=== PATIENT | female | born 1975 | race Caucasian/White ===

== ENCOUNTER 2017-11-21 12:42 | Day surgery (SDC) | payer BC, SELFPAY ==
[2017-11-21 13:02] VITALS: BP 178/82; PULSE 84; RESP 16; TEMP 36.6; O2SAT 95; BMI 53.2
--- NOTE | 2017-11-21 13:35 | RAD_ITS ---
PROCEDURE: Caudal block. DATE OF EXAMINATION: November 21, 2017. INDICATION: Female, 42 years old. Low back pain. FLUOROSCOPY TIME (if supplied): (0:18) minutes/seconds Intraoperative imaging provided for caudal block. The spinal needle is seen along the posterior mid portion of the sacrum. RAD/Fluor Guidance for Spine Inj IMPRESSION: Intraoperative imaging provided for caudal block. Electronically Signed: Alexander Thomas MD at 15:25 EDT Tel [phone], Service support ,
[2017-11-21] MEDS: Bupivacaine 0.25% 30 ML Vial (13:44)
[2017-11-21] MEDS: MethylPREDNISolone Acetate 80 MG/ML Vial (13:44)
[2017-11-21 13:50] VITALS: BP 143/87; BP 178/82; PULSE 73; RESP 18; TEMP 36.6; O2SAT 98
[2017-11-21 13:55] VITALS: BP 153/105; BP 178/82; PULSE 81; RESP 18; O2SAT 98
[2017-11-21 14:00] VITALS: BP 171/95; BP 178/82; PULSE 76; RESP 18; O2SAT 98
[2017-11-21 14:05] VITALS: BP 171/97; BP 178/82; PULSE 73; RESP 18; TEMP 36.7; O2SAT 97
--- NOTE | 2017-11-21 14:05 | OP.PCM_ITS ---
Problem List (1) Degeneration of lumbar or lumbosacral intervertebral disc Status: Chronic (2) Radiculopathy of lumbosacral region Status: Chronic Report of Operation Date of Procedure: 11/21/17 Pre-Operative Diagnosis: Lumbosacral radiculopathy, lumbosacral degenerative disc disease, lumbosacral spinal stenosis Post-Operative Diagnosis: Lumbosacral radiculopathy, lumbosacral degenerative disc disease, lumbosacral spinal stenosis Surgery/Procedure Performed:: Diagnostic/therapeutic caudal epidural steroid injection Description of Surgical Findings:: PROCEDURE: Diagnostic/therapeutic caudal epidural steroid injection PREOPERATIVE DIAGNOSIS: Lumbosacral radiculopathy, lumbosacral degenerative disc disease, lumbosacral spinal stenosis POSTOPERATIVE DIAGNOSIS: Lumbosacral radiculopathy, lumbosacral degenerative disc disease, lumbosacral spinal stenosis ANESTHESIA: MAC COMPLICATIONS: None BLOOD LOSS: Minimal PROCEDURE IN DETAIL: History and physical today was reviewed. Risks and benefits of the procedure were explained. The patient understood, agreed to our procedure, and informed consent was obtained. IV inserted per routine protocol. The patient was taken to the operating room, placed in a prone position with a pillow positioned underneath the abdomen. The lower back and tailbone area was prepped and draped in a sterile fashion using iodine ?3 under direct visualization fluoroscopy on the lateral view the caudal space was identified the skin and subcutaneous tissue and size approximately 3 cc of 1% lidocaine using a 25-gauge regular needle under direct visualization with fluoroscopy on the lateral view using a 22-gauge 3-1/2 inch spinal needle the needle was advanced via the skin through the sacral hiatus the peroneal passed through the sacrococcygeal ligament advanced approximately S4 area after negative aspiration of blood or CSF a total of 3 cc of contrast were injected to confirm correct placement of the needle as well as cephalad spread spread was followed to approximately L5 area after confirmation AP as well as lateral view and repeated negative aspiration a total of 15 cc of preservative-free 0.125% Marcaine with 80 mg of the portal was injected easily. The needles were then removed intact. The patient experienced no signs or symptoms intrathecal, intravascular injection. The patient experienced no paraesthesia. The procedure was completed without any apparent difficult, any complication. The patient appeared to tolerate well. ASSESSMENT AND PLAN: This is a 42-year-old female with lumbosacral radiculopathy lumbosacral degenerative disc disease lumbosacral spinal stenosis status post diagnostic/ therapeutic caudal epidural steroid injection. The patient will continue his current medications. The patient will follow in approximately 2 weeks for possible repeat of the procedure if indicated.
[2017-11-21 14:29] VITALS: BP 171/97; BP 178/82
== END 2017-11-21 14:32 | disposition home or self-care (01) ==
LOC: SDC 12:44 → AC 12:46
PROVIDERS: Visit Provider Anesthesiology Pain Medicine
PROC: 3E0S3BZ Introduction of Anesthetic Agent into Epidural Space, Percutaneous Approach (ICD-10-PCS; CPT 62282; principal; 2017-11-21 14:05)
DX: M51.17 Intervertebral disc disorders with radiculopathy, lumbosacral region (principal); M48.061 Spinal stenosis, lumbar region without neurogenic claudication; M46.98 Unspecified inflammatory spondylopathy, sacral and sacrococcygeal region; M54.5 Low back pain; M79.1 Myalgia; Z79.891 Long term (current) use of opiate analgesic; F17.200 Nicotine dependence, unspecified, uncomplicated; E66.3 Overweight; Z68.43 Body mass index [BMI] 50.0-59.9, adult
CPT/HCPCS: 64483; 77003; J7120; J3490

== ENCOUNTER 2018-01-09 11:49 | Day surgery (SDC) | payer BC, SELFPAY ==
[2018-01-09 12:04] VITALS: BP 150/90; PULSE 81; RESP 18; TEMP 36.4; O2SAT 96; BMI 52.7
--- NOTE | 2018-01-09 13:07 | RAD_ITS ---
PROCEDURE: Caudal block. DATE OF EXAMINATION: January 09, 2018. INDICATION: Female, 42 years old. FLUOROSCOPY TIME (if supplied): (0:36) minutes/seconds Intraoperative fluoroscopic services provided for caudal block. The spinal needle is seen along the inferior posterior aspect of the sacrum. RAD/Fluor Guidance for Spine Inj IMPRESSION: Imaging provided for caudal block. Electronically Signed: Alexander Thomas MD at 8:19 EDT Tel [phone], Service support ,
[2018-01-09] MEDS: MethylPREDNISolone Acetate 80 MG/ML Vial (13:15)
[2018-01-09] MEDS: Bupivacaine 0.25% 30 ML Vial (13:17)
[2018-01-09 13:25] VITALS: BP 150/90; BP 153/77; PULSE 92; RESP 20; TEMP 36.6; O2SAT 96
[2018-01-09 13:30] VITALS: BP 142/79; BP 150/90; PULSE 75; RESP 18; O2SAT 93
[2018-01-09 13:35] VITALS: BP 146/75; BP 150/90; PULSE 71; RESP 18; O2SAT 93
[2018-01-09 13:40] VITALS: BP 144/57; BP 150/90; PULSE 71; RESP 16; TEMP 37; O2SAT 94
[2018-01-09 13:57] VITALS: BP 150/90
--- NOTE | 2018-01-09 15:04 | PCM.OPRPT ---
Problem List (1) Degeneration of lumbar or lumbosacral intervertebral disc Status: Chronic (2) Radiculopathy of lumbosacral region Status: Chronic Report of Operation Date of Procedure: 01/09/18 Pre-Operative Diagnosis: Lumbosacral radiculopathy, lumbosacral degenerative disc disease Post-Operative Diagnosis: Lumbosacral radiculopathy, lumbosacral degenerative disc disease Surgery/Procedure Performed:: Caudal epidural steroid injection Description of Surgical Findings:: PROCEDURE: Caudal epidural steroid injection PREOPERATIVE DIAGNOSIS: Lumbosacral radiculopathy, lumbosacral degenerative disc disease POSTOPERATIVE DIAGNOSIS: Lumbosacral radiculopathy, lumbosacral degenerative disc disease ANESTHESIA: MAC COMPLICATIONS: None BLOOD LOSS: Minimal PROCEDURE IN DETAIL: History and physical today was reviewed. Risks and benefits of the procedure were explained. The patient understood, agreed to our procedure, and informed consent was obtained. IV inserted per routine protocol. The patient was taken to the operating room, placed in a prone position with a pillow positioned underneath the abdomen. The Lower back and tailbone area was prepped and draped in a sterile fashion using iodine ?3, under fluoroscopy guidance on the lateral view the caudal space was identified the skin and subcutaneous tissue and size approximately 3 cc of 1% lidocaine using a 25-gauge regular needle under direct visualization with fluoroscopy using a 22-gauge 3-1/2 inch spinal needle the needle was advanced via the skin through the sacral hiatus the needle then was passed through the sacrococcygeal ligament and advanced to approximately S4 area, after negative aspiration for blood or CSF, a total of 3 cc of contrast were injected to confirm correct placement of the needle as well as cephalad spread the spread was followed to approximately L5 area. after confirmation on AP as well as lateral view and repeated negative aspiration, a total of 15 cc of preservative-free 0.125% Marcaine with 80 mg of Depo-Medrol was injected easily. The needles were then removed intact. The patient experienced no signs or symptoms intrathecal, intravascular injection. The patient experienced no paraesthesia. The procedure was completed without any apparent difficult, any complication. The patient appeared to tolerate well. ASSESSMENT AND PLAN: This is a 42-year-old female with lumbosacral radiculopathy, lumbosacral degenerative disc disease, status post caudal epidural steroid injection. The patient will continue her current medications. The patient will follow in approximately 2 weeks for possible repeat of the procedure if indicated.
== END 2018-01-09 13:57 | disposition home or self-care (01) ==
LOC: SDC 11:49 → AC 11:50
PROVIDERS: Visit Provider Anesthesiology Pain Medicine
PROC: 3E0S3BZ Introduction of Anesthetic Agent into Epidural Space, Percutaneous Approach (ICD-10-PCS; CPT 62282; principal; 2018-01-09 12:45)
DX: M47.27 Other spondylosis with radiculopathy, lumbosacral region (principal); M51.37 Other intervertebral disc degeneration, lumbosacral region; M46.96 Unspecified inflammatory spondylopathy, lumbar region; L40.50 Arthropathic psoriasis, unspecified; M06.9 Rheumatoid arthritis, unspecified; R01.1 Cardiac murmur, unspecified; Z79.891 Long term (current) use of opiate analgesic; Z79.899 Other long term (current) drug therapy; F12.90 Cannabis use, unspecified, uncomplicated; F17.200 Nicotine dependence, unspecified, uncomplicated
CPT/HCPCS: 62323; 64483; 77003; J7120; J3490

== ENCOUNTER 2018-01-31 23:44 | Emergency (ER) | payer BC, SELFPAY ==
[2018-01-31 23:44] VITALS: BP 168/100; PULSE 81; RESP 16; TEMP 36.6; O2SAT 95; BMI 49.8
--- NOTE | 2018-02-01 00:17 | ED.VISSUMM ---
- ER Visit Summary Date of Service: 02/01/18 Chief Complaint: Left low back pain and left leg History of Present Illness: The patient is a 42 F with history of psoriatic arthritis who presents to the emergency department with increasing left low back pain into her left leg. The patient follows with Dr. Ceja. She did have epidural injection just about a month ago. She states for 2 weeks, she was doing very well. She thinks that she may have done too much. Over the past 4-5 days, she had increasing burning pain from her left buttock down her left leg. She states that it hurts to walk on. She did not feel weak, but just has pain. She denies any problems of bowel or bladder. She denies any fevers or chills. She is on gabapentin, but states is not controlling the pain. Physical Examination: Afebrile, vitals unremarkable. Well-appearing female no acute distress. Head is normocephalic, atraumatic. Pupil's equal round reactive, extraocular muscles intact. Neck supple. Heart regular rate and rhythm. Lungs clear, chest nontender. Abdomen soft, nontender, nondistended. No pulsatile mass. Patient has paraspinal tenderness in the lumbar area, but no bony tenderness. Straight leg raise is positive on the left which recreates pain and paresthesia. 2+ symmetric lower extremity pulses. 2+ reflexes. No clonus. No weakness of dorsiflexion, plantar flexion, or extensor hallucis longus bilaterally. Test Results: [] Emergency Department Course and Treatment: The patient symptoms that are consistent with a lumbar radiculopathy. She has normal pulses and reflexes. There is no edema of her leg. The pain is worse when she bears weight or when her leg is in motion. I do not feel that imaging is necessary. She has no red flag symptoms. She has a normal gait. The patient was treated with IM medications with improvement. She is able to ambulate with improvement of her pain. I do feel that the patient will benefit from a Medrol Dosepak she has had improvement with steroids before. She is in pain management. I will write her for antispasmodics. The patient be discharged home. Treatment Plan: [] Disposition: The Impression: 1. Left lumbar radiculopathy This note was generated with Reading Rainbow[employer] software. It may contain incorrect words, spelling, and punctuation that were not noted in review of the chart prior to signing ED Disposition - Plan for ED Patient: Chief Complaint: Lower Extremity Injury Instructions: ED Sciatica Prescriptions: MethylPREDNISolone DosePak [Medrol DosePak] 4 mg PO UD #1 box Cyclobenzaprine [Flexeril] 10 mg PO TID PRN #20 tab PRN Reason: Muscle Spasm Referrals: Care Physician,No Primary [Primary Care Provider] -
[2018-02-01] MEDS: predniSONE 20 MG Tablet 60 MG PO (00:47)
[2018-02-01] MEDS: morphine 8 MG/ML Syringe IM (00:48)
[2018-02-01] MEDS: Orphenadrine 60 MG/2 ML Ampul IM (00:49)
[2018-02-01] MEDS: HYDROcodone Bitartrate/Apap 5/325 Tablet PO (01:33)
[2018-02-01 01:34] VITALS: PULSE 79; RESP 16; O2SAT 98
== END 2018-02-01 01:35 | disposition home or self-care (01) ==
LOC: ED 02-01 00:22
PROVIDERS: Emergency Provider Emergency Medicine
DX: M54.16 Radiculopathy, lumbar region (principal); L40.50 Arthropathic psoriasis, unspecified
CPT/HCPCS: 96372; 99282

== ENCOUNTER → 2018-02-09 17:45 | Outpatient (CLI) | payer BC, SELFPAY ==
--- NOTE | 2018-02-09 17:58 | MRI_ITS ---
STUDY: MRI LUMBAR SPINE WITHOUT CONTRAST REASON FOR EXAM: Female, 42 years old. L leg no wt bearing, L hip buttock pain TECHNIQUE: Standardized fat and water weighted pulse sequences were obtained in the sagittal and axial planes. COMPARISON: None FINDINGS: T12-L1: Normal endplates. Normal disc height, hydration and morphology. Normal bilateral facet joints. Normal central canal and bilateral lateral recesses. Normal bilateral intervertebral neural foramina. Normal lumbar lordosis. There is no substantial scoliosis. Normal conus medullaris that terminates at the L1 level. L1-2: Normal endplates. Normal disc height, hydration and morphology. Normal bilateral facet joints. Normal central canal and bilateral lateral recesses. Normal bilateral intervertebral neural foramina. L2-3: Normal endplates. Normal disc height, hydration and morphology. Normal bilateral facet joints. Normal central canal and bilateral lateral recesses. Normal bilateral intervertebral neural foramina. L3-4: Endplate spondylosis. Central and paracentral and right foraminal disc herniation impinging on the right L3 nerve root in the neural foramen and on the left L4 nerve in the left lateral recess. Degenerative changes of the bilateral facet joints. Mild narrowing of the central canal and moderate bilateral intervertebral neural foramina. L4-5: Endplate spondylosis. Central and paracentral disc herniation more prominent on the left side impinging on the left L5 nerve root. Degenerative changes of the bilateral facet joints. Moderate narrowing of the central canal and moderate narrowing of the bilateral intervertebral neural foramina. L5-S1: Normal endplates. Normal disc height, hydration and morphology. Normal bilateral facet joints. Normal central canal and bilateral lateral recesses. Normal bilateral intervertebral neural foramina. Normal visualized sacral ala. Normal visualized paraspinous soft tissue structures. MRI/Spine Lumbar (Routine) IMPRESSION: L3-4: Central and paracentral and right foraminal disc herniation impinging on the right L3 nerve root in the neural foramen and on the left L4 nerve in the left lateral recess. L4-5: Central and paracentral disc herniation more prominent on the left side impinging on the left L5 nerve root. Electronically Signed: Hiram Burns MD at 7:19 EDT Tel , Service support ,
== END ==
PROVIDERS: Visit Provider Anesthesiology Pain Medicine
DX: M79.605 Pain in left leg (principal); R19.4 Change in bowel habit
CPT/HCPCS: 72148

== ENCOUNTER 2018-03-06 08:00 | Day surgery (SDC) | payer BC, SELFPAY ==
[2018-03-06 08:38] VITALS: BP 135/88; PULSE 79; RESP 16; TEMP 36.4; O2SAT 94; BMI 54.6
--- NOTE | 2018-03-06 09:15 | RAD_ITS ---
PROCEDURE: Left L4 S1 transforaminal block. DATE OF EXAMINATION: March 06, 2018. INDICATION: Female, 42 years old. Low back pain. FLUOROSCOPY TIME (if supplied): (0:23) minutes/seconds. 6 images were obtained. Intraoperative imaging provided for left L4-S1 transforaminal block. RAD/Lumbar Spine 2 or 3 Views IMPRESSION: Intraoperative fluoroscopic services provided for left L4-S1 transforaminal block. Electronically Signed: Alexander Thomas MD at 15:13 EDT Tel [phone], Service support ,
[2018-03-06] MEDS: Bupivacaine 0.5% PF 10 ML VIAL (09:23)
[2018-03-06] MEDS: MethylPREDNISolone Acetate 80 MG/ML Vial (09:23)
[2018-03-06 09:35] VITALS: BP 132/80; BP 135/88; PULSE 71; RESP 16; TEMP 37; O2SAT 97
[2018-03-06 09:40] VITALS: BP 135/88; BP 144/81; PULSE 72; RESP 16; O2SAT 98
[2018-03-06 09:45] VITALS: BP 135/88; BP 142/78; PULSE 71; RESP 16; O2SAT 96
[2018-03-06 09:50] VITALS: BP 135/88; BP 148/80; PULSE 72; RESP 16; TEMP 36.8; O2SAT 96
[2018-03-06 10:06] VITALS: BP 135/88
--- NOTE | 2018-03-06 10:23 | PCM.OPRPT ---
Problem List (1) Degeneration of lumbar or lumbosacral intervertebral disc Status: Chronic (2) Radiculopathy of lumbosacral region Status: Chronic Report of Operation Date of Procedure: 03/06/18 Pre-Operative Diagnosis: Lumbosacral radiculopathy, lumbosacral degenerative disc disease, lumbar disc displacement Post-Operative Diagnosis: Lumbosacral radiculopathy, lumbosacral degenerative disc disease, lumbar disc displacement Surgery/Procedure Performed:: Left-sided lumbar transforaminal epidural steroid injection L4-5, L5-S1 Description of Surgical Findings:: PROCEDURE: Left-sided lumbar transforaminal epidural steroid injection L4-5, L5-S1 PREOPERATIVE DIAGNOSIS: Lumbosacral radiculopathy, lumbosacral degenerative disc disease, lumbar disc displacement POSTOPERATIVE DIAGNOSIS: Lumbosacral radiculopathy, lumbosacral degenerative disc disease, lumbar disc displacement ANESTHESIA: MAC COMPLICATIONS: None BLOOD LOSS: Minimal PROCEDURE IN DETAIL: History and physical today was reviewed. Risks and benefits of the procedure were explained. The patient understood, agreed to our procedure, and informed consent was obtained. IV inserted per routine protocol. The patient was taken to the operating room, placed in a prone position with a pillow positioned underneath the abdomen. The Lower back area was prepped and draped in a sterile fashion using iodine x3 under fluoroscopy guidance on oblique view the L4 through S1 vertebral bodies are visualized the skin and subcutaneous tissue were anesthetized with approximately 5 cc of 1% lidocaine using a 25-gauge regular needle under direct visualization with fluoroscopy at approximately 35 degrees angle starting on the left L4 ending on the left L5 using a 22-gauge 5 inch spinal needle the needle was advanced via the skin tip of the needle's maneuver and directed towards the inferior and medial gutter of the transverse process at the superiormost aspect of the neuroforamen once the tip of the needle was at the vicinity of the foramen after negative aspiration for blood or CSF a total of 1 cc of contrast were injected in divided doses between both levels to confirm correct placement of the needle as well as medial spread the confirmation was obtained on AP as well as lateral view after repeated negative aspiration and confirmation a total of 6 cc of preservative-free 0.25% Marcaine with 80 mg of Depo-Medrol were injected in divided doses between both levels, the needles were then removed intact. The patient experienced no signs or symptoms intrathecal, intravascular injection. The patient experienced no paraesthesia. The procedure was completed without any apparent difficult, any complication. The patient appeared to tolerate well. ASSESSMENT AND PLAN: This is a 42-year-old female with lumbosacral radiculopathy, lumbosacral degenerative disc disease, lumbar disc displacement status post left-sided lumbar transforaminal epidural steroid injection L4 through S1. The patient will continue her current medications. The patient will follow in approximately 2 weeks for possible repeat of the procedure if indicated.
== END 2018-03-06 10:09 | disposition home or self-care (01) ==
LOC: SDC 08:00 → AC 08:01
PROVIDERS: Referring Provider Anesthesiology Pain Medicine; Visit Provider Anesthesiology Pain Medicine
PROC: 3E0S3BZ Introduction of Anesthetic Agent into Epidural Space, Percutaneous Approach (ICD-10-PCS; CPT 62323; principal; 2018-03-06 09:10)
DX: M51.17 Intervertebral disc disorders with radiculopathy, lumbosacral region (principal); M51.16 Intervertebral disc disorders with radiculopathy, lumbar region; I10 Essential (primary) hypertension; M06.9 Rheumatoid arthritis, unspecified; F17.210 Nicotine dependence, cigarettes, uncomplicated; M47.817 Spondylosis without myelopathy or radiculopathy, lumbosacral region; M46.96 Unspecified inflammatory spondylopathy, lumbar region; Z79.891 Long term (current) use of opiate analgesic
CPT/HCPCS: 01935; 62323; 64483; 72100; J7120; J3490

== ENCOUNTER 2018-04-24 06:55 | Day surgery (SDC) | payer BC, SELFPAY ==
--- NOTE | 2018-04-24 07:10 | RAD_ITS ---
PROCEDURE: Left L4-S1 transforaminal block. DATE OF EXAMINATION: April 24, 2018. INDICATION: Female, 43 years old. Low back pain. FLUOROSCOPY TIME (if supplied): (0:35) minutes/seconds. 2 intraoperative views were obtained. Intraoperative imaging provided for left L4 S1 transforaminal block. RAD/Lumbar Spine 2 or 3 Views IMPRESSION: Intraoperative imaging provided for left L4-S1 transforaminal block. Electronically Signed: Alexander Thomas MD at 9:14 EST Tel [phone], Service support ,
[2018-04-24 07:20] VITALS: BP 153/93; PULSE 78; RESP 18; TEMP 36.4; O2SAT 96; BMI 54.1
--- NOTE | 2018-04-24 08:22 | PCM.OPRPT ---
Problem List (1) Degeneration of lumbar or lumbosacral intervertebral disc Status: Chronic (2) Radiculopathy of lumbosacral region Status: Chronic Report of Operation Date of Procedure: 04/24/18 Pre-Operative Diagnosis: Lumbosacral radiculopathy, lumbosacral degenerative disc disease, lumbar disc displacement Post-Operative Diagnosis: Lumbosacral radiculopathy, lumbosacral degenerative disc disease, lumbar disc displacement Surgery/Procedure Performed:: Left-sided lumbar transforaminal epidural steroid injection L4-5, L5-S1 Description of Surgical Findings:: PROCEDURE: Left-sided lumbar transforaminal epidural steroid injection L4-5, L5-S1 PREOPERATIVE DIAGNOSIS: Lumbosacral radiculopathy, lumbosacral degenerative disc disease, lumbar disc displacement POSTOPERATIVE DIAGNOSIS: Lumbosacral radiculopathy, lumbosacral degenerative disc disease, lumbar disc displacement ANESTHESIA: MAC COMPLICATIONS: None BLOOD LOSS: Minimal PROCEDURE IN DETAIL: History and physical today was reviewed. Risks and benefits of the procedure were explained. The patient understood, agreed to our procedure, and informed consent was obtained. IV inserted per routine protocol. The patient was taken to the operating room, placed in a prone position with a pillow positioned underneath the abdomen. The Lower back area was prepped and draped in a sterile fashion using iodine x3 under fluoroscopy guidance on oblique view the L4 through S1 vertebral bodies are visualized the skin and subcutaneous tissue were anesthetized with approximately 5 cc of 1% lidocaine using a 25-gauge regular needle under direct visualization with fluoroscopy at approximately 35 degrees angle starting on the left L4 ending on the left L5 using a 22-gauge 5 inch spinal needle the needle was advanced via the skin tip of the needle's maneuver and directed towards the inferior and medial gutter of the transverse process at the superiormost aspect of the neuroforamen once the tip of the needle was at the vicinity of the foramen after negative aspiration for blood or CSF a total of 1 cc of contrast were injected in divided doses between both levels to confirm correct placement of the needle as well as medial spread the confirmation was obtained on AP as well as lateral view after repeated negative aspiration and confirmation a total of 6 cc of preservative-free 0.25% Marcaine with 80 mg of Depo-Medrol were injected in divided doses between both levels, the needles were then removed intact. The patient experienced no signs or symptoms intrathecal, intravascular injection. The patient experienced no paraesthesia. The procedure was completed without any apparent difficult, any complication. The patient appeared to tolerate well. ASSESSMENT AND PLAN: This is a 43-year-old female with lumbosacral radiculopathy, lumbosacral degenerative disc disease, lumbar disc displacement status post left-sided lumbar transforaminal epidural steroid injection L4 through S1. The patient will continue her current medications. The patient will follow in approximately 2 weeks for reevaluation.
[2018-04-24] MEDS: MethylPREDNISolone Acetate 80 MG/ML Vial (08:29)
[2018-04-24] MEDS: Bupivacaine 0.25% 30 ML Vial (08:29)
[2018-04-24 08:40] VITALS: BP 119/64; BP 153/93; PULSE 73; RESP 16; TEMP 36.4; O2SAT 95
[2018-04-24 08:45] VITALS: BP 121/74; BP 153/93; PULSE 73; RESP 16; O2SAT 99
[2018-04-24 08:50] VITALS: BP 151/66; BP 153/93; PULSE 72; RESP 16; O2SAT 99
[2018-04-24 08:55] VITALS: BP 153/93; BP 170/84; PULSE 73; RESP 16; TEMP 36.4; O2SAT 99
[2018-04-24 09:15] VITALS: BP 153/93
--- OUTSIDE RECORDS SUMMARY | 2018-06-17 04:54 | XMS RPT_ITS ---
:1975 Author Organization OH[facility] Care Team Providers Name Role Phone CONSTANCE CRANE (KIMBERLY) Attending Unavailable Dung Baumann Attending Unavailable Dung Baumann Referring Unavailable Primay Care Physicia, No Primary Care Unavailable Dung Baumann Attending Unavailable Dung Baumann Referring Unavailable Primay Care Physicia, No Primary Care Unavailable Primay Care Physicia, No Primary Care Unavailable Octavio Gilmore Attending Unavailable Pastor, Dung Attending Unavailable Pastor, Dung Referring Unavailable Primay Care Physicia, No Primary Care Unavailable Pastor, Dung Attending Unavailable Pastor, Dung Referring Unavailable Primay Care Physicia, No Primary Care Unavailable Pastor, Dung Attending Unavailable Pastor, Dung Referring Unavailable Primay Care Physicia, No Primary Care Unavailable PROBLEMS PROBLEMS No Problem Records FoundPROCEDURES PROCEDURES No Procedure Records FoundRESULTS RESULTS OPERATIVE REPORT Observed: 04/24/2018 Status: F Source: [place] 9:03 AM [facility] REPOSITORY [facility] Medical Records Department [address] [place] [address] Operative Report 04/24/18 0822 MR#: [id number] Acct: [id number] Name: DANILO NEGRETE Rep #: [id number] : 1975 43 From: Dung Baumann MD PCP: Care Physician, No Primary Status: [facility] Location: [place] [address] Problem List (1) Degeneration of lumbar or lumbosacral intervertebral disc Status: Chronic (2) Radiculopathy of lumbosacral region Status: Chronic Report of Operation Date of Procedure: 04/24/18 Pre-Operative Diagnosis: Lumbosacral radiculopathy, lumbosacral degenerative disc disease, lumbar disc displacement Post-Operative Diagnosis: Lumbosacral radiculopathy, lumbosacral degenerative disc disease, lumbar disc displacement Surgery/Procedure Performed:: Left-sided lumbar transforaminal epidural steroid injection L4-5, L5-S1 Description of Surgical Findings:: PROCEDURE: Left-sided lumbar transforaminal epidural steroid injection L4-5, L5-S1 PREOPERATIVE DIAGNOSIS: Lumbosacral radiculopathy, lumbosacral degenerative disc disease, lumbar disc displacement POSTOPERATIVE DIAGNOSIS: Lumbosacral radiculopathy, lumbosacral degenerative disc disease, lumbar disc displacement ANESTHESIA: MAC COMPLICATIONS: None BLOOD LOSS: Minimal PROCEDURE IN DETAIL: History and physical today was reviewed. Risks and benefits of the procedure were explained. The patient understood, agreed to our procedure, and informed consent was obtained. IV inserted per routine protocol. The patient was taken to the operating room, placed in a prone position with a pillow positioned underneath the abdomen. The Lower back area was prepped and draped in a sterile fashion using iodine x3 under fluoroscopy guidance on oblique view the L4 through S1 vertebral bodies are visualized the skin and subcutaneous tissue were anesthetized with approximately 5 cc of 1% lidocaine using a 25-gauge regular needle under direct visualization with fluoroscopy at approximately 35 degrees angle starting on the left L4 ending on the left L5 using a 22-gauge 5 inch spinal needle the needle was advanced via the skin tip of the needle's maneuver and directed towards the inferior and medial gutter of the transverse process at the superiormost aspect of the neuroforamen once the tip of the needle was at the vicinity of the foramen after negative aspiration for blood or CSF a total of 1 cc of contrast were injected in divided doses between both levels to confirm correct placement of the needle as well as medial spread the confirmation was obtained on AP as well as lateral view after repeated negative aspiration and confirmation a total of 6 cc of preservative-free 0.25% Marcaine with 80 mg of Depo-Medrol were injected in divided doses between both levels, the needles were then removed intact. The patient experienced no signs or symptoms intrathecal, intravascular injection. The patient experienced no paraesthesia. The procedure was completed without any apparent difficult, any complication. The patient appeared to tolerate well. ASSESSMENT AND PLAN: This is a 43-year-old female with lumbosacral radiculopathy, lumbosacral degenerative disc disease, lumbar disc displacement status post left-sided lumbar transforaminal epidural steroid injection L4 through S1. The patient will continue her current medications. The patient will follow in approximately 2 weeks for reevaluation. 04/24/18 0903 <Electronically signed by Dung Baumann MD> Date Dung Baumann MD CC: No Primary Care Physician; Dung Baumann Signed LUMBAR SPINE 2 OR 3 Observed: 04/24/2018 Status: F Source: [place] 7:12 AM [facility] REPOSITORY [facility] Imaging Services [address] [place] [address] [place] [address] Lumbar Spine 2 or 3 Views MR#: [id number] Acct: [id number] Name: ASAFJENNIFERSoniDANILO Seals Rep #: [id number] : 1975 F 43 From: Alexander Thomas MD PCP: Care Physician, No Primary Status: [facility] Study: Lumbar Spine 2 or 3 Views Date of Exam: 04/24/18 Exam# [id number] Ordering Dr: Dung Baumann MD PROCEDURE: Left L4-S1 transforaminal block. DATE OF EXAMINATION: April 24, 2018. INDICATION: Female, 43 years old. Low back pain. FLUOROSCOPY TIME (if supplied): (0:35) minutes/seconds. 2 intraoperative views were obtained. Intraoperative imaging provided for left L4 S1 transforaminal block. RAD/Lumbar Spine 2 or 3 Views IMPRESSION: Intraoperative imaging provided for left L4-S1 transforaminal block. Electronically Signed: Alexander Thomas MD at 9:14 EST Tel [phone], Service support , CC: No Primary Care Physician; Dung Baumann Rock Mason: Signed NAYA Observed: 2018 Status: COMPLETED Source: [place] 1:00 PM [facility] REPOSITORY Office Visit (SPNSMN) DANILO NEGRETE ([id number]) 1975 F Date Time Provider Department 03/22/18 1:00 PM CONSTANCE CRANE) SPNSMN During your visit today, we recorded the following information about you: Pulse Respiration Blood pressure Weight 79/minute 18/minute 150/73 172.4 kg Height 1.778 m Constance Crane PA-C 2018 2:49 PM Signed SPINE SURGERY OUTPATIENT CONSULT SERVICE DATE: 2018 PCP: No primary care provider on file. REFERRING PROVIDER: SELF Consult requested for an opinion regarding the evaluation and treatment of left leg pain. My final impression and recommendations will be communicated back to the requesting physician by way of the shared medical record or letter via US mail. SUBJECTIVE Danilo Negrete is a 43 year old female presenting with son. CHIEF COMPLAINT: left leg pain HISTORY OF PRESENT ILLNESS PRECIPITATING EVENT: None DURATION OF SYMPTOMS: Less Than 6 Weeks Patient is a 43 yo F with history of psoriatic arthritis presenting with left leg pain which started in early January without incident. She originally thought the pain was coming from her arthritis but she was then diagnosed with a disc herniation. She tried doing PT but it caused flair ups with her arthritis so she has been doing stretches and exercises at home. She describes the pain as radiating from the left buttock down the lateral thigh and into the calf. She also describes the left foot as being numb throughout. She also gets a mitzy horse sensation in her calf. She does feel like her symptoms have slightly improved over the last month. She denies any right leg symptoms. She has been working with pain management and has been taking diclofenac and 900mg daily and receiving epidural injections. She states that the first injection provided her with about 2 days of relief and the second provided her with one week of relief. She denies any weakness, bowel or bladder dysfunction but has not been able to work due to the pain. She has not had any previous lumbar surgeries. She denies any low back pain. ? PAIN EVALUATION 2018 Pain Score: 8 Pain Location: Back-Lower left leg,pelvis, left hip Description: Aching;Shooting;Radiating Duration Amount of Time: 2 Duration Units: Months Frequency: Continuous Intervention: Medication;Relaxation;Heat;Cold;Other: See comment injections DERMATOMAL DISTRIBUTION: Left: L5 AMBULATORY STATUS: Impaired Community Distances ANTIPLATELET OR ANTICOAGULATION STATUS: No PREVIOUS CONSERVATIVE TREATMENTS: Gabapentin, Diclofenac, Epidural injections PREVIOUS SPINAL SURGERY: None ACTIVE PROBLEM LIST Psoriasis Intervertebral Disc Disorder With Radiculopathy of Lumbar Region PAST MEDICAL HISTORY Diagnosis Date - Psoriasis 08/16/2016 No past surgical history on file. No family history on file. Social History Marital status: Spouse name: Years of education: Number of children: Social History Main Topics Smoking status: Current Every Day Smoker Packs/day: 0.00 Years: 0.00 Smokeless tobacco: Never Used ALLERGIES No Known Allergies MEDICATIONS: TALTZ AUTOINJECTOR 80 mg/mL AutoInjector once every month. diclofenac, EC, (VOLTAREN) 75 mg EC tablet Take 1 tablet by mouth twice daily. Lactobacillus acidophilus (FLORAJEN) 460 mg (20 billion cell) cap Take 1 capsule by mouth once daily. gabapentin (NEURONTIN) 300 mg capsule Take 2 capsules by mouth three times daily for 30 days. ADALIMUMAB (HUMIRA SUBCUTANEOUS) Inject 1 Dose subcutaneously once each week. secukinumab (COSENTYX, 2 SYRINGES,) 150 mg/mL injection Inject subcutaneously one time only. REVIEW OF SYSTEMS: PAIN ASSESSMENT: See HPI. GENERAL: Denies fever, chills malaise and weight loss. HEENT: No recent change in vision or hearing. CARDIOVASCULAR: Denies chest pain, history of A-fib, valvular disease, or pacemaker/ICD. RESPIRATORY: Denies SOB, sputum production, and hemoptysis. GI: Denies GI ulcers, inflammatory disease, or liver disease. : Denies change in frequency or urgency, kidney disease, and burning with urination. MUSCULOSKELETAL: Negative for joint pain or swelling, back pain or muscle pain. SKIN: Denies rash or itching. PSYCHOLOGICAL: Denies uncontrolled depression or anxiety. NEURO: Denies CVA, seizures, headaches. ENDOCRINE: Denies diabetes, thyroid disease. HEMATOLOGY/LYMPHOLOGY: Denies cancer, bleeding or clotting disorders, anemia,and DVT's. ALLERGIC/IMMUNOLOGICAL: Denies risks for infection, or recent MRSA infections. OBJECTIVE: PHYSICAL EXAM BP 150/73 Pulse 79 Resp 18 Ht 177.8 cm (5' 10) Wt (!) 172.4 kg (380 lb) BMI 54.52 kg/m? GENERAL APPEARANCE: Well nourished, well developed, and no apparent distress. NEURO PSYCH: Patient oriented to person, place, and time. Mood pleasant. Benign affect. SKIN: Head, neck, trunk, and extremities dry, intact and without lesions. MUSCULOSKELETAL VISUAL INSPECTION CERVICAL: WNL THORACIC: WNL LUMBAR: WNL PALPATION: SPINOUS PROCESS: No pain. PARASPINALS: No pain. MUSCLE BULK: Normal and symmetrical in the upper AND lower extremities. MUSCLE TONE: Normal. MOTOR: 5/5 in all muscle groups. SENSORY: Normal sensory exam GAIT: Normal. REFLEXES: +2 to bilateral U/L extremities. PROPRIOCEPTION: Normal. LONG TRACT SIGNS: No clonus. No Hoffmans. STRAIGHT LEG TEST: Ipsilateral: Negative. Contralateral: Negative. L'HERMITTES SIGN: Not tested. SPURLING'S TEST: Not tested. NEURO TESTS: None DATA REVIEW Imaging and outside records reviewed L4-5 left sided disc impinging the left traversing L5 nerve root. ASSESSMENT/PLAN (M51.16) Intervertebral disc disorder with radiculopathy of lumbar region Patient presents with 1.5 month history of left L5 radiculopathy. She has been using 900mg of gabapentin daily with diclofenac and she has tried epidural injections with only short term relief. Her MRI revealed L4- 5 left sided disc impinging the traversing L5 nerve root which is likely the cause of her symptoms. We had a long discussion regarding the acuity of her pain and that the body can resorb disc herniations with time. She describes her pain over the last month as being less severe and slowly improving which I think provided good evidence that this may go away with time on its own. In the mean time she will slowly titrate her gabapentin dose up to taking 1800mg a day. We had a long discussion regarding her weight and that if any surgical intervention was needed in the future she would be at a much higher risk for complications and infection. I advised that due to this being an elective procedure surgeons would likely require her to lose weight prior to any type of surgical intervention. We discussed the benefits of weight loss on her overall health. She was very thankful for the time and will call with an update in 4-6 weeks. The majority of the visit was spent counseling and/or coordinating care for the patient. The patient was counseled regarding symptoms, image review, conservative treatment, surgical intervention, co-morbidities, weight loss. Total face to face time was 45 minutes. SIGNATURE: Constance Crane PA-C PATIENT NAME: Danilo Negrete DATE: 2018 TIME: 12:48 PM PAGER: Referring Provider: SELF [[id number]] Allergies As of Date: 2018 (No Known Allergies) Date Reviewed: 2018 Reviewed by: Umu (Zainab) ZAINAB Davidson - Fully Assessed Reason for Visit: New Patient [[id number]] Visit Diagnosis:Intervertebral disc disorder with radiculopathy of lumbar region [M51.16] Order(s):gabapentin (NEURONTIN) 300 mg capsuleTake 2 capsules by mouth three times daily for 30 days.Disp: 180 capsuleRfl: 1 diclofenac, EC, (VOLTAREN) 75 mg EC tabletTake 1 tablet by mouth twice daily.Disp: 60 tabletRfl: 0 Prescriptions as of 2018 Sig: TALTZ AUTOINJECTOR 80 MG/ML S* once every month. DICLOFENAC SODIUM 75 MG TABLE* Take 1 tablet by mouth twice * LACTOBACILLUS ACIDOPHILUS 460* Take 1 capsule by mouth once * GABAPENTIN 300 MG CAPSULE Take 2 capsules by mouth thre* HUMIRA SUBCUTANEOUS Inject 1 Dose subcutaneously * SECUKINUMAB 150 MG/ML SUBCUTA* Inject subcutaneously one ti* Problem List As Of Date 2018 Noted Resolved Psoriasis [L40.9] INVALID FOR* Intervertebral disc disorder with radiculopathy*INVALID FOR* Prescriptions ordered this encounter Disp Refills Start End GABAPENTIN 300 MG CAPSULE 180 * 1 2018 04/21/2018 Route: ORAL Sig: Take 2 capsules by mouth three times daily for 30 days. DICLOFENAC SODIUM 75 MG TABLET,DELAY* 60 t* 0 2018 04/21/2018 Route: ORAL Sig: Take 1 tablet by mouth twice daily. Medications Discontinued During This Encounter gabapentin (NEURONTIN) 300 mg capsule 2018 Class: Historical Med Route: ORAL Sig: Take 300 mg by mouth three times daily. Disc: Changing Therapy/Dosage Form NAPROXEN SODIUM (ALEVE ORAL) 2018 Class: Historical Med Route: ORAL Sig: Take by mouth. as necessary Disc: Changing Therapy/Dosage Form ketorolac (TORADOL) 10 mg tablet 2018 Class: Historical Med Route: ORAL Sig: Take 10 mg by mouth as needed. Disc: Changing Therapy/Dosage Form diclofenac, EC, (VOLTAREN) 75 mg EC * 0 02/22/2018 2018 Class: Historical Med Route: ORAL Sig: Take 75 mg by mouth twice daily with meals. Disc: Reason for discontinue is not on file. Encounter Status:Closed by CONSTANCE CRANE PA-C on 03/22/18 PROGRESS Observed: 2018 Status: COMPLETED Source: [place] 12:[address] [facility] REPOSITORY HNO ID: [id number] Author: Constance Crane Service: (none) Author Type: Physician Shot Packer Type: Progress Notes Filed: 2018 2:49 PM Note Text: SPINE SURGERY OUTPATIENT CONSULT SERVICE DATE: 2018 PCP: No primary care provider on file. REFERRING PROVIDER: SELF Consult requested for an opinion regarding the evaluation and treatment of left leg pain. My final impression and recommendations will be communicated back to the requesting physician by way of the shared medical record or letter via US mail. SUBJECTIVE Danilo Negrete is a 43 year old female presenting with son. CHIEF COMPLAINT: left leg pain HISTORY OF PRESENT ILLNESS PRECIPITATING EVENT: None DURATION OF SYMPTOMS: Less Than 6 Weeks Patient is a 43 yo F with history of psoriatic arthritis presenting with left leg pain which started in early January without incident. She originally thought the pain was coming from her arthritis but she was then diagnosed with a disc herniation. She tried doing PT but it caused flair ups with her arthritis so she has been doing stretches and exercises at home. She describes the pain as radiating from the left buttock down the lateral thigh and into the calf. She also describes the left foot as being numb throughout. She also gets a mitzy horse sensation in her calf. She does feel like her symptoms have slightly improved over the last month. She denies any right leg symptoms. She has been working with pain management and has been taking diclofenac and 900mg daily and receiving epidural injections. She states that the first injection provided her with about 2 days of relief and the second provided her with one week of relief. She denies any weakness, bowel or bladder dysfunction but has not been able to work due to the pain. She has not had any previous lumbar surgeries. She denies any low back pain. ? PAIN EVALUATION 2018 Pain Score: 8 Pain Location: Back-Lower left leg,pelvis, left hip Description: Aching;Shooting;Radiating Duration Amount of Time: 2 Duration Units: Months Frequency: Continuous Intervention: Medication;Relaxation;Heat;Cold;Other: See comment injections DERMATOMAL DISTRIBUTION: Left: L5 AMBULATORY STATUS: Impaired Community Distances ANTIPLATELET OR ANTICOAGULATION STATUS: No PREVIOUS CONSERVATIVE TREATMENTS: Gabapentin, Diclofenac, Epidural injections PREVIOUS SPINAL SURGERY: None ACTIVE PROBLEM LIST Psoriasis Intervertebral Disc Disorder With Radiculopathy of Lumbar Region PAST MEDICAL HISTORY Diagnosis Date - Psoriasis 08/16/2016 No past surgical history on file. No family history on file. Social History Marital status: Spouse name: Years of education: Number of children: Social History Main Topics Smoking status: Current Every Day Smoker Packs/day: 0.00 Years: 0.00 Smokeless tobacco: Never Used ALLERGIES No Known Allergies MEDICATIONS: TALTZ AUTOINJECTOR 80 mg/mL AutoInjector once every month. diclofenac, EC, (VOLTAREN) 75 mg EC tablet Take 1 tablet by mouth twice daily. Lactobacillus acidophilus (FLORAJEN) 460 mg (20 billion cell) cap Take 1 capsule by mouth once daily. gabapentin (NEURONTIN) 300 mg capsule Take 2 capsules by mouth three times daily for 30 days. ADALIMUMAB (HUMIRA SUBCUTANEOUS) Inject 1 Dose subcutaneously once each week. secukinumab (COSENTYX, 2 SYRINGES,) 150 mg/mL injection Inject subcutaneously one time only. REVIEW OF SYSTEMS: PAIN ASSESSMENT: See HPI. GENERAL: Denies fever, chills malaise and weight loss. HEENT: No recent change in vision or hearing. CARDIOVASCULAR: Denies chest pain, history of A-fib, valvular disease, or pacemaker/ICD. RESPIRATORY: Denies SOB, sputum production, and hemoptysis. GI: Denies GI ulcers, inflammatory disease, or liver disease. : Denies change in frequency or urgency, kidney disease, and burning with urination. MUSCULOSKELETAL: Negative for joint pain or swelling, back pain or muscle pain. SKIN: Denies rash or itching. PSYCHOLOGICAL: Denies uncontrolled depression or anxiety. NEURO: Denies CVA, seizures, headaches. ENDOCRINE: Denies diabetes, thyroid disease. HEMATOLOGY/LYMPHOLOGY: Denies cancer, bleeding or clotting disorders, anemia,and DVT's. ALLERGIC/IMMUNOLOGICAL: Denies risks for infection, or recent MRSA infections. OBJECTIVE: PHYSICAL EXAM BP 150/73 Pulse 79 Resp 18 Ht 177.8 cm (5' 10) Wt (!) 172.4 kg (380 lb) BMI 54.52 kg/m? GENERAL APPEARANCE: Well nourished, well developed, and no apparent distress. NEURO PSYCH: Patient oriented to person, place, and time. Mood pleasant. Benign affect. SKIN: Head, neck, trunk, and extremities dry, intact and without lesions. MUSCULOSKELETAL VISUAL INSPECTION CERVICAL: WNL THORACIC: WNL LUMBAR: WNL PALPATION: SPINOUS PROCESS: No pain. PARASPINALS: No pain. MUSCLE BULK: Normal and symmetrical in the upper AND lower extremities. MUSCLE TONE: Normal. MOTOR: 5/5 in all muscle groups. SENSORY: Normal sensory exam GAIT: Normal. REFLEXES: +2 to bilateral U/L extremities. PROPRIOCEPTION: Normal. LONG TRACT SIGNS: No clonus. No Hoffmans. STRAIGHT LEG TEST: Ipsilateral: Negative. Contralateral: Negative. L'HERMITTES SIGN: Not tested. SPURLING'S TEST: Not tested. NEURO TESTS: None DATA REVIEW Imaging and outside records reviewed L4-5 left sided disc impinging the left traversing L5 nerve root. ASSESSMENT/PLAN (M51.16) Intervertebral disc disorder with radiculopathy of lumbar region Patient presents with 1.5 month history of left L5 radiculopathy. She has been using 900mg of gabapentin daily with diclofenac and she has tried epidural injections with only short term relief. Her MRI revealed L4-5 left sided disc impinging the traversing L5 nerve root which is likely the cause of her symptoms. We had a long discussion regarding the acuity of her pain and that the body can resorb disc herniations with time. She describes her pain over the last month as being less severe and slowly improving which I think provided good evidence that this may go away with time on its own. In the mean time she will slowly titrate her gabapentin dose up to taking 1800mg a day. We had a long discussion regarding her weight and that if any surgical intervention was needed in the future she would be at a much higher risk for complications and infection. I advised that due to this being an elective procedure surgeons would likely require her to lose weight prior to any type of surgical intervention. We discussed the benefits of weight loss on her overall health. She was very thankful for the time and will call with an update in 4-6 weeks. The majority of the visit was spent counseling and/or coordinating care for the patient. The patient was counseled regarding symptoms, image review, conservative treatment, surgical intervention, co-morbidities, weight loss. Total face to face time was 45 minutes. SIGNATURE: Constance Crane PA-C PATIENT NAME: Danilo Negrete DATE: 2018 TIME: 12:48 PM PAGER: PROGRESS Observed: 03/09/2018 Status: COMPLETED Source: [place] 9:[address] [facility] REPOSITORY O ID: [id number] Author: Constance Crane Service: (none) Author Type: Physician Shot Packer Type: Progress Notes Filed: 03/09/2018 9:44 AM Note Text: MRI report states impingement on the right L3 nerve root in the foramen, left L4 nerve in the lateral recess and L5 nerve root. Had a caudal epidural steroid injection on 11/21/17 Taking diclofenac, gabapentin, ibuprofen and motrin Office note from September describes pain in the hips, knees and ankle. Also has radiating pain into the groin and down the legs. Worse with walking. Requesting patient see DOMINGUEZ for further triage. PROGRESS Observed: 03/06/2018 Status: COMPLETED Source: [place] 11:[address] [facility] REPOSITORY HNO ID: [id number] Author: Fay Fitch Service: (none) Author Type: (none) Type: Progress Notes Filed: 03/09/2018 9:44 AM Note Text: Patient name: Danilo Negrete Are you being referred by a [facility] Provider or Pain Management Provider at [facility]? No If no, who is the Referring Provider no MRI/CT/myelogram within 12 months: Yes Imaging viewable in Epic: No If no, please instruct pt to provide most recent spine imaging in on CD with report for review during triage Requested provider: unknown 1. Are you having pain in any of the following areas related to this visit? Back legs 2. Are you having any of the following symptoms: having difficulty walking, numbness, weakness or trouble using your hands? Yes 3. Have you completed the following treatment in the past 12 months for this problem? yes Conservative Therapy: Oral steroids 4. Are you currently taking daily prescribed narcotic medications for your current symptoms? Yes 5. Have you had previous spinal surgery for this same problem? No Additional Comments fax over the report OPERATIVE REPORT Observed: 03/06/2018 Status: F Source: [place] 10:28 AM [facility] REPOSITORY [facility] Medical Records Department [address] [place] [address] Operative Report 03/06/18 1023 MR#: [id number] Acct: [id number] Name: DANILO NEGRETE Rep #: [id number] : 1975 42 From: Dung Baumann MD PCP: Care Physician, No Primary Status: DEP SDC Y Location: [facility] Problem List (1) Degeneration of lumbar or lumbosacral intervertebral disc Status: Chronic (2) Radiculopathy of lumbosacral region Status: Chronic Report of Operation Date of Procedure: 03/06/18 Pre-Operative Diagnosis: Lumbosacral radiculopathy, lumbosacral degenerative disc disease, lumbar disc displacement Post-Operative Diagnosis: Lumbosacral radiculopathy, lumbosacral degenerative disc disease, lumbar disc displacement Surgery/Procedure Performed:: Left-sided lumbar transforaminal epidural steroid injection L4-5, L5-S1 Description of Surgical Findings:: PROCEDURE: Left-sided lumbar transforaminal epidural steroid injection L4-5, L5-S1 PREOPERATIVE DIAGNOSIS: Lumbosacral radiculopathy, lumbosacral degenerative disc disease, lumbar disc displacement POSTOPERATIVE DIAGNOSIS: Lumbosacral radiculopathy, lumbosacral degenerative disc disease, lumbar disc displacement ANESTHESIA: MAC COMPLICATIONS: None BLOOD LOSS: Minimal PROCEDURE IN DETAIL: History and physical today was reviewed. Risks and benefits of the procedure were explained. The patient understood, agreed to our procedure, and informed consent was obtained. IV inserted per routine protocol. The patient was taken to the operating room, placed in a prone position with a pillow positioned underneath the abdomen. The Lower back area was prepped and draped in a sterile fashion using iodine x3 under fluoroscopy guidance on oblique view the L4 through S1 vertebral bodies are visualized the skin and subcutaneous tissue were anesthetized with approximately 5 cc of 1% lidocaine using a 25-gauge regular needle under direct visualization with fluoroscopy at approximately 35 degrees angle starting on the left L4 ending on the left L5 using a 22-gauge 5 inch spinal needle the needle was advanced via the skin tip of the needle's maneuver and directed towards the inferior and medial gutter of the transverse process at the superiormost aspect of the neuroforamen once the tip of the needle was at the vicinity of the foramen after negative aspiration for blood or CSF a total of 1 cc of contrast were injected in divided doses between both levels to confirm correct placement of the needle as well as medial spread the confirmation was obtained on AP as well as lateral view after repeated negative aspiration and confirmation a total of 6 cc of preservative-free 0.25% Marcaine with 80 mg of Depo-Medrol were injected in divided doses between both levels, the needles were then removed intact. The patient experienced no signs or symptoms intrathecal, intravascular injection. The patient experienced no paraesthesia. The procedure was completed without any apparent difficult, any complication. The patient appeared to tolerate well. ASSESSMENT AND PLAN: This is a 42-year-old female with lumbosacral radiculopathy, lumbosacral degenerative disc disease, lumbar disc displacement status post left-sided lumbar transforaminal epidural steroid injection L4 through S1. The patient will continue her current medications. The patient will follow in approximately 2 weeks for possible repeat of the procedure if indicated. 03/06/18 1028 <Electronically signed by Dung Baumann MD> Date Dung Baumann MD CC: No Primary Care Physician; Dung Baumann Signed LUMBAR SPINE 2 OR 3 Observed: 03/06/2018 Status: F Source: [facility] 3:45 AM [facility] Imaging Services [address] [place] [id number] Lumbar Spine 2 or 3 Views MR#: [id number] Acct: [id number] Name: DANILO NEGRETE Bozena Rep #: [id number] : 1975 F 42 From: Alexander Thomas MD PCP: Care Physician, No Primary Status: [facility] Study: Lumbar Spine 2 or 3 Views Date of Exam: 03/06/18 Exam# [id number] Ordering Dr: Dung Baumann MD PROCEDURE: Left L4 S1 transforaminal block. DATE OF EXAMINATION: March 06, 2018. INDICATION: Female, 42 years old. Low back pain. FLUOROSCOPY TIME (if supplied): (0:23) minutes/seconds. 6 images were obtained. Intraoperative imaging provided for left L4-S1 transforaminal block. RAD/Lumbar Spine 2 or 3 Views IMPRESSION: Intraoperative fluoroscopic services provided for left L4- S1 transforaminal block. Electronically Signed: Alexander Thomas MD at 15:13 EDT Tel [phone], Service support , CC: No Primary Care Physician; Dung Baumann Rock Mason: Signed PROGRESS Observed: 02/13/2018 Status: COMPLETED Source: [place] 12:09 PM [facility] HNO ID: [id number] Author: Sakina Bustos Service: (none) Author Type: Nurse Practitioner Type: Progress Notes Filed: 02/13/2018 1:01 PM Note Text: Subjective The history is provided by the patient. No truck headlight assembler was used. HPI Danilo Negrete is a 42 year old female who presents today for CC of broken tooth and red swollen gum Onset/Duration: Tuesday Alleviating/Treatment: none Aggravating: Eating. Risk factors: Dental carries, poor dentition BP 158/100 Pulse 102 Temp 36.4 ?C (97.6 ?F) (Tympanic) Resp 18 Wt (!) 159.7 kg (352 lb) ALLERGIES No Known Allergies ACTIVE PROBLEM LIST Psoriasis No family history on file. Social History Marital status: Spouse name: Years of education: Number of children: Social History Main Topics Smoking status: Current Every Day Smoker Packs/day: 0.00 Years: 0.00 Smokeless tobacco: Never Used PAST MEDICAL HISTORY Diagnosis Date - Psoriasis 08/16/2016 Review of Systems Constitutional: Negative. Negative for chills, fever and malaise/fatigue. HENT: Negative for congestion, ear pain, sinus pain and sore throat. Dental pain, broken tooth Respiratory: Negative for cough, sputum production, shortness of breath and wheezing. Cardiovascular: Negative for chest pain. Musculoskeletal: Negative for myalgias. Skin: Negative for rash. Neurological: Negative for headaches. Objective Physical Exam Constitutional: She is oriented to person, place, and time and well-developed, well-nourished, and in no distress. No distress. HENT: Head: Normocephalic and atraumatic. Right Ear: Tympanic membrane, external ear and ear canal normal. Tympanic membrane is not injected, not erythematous, not retracted and not bulging. No middle ear effusion. Left Ear: Tympanic membrane, external ear and ear canal normal. Tympanic membrane is not injected, not erythematous, not retracted and not bulging. No middle ear effusion. Nose: Nose normal. Right sinus exhibits no maxillary sinus tenderness and no frontal sinus tenderness. Left sinus exhibits no maxillary sinus tenderness and no frontal sinus tenderness. Mouth/Throat: Uvula is midline, oropharynx is clear and moist and mucous membranes are normal. No oropharyngeal exudate, posterior oropharyngeal edema, posterior oropharyngeal erythema or tonsillar abscesses. Eyes: Pupils are equal, round, and reactive to light. Conjunctivae and EOM are normal. Neck: Normal range of motion. Neck supple. Pulmonary/Chest: Effort normal. Lymphadenopathy: Head (right side): No submental, no submandibular, no tonsillar, no preauricular and no posterior auricular adenopathy present. Head (left side): No submental, no submandibular, no tonsillar, no preauricular and no posterior auricular adenopathy present. She has cervical adenopathy. Right cervical: Superficial cervical adenopathy present. Left cervical: Superficial cervical adenopathy present. Right: No supraclavicular adenopathy present. Left: No supraclavicular adenopathy present. Neurological: She is alert and oriented to person, place, and time. Skin: Skin is warm and dry. Psychiatric: Affect normal. Nursing note and vitals reviewed. ASSESSMENT/PLAN: 1. Tooth abscess - ICD9: 522.5, ICD10: K04.7 Rinse mouth after eating, warm salt water gargles, 1/2 tsp salt in cup of water Dental care as soon as possible Any worsening or fever need to go to ER for further treatment and evaluations [facility] [address] [place] [address] [address] - AMOXICILLIN 875 MG-POTASSIUM CLAVULANATE 125 MG TABLET - LACTOBACILLUS ACIDOPHILUS 460 MG (20 BILLION CELL) CAPSULE Diagnosis and treatment plan were discussed and questions were answered to the patient's satisfaction. Pt acknowledged understanding of concepts and follow up plan. Specific signs and symptoms that would indicate the need for higher level of care were discussed in detail warranting prompt ER evaluation. Sakina Bustos APRN.DESKTOP SPECIALIST CNOV Observed: 02/13/2018 Status: COMPLETED Source: [place] 12:00 PM [facility] DANILO NEGRETE ([id number]) 1975 F Date Time Provider Department 02/13/18 12:00 PM SAKINA BUSTOS ([facility]) [facility] During your visit today, we recorded the following information about you: Temperature Pulse Respiration Blood pressure 97.6 degrees 102/minute 18/minute 158/100 Weight 159.7 kg Sakina Bustos APRN.CNP 02/13/2018 1:01 PM Signed Subjective The history is provided by the patient. No truck headlight assembler was used. HPI Danilo Negrete is a 42 year old female who presents today for CC of broken tooth and red swollen gum Onset/Duration: Tuesday Alleviating/Treatment: none Aggravating: Eating. Risk factors: Dental carries, poor dentition BP 158/100 Pulse 102 Temp 36.4 ?C (97.6 ?F) (Tympanic) Resp 18 Wt (!) 159.7 kg (352 lb) ALLERGIES No Known Allergies ACTIVE PROBLEM LIST Psoriasis No family history on file. Social History Marital status: Spouse name: Years of education: Number of children: Social History Main Topics Smoking status: Current Every Day Smoker Packs/day: 0.00 Years: 0.00 Smokeless tobacco: Never Used PAST MEDICAL HISTORY Diagnosis Date - Psoriasis 08/16/2016 Review of Systems Constitutional: Negative. Negative for chills, fever and malaise/fatigue. HENT: Negative for congestion, ear pain, sinus pain and sore throat. Dental pain, broken tooth Respiratory: Negative for cough, sputum production, shortness of breath and wheezing. Cardiovascular: Negative for chest pain. Musculoskeletal: Negative for myalgias. Skin: Negative for rash. Neurological: Negative for headaches. Objective Physical Exam Constitutional: She is oriented to person, place, and time and well-developed, well-nourished, and in no distress. No distress. HENT: Head: Normocephalic and atraumatic. Right Ear: Tympanic membrane, external ear and ear canal normal. Tympanic membrane is not injected, not erythematous, not retracted and not bulging. No middle ear effusion. Left Ear: Tympanic membrane, external ear and ear canal normal. Tympanic membrane is not injected, not erythematous, not retracted and not bulging. No middle ear effusion. Nose: Nose normal. Right sinus exhibits no maxillary sinus tenderness and no frontal sinus tenderness. Left sinus exhibits no maxillary sinus tenderness and no frontal sinus tenderness. Mouth/Throat: Uvula is midline, oropharynx is clear and moist and mucous membranes are normal. No oropharyngeal exudate, posterior oropharyngeal edema, posterior oropharyngeal erythema or tonsillar abscesses. Eyes: Pupils are equal, round, and reactive to light. Conjunctivae and EOM are normal. Neck: Normal range of motion. Neck supple. Pulmonary/Chest: Effort normal. Lymphadenopathy: Head (right side): No submental, no submandibular, no tonsillar, no preauricular and no posterior auricular adenopathy present. Head (left side): No submental, no submandibular, no tonsillar, no preauricular and no posterior auricular adenopathy present. She has cervical adenopathy. Right cervical: Superficial cervical adenopathy present. Left cervical: Superficial cervical adenopathy present. Right: No supraclavicular adenopathy present. Left: No supraclavicular adenopathy present. Neurological: She is alert and oriented to person, place, and time. Skin: Skin is warm and dry. Psychiatric: Affect normal. Nursing note and vitals reviewed. ASSESSMENT/PLAN: 1. Tooth abscess - ICD9: 522.5, ICD10: K04.7 Rinse mouth after eating, warm salt water gargles, 1/2 tsp salt in cup of water Dental care as soon as possible Any worsening or fever need to go to ER for further treatment and evaluations [facility] [address] [place] [address] [address] - AMOXICILLIN 875 MG-POTASSIUM CLAVULANATE 125 MG TABLET - LACTOBACILLUS ACIDOPHILUS 460 MG (20 BILLION CELL) CAPSULE Diagnosis and treatment plan were discussed and questions were answered to the patient's satisfaction. Pt acknowledged understanding of concepts and follow up plan. Specific signs and symptoms that would indicate the need for higher level of care were discussed in detail warranting prompt ER evaluation. CLAIR Vann APRN.CNP 02/13/2018 12:15 PM Signed ASSESSMENT/PLAN: 1. Tooth abscess - ICD9: 522.5, ICD10: K04.7 Rinse mouth after eating, warm salt water gargles, 1/2 tsp salt in cup of water Any worsening or fever need to go to ER for further treatment and evaluations [facility] [address] [place] [address] [facility] [address] [place] [address] - GABAPENTIN 300 MG CAPSULE - AMOXICILLIN 875 MG-POTASSIUM CLAVULANATE 125 MG TABLET - LACTOBACILLUS ACIDOPHILUS 460 MG (20 BILLION CELL) CAPSULE Referring Provider: SELF [200] Allergies As of Date: 02/13/2018 (No Known Allergies) Date Reviewed: 02/13/2018 Reviewed by: Alia Thibodeaux LPN - Fully Assessed Reason for Visit: tooth and lower right jaw pain [Other] Cmt: broke a tooth 3 days ago and cannot get into a dentist until March 07 Primary Visit Diagnosis:Tooth abscess [K04.7] Order(s):amoxicillin-clavulanic acid (AUGMENTIN) 875-125 mg per tabletTake 1 tablet by mouth twice daily for 10 days.Disp: 20 tabletRfl: 0 Lactobacillus acidophilus (FLORAJEN) 460 mg (20 billion cell) capTake 1 capsule by mouth once daily.Disp: 30 capsuleRfl: 0 Prescriptions as of 02/13/2018 Sig: GABAPENTIN 300 MG CAPSULE Take 300 mg by mouth three ti* AMOXICILLIN 875 MG-POTASSIUM * Take 1 tablet by mouth twice * LACTOBACILLUS ACIDOPHILUS 460* Take 1 capsule by mouth once * HUMIRA SUBCUTANEOUS Inject 1 Dose subcutaneously * KETOROLAC 10 MG TABLET Take 10 mg by mouth as needed. SECUKINUMAB 150 MG/ML SUBCUTA* Inject subcutaneously one ti* ALEVE ORAL Take by mouth. as necessary Problem List As Of Date 02/13/2018 Noted Resolved Psoriasis [L40.9] INVALID FOR* Other instructions from your clinician: ASSESSMENT/PLAN: 1. Tooth abscess - ICD9: 522.5, ICD10: K04.7 Rinse mouth after eating, warm salt water gargles, 1/2 tsp salt in cup of water Any worsening or fever need to go to ER for further treatment and evaluations [facility] [address] [place] [address] [facility] dental [facility] [address] [place] [address] - GABAPENTIN 300 MG CAPSULE - AMOXICILLIN 875 MG-POTASSIUM CLAVULANATE 125 MG TABLET - LACTOBACILLUS ACIDOPHILUS 460 MG (20 BILLION CELL) CAPSULE Prescriptions ordered this encounter Disp Refills Start End AMOXICILLIN 875 MG-POTASSIUM CLAVULA* 20 t* 0 02/13/2018 02/23/2018 Route: ORAL Sig: Take 1 tablet by mouth twice daily for 10 days. LACTOBACILLUS ACIDOPHILUS 460 MG (20* 30 c* 0 02/13/2018 Route: ORAL Sig: Take 1 capsule by mouth once daily. Encounter Status:Closed by SAKINA BUSTOS CNP on 02/13/18 SPINE LUMBAR Observed: 02/09/2018 Status: F Source: [place] (ROUTINE) 5:58 PM [facility] REPOSITORY [facility] Imaging Services [address] [place] [id number] Spine Lumbar (Routine) MR#: [id number] Acct: [id number] Name: DANILO NEGRETE Bozena Rep #: [id number] : 1975 F 42 From: Hiram Burns MD PCP: Care Physician, No Primary Status: REG CLI Study: Spine Lumbar (Routine) Date of Exam: 02/09/18 Exam# [id number] Ordering Dr: Dung Baumann MD STUDY: MRI LUMBAR SPINE WITHOUT CONTRAST REASON FOR EXAM: Female, 42 years old. L leg no wt bearing, L hip buttock pain TECHNIQUE: Standardized fat and water weighted pulse sequences were obtained in the sagittal and axial planes. COMPARISON: None FINDINGS: T12-L1: Normal endplates. Normal disc height, hydration and morphology. Normal bilateral facet joints. Normal central canal and bilateral lateral recesses. Normal bilateral intervertebral neural foramina. Normal lumbar lordosis. There is no substantial scoliosis. Normal conus medullaris that terminates at the L1 level. L1-2: Normal endplates. Normal disc height, hydration and morphology. Normal bilateral facet joints. Normal central canal and bilateral lateral recesses. Normal bilateral intervertebral neural foramina. L2-3: Normal endplates. Normal disc height, hydration and morphology. Normal bilateral facet joints. Normal central canal and bilateral lateral recesses. Normal bilateral intervertebral neural foramina. L3-4: Endplate spondylosis. Central and paracentral and right foraminal disc herniation impinging on the right L3 nerve root in the neural foramen and on the left L4 nerve in the left lateral recess. Degenerative changes of the bilateral facet joints. Mild narrowing of the central canal and moderate bilateral intervertebral neural foramina. L4-5: Endplate spondylosis. Central and paracentral disc herniation more prominent on the left side impinging on the left L5 nerve root. Degenerative changes of the bilateral facet joints. Moderate narrowing of the central canal and moderate narrowing of the bilateral intervertebral neural foramina. L5-S1: Normal endplates. Normal disc height, hydration and morphology. Normal bilateral facet joints. Normal central canal and bilateral lateral recesses. Normal bilateral intervertebral neural foramina. Normal visualized sacral ala. Normal visualized paraspinous soft tissue structures. MRI/Spine Lumbar (Routine) IMPRESSION: L3-4: Central and paracentral and right foraminal disc herniation impinging on the right L3 nerve root in the neural foramen and on the left L4 nerve in the left lateral recess. L4-5: Central and paracentral disc herniation more prominent on the left side impinging on the left L5 nerve root. Electronically Signed: Hiram Burns MD at 7:19 EDT Tel , Service support , CC: No Primary Care Physician; Dung Baumann Rock Mason: Signed MR-SPINE LUMBAR Observed: 02/09/2018 Status: F Source: [place] (ROUTINE) IMPORT 12:[address] [facility] [place] REPOSITORY Images were obtained outside of [facility] [id number] EMERGENCY DEPARTMENT Observed: 02/01/2018 Status: F Source: [place] SUMMARY 1:47 AM [facility] REPOSITORY [facility] Medical Records Department [address] [place] [address] Emergency Department Summary 02/01/18 0017 MR#: [id number] Acct: [id number] Name: DANILO NEGRETE Rep #: [id number] : 1975 42 From: Octavio Gilmore MD PCP: Care Physician, No Primary Status: DEP ER - ER Visit Summary Date of Service: 02/01/18 Chief Complaint: Left low back pain and left leg History of Present Illness: The patient is a 42 F with history of psoriatic arthritis who presents to the emergency department with increasing left low back pain into her left leg. The patient follows with Dr. Ceja. She did have epidural injection just about a month ago. She states for 2 weeks, she was doing very well. She thinks that she may have done too much. Over the past 4-5 days, she had increasing burning pain from her left buttock down her left leg. She states that it hurts to walk on. She did not feel weak, but just has pain. She denies any problems of bowel or bladder. She denies any fevers or chills. She is on gabapentin, but states is not controlling the pain. Physical Examination: Afebrile, vitals unremarkable. Well- appearing female no acute distress. Head is normocephalic, atraumatic. Pupil's equal round reactive, extraocular muscles intact. Neck supple. Heart regular rate and rhythm. Lungs clear, chest nontender. Abdomen soft, nontender, nondistended. No pulsatile mass. Patient has paraspinal tenderness in the lumbar area, but no bony tenderness. Straight leg raise is positive on the left which recreates pain and paresthesia. 2+ symmetric lower extremity pulses. 2+ reflexes. No clonus. No weakness of dorsiflexion, plantar flexion, or extensor hallucis longus bilaterally. Test Results: [] Emergency Department Course and Treatment: The patient symptoms that are consistent with a lumbar radiculopathy. She has normal pulses and reflexes. There is no edema of her leg. The pain is worse when she bears weight or when her leg is in motion. I do not feel that imaging is necessary. She has no red flag symptoms. She has a normal gait. The patient was treated with IM medications with improvement. She is able to ambulate with improvement of her pain. I do feel that the patient will benefit from a Medrol Dosepak she has had improvement with steroids before. She is in pain management. I will write her for antispasmodics. The patient be discharged home. Treatment Plan: [] Disposition: The Impression: 1. Left lumbar radiculopathy This note was generated with [employer] dictation software. It may contain incorrect words, spelling, and punctuation that were not noted in review of the chart prior to signing ED Disposition - Plan for ED Patient: Chief Complaint: Lower Extremity Injury Instructions: ED Sciatica Prescriptions: MethylPREDNISolone DosePak [Medrol DosePak] 4 mg PO UD #1 box Cyclobenzaprine [Flexeril] 10 mg PO TID PRN #20 tab PRN Reason: Muscle Spasm Referrals: Care Physician,No Primary [Primary Care Provider] - What to do if you have Problems For any increased pain, shortness of breath, bleeding, nausea or vomiting, chest pain, or any unexpected problems, contact your Primary Care Provider. Call [facility] ([phone]) or report to the closest Emergency Room. Call 911 if necessary. 02/01/18 0147 <Electronically signed by Octavio Gilmore MD> Date Octavio Gilmore MD Cosigner Signature (If Indicated): Date CC: No Primary Care Physician OPERATIVE REPORT Observed: 01/09/2018 Status: F Source: [place] 3:05 PM [facility] REPOSITORY [facility] Medical Records Department [address] [place] [address] Operative Report 01/09/18 1504 MR#: [id number] Acct: [id number] Name: DANILO NEGRETE Rep #: [id number] : 1975 42 From: Dung Baumann MD PCP: Care Physician, No Primary Status: DEP [facility] Y Location: [facility] Problem List (1) Degeneration of lumbar or lumbosacral intervertebral disc Status: Chronic (2) Radiculopathy of lumbosacral region Status: Chronic Report of Operation Date of Procedure: 01/09/18 Pre-Operative Diagnosis: Lumbosacral radiculopathy, lumbosacral degenerative disc disease Post-Operative Diagnosis: Lumbosacral radiculopathy, lumbosacral degenerative disc disease Surgery/Procedure Performed:: Caudal epidural steroid injection Description of Surgical Findings:: PROCEDURE: Caudal epidural steroid injection PREOPERATIVE DIAGNOSIS: Lumbosacral radiculopathy, lumbosacral degenerative disc disease POSTOPERATIVE DIAGNOSIS: Lumbosacral radiculopathy, lumbosacral degenerative disc disease ANESTHESIA: MAC COMPLICATIONS: None BLOOD LOSS: Minimal PROCEDURE IN DETAIL: History and physical today was reviewed. Risks and benefits of the procedure were explained. The patient understood, agreed to our procedure, and informed consent was obtained. IV inserted per routine protocol. The patient was taken to the operating room, placed in a prone position with a pillow positioned underneath the abdomen. The Lower back and tailbone area was prepped and draped in a sterile fashion using iodine 3, under fluoroscopy guidance on the lateral view the caudal space was identified the skin and subcutaneous tissue and size approximately 3 cc of 1% lidocaine using a 25-gauge regular needle under direct visualization with fluoroscopy using a 22-gauge 3-1/2 inch spinal needle the needle was advanced via the skin through the sacral hiatus the needle then was passed through the sacrococcygeal ligament and advanced to approximately S4 area, after negative aspiration for blood or CSF, a total of 3 cc of contrast were injected to confirm correct placement of the needle as well as cephalad spread the spread was followed to approximately L5 area. after confirmation on AP as well as lateral view and repeated negative aspiration, a total of 15 cc of preservative-free 0.125% Marcaine with 80 mg of Depo-Medrol was injected easily. The needles were then removed intact. The patient experienced no signs or symptoms intrathecal, intravascular injection. The patient experienced no paraesthesia. The procedure was completed without any apparent difficult, any complication. The patient appeared to tolerate well. ASSESSMENT AND PLAN: This is a 42-year-old female with lumbosacral radiculopathy, lumbosacral degenerative disc disease, status post caudal epidural steroid injection. The patient will continue her current medications. The patient will follow in approximately 2 weeks for possible repeat of the procedure if indicated. 01/09/18 1505 <Electronically signed by Dung Baumann MD> Date Dung Baumann MD CC: No Primary Care Physician; Dung Baumann Signed FLUOR GUIDANCE FOR Observed: 01/08/2018 Status: F Source: [facility] 11:55 PM [facility] REPOSITORY [facility] Imaging Services [address] [place] [address] Fluor Guidance for Spine Inj MR#: [id number] Acct: [id number] Name: DANILO NEGRETE Rep #: [id number] : 1975 F 42 From: Alexander Thomas MD PCP: Care Physician, No Primary Status: [facility] Study: Fluor Guidance for Spine Inj Date of Exam: 01/09/18 Exam# [id number] Ordering Dr: Dung Baumann MD PROCEDURE: Caudal block. DATE OF EXAMINATION: January 09, 2018. INDICATION: Female, 42 years old. FLUOROSCOPY TIME (if supplied): (0:36) minutes/seconds Intraoperative fluoroscopic services provided for caudal block. The spinal needle is seen along the inferior posterior aspect of the sacrum. RAD/Fluor Guidance for Spine Inj IMPRESSION: Imaging provided for caudal block. Electronically Signed: Alexander Thomas MD at 8:19 EDT Tel [phone], Service support , CC: No Primary Care Physician; Dung Baumann Rock Mason: Signed OPERATIVE REPORT Observed: 11/21/2017 Status: F Source: [facility] 2:05 PM [facility] REPOSITORY [facility] Medical Records Department [address] [place] [address] Operative Report 11/21/17 1404 MR#: [id number] Acct: [id number] Name: DANILO NEGRETE Rep #: [id number] : 1975 42 From: Dung Baumann MD PCP: Care Physician, No Primary Status: REG SDC Y Location: [place] [address] Problem List (1) Degeneration of lumbar or lumbosacral intervertebral disc Status: Chronic (2) Radiculopathy of lumbosacral region Status: Chronic Report of Operation Date of Procedure: 11/21/17 Pre-Operative Diagnosis: Lumbosacral radiculopathy, lumbosacral degenerative disc disease, lumbosacral spinal stenosis Post-Operative Diagnosis: Lumbosacral radiculopathy, lumbosacral degenerative disc disease, lumbosacral spinal stenosis Surgery/Procedure Performed:: Diagnostic/therapeutic caudal epidural steroid injection Description of Surgical Findings:: PROCEDURE: Diagnostic/therapeutic caudal epidural steroid injection PREOPERATIVE DIAGNOSIS: Lumbosacral radiculopathy, lumbosacral degenerative disc disease, lumbosacral spinal stenosis POSTOPERATIVE DIAGNOSIS: Lumbosacral radiculopathy, lumbosacral degenerative disc disease, lumbosacral spinal stenosis ANESTHESIA: MAC COMPLICATIONS: None BLOOD LOSS: Minimal PROCEDURE IN DETAIL: History and physical today was reviewed. Risks and benefits of the procedure were explained. The patient understood, agreed to our procedure, and informed consent was obtained. IV inserted per routine protocol. The patient was taken to the operating room, placed in a prone position with a pillow positioned underneath the abdomen. The lower back and tailbone area was prepped and draped in a sterile fashion using iodine 3 under direct visualization fluoroscopy on the lateral view the caudal space was identified the skin and subcutaneous tissue and size approximately 3 cc of 1% lidocaine using a 25-gauge regular needle under direct visualization with fluoroscopy on the lateral view using a 22-gauge 3-1/2 inch spinal needle the needle was advanced via the skin through the sacral hiatus the peroneal passed through the sacrococcygeal ligament advanced approximately S4 area after negative aspiration of blood or CSF a total of 3 cc of contrast were injected to confirm correct placement of the needle as well as cephalad spread spread was followed to approximately L5 area after confirmation AP as well as lateral view and repeated negative aspiration a total of 15 cc of preservative-free 0.125% Marcaine with 80 mg of the portal was injected easily. The needles were then removed intact. The patient experienced no signs or symptoms intrathecal, intravascular injection. The patient experienced no paraesthesia. The procedure was completed without any apparent difficult, any complication. The patient appeared to tolerate well. ASSESSMENT AND PLAN: This is a 42-year-old female with lumbosacral radiculopathy lumbosacral degenerative disc disease lumbosacral spinal stenosis status post diagnostic/therapeutic caudal epidural steroid injection. The patient will continue his current medications. The patient will follow in approximately 2 weeks for possible repeat of the procedure if indicated. 11/21/17 1405 <Electronically signed by Dung Baumann MD> Date Dung Baumann MD CC: No Primary Care Physician; Dung Baumann Signed FLUOR GUIDANCE FOR Observed: 11/21/2017 Status: F Source: [facility] 5:02 AM [facility] REPOSITORY [facility] Imaging Services [address] [place] [address] Fluor Guidance for Spine Inj MR#: [id number] Acct: [id number] Name: DANILO NEGRETE Bozena Rep #: [id number] : 1975 F 42 From: Alexander Thomas MD PCP: Care Physician, No Primary Status: [facility] Study: Fluor Guidance for Spine Inj Date of Exam: 11/21/17 Exam# [id number] Ordering Dr: Dung Baumann MD PROCEDURE: Caudal block. DATE OF EXAMINATION: November 21, 2017. INDICATION: Female, 42 years old. Low back pain. FLUOROSCOPY TIME (if supplied): (0:18) minutes/seconds Intraoperative imaging provided for caudal block. The spinal needle is seen along the posterior mid portion of the sacrum. RAD/Fluor Guidance for Spine Inj IMPRESSION: Intraoperative imaging provided for caudal block. Electronically Signed: Alexander Thomas MD at 15:25 EDT Tel [phone], Service support , CC: No Primary Care Physician; Dung Baumann Rock Mason: Signed ALLERGIES ALLERGIES DATE TYPE / CODE NAME / CODE REACTION SEVERITY SOURCE 01/31/2018 Drug No Known Unknown [facility] Allergy/416 Allergies/Z80281 Hospital 980555(SNOM 0388(RXNORM) Repository ED CT) Drug NO KNOWN [facility] Class/26283 ALLERGIES [address] [place] 1003(SNOMED Repository CT) ENCOUNTERS ENCOUNTERS ADMIT/DISCHARGE ACCOUNT ADMITTING ENCOUNTER LOCATION SOURCE NUMBER CLASS 04/24/2018/04/24/20 [id number] Ambulatory [address] ing:SDCRoom: Repository AC15 03/22/2018/03/23/20 [id number] Ambulatory [address] Repository 03/06/2018/03/06/20 [id number] Ambulatory [address] ing:SDCRoom: Repository AC18 02/13/2018/02/14/20 [id number] Ambulatory [address] Repository 02/09/2018 [id number] Ambulatory [facility] ing:MRI Repository 01/31/2018/02/02/20 [id number] Emergency [address] ing:ED Repository 01/09/2018/01/10/20 [id number] Ambulatory [address] ing:SDCRoom: Repository AC12 11/21/2017/11/22/19 [id number] Ambulatory [address] ing:[facility] Repository PAYERS PAYERS ENCOUNTER GUARANTOR PAYER SUBSCRIBER SOURCE 04/24/2018 DANILO [id number] Primary DANILO PARHAM: Roger CABALLERO [facility] [id number] [facility] [address]Maj: (086) [id number] Repository [phone] () Date:7182-36-10WH [id number] [place] [address] 88[address]YR: 04/24/2018 Secondary NOT GIVENUNK [place] Insurance:SELF PAY [facility] Number: Effective Repository Date:2018-04-19 03/06/2018 DANILO R [id number] Primary DANILO R DAZEYDOB: Roger KWAKU DRLOT Insurance:ANTHEMPolic [id number] y Number: Hospital [id number]: (330 [id number] Repository [phone] () Date:5371-16-29KD [id number] [place] [address] 984[address]NT: 03/06/2018 Secondary NOT GIVENUNK Roger Insurance:SELF PAY Community [facility] Number: Effective Repository Date:2018-02-27 02/09/2018 DANILO R [id number] Primary DANILO R DAZEYDOB: [place] KWAKU DRLOT Insurance:ANTHEMPolic [id number] y Number: Hospital [id number]: (330 [id number] Repository [phone] () Date:2716-14-23GH [address] [place] [address] 19[address]QO: 02/09/2018 Secondary NOT GIVENUNK [place] Insurance:SELF PAY Community [facility] Number: Effective Repository Date:2018-02-09 01/31/2018 DANILO R [id number] Primary DANILO R DAZEYDOB: [place] KWAKU DRLOT Insurance:ANTHEMPolic [id number] y Number: Hospital [id number]: (330 [id number] Repository [phone] () Date:9730-74-51EE [address] [place] [address] 13312OO: 01/31/2018 Secondary NOT GIVENUNK Roger Insurance:SELF PAY Community [facility] Number: Effective Repository Date:2018-01-31 01/09/2018 DANILO R [id number] Primary DANILO R DAZEYDOB: [place] KWAKU DRLOT Insurance:ANTHEMPolic [id number] y Number: [facility] [address]Wvc: (330 [id number] Repository [phone] () Date:9273-60-40[address] [address]OC: 01/09/2018 Secondary NOT GIVENUNK Roger Insurance:SELF PAY [facility] Effective Repository Date:2018-01-03 11/21/2017 DANILO [id number] Primary DANILO BRIDGESOB: Roger KWAKU CABALLERO [facility] [id number] y Number: Hospital [id number]: (330 [id number] Repository [phone] () Date:3798-00-73[address], [place] [address]OP: 11/21/2017 Secondary NOT GIVENUNK Roger Insurance:SELF PAY Pending [facility] Number: Effective Repository Date:2017-11-11
== END 2018-04-24 09:15 | disposition home or self-care (01) ==
LOC: SDC 06:56 → AC 06:57
PROVIDERS: Referring Provider Anesthesiology Pain Medicine; Visit Provider Anesthesiology Pain Medicine
PROC: 3E0S3BZ Introduction of Anesthetic Agent into Epidural Space, Percutaneous Approach (ICD-10-PCS; principal; 2018-04-24 08:05)
DX: M51.17 Intervertebral disc disorders with radiculopathy, lumbosacral region (principal); M51.26 Other intervertebral disc displacement, lumbar region; M51.37 Other intervertebral disc degeneration, lumbosacral region; M47.817 Spondylosis without myelopathy or radiculopathy, lumbosacral region; M46.96 Unspecified inflammatory spondylopathy, lumbar region; F17.200 Nicotine dependence, unspecified, uncomplicated; Z79.891 Long term (current) use of opiate analgesic; F12.90 Cannabis use, unspecified, uncomplicated
CPT/HCPCS: 64483; 72100; J7120

== ENCOUNTER → 2018-08-15 08:52 | Outpatient (CLI) | payer BC, SELFPAY ==
[2018-08-15 08:20] VITALS: BMI 54.1
[2018-08-15 12:47] LABS: Hemoglobin A1c 6.2 % (4.2-6.3)
[2018-08-15 12:51] LABS: ALB/GLOB Ratio 0.7 RATIO (0.9-2.4); AST(SGOT) 16 U/L (15-37); Alanine Aminotransfer ALT/SGPT 29 U/L (13-56); Albumin, Serum 3.3 g/dL (3.2-5.0); Alkaline Phosphatase 79 U/L (45-117); Anion Gap 6 (5-15); BUN 7 mg/dL (7-18); BUN/Creat Ratio 10.9 RATIO (10-20); Calcium,Total 8.1 mg/dL (8.5-10.1); Chloride 104 mmol/L (98-107); Cholesterol 134 mg/dL (200); Creatinine, Serum 0.64 mg/dL (0.55-1.02); EST Glomerular Filtration Rate 106 mL/min (>60); Est Glom Filt Rate - Afr Amer 129 mL/min (>60); Globulin 4.7 g/dL (2.2-4.2); Glucose 108 mg/dL (74-106); High Density Lipoprotein 38 mg/dL; Potassium 3.8 mmol/L (3.5-5.1); Sodium Level 138 mmol/L (136-145); Thyroid Stim Hormone (TSH) 2.26 uIU/mL (0.358-3.74); Triglycerides 130 mg/dL; Very Low Density Lipoprotein 26 mg/dL (5-40)
== END ==
PROVIDERS: PCP Internal Medicine; Visit Provider Internal Medicine
DX: R53.83 Other fatigue (principal); E66.01 Morbid (severe) obesity due to excess calories; I10 Essential (primary) hypertension
CPT/HCPCS: 36415; 80053; 80061; 83036; 84443

== ENCOUNTER 2018-08-17 12:00 | Outpatient (RCR) | payer BC, SELFPAY ==
--- NOTE | 2018-06-14 11:32 | HP.PTEVAL ---
Patient's Visit Information DANILO NEGRETE is a 43 year old F referred to Physical Therapy by MARCELO Goel with a diagnosis of ACUTE BACK BACK PAIN WITH SCIATICA-LEFT,LUMBAR RADICULOPATHY ,DDD L-S,. Date of Evaluation: 06/14/18 Physical Therapist: Lionel Calhoun, PT, Cert MDT, OCS - Visit Plan Frequency: 2x /Week Duration: 4 Weeks Plan: Aquatic PT for DLS ,POSTURAL EX'S,LUMBAR ROM,STRENGTH LE/FLEXABLITY,GENERAL CONDITIONING - Subjective Findings: This 43 y/o male presents to physical therapy with lumbar radiculopathy. Patient has had lumbar pain since JAN 2018. Patient woke up in the morning and unable to walk. Patient went to ER did some x-rays. Patient seen DR Albright with epidural injections x4 last time Mar 2018 which only helped one week.Patient also has RA ,psorasis. Paient had MRI HNP/DDD. Pain is located symmrical lumbar with radicular symmptoms left leg. Symptom worse with walking,standing,bending,lifting.Pain better with rest and sitting. Patient symptoms affect sleeping. Patient has parathesia/tingling left leg. Patient uses cane for walking. bowel/bladder -. Coughing/sneezing -. Patient symptoms affect QOL and function. SOCIAL: . 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 GAIT: ambulates with cane antalgic gait slow randy ,lateral sway. PALAPTION: tender L-S. NEURO: C/O parathesia/tingling left leg,reflexes L3-4,L4-5,L5-S1 1/3. SYMMTRIES: assymtries noted pelvis. MMT: quads/hams 4-/5,hip 4-/5,ankle 4/5. LUMBAR ROM: flexion min loss,extension mod/severe loss,side glides mod loss. FLEXABLITY: hams mod tight,pirifirmis severe tight - Special Tests L/S Slump test left side: Positive L/S Slump test right side: Negative L/S Left Straight Leg Raise: Positive L/S Right Straight Leg Raise: Positive - Goals Goal 1:: Patient seen for PT Independant with Aquatic Goal Time Frame: 4-6 Weeks Goal 2:: Decrease lumbar pain and radicular symptoms by 50 % or greater to improve function. Goal Time Frame: 4-6 Weeks Goal 3:: Patient to improve lumbar ROM for function of recovery Goal Time Frame: 4-6 Weeks Goal 4:: Patient increase strength quads/hams/hip to 4/5 to improve function. Goal Time Frame: 4-6 Weeks Goal 5:: Patient to improve HANH lumbar score by 5 points or greater to improve function. Goal Time Frame: 4-6 Weeks - Rehabilitation Potential Physical Therapy Diagnosis: This patient has lumbar pain with radicular symmptoms with weakness,decrease lumbar ROM,strength,decrease gait and affects ADL'S and RTW. Rehabilitation Potential: Good - Anticipated Interventions Patient/Client Instruction: Educate patient on: Condition, Plan of Care For the Purpose of:: To decrease pain, To increase ROM, To improve muscle performance and motor function, To improve ability to perform ADL's, To increase tolerance to activity/condition/position, To improve ability of physical actions for home/community/work/leisure, To improve health of tissue, To decrease soft tissue restriction, To increase flexibility/ROM, To reduce risk of recurrence, To improve ability to perform tasks related to life management Therapeutic Exercise to Include: Strength training, Body mechanics, Postural training, Flexibilty training, In an aquatic setting, Active ROM, Dynamic Lumbar Stabilization For the Purpose of:: To decrease pain, To increase ROM, To improve muscle performance and motor function, To improve ability to perform ADL's, To increase tolerance to activity/condition/position, To improve performance and independence with ADL's, To improve ability of physical actions for home/community/work/leisure, To improve gait and locomotor functions, To improve health of tissue, To decrease soft tissue restriction, To increase flexibility/ROM, To improve health and function, To improve ability to perform tasks related to life management Thank you for the opportunity to evaluate your patient. For Medicare and Medicare HMO plans, please review the plan of care and approve it. It will need to be FAXED BACK to us at [phone] for Medicare purposes. For Medicare only, by signing this I certify the plan of care. Please let me know if there are questions or concerns regarding this plan of care. Physician Signature: Date:
--- NOTE | 2018-10-23 11:48 | HP.PT.NRP ---
HP - Discharge Summary (1) - Patient Information DANILO NEGRETE was seen in my office for initial evaluation on 06/14/18. The following Plan of Care was established for this patient: Initial Frequency: 2x /Week Initial Duration: 4 Weeks - Anticipated Interventions Patient/Client Instruction: Educate patient on: Condition, Plan of Care For the Purpose of:: To decrease pain, To increase ROM, To improve muscle performance and motor function, To improve ability to perform ADL's, To increase tolerance to activity/condition/position, To improve ability of physical actions for home/community/work/leisure, To improve health of tissue, To decrease soft tissue restriction, To increase flexibility/ROM, To reduce risk of recurrence, To improve ability to perform tasks related to life management Therapeutic Exercise to Include: Strength training, Body mechanics, Postural training, Flexibilty training, In an aquatic setting, Active ROM, Dynamic Lumbar Stabilization For the Purpose of:: To decrease pain, To increase ROM, To improve muscle performance and motor function, To improve ability to perform ADL's, To increase tolerance to activity/condition/position, To improve performance and independence with ADL's, To improve ability of physical actions for home/community/work/leisure, To improve gait and locomotor functions, To improve health of tissue, To decrease soft tissue restriction, To increase flexibility/ROM, To improve health and function, To improve ability to perform tasks related to life management This patient was last seen in our office 08/17/18. Pertinent comments regarding their Physical therapy will appear below: Patient was seen for PT for lumbar pain with Aquatic PT focusing on Lumbar ROM ,strength,DLS thus is d/c. At this point I will be discontinuing this patient from physical therapy. I would be happy to see this patient again in the future if found appropriate by the physician. Thank you! Lionel [place], PT, Cert MDT, OCS
== END 2018-08-17 19:00 | disposition home or self-care (01) ==
LOC: PT 12:00
PROVIDERS: Referring Provider Nurse Practitioner Family; Visit Provider Nurse Practitioner Family
DX: M54.42 Lumbago with sciatica, left side (principal); M51.37 Other intervertebral disc degeneration, lumbosacral region; M47.817 Spondylosis without myelopathy or radiculopathy, lumbosacral region; M46.96 Unspecified inflammatory spondylopathy, lumbar region
CPT/HCPCS: 97113; 97162; 97530

== ENCOUNTER → 2018-09-29 08:30 | Outpatient (CLI) | payer BC, MEDICAID, SELFPAY ==
[2018-09-12 09:44] VITALS: BMI 53.8
[2018-09-29 13:09] LABS: Anion Gap 10 (5-15); BUN 11 mg/dL (7-18); BUN/Creat Ratio 17.7 RATIO (10-20); Calcium,Total 8.9 mg/dL (8.5-10.1); Chloride 106 mmol/L (98-107); Creatinine, Serum 0.62 mg/dL (0.55-1.02); EST Glomerular Filtration Rate 111 mL/min (>60); Est Glom Filt Rate - Afr Amer 134 mL/min (>60); Glucose 112 mg/dL (74-106); Potassium 4.1 mmol/L (3.5-5.1); Sodium Level 140 mmol/L (136-145)
== END ==
PROVIDERS: PCP Internal Medicine; Visit Provider Internal Medicine
DX: I10 Essential (primary) hypertension (principal)
CPT/HCPCS: 36415; 80048

== ENCOUNTER 2018-11-27 09:49 | Outpatient (RCR) | payer MEDICAID, SELFPAY ==
[2018-10-13 09:49] VITALS: BMI 53.8
[2018-11-17 13:13] VITALS: BMI 53.8
--- NOTE | 2018-11-28 15:54 | HP.FCE ---
HP OT Functional Capacity Eval - Task Lift Floor (Occasional 1-33% of Day): 30 Floor (Frequent 34-66% of Day): 15 Floor (Constant 67-100% of Day): 6 Floor PDL: Light-Medium Knee (Occasional 1-33% of Day): 30 Knee (Frequent 34-66% of Day): 15 Knee (Constant 67-100% of Day): 6 Knee PDL: Light-Medium Waist (Occasional 1-33% of Day): 40 Waist (Frequent 34-66% of Day): 20 Waist (Constant 67-100% of Day): 8 Waist PDL: Light-Medium Shoulder (Occasional 1-33% of Day): 30 Shoulder (Frequent 34-66% of Day): 15 Shoulder (Constant 67-100% of Day): 6 Shoulder PDL: Light-Medium Overhead (Occasional 1-33% of Day): 10 Overhead (Frequent 34-66% of Day): NA Overhead (Constant 67-100% of Day): NA Overhead PDL: Sedentary - Work Activity/Posture Bending: Occasional Ability (1-33% of day) Squatting: No Ablility (0% of day) Kneeling: No Ablility (0% of day) Reaching out: Frequent Ability (34-66% of day) Comments: while sitting Reaching up: Frequent Ability (34-66% of day) Comments: while sitting Sitting: Frequent Ability (34-66% of day) Walking: Occasional Ability (1-33% of day) Comments: with assistive device Standing: Occasional Ability (1-33% of day) - Reference Duration Sedentary Sedentary Light Light Light Medium Medium Medium Heavy Very Heavy Heavy Occasional (0-33% of day) Frequent (34-66% of day) Constant (67-100% of day) 10 # Negligible Negligible 15 # 8 # Negligible 20 # 10# Negli. 35 # 18 # 7 # 50 # 25 # 10 # 75 # 100 # >100 # 38 # 50 # >50 # 15 # 20 # >20 # - Patient Information Height: 1.78 m Weight:: 159.211 kg Hand Dominance: right - Medical History Medical History Including Restrictions: PT states she was dx with Psoriatic arthritis about ten years ago. 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 PT states she was dx with high blood pressure about three months ago and is currently on medication. Pt states she has been seeing pain mtg for about a year this January for sciatic nerve impingements- pt states she is using a cane now with ambulation and that this is improvement from a walker. pt states she feels the pain mtg is mtg is handling her symptoms well. pt states she was over 600 lbs at one time and is currently continuing to lose weight. pt does smoke 1/2 a pack a day. pt states she has smoked since she was 14 years old, but her goal is to quit. - Diagnoses Diagnoses: sciatic nerve pain. Psoriatic arthritis. HTN - Symptoms Symptoms: Pain in left knee. pain in left hip. pain in left low back - Pain Pain: Pt reports 6/10 left hip pain, pt states this is about average pain level for her. - Work History Work History: pt states she was employed by [employer] for about 15 years. pt states January 2018 was her last day of employment. She was unable to return to her job due to left LE/sciatic nerve involvement. This is when pain mtg got involved with her care. Pt was unable to return to her job tasks as she was required to stand, lift and carry 50# or more. PT states her job did require 8 hours or more during a work shift and she could not stand or ambulate that long anymore without support. - Behavioral Behavioral: Pt was cooperative during the assessment and put good effort towards the requested tasks. - ADLS ADLS: Pt states she lives in a mobile home with three entry steps. Pt reports she lives with two of her younger sons (19 and 20) and her grandchildren. Pt states she is currently in the process of getting custody of her grandchildren ages 1, 2 and 6 years old. pt states she has had them since July 2018 and their mother last month in October. Pt states their father is not involved with their care at this time. Pt states she is managing her and their care with modifications due to pain. Pt has tub shower combo and uses shower chair to perform her bathing. Pt reports she is ind. with dressing. Pt states her sons do assist with shopping and does the yard work. Pt reports family helps with grocery shopping and putting grocery?s away. Family helps with home mtg. pt states she will make accommodations with meal prep and laundry depending on how painful she is, ie using a chair with wheels to maneuver in her kitchen. Pt reports she is inventive in her techniques to get the job done. - Physical Examination ROM: pt demo ROM WFL. bilateral hip flex limitations 80* Strength: MMT 4/5 grossly throughout Right Bridal Sales Consultant Strength Average: 56.66 Right Bridal Sales Consultant Strength Percentile: 3% Left Bridal Sales Consultant Strength Average: 60.00 Left Bridal Sales Consultant Strength Percentile: 33% Right Lateral Pinch Average: 16.00 Right Lateral Pinch Percentile: 90% Left Lateral Pinch Average: 13.33 Left Lateral Pinch Percentile: 50% Right Tripod Pinch Average: 12.00 Right Tripod Pinch Percentile: 25% Left Tripod Pinch Average: 15.00 Left Tripod Pinch Percentile: 75% Sensation: denies Fine Motor: 9-hole peg test. right = 21.70 sec. = 25%. left = 21.04 sec. = 50% Balance: pt required use of external support during tasks. Pt was able to ambulate 4 feet with no external support. No loss of balance noted during assesments. - Non Material Handling Activities Bending: pt demo the ability to bend forward three times, pt reported pain down left LE pt attempted to bend forward but stopped after three times. pt report pain increased to 8/10 during task. Pt can bend on a low occasional ability Squatting: pt unable Kneeling: pt unable Reaching out/up: pt demo the ability to reach out/up three times, ten times and ten times rapidly. pt performed task sitting down with good ability. pt can perform reaching reach up/out on a frequent basis. Walking: pt ambulates with standard cane with antalgic gait. Pt ambulated for 8 min with 6 rest periods during this time. pt reported her left leg and hip pain of 6/10. pt states her legs feel like rubber and therefore pt stopped with ambulation during her walking. Pt states she makes accommodations for ambulation with use of cane, electric cart, or leaning on shopping cart. Standing: pt demo the ability to stand with external support, leaning on table top or support by cabinet for 3 min. Pt can stand on a low occasional ability with external support. Sitting: pt demo the ability to sit for 30 min with no expressed or apparent discomfort. pt can sit on a frequent ability with shifting body weight to increase comfort. Climbing Stairs: pt demo single leg lift using right first step up and leaning heavily on UB ascending and descending ten steps. - Dynamic Occasional Lifting Capacity Floor Lift: pt lifted 30# maximally, pts reported bilateral knee and low back pain 7/10 - following this lift pt became light headed and needed 10 min to recover, therapist provided juce to pt and she was able to return to task. Knee Lift: pt lifted 30# maximaly from this level. pt does hold her breath, therapist cued pt to breath, pt is unsure why she holds her breath. Waist Lift: pt lifted 40# maximaly, pt does hold her breath while performing and reported back pain 11/29. pt demo good lift ability Shoulder Lift: pt demo the ability to lift 30# maximally from shoulder level. Overhead Lift: pt demo the ability to lift 10# maximally from overhead levels. Carrying: pt states she has help with carry tasks as she ambulates with cane for distance or in home use of furnture ambulation. pt demo the ability to carry 10# with one UE and ambulated 10 feet. Comments: pt put good effort in each task. pt states pain following short 10 min break she had pain 6/10 from left hip down to her left knee.
== END 2018-11-27 19:00 | disposition home or self-care (01) ==
LOC: OT 09:49
PROVIDERS: Family Provider Internal Medicine; PCP Internal Medicine; Referring Provider Nurse Practitioner Family; Visit Provider Nurse Practitioner Family
DX: M54.42 Lumbago with sciatica, left side (principal); M54.17 Radiculopathy, lumbosacral region; M47.817 Spondylosis without myelopathy or radiculopathy, lumbosacral region; M46.96 Unspecified inflammatory spondylopathy, lumbar region
CPT/HCPCS: 97750

== ENCOUNTER → 2018-12-08 10:55 | Outpatient (CLI) | payer MEDICAID, SELFPAY ==
[2018-11-17 13:13] VITALS: BMI 53.8
--- NOTE | 2018-12-08 10:58 | RAD_ITS ---
STUDY: X-RAY - LEFT KNEE REASON FOR EXAM: Female, 43 years old. Chronic pain. TECHNIQUE: Comparison is made with prior study dated June 08, 2014. view(s) of the knee. COMPARISON: None. FINDINGS: Normal visualized distal femur. Degenerative spurring along the lateral tibial plateau . Stable 2.1 cm lucency in the fibular head. Normal proximal tibiofibular articulation. There is severe degenerative arthrosis of the medial femorotibial compartment with severe joint space narrowing. Normal lateral femorotibial compartment. There is mild degenerative arthrosis of the patellofemoral articulation. The soft tissue structures are unremarkable. RAD/Knee 4 or More Views IMPRESSION: Degenerative arthrosis. Stable lucency in the proximal fibular head. Electronically Signed: Alexander Thomas, at 15:08 EDT , Service support ,
== END ==
PROVIDERS: Family Provider Internal Medicine; PCP Internal Medicine; Referring Provider Nurse Practitioner Family; Visit Provider Nurse Practitioner Family
DX: M25.562 Pain in left knee (principal)
CPT/HCPCS: 73564

== ENCOUNTER → 2018-12-15 14:21 | Outpatient (CLI) | payer BC, MEDICAID, SELFPAY ==
[2018-12-15 13:05] VITALS: BMI 53.8
== END ==
PROVIDERS: Family Provider Internal Medicine; PCP Internal Medicine; Referring Provider Nurse Practitioner Family; Visit Provider Nurse Practitioner Family
DX: L05.91 Pilonidal cyst without abscess (principal)
CPT/HCPCS: 87070; 87077; 87186; 87205

== ENCOUNTER 2019-01-08 08:53 | Day surgery (SDC) | payer MEDICAID, SELFPAY ==
[2018-12-15 13:05] VITALS: BMI 53.8
[2019-01-08] VITALS (7 sets, daily range): BP systolic 117–153; BP diastolic 59–77; PULSE 66–73; RESP 16–17; TEMP 36.1–36.3; O2SAT 96–100; BMI 51.7
--- NOTE | 2019-01-08 09:48 | RAD_ITS ---
STUDY: X-RAY - LEFT KNEE REASON FOR EXAM: Left knee intra-articular injection. TECHNIQUE: A single fluoroscopic image of the knee. COMPARISON: Radiographs 12/08/2018. FINDINGS: There is intra-articular contrast. There is joint space narrowing of the medial femorotibial compartment. 7.2 seconds of fluoroscopy time was used. Electronically Signed: Jack Bose MD at 10:39 EDT Tel , Service support , RAD/Fluoro Guided Needle Placement
[2019-01-08] MEDS: MethylPREDNISolone Acetate 80 MG/ML Vial (09:54)
[2019-01-08] MEDS: Bupivacaine 0.25% 30 ML Vial (09:54)
--- NOTE | 2019-01-08 18:01 | PCM.OPRPT ---
Problem List (1) Primary osteoarthritis of left knee Status: Chronic (2) Arthritis Status: Chronic Report of Operation Date of Procedure: 01/08/19 Description of Surgical Findings:: PROCEDURE: Left knee intra-articular steroid injection under fluoroscopic guidance PREOPERATIVE DIAGNOSIS: Osteoarthritis of the left knee POSTOPERATIVE DIAGNOSIS: Osteoarthritis of the left knee ANESTHESIA: MAC COMPLICATIONS: None BLOOD LOSS: Minimal PROCEDURE IN DETAIL: History and physical today was reviewed. Risks and benefits of the procedure were explained. The patient understood, agreed to our procedure, and informed consent was obtained. IV inserted per routine protocol. The patient was taken to the operating room, placed in a supine position the right hip area was prepped and draped in a sterile fashion using iodine x3 nephroscopy guidance AP view of the r left knee joint was visualized the skin and subcutaneous tissue incised approximately 3 cc of 1% lidocaine using a 25-gauge regular needle on the medial aspect of the left knee under direct vision fluoroscopy on AP view using a 22-gauge 3-1/2 inch spinal needle using the medial approach the needle passed through the skin at the tip of the needle was then maneuvering directed towards the intra-articular space from the medial to the lateral compartment after negative aspiration for blood and positive aspiration of synovial fluid a total of 3 cc of contrast were injected to confirm correct placement of the needle as well as spread around the knee joint after repeated negative aspiration for blood and repeated confirmation of AP as well as oblique view a total of 5 cc of preservative-free 0.25% Marcaine with 40 mg of Depo-Medrol were injected easily. The needle was then removed intact. The patient experienced no signs or symptoms intravascular injection. The patient experienced no paraesthesia. The procedure was completed without any apparent difficult, any complication. The patient appeared to tolerate well. ASSESSMENT AND PLAN: This is a 43-year-old female with osteoarthritis of the left knee status post left knee intra-articular steroid injection under fluoroscopic guidance. The patient will continue her current medications. The patient will follow in approximately 2 weeks for reevaluation.
== END 2019-01-08 10:39 | disposition home or self-care (01) ==
LOC: SDC 08:55 → AC 08:56
PROVIDERS: Family Provider Internal Medicine; PCP Internal Medicine; Referring Provider Anesthesiology Pain Medicine; Visit Provider Anesthesiology Pain Medicine
PROC: 3E0U3GC Introduction of Other Therapeutic Substance into Joints, Percutaneous Approach (ICD-10-PCS; CPT 20610; principal; 2019-01-08 09:55)
DX: M17.12 Unilateral primary osteoarthritis, left knee (principal); M54.42 Lumbago with sciatica, left side; M54.17 Radiculopathy, lumbosacral region; M51.37 Other intervertebral disc degeneration, lumbosacral region; M47.817 Spondylosis without myelopathy or radiculopathy, lumbosacral region; M46.96 Unspecified inflammatory spondylopathy, lumbar region; M79.10 Myalgia, unspecified site; F12.90 Cannabis use, unspecified, uncomplicated; F17.200 Nicotine dependence, unspecified, uncomplicated
CPT/HCPCS: 27369; 76000; 77002; J7120

== ENCOUNTER → 2019-01-12 09:55 | Outpatient (CLI) | payer MEDICAID, SELFPAY ==
[2019-01-12 09:34] VITALS: BMI 51.7
[2019-01-12 12:42] LABS: Anion Gap 7 (5-15); BUN 9 mg/dL (7-18); BUN/Creat Ratio 14.6 RATIO (10-20); Chloride 105 mmol/L (98-107); Creatinine, Serum 0.62 mg/dL (0.55-1.02); EST Glomerular Filtration Rate 111 mL/min (>60); Est Glom Filt Rate - Afr Amer 135 mL/min (>60); Glucose 90 mg/dL (74-106); Potassium 4.2 mmol/L (3.5-5.1); Sodium Level 141 mmol/L (136-145)
== END ==
PROVIDERS: Family Provider Internal Medicine; PCP Internal Medicine; Visit Provider Internal Medicine
DX: I10 Essential (primary) hypertension (principal)
CPT/HCPCS: 36415; 80048

== ENCOUNTER → 2019-02-22 10:03 | Outpatient (CLI) | payer MEDICAID, SELFPAY ==
[2019-01-12 09:34] VITALS: BMI 51.7
--- NOTE | 2019-02-22 10:08 | RAD_ITS ---
STUDY: X-RAY - RIGHT KNEE REASON FOR EXAM: Female, 43 years old. Pain. TECHNIQUE: 4 view(s) of the knee. COMPARISON: None. FINDINGS: There is severe degenerative arthrosis of the medial femorotibial compartment with severe joint space narrowing. There is mild degenerative arthrosis of the lateral femorotibial compartment. There is moderate degenerative arthrosis of the patellofemoral articulation. The soft tissue structures are unremarkable. RAD/Knee 4 or More Views IMPRESSION: Degenerative arthrosis. Electronically Signed: Deepali Belle MD at 17:06 EDT Tel , Service support ,
== END ==
PROVIDERS: Family Provider Internal Medicine; PCP Internal Medicine; Referring Provider Anesthesiology Pain Medicine; Visit Provider Anesthesiology Pain Medicine
DX: M25.561 Pain in right knee (principal)
CPT/HCPCS: 73564

== ENCOUNTER 2019-02-26 08:19 | Day surgery (SDC) | payer MEDICAID, SELFPAY ==
[2019-01-12 09:34] VITALS: BMI 51.7
[2019-02-26] VITALS (7 sets, daily range): BP systolic 121–149; BP diastolic 60–89; PULSE 65–76; RESP 15–18; TEMP 36.3–36.7; O2SAT 93–98; BMI 52.4
[2019-02-26] MEDS: Lactated Ringers 1,000 ML 100 ML IV (08:56)
[2019-02-26] MEDS: Bupivacaine 0.25% 30 ML Vial (09:49)
[2019-02-26] MEDS: MethylPREDNISolone Acetate 80 MG/ML Vial (09:49)
--- NOTE | 2019-02-26 09:50 | RAD_ITS ---
STUDY: X-RAY - RIGHT KNEE REASON FOR EXAM: Female, 43 years old. Fluoroscopic guided right knee injection TECHNIQUE: 1 view(s) of the knee. COMPARISON: None. FINDINGS: Utilizing fluoroscopic guidance right knee injection was performed in the anterior projection. For more complete information recommend correlation with procedural notes RAD/Knee 1 or 2 Views IMPRESSION: Fluoroscopic guided right knee injection Electronically Signed: Dung Gold MD at 22:53 EDT , Service support ,
--- NOTE | 2019-02-26 12:20 | OP.PCM_ITS ---
Report of Operation Date of Procedure: 02/26/19 Description of Surgical Findings:: PREOPERATIVE DIAGNOSIS: Osteoarthritis of right knee. POSTOPERATIVE DIAGNOSIS: Osteoarthritis of right knee.. PROCEDURE PERFORMED: Right knee intraarticular steroid injection under fluoroscopic guidance. ANESTHESIA: MAC. BLOOD LOSS: Minimal. COMPLICATIONS: None. DESCRIPTION OF PROCEDURE: History and physical of today was reviewed. Risks and benefits of the procedure were explained. The patient understood and agreed to proceed. Informed consent was obtained. IV inserted per routine protocol. The patient was taken to the operating room and placed in the supine position. The right knee was prepped and draped in a sterile fashion using iodine x3. Under fluoroscopy guidance on an AP view, the right knee were visualized. The s kin and subcutaneous tissue was anesthetized with approximately 5 mL of 1% lidocaine using a 25-gauge regular needle. Under direct visualization with fluoroscopy on AP view, , using a 22-gauge 2-1/2-inch spinal needle, the needle was advanced into the medial compartment of the right knee using the medial approach the tip of the needle was then maneuvered to be intraarticular. After negative aspiration for blood and positive aspiration of synovial fluid, a total of 1 mL of contrast was injected into the joint to confirm correct placement of the needle inside the right knee with a spread into the medial as well as the lateral compartment after repeated negative aspiration and confirmation on AP as well as oblique view, a total of 5 mL of preservative-free 0.25% Marcaine with 40 mg of Depo-Medrol was injected in the joint the needles were then removed intact. The patient experienced no sign or symptoms of intravascular injection. The patient experienced no paresthesia. The procedure was completed without any apparent difficulty or any complications. The patient appeared to tolerate it well. Assessment and plan: This is a 43-year-old female with osteoarthritis of the right knee status post right knee intra-articular steroid injection under fluoroscopic guidance patient will continue current medications patient found approximately 2 weeks for reevaluation.
== END 2019-02-26 10:30 | disposition home or self-care (01) ==
LOC: SDC 08:20 → AC 08:21
PROVIDERS: Family Provider Internal Medicine; PCP Internal Medicine; Referring Provider Anesthesiology Pain Medicine; Visit Provider Anesthesiology Pain Medicine
PROC: 3E0U3GC Introduction of Other Therapeutic Substance into Joints, Percutaneous Approach (ICD-10-PCS; CPT 20610; principal; 2019-02-26 09:45)
DX: M17.11 Unilateral primary osteoarthritis, right knee (principal); M51.17 Intervertebral disc disorders with radiculopathy, lumbosacral region; M47.27 Other spondylosis with radiculopathy, lumbosacral region; M06.9 Rheumatoid arthritis, unspecified; M46.96 Unspecified inflammatory spondylopathy, lumbar region; M79.10 Myalgia, unspecified site; F17.200 Nicotine dependence, unspecified, uncomplicated; Z79.891 Long term (current) use of opiate analgesic; Z79.899 Other long term (current) drug therapy
CPT/HCPCS: 20610; 77002; 73560; 76000; J7120

== ENCOUNTER 2019-05-28 08:31 | Day surgery (SDC) | payer MEDICAID, SELFPAY ==
[2019-04-13 09:25] VITALS: BMI 52.4
[2019-05-11 09:42] VITALS: BMI 52.4
[2019-05-28] VITALS (7 sets, daily range): BP systolic 125–147; BP diastolic 62–83; PULSE 68–80; RESP 16–18; TEMP 36.3–36.6; O2SAT 94–97; BMI 52.2
[2019-05-28] MEDS: Lactated Ringers 1,000 ML 100 ML IV (09:03)
--- NOTE | 2019-05-28 10:02 | RAD_ITS ---
STUDY: KNEE INJECTION LEFT REASON FOR EXAM: Female, 44 years old. LEFT KNEE INJECTION IN OR FLUOROSCOPY TIME (if supplied): ( 4.7 seconds ) minutes/seconds TECHNIQUE: Intraoperative imaging provided for left knee injection. COMPARISON: None. FINDINGS: Intraoperative imaging provided for left knee injection. RAD/Fluoro Guided Needle Placement IMPRESSION: Intraoperative imaging provided for left knee injection. Electronically Signed: Alexander Thomas, at 12:45 EST , Service support ,
--- NOTE | 2019-05-28 10:03 | OP.PCM_ITS ---
Report of Operation Date of Procedure: 05/28/19 Description of Surgical Findings:: PREOPERATIVE DIAGNOSIS: Osteoarthritis of left knee. POSTOPERATIVE DIAGNOSIS: Osteoarthritis of left knee.. PROCEDURE PERFORMED: Left knee intraarticular steroid injection under fluoroscopic guidance. ANESTHESIA: MAC. BLOOD LOSS: Minimal. COMPLICATIONS: None. DESCRIPTION OF PROCEDURE: History and physical of today was reviewed. Risks a nd benefits of the procedure were explained. The patient understood and agreed to proceed. Informed consent was obtained. IV inserted per routine protocol. The patient was taken to the operating room and placed in the supine position. The left knee was prepped and draped in a sterile fashion using iodine x3. Under fluoroscopy guidance on an AP view, the right knee were visualized. The skin and subcutaneous tissue was anesthetized with approximately 5 mL of 1% lidocaine using a 25-gauge regular needle. Under direct visualization with fluoroscopy on AP view, , using a 22-gauge 2-1/2-inch spinal needle, the needle was advanced into the medial compartment of the right knee using the medial approach the tip of the needle was then maneuvered to be intraarticular. After negative aspiration for blood and positive aspiration of synovial fluid, a total of 1 mL of contrast was injected into the joint to confirm correct placement of the needle inside the right knee with a spread into the medial as well as the lateral compartment after repeated negative aspiration and confirmation on AP as well as oblique view, a total of 5 mL of preservative-free 0.25% Marcaine with 40 mg of Depo-Medrol was injected in the joint the needles were then removed intact. The patient experienced no sign or symptoms of intravascular injection. The patient experienced no paresthesia. The procedure was completed without any apparent difficulty or any complications. The patient appeared to tolerate it well. Assessment and plan: This is a 44-year-old female with osteoarthritis of the left knee status post left knee intra-articular steroid injection under fluoroscopic guidance patient will continue her current medications patient follow-up in approximately 2 weeks for reevaluation.
[2019-05-28] MEDS: Bupivacaine 0.25% 30 ML Vial (10:08)
[2019-05-28] MEDS: MethylPREDNISolone Acetate 80 MG/ML Vial (10:08)
== END 2019-05-28 10:59 | disposition home or self-care (01) ==
LOC: SDC 08:32 → AC 08:34
PROVIDERS: Family Provider Internal Medicine; PCP Internal Medicine; Referring Provider Anesthesiology Pain Medicine; Visit Provider Anesthesiology Pain Medicine
PROC: 3E0U3GC Introduction of Other Therapeutic Substance into Joints, Percutaneous Approach (ICD-10-PCS; CPT 20610; principal; 2019-05-28 10:00)
DX: M17.12 Unilateral primary osteoarthritis, left knee (principal); M06.9 Rheumatoid arthritis, unspecified; M51.17 Intervertebral disc disorders with radiculopathy, lumbosacral region; M47.27 Other spondylosis with radiculopathy, lumbosacral region; F17.200 Nicotine dependence, unspecified, uncomplicated; Z79.891 Long term (current) use of opiate analgesic; Z79.899 Other long term (current) drug therapy
CPT/HCPCS: 20610; 76000; 77002; J7120

== ENCOUNTER → 2019-08-10 | Outpatient (CLI) | payer MEDICAID, SELFPAY ==
[2019-08-10 10:17] VITALS: BMI 52.2
[2019-08-10 12:29] LABS: Anion Gap 8 (5-15); BUN 10 mg/dL (7-18); BUN/Creat Ratio 16.2 RATIO (10-20); Calcium,Total 8.7 mg/dL (8.5-10.1); Chloride 101 mmol/L (98-107); Creatinine, Serum 0.62 mg/dL (0.55-1.02); EST Glomerular Filtration Rate 111 mL/min (>60); Est Glom Filt Rate - Afr Amer 134 mL/min (>60); Glucose 101 mg/dL (74-106); Sodium Level 137 mmol/L (136-145)
[2019-08-10 12:37] LABS: Hemoglobin A1c 6.5 % (4.2-6.3)
== END | disposition home or self-care (01) ==
LOC: BIMLAB 10:45
PROVIDERS: PCP Internal Medicine; Referring Provider Internal Medicine; Visit Provider Internal Medicine
DX: I10 Essential (primary) hypertension (principal); R73.03 Prediabetes
CPT/HCPCS: 36415; 80048; 83036

== ENCOUNTER 2019-10-22 07:58 | Day surgery (SDC) | payer MEDICAID, SELFPAY ==
[2019-08-10 10:17] VITALS: BMI 52.2
[2019-10-22 08:50] VITALS: BP 146/84; PULSE 73; RESP 16; TEMP 36.4; O2SAT 96; BMI 53.3
[2019-10-22] MEDS: Lactated Ringers 1,000 ML 100 ML IV (09:06)
[2019-10-22] MEDS: Bupivacaine 0.25% 30 ML Vial (09:11)
[2019-10-22] MEDS: MethylPREDNISolone Acetate 80 MG/ML Vial ×2 (09:11)
--- NOTE | 2019-10-22 09:20 | RAD_ITS ---
STUDY: X-RAY - RIGHT KNEE REASON FOR EXAM: Female, 44 years old. Right intra articular steroid injection TECHNIQUE: Single coned-down view view(s) of the knee. COMPARISON: None. FINDINGS: Contrast is seen within the knee joint. RAD/Fluoro Guided Needle Placement IMPRESSION: Contrast is seen within the knee joint. Electronically Signed: Alexander Thomas, at 11:03 EDT , Service support ,
--- NOTE | 2019-10-22 09:20 | RAD_ITS ---
STUDY: X-RAY - LEFT KNEE REASON FOR EXAM: Female, 44 years old. Left intra articular knee injection TECHNIQUE: Single frontal view(s) of the knee. COMPARISON: None. FINDINGS: Fluoroscopic services provided for left knee injection. Contrast is seen within the knee joint. RAD/Fluoro Guided Needle Placement IMPRESSION: Imaging provided for left knee injection. Electronically Signed: Alexander Thomas, at 11:05 EDT , Service support ,
[2019-10-22 09:24] VITALS: BP 146/66; BP 146/84; PULSE 75; RESP 16; TEMP 36.7; O2SAT 96
[2019-10-22 09:30] VITALS: BP 134/73; BP 146/84; PULSE 73; RESP 16; O2SAT 96
[2019-10-22 09:35] VITALS: BP 123/73; BP 146/84; PULSE 72; RESP 16; O2SAT 97
[2019-10-22 09:49] VITALS: BP 142/85; BP 146/84; PULSE 66; RESP 16; TEMP 36.3; O2SAT 96
[2019-10-22 10:09] VITALS: BP 146/84
--- NOTE | 2019-10-22 14:27 | PCM.OPRPT ---
Report of Operation Date of Procedure: 10/22/19 Description of Surgical Findings:: PREOPERATIVE DIAGNOSIS: Osteoarthritis of the bilateral knees. POSTOPERATIVE DIAGNOSIS: Osteoarthritis of the bilateral knees. PROCEDURE PERFORMED: Bilateral knees intraarticular steroid injection under fluoroscopic guidance. ANESTHESIA:Local. BLOOD LOSS: Minimal. COMPLICATIONS: None. DESCRIPTION OF PROCEDURE: History and physical of today was reviewed. Risks and benefits of the procedure were explained. The patient understood and agreed to proceed. Informed consent was obtained. IV inserted per routine protocol. The patient was taken to the operating room and placed in the supine position. The bilateral knees area were prepped and draped in a sterile fashion using iodine x3. Under fluoroscopy guidance on AP view, the bilateral knee joints were visualized. The skin and subcutaneous tissue was anesthetized with approximately 3 mL of 1% lidocaine using a 25-gauge regular needle at the medial aspect of the left knee and right knee. Under direct visualization with fluoroscopy, on AP view, using a 22-gauge 3-1/2-inch spinal needle, the needle was advanced via the skin. The tip of the needle was maneuvered and directed towards the intraarticular space at the medial compartment of the right knee and left knee. Once the tip of the needle was at the vicinity of the knee, after negative aspiration for blood, positive aspiration of the synovial fluid, a total of 1 mL of contrast was injected to confirm correct placement of the needle as well as intraarticular spread medial as well as lateral compartment. After confirmation on AP as well as lateral view and repeated negative aspiration, a total of 5 ml of preservative-free 0.25% Marcaine with 40 mg of Depo-Medrol was injected easily into each knee. The needle was then removed intact. The patient experienced no sign or symptoms of intravascular injection. The patient experienced no paresthesia. The procedure was completed without any apparent difficulty or any complications. The patient appeared to tolerate it well. Assessment and plan: This is a 44-year-old female with osteoarthritis of bilateral knees status post bilateral knees intra-articular steroid injection under fluoroscopic guidance, patient will continue current medications, patient found approximately 2 weeks for reevaluation.
== END 2019-10-22 10:25 | disposition home or self-care (01) ==
LOC: SDC 07:59 → AC 07:59
PROVIDERS: PCP Internal Medicine; Referring Provider Anesthesiology Pain Medicine; Visit Provider Anesthesiology Pain Medicine
PROC: 3E0U3GC Introduction of Other Therapeutic Substance into Joints, Percutaneous Approach (ICD-10-PCS; CPT 20610; principal; 2019-10-22 09:15)
DX: M17.0 Bilateral primary osteoarthritis of knee (principal); M06.9 Rheumatoid arthritis, unspecified; F17.200 Nicotine dependence, unspecified, uncomplicated; M51.17 Intervertebral disc disorders with radiculopathy, lumbosacral region; M47.27 Other spondylosis with radiculopathy, lumbosacral region; Z79.891 Long term (current) use of opiate analgesic; Z79.899 Other long term (current) drug therapy
CPT/HCPCS: 20610; 76000; 77002; J7120

== ENCOUNTER → 2019-11-05 | Outpatient (CLI) | payer MEDICAID, SELFPAY ==
[2019-11-05 15:14] VITALS: BMI 53.3
[2019-11-05 16:03] LABS: Mucous, Urine 0 SEEN /hpf (<or=2+)
[2019-11-05 17:04] LABS: Color, Urine Yellow (Yellow); Glucose, Dipstick Normal (Normal); Ketone-Dipstick Negative (Negative); Leukocyte Esterase-Dipstick 500 /ul (Negative); Nitrite-Dipstick Negative (Negative); Occult Blood-Urine 250 /ul (Negative); Protein-Dipstick 100 mg/dl (Negative); Urine Bilirubin Dipstick Negative (Negative); Urine Clarity Cloudy (Clear); Urine Urobilinogen Normal (Normal)
[2019-11-05 17:13] LABS: Amorphous Sediment 1+ URATE; Bacteria RARE /hpf (None Seen); Red Blood Cells-Urine 50-100 SEEN /hpf (0-5); Squamous Epithelial Cells - UA 5-10 SEEN /hpf (5-10); White Blood Cells >100 SEEN /hpf (0-5)
== END | disposition home or self-care (01) ==
LOC: LABSPEC 15:55
PROVIDERS: PCP Internal Medicine; Referring Provider Internal Medicine; Visit Provider Internal Medicine
DX: R39.15 Urgency of urination (principal)
CPT/HCPCS: 81001

== ENCOUNTER → 2020-02-05 | Outpatient (CLI) | payer MEDICAID, SELFPAY ==
[2020-02-05 13:39] VITALS: BMI 52.8
[2020-02-05 14:17] LABS: Mucous, Urine 0 SEEN /hpf (<or=2+)
[2020-02-05 15:46] LABS: Anion Gap 5 (5-15); BUN 12 mg/dL (7-18); BUN/Creat Ratio 18.9 RATIO (10-20); Chloride 103 mmol/L (98-107); Creatinine, Serum 0.64 mg/dL (0.55-1.02); EST Glomerular Filtration Rate 107 mL/min (>60); Est Glom Filt Rate - Afr Amer 130 mL/min (>60); Glucose 116 mg/dL (74-106); Sodium Level 138 mmol/L (136-145)
[2020-02-05 15:58] LABS: Color, Urine Yellow (Yellow); Glucose, Dipstick Normal (Normal); Ketone-Dipstick Negative (Negative); Leukocyte Esterase-Dipstick 500 /ul (Negative); Nitrite-Dipstick Negative (Negative); Occult Blood-Urine 10 /ul (Negative); Protein-Dipstick 30 mg/dl (Negative); Urine Bilirubin Dipstick Negative (Negative); Urine Clarity Cloudy (Clear); Urine Urobilinogen Normal (Normal); Urine pH 6.5 (5.0 - 8.0)
[2020-02-05 16:17] LABS: White Blood Cells 25-50 SEEN /hpf (0-5)
[2020-02-05 16:21] LABS: Bacteria 2+ /hpf (None Seen)
[2020-02-05 16:22] LABS: Red Blood Cells-Urine 0-5 SEEN /hpf (0-5); Squamous Epithelial Cells - UA 0-5 SEEN /hpf (5-10)
== END | disposition home or self-care (01) ==
LOC: BIMLAB 14:15
PROVIDERS: PCP Internal Medicine; Visit Provider Nurse Practitioner Family
DX: E11.9 Type 2 diabetes mellitus without complications (principal); R32 Unspecified urinary incontinence
CPT/HCPCS: 36415; 80048; 81001; 87077; 87086; 87088; 87186

== ENCOUNTER → 2020-02-19 | Outpatient (CLI) | payer MEDICAID, SELFPAY ==
[2020-02-05 13:39] VITALS: BMI 52.8
--- NOTE | 2020-02-19 11:24 | US_ITS ---
STUDY: RENAL ULTRASOUND - COMPLETE REASON FOR EXAM: Female, 44 years old. UTI''S TECHNIQUE: Ultrasound evaluation of the kidneys was performed with real-time and static rocha-scale imaging. COMPARISON: None. FINDINGS: RIGHT KIDNEY: Normal location of the right kidney, which is normal in size. The right kidney measures 13.9 cm x 7.3 cm x 5.8 cm. There is a normal cortex of the right kidney. The renal cortex measures 1.7 cm. There is no right renal mass or cyst. There are no right renal calculi. There is no right hydronephrosis. DISTAL RIGHT URETER: There is non-visualization of the distal right ureter. There is no demonstrated right ureterovesical junction calculus. There is a visualized right ureteral jet. LEFT KIDNEY: Normal location of the left kidney, which is normal in size. The left kidney measures 15.3 cm x 6.7 cm x 6.6 cm. There is a normal cortex of the left kidney. The renal cortex measures 1.9 cm. There is no left renal mass or cyst. There are no left renal calculi. There is no left hydronephrosis. DISTAL LEFT URETER: There is non-visualization of the distal left ureter. There is no demonstrated left ureterovesical junction calculus. There is a visualized left ureteral jet. BLADDER: The distended urinary bladder has a volume of 151 ml. There is a normal wall thickness of the distended urinary bladder. There is no demonstrated mass within the urinary bladder. There are no demonstrated bladder calculi. US/Kidney and Bladder IMPRESSION: Normal ultrasound of the kidneys and urinary bladder. Electronically Signed: Alexander Thomas, at 15:13 EDT , Service support ,
== END | disposition home or self-care (01) ==
LOC: US 11:23
PROVIDERS: PCP Internal Medicine; Referring Provider Urology; Visit Provider Urology
DX: N39.0 Urinary tract infection, site not specified (principal)
CPT/HCPCS: 76770

== ENCOUNTER 2020-03-24 07:31 | Day surgery (SDC) | payer MEDICAID, SELFPAY ==
[2020-02-05 13:39] VITALS: BMI 52.8
[2020-03-24 07:48] VITALS: BP 138/81; PULSE 76; RESP 16; TEMP 36.9; O2SAT 94; BMI 56.9
[2020-03-24] MEDS: Lactated Ringers 1,000 ML 100 ML IV (08:04)
--- NOTE | 2020-03-24 08:55 | RAD_ITS ---
STUDY: X-RAY - LEFT KNEE REASON FOR EXAM: Left knee pain, fluoroscopic-guided knee injection. TECHNIQUE: 2 fluoroscopic images of the knee. COMPARISON: Radiographs . FINDINGS: There is contrast in the intercondylar region. Electronically Signed: Jack Bose MD at 14:05 EST Tel , Service support , RAD/Fluoro Guided Needle Placement
--- NOTE | 2020-03-24 08:55 | RAD_ITS ---
STUDY: X-RAY - RIGHT KNEE REASON FOR EXAM: Right knee pain, fluoroscopic guided knee injection. TECHNIQUE: 2 fluoroscopic images of the knee. COMPARISON: Radiographs 02/22/2019. FINDINGS: There is contrast in the medial femorotibial compartment. Electronically Signed: Jack Bose MD at 14:02 EST Tel , Service support , RAD/Fluoro Guided Needle Placement
[2020-03-24] MEDS: Bupivacaine 0.25% 30 ML Vial (09:00)
[2020-03-24] MEDS: MethylPREDNISolone Acetate 40 MG/ML Vial IM (09:00)
[2020-03-24 09:07] VITALS: BP 138/81; BP 157/79; PULSE 79; RESP 16; TEMP 36.9; O2SAT 98
[2020-03-24 09:10] VITALS: BP 138/81; BP 157/79; PULSE 75; RESP 18; O2SAT 96
[2020-03-24 09:15] VITALS: BP 138/81; BP 143/78; PULSE 72; RESP 18; O2SAT 94
[2020-03-24 09:25] VITALS: BP 132/58; BP 138/81; PULSE 73; RESP 18; TEMP 37; O2SAT 94
[2020-03-24 09:39] VITALS: BP 138/81
--- NOTE | 2020-03-24 14:53 | PCM.OPRPT ---
Report of Operation Date of Procedure: 03/24/20 Description of Surgical Findings:: PREOPERATIVE DIAGNOSIS: Osteoarthritis of the bilateral knees. POSTOPERATIVE DIAGNOSIS: Osteoarthritis of the bilateral knees. PROCEDURE PERFORMED: Bilateral knees intraarticular steroid injection under fluoroscopic guidance. ANESTHESIA:Local. BLOOD LOSS: Minimal. COMPLICATIONS: None. DESCRIPTION OF PROCEDURE: History and physical of today was reviewed. Risks and benefits of the procedure were explained. The patient understood and agreed to proceed. Informed consent was obtained. IV inserted per routine protocol. The patient was taken to the operating room and placed in the supine position. The bilateral knees area were prepped and draped in a sterile fashion using iodine x3. Under fluoroscopy guidance on AP view, the bilateral knee joints were visualized. The skin and subcutaneous tissue was anesthetized with approximately 3 mL of 1% lidocaine using a 25-gauge regular needle at the medial aspect of the left knee and right knee. Under direct visualization with fluoroscopy, on AP view, using a 22-gauge 3-1/2-inch spinal needle, the needle was advanced via the skin. The tip of the needle was maneuvered and directed towards the intraarticular space at the medial compartment of the right knee and left knee. Once the tip of the needle was at the vicinity of the knee, after negative aspiration for blood, positive aspiration of the synovial fluid, a total of 1 mL of contrast was injected to confirm correct placement of the needle as well as intraarticular spread medial as well as lateral compartment. After confirmation on AP as well as lateral view and repeated negative aspiration, a total of 5 ml of preservative-free 0.25% Marcaine with 40 mg of Depo-Medrol was injected easily into each knee. The needle was then removed intact. The patient experienced no sign or symptoms of intravascular injection. The patient experienced no paresthesia. The procedure was completed without any apparent difficulty or any complications. The patient appeared to tolerate it well. Assessment and plan: This is a 45-year-old female with osteoarthritis of bilateral knees status post bilateral knees intra-articular steroid injection under fluoroscopic guidance, patient will continue current medications, patient found approximately 2 weeks for reevaluation.
== END 2020-03-24 09:45 | disposition home or self-care (01) ==
LOC: SDC 07:33 → AC 07:33
PROVIDERS: PCP Internal Medicine; Referring Provider Anesthesiology Pain Medicine; Visit Provider Anesthesiology Pain Medicine
PROC: 3E0U3GC Introduction of Other Therapeutic Substance into Joints, Percutaneous Approach (ICD-10-PCS; CPT 20610; principal; 2020-03-24 08:55)
DX: M17.0 Bilateral primary osteoarthritis of knee (principal); M06.9 Rheumatoid arthritis, unspecified; F17.210 Nicotine dependence, cigarettes, uncomplicated; Z79.891 Long term (current) use of opiate analgesic
CPT/HCPCS: 20610; 76000; 77002; J7120

== ENCOUNTER → 2020-06-17 12:53 | Outpatient (CLI) | payer MEDICAID, SELFPAY ==
[2020-06-17 11:24] VITALS: BMI 57.6
--- NOTE | 2020-06-17 12:57 | VDLE_ITS ---
Reason For Study: pain RIGHT LEFT GSV is normal. GSV is normal. CFV is compressible, spontaneous, phasic, CFV is compressible, spontaneous, phasic, competent and demonstrates normal competent, and demonstrates normal augmentation. augmentation. FV is compressible, spontaneous, phasic, FV is compressible, spontaneous, phasic, competent and demonstrates normal competent and demonstrates normal augmentation. augmentation. POP V is compressible, spontaneous, phasic, POP V is compressible, spontaneous, phasic, competent and demonstrates normal competent and demonstrates normal augmentation. augmentation. T/P Trunk is compressible. T/P Trunk is compressible. PTV is compressible. PTV is compressible. RT PerV is compressible. LT PerV is compressible. Procedure This is a venous duplex using B-mode, color flow and spectral Doppler. Exam performed in department. The exam was diagnostic. A preliminary report was called and/or faxed to Dr. Asher's nurse line. Interpretation Summary No evidence for acute deep venous thrombosis bilateral lower extremities with patent and compressible bilateral great saphenous veins. Ordering Physician: Vanessa Asher Performed By: Spike Barraza RVT
== END ==
PROVIDERS: PCP Internal Medicine; Referring Provider Internal Medicine; Visit Provider Internal Medicine
DX: M79.89 Other specified soft tissue disorders (principal); M79.606 Pain in leg, unspecified
CPT/HCPCS: 93970

== ENCOUNTER 2020-08-11 16:30 | Inpatient (IN) | payer MEDICARE, MEDICAID, SELFPAY ==
[2020-08-11] VITALS (15 sets, daily range): BP systolic 114–157; BP diastolic 54–94; PULSE 69–101; RESP 16–26; TEMP 36.6–37.3; O2SAT 87–97; BMI 57.4; BMI 55.6; BMI 55.7; BMI 57.5
--- NOTE | 2020-08-11 16:41 | EKG12_ITS ---
Test Reason : WOUND Blood Pressure : / mmHG Vent. Rate : 090 BPM Atrial Rate : 090 BPM P-R Int : 164 ms QRS Dur : 112 ms QT Int : 364 ms P-R-T Axes : 066 -79 038 degrees QTc Int : 445 ms Normal sinus rhythm Left axis deviation Incomplete right bundle branch block Possible Inferior infarct , age undetermined Abnormal ECG Confirmed by ZENAIDA PEREZ, ANTON ([id number]), script editor ROSAURA CRAMER ([id number]) on 08/14/2020 12:32:43 PM Referred By: STACEY/DASH Confirmed By:MISTI ESTEVEZ MD
--- NOTE | 2020-08-11 16:42 | ED.VIS.GEN ---
History of Present Illness Chief Complaint: Wound Informant: Patient Onset: Month(s) Context: Sudden Onset Timing: Continuous Quality: Wound left lower extremity Location: Left leg anterior and posteriorly Current Severity: Mild Maximum Severity: Moderate Worsened by: Injury and psoriasis Relieved by: Nothing Associated Symptoms: Drainage, redness, chills 2 days ago Narrative: Patient is a 45-year-old morbidly obese woman with type 2 diabetes and psoriatic arthritis on immunosuppressive meds who presents with wound to her left leg that has been present for approximately 2 months. She sustained injury 2 months ago. She did not seek medical attention at that time. She has not been seen in the wound center. She reports drainage. She denies documented fever. She does report chills 2 days ago. She does give symptoms of claudication left leg. She complains of pain in the right inguinal area. He states there is no rash. She does smoke approximately 1 pack/day. She states she sleeps in a lazy boy since she has had back pain for some time. She denies history of obstructive sleep apnea, congestive heart failure. She states her last A1c was 5.5. Prior similar symptoms: Yes Recent Illness/Hospitalization: No - Past Medical History (1) Psoriatic arthritis Status: Acute (2) Degenerative disc disease, lumbar Status: Chronic (3) Depression Status: Chronic (4) Hypertension Status: Chronic (5) Morbid obesity Status: Chronic (6) Primary osteoarthritis of left knee Status: Chronic (7) Psoriasis Status: Chronic (8) Type 2 diabetes mellitus Status: Chronic Past Medical History - Allergies and Home Meds Allergies/Adverse Reactions: Allergies No Known Allergies Allergy (Verified 08/11/20 16:31) Primary Care Physician: Heath Thomas MD [Primary Care Provider] - Prior records reviewed: Yes Surgical History: noncontributory Lives: With Family Smoking Status: Current every day smoker Alcohol: None Drugs: None Review of Systems General: Reports: Chills, Malaise. Denies: Fever, Subjective, Sweats Eyes: Denies: Visual changes - bilaterally, Blurred Vision - bilaterally ENT: Denies: Bilateral ear pain, Rhinorrhea, Sore throat Cardiovascular: Denies: Chest pain, Palpitations Respiratory: Reports: Dyspnea, Dyspnea on exertion. Denies: Cough, Sputum, Orthopnea, Paroxysmal nocturnal dyspnea Gastrointestinal: Denies: Abdominal pain, Nausea, Vomiting, Diarrhea, Melena, Hematochezia Genitourinary: Denies: Dysuria, Hematuria, Frequency Musculoskeletal: Reports: Back pain, Swelling, Extremity Pain. Denies: Myalgias, Arthralgias, Neck pain Skin: Reports: Rash, Wounds - Rash and wounds left leg Neurological: Denies: Headache, Weakness Psych: Reports: Depression - Per medical records Endocrine: Denies: Polyuria, Polydipsia Hematologic: Denies: Easy bruising, Easy bleeding Physical Exam Vital Signs/Narrative: Vital Signs Temp Pulse Resp BP Pulse Ox 08/11/20 16:31 98.5 F 101 H 22 H 146/94 H 90 Inital Vital Signs reviewed: Yes General: Well nourished, Well developed, Obese, Acute Distress - Attic. Pulse ox reads 87%. Head: Normocephalic, Atraumatic Eyes: Perrl, EOMI. Negative for: Pale conjunctiva, Scleral icterus ENT: Moist mucous membranes, No rhinorrhea Neck: Supple, Nontender, No lymphadenopathy, No JVD Cardiovascular: Regular rhythm, No murmurs, Normal S1, Tachycardia Respiratory: CTA bilaterally, Chest nontender, Decreased Air Movement Abdomen: Soft, Nontender, Nondistended, Normal bowel sounds, - - There is no inguinal lymphadenopathy. Back: - - Perilumbar discomfort Extremities: Tenderness, Edema, - - There are 2 wounds anterior and anterior lateral mid leg and a wound that is posterior and dorsal left leg. PT pulse is palpable on the left. Difficult to palpate DP because of edema. Negative for: Nontender Skin: Normal color, Rash - Psoriasis. There is skin breakdown. There is evidence of cellulitis. Neurological: Alert, Oriented x3, Cranial nerves II-XII grossly intact, Normal Strength, Normal Sensation Psychological: Normal affect Diagnostic/Tx/Re-eval Chest X-Ray - ED: 2 View, Read by ED Physician, Normal, Mediastinum, Cardiomegaly - Underlying cardiomegaly, CHF, - - The chest x-ray was interpreted by me at 1755 Impressions Chest X-Ray 08/11/20 17:15 IMPRESSION: Mild pulmonary vascular congestion Electronically Signed: Brady Day MD at 18:01 EDT , Service support , 08/11/20 17:15 Chest PA and Lateral [RAD] Stat Laboratory Results 08/11/20 08/11/20 08/11/20 16:56 16:56 16:56 WBC 9.6 RBC 5.98 H Hgb 13.4 Hct 46.6 MCV 77.9 L MCH 22.4 L MCHC 28.8 L RDW Std Deviation 50.6 H RDW Coeff of Luis 18.9 H Plt Count 204 MPV TNP Immature Gran % (Auto) 0.500 Neut % (Auto) 72.3 H Lymph % (Auto) 16.0 L [place] % (Auto) 8.9 Eos % (Auto) 2.1 Baso % (Auto) 0.2 Absolute Neuts (auto) 6.9 Absolute Lymphs (auto) 1.54 Nucleated RBC % 0 Sodium 138 Potassium 3.9 Chloride 102 Carbon Dioxide 32.0 Anion Gap 4 L BUN 11 Creatinine 0.67 Estim Creat Clear Calc 113.46 Est GFR (MDRD) Af Amer 122 Est GFR (MDRD) Non-Af 101 BUN/Creatinine Ratio 16.5 Glucose 147 H Lactic Acid 2.2 H* Calcium 8.8 Total Bilirubin 0.30 AST 17 ALT 17 Alkaline Phosphatase 91 Troponin I < 0.015 B-Natriuretic Peptide Total Protein 8.4 H Albumin 2.8 L Globulin 5.6 H Albumin/Globulin Ratio 0.5 L 08/11/20 16:56 WBC RBC Hgb Hct MCV MCH MCHC RDW Std Deviation RDW Coeff of Luis Plt Count MPV Immature Gran % (Auto) Neut % (Auto) Lymph % (Auto) [place] % (Auto) Eos % (Auto) Baso % (Auto) Absolute Neuts (auto) Absolute Lymphs (auto) Nucleated RBC % Sodium Potassium Chloride Carbon Dioxide Anion Gap BUN Creatinine Estim Creat Clear Calc Est GFR (MDRD) Af Amer Est GFR (MDRD) Non-Af BUN/Creatinine Ratio Glucose Lactic Acid Calcium Total Bilirubin AST ALT Alkaline Phosphatase Troponin I B-Natriuretic Peptide 63.3 Total Protein Albumin Globulin Albumin/Globulin Ratio - EKG Initial EKG Interpretation: Sinus Rhythm - Normal sinus rhythm with a ventricular rate of 90. [place] interval is 164 ms. QRS duration 112 ms and there is a RR prime noted in V1. This may represent an incomplete right bundle branch block. QT duration 364 ms. [place] to the left. - Medical Decision Making Colitis of the left leg. This is complicated by the fact that she is on immunosuppressive meds. She also hypoxic which may represent right heart failure due to undiagnosed obstructive sleep apnea with pulmonary hypertension. EKG was obtained to rule out cardiac ischemia, chest x-ray to rule out pulmonary cause. Appropriate blood work for sepsis work-up and cardiac work-up Chest x-ray does reveal cephalization and perihilar fluffiness consistent with vascular congestion, congestive heart failure. Patient is present on oxygen and saturating only 89%. She will need a work-up for this. Since she is tachycardic, tachypneic with cellulitis and a lactate of 2.2 she has severe sepsis. Blood cultures were ordered and antibiotics for skin infection was ordered as well. She has no allergies. Hospitalist was paged for admission. - Critical Care Time Critical care time (excluding procedures): 30-74 minutes - Critical care time 33 minutes. This included obtaining history, physical exam, review of prior records, interpretation of laboratory results and initiation of therapy for congestive heart failure and severe sepsis., Discussing w/Patient &/or Family/[employer] Project Manager, Discussing w/Consultants, Arranging Admission or Transfer ED Disposition - Plan for ED Patient: Disposition: Acute Care Hospital [facility] Diagnosis: Severe sepsis, Cellulitis of left leg without foot, New onset of congestive heart failure, Hypoxia, Type 2 diabetes mellitus Referrals: Heath Thomas MD [Primary Care Provider] -
--- NOTE | 2020-08-11 17:15 | RAD_ITS ---
STUDY: X-RAY CHEST REASON FOR EXAM: Female, 45 years old. Hypoxia and dyspnea on exertion TECHNIQUE: AP and lateral views of the chest. COMPARISON: None. FINDINGS: Mild pulmonary vascular congestion is present bilaterally. There is no demonstrated pleural abnormality. Normal size heart. Normal mediastinum and josé. Normal visualized pulmonary arteries. Normal visualized aortic arch and descending thoracic aorta. Normal visualized thoracic spine. Normal visualized ribs, clavicles, and shoulders. There is no demonstrated abnormality of the visualized soft tissue structures of the upper abdomen. RAD/Chest PA and Lateral IMPRESSION: Mild pulmonary vascular congestion Electronically Signed: Brady Day MD at 18:01 EDT , Service support ,
[2020-08-11 17:30] LABS: Absolute Lymphocyte Count 1.54 X10^3/uL (0.83-4.51); Absolute Neutrophil Count 6.9 X10^3/uL (2.0-7.7); Basophil# 0.02 X10^3/uL; Basophil% 0.2 % (0-1); Eosinophils% 2.1 % (0-5); Hematocrit 46.6 % (37-47); Hemoglobin 13.4 g/dL (12.0-15.0); Lymphocyte # 1.54 X10^3/ul (4.0); Mean Corp Hgb Conc 28.8 g/dL (32-36); Mean Corpuscular Hgb 22.4 pg (27.0-32.0); Mean Corpuscular Volume 77.9 fL (81-99); Monocyte# 0.85 X10^3/uL; Monocyte% 8.9 % (0-10); NRBC Flagged by Analyzer 0 % (0-5); Neutrophil # 6.94 X10^3/uL (2.7-7.7); Neutrophil % 72.3 % (47-70); Platelet Count 204 K/mm3 (150-450); RBC Distribution Width CV 18.9 % (11.6-14.6); RBC Distribution Width SD 50.6 fl (35.1-43.9); Red Blood Count 5.98 M/mm3 (4.2-5.4); White Blood Count 9.6 K/mm3 (4.4-11.0)
[2020-08-11 17:32] LABS: BNP,B-Type NATRIURETIC PEPTIDE 63.3 pg/mL (0-100)
[2020-08-11 17:37] LABS: ALB/GLOB Ratio 0.5 RATIO (0.9-2.4); AST(SGOT) 17 U/L (15-37); Alanine Aminotransfer ALT/SGPT 17 U/L (13-56); Albumin, Serum 2.8 g/dL (3.2-5.0); Alkaline Phosphatase 91 U/L (45-117); Anion Gap 4 (5-15); BUN 11 mg/dL (7-18); BUN/Creat Ratio 16.5 RATIO (10-20); Calcium,Total 8.8 mg/dL (8.5-10.1); Chloride 102 mmol/L (98-107); Creatinine, Serum 0.67 mg/dL (0.55-1.02); EST Glomerular Filtration Rate 101 mL/min (>60); Est Glom Filt Rate - Afr Amer 122 mL/min (>60); Estimated Creatinine Clearance 113.46 ml/min; Globulin 5.6 g/dL (2.2-4.2); Glucose 147 mg/dL (74-106); Potassium 3.9 mmol/L (3.5-5.1); Protein, Total 8.4 g/dL (6.4-8.2); Sodium Level 138 mmol/L (136-145)
[2020-08-11 17:51] LABS: Lactic Acid 2.2 mmol/L (0.4-1.9)
[2020-08-11] MEDS: Furosemide 40 MG/4 ML Vial IV (18:31)
--- NOTE | 2020-08-11 18:42 | HP.PCM_ITS ---
Problem List (1) Primary osteoarthritis of left knee Status: Chronic (2) Psoriatic arthritis Status: Chronic (3) Severe sepsis Status: Acute (4) Cellulitis of left leg without foot Status: Acute (5) New onset of congestive heart failure Status: Acute (6) Hypoxia Status: Acute (7) Type 2 diabetes mellitus Status: Chronic (8) Depression Status: Chronic (9) Borderline type 2 diabetes mellitus Status: Chronic (10) Tobacco abuse counseling Status: Chronic (11) Morbid obesity Status: Chronic (12) Hypertension Status: Chronic Qualifiers: Hypertension type: essential hypertension Qualified Code(s): I10 - Essential (primary) hypertension (13) Psoriasis Status: Chronic (14) Degenerative disc disease, lumbar Status: Chronic (15) Rheumatoid arthritis Status: Chronic (16) Back problem Status: Chronic Comment: Lower back injections 03/09 (17) Arthritis Status: Chronic (18) Degeneration of lumbar or lumbosacral intervertebral disc Status: Chronic (19) Radiculopathy of lumbosacral region Status: Chronic History of Present Illness Date of Admission: 08/11/20 Chief Complaint: Left lower extremity wound for 2 months The patient is a 45 year old F with multiple comorbidities, morbid obesity, psoriatic arthritis on immunosuppressive medication came to ER with seeping from the left leg since May 2020. Patient also has diabetes mellitus type 2. She has erosion on the powers of left leg, sustained injury about 2 months ago. There is also pain, induration on left leg and distal thigh. Patient has gradual worsening of shortness of breath on exertion for last 3 to 4 months. She was short of breath on walking about 100 feet or climbing 3-40 stairs. Denies fever, chills, cough, chest pain/pressure, dysuria or change in urine or bowel movement. In ED, BP was elevated 170/90, heart rate 78, pulse ox 90% on room air. Chest x-ray individually reviewed and suggestive of venous congestion, hypoventilation, poor quality because of morbid obesity habitus. Remarkable abnormal labs in ER shows lactic acid 2.2. Anion gap 4, albumin 2.8. EKG shows sinus rhythm, LAD at 90 bpm. Incomplete right bundle branch block, QTC 445 ms. [] Patient is also a smoker since age of 15 currently half a pack per day. History of chronic BMP joint disease and follows Dr. Albright for pain management. Past Medical History Past Medical History (Chronic Problems): Chronic Problems (Last Reviewed 06/17/20 @ 11:32 by Carmen Campa) Primary osteoarthritis of left knee (Chronic) Psoriatic arthritis (Chronic) Type 2 diabetes mellitus (Chronic) Depression (Chronic) Borderline type 2 diabetes mellitus (Chronic) Tobacco abuse counseling (Chronic) Morbid obesity (Chronic) Hypertension (Chronic) Psoriasis (Chronic) Degenerative disc disease, lumbar (Chronic) Rheumatoid arthritis (Chronic) Back problem (Chronic) Lower back injections 03/09 Arthritis (Chronic) Degeneration of lumbar or lumbosacral intervertebral disc (Chronic) Radiculopathy of lumbosacral region (Chronic) Medical History: Medical History (Last Reviewed 06/17/20 @ 11:32 by Carmen Campa) Psoriasis (Chronic) L40.9 Degenerative disc disease, lumbar (Chronic) M51.36 Rheumatoid arthritis (Chronic) M06.9 Back problem (Chronic) M53.9 Lower back injections 03/09 Arthritis (Chronic) M19.90 Allergies No Known Allergies Allergy (Verified 08/11/20 16:31) Home Medications: Ambulatory Orders Medication Instructions Recorded Ixekizumab [Taltz Syringe] 80 mg SQ QMONTH 11/14/17 gabapentin 600 mg tablet 600 mg PO TID tab 08/15/18 Diclofenac [Voltaren] 75 mg PO BIDCM 01/02/19 sertraline 50 mg tablet 50 mg PO DAILY #90 tab 10/13/19 Amlodipine Besylate [Norvasc] 10 mg PO DAILY 08/11/20 Losartan Potassium [Cozaar] 50 mg PO DAILY 08/11/20 metFORMIN (XR) [Glucophage Xr] 1,000 mg PO QPM 08/11/20 Surgical History: Surgical History (Last Reviewed 06/17/20 @ 11:32 by Carmen Campa) History of Z98.891 2000 - Twins History of tonsillectomy Z90.89 Surgical History: noncontributory Lives: With Family Smoking Status: Current every day smoker Alcohol: None Drugs: None - *Family History Maternal Family History: Family History (Last Reviewed 06/17/20 @ 11:32 by Carmen Campa) Father Arthritis Autoimmune disorder Diabetes Heart disease Hypertension Mother Hypertension Sister Diabetes Grandmother Diabetes Review of Systems Constitutional: Denies: Chills, Fever, Weight Change HEENT: Denies: Head Aches, Sinus Congestion, Sinus Drainage Cardiovascular: Denies: Chest Pain, Palpitations Respiratory: Reports: Shortness of Breath, Shortness of breath upon exertion, Wheezing. Denies: Cough, Shortness of breath at rest, Sputum production Gastrointestinal: Denies: Abdominal Pain, Nausea, Vomiting Genitourinary: Denies: Dysuria Musculoskeletal: Reports: Back Pain, Joint Pain, Joint stiffness. Denies: Joint Tenderness Skin: Reports: Rash, Skin Changes, Wounds Neurological: Reports: Balance problems, Incoordination. Denies: Focal weakness, Numbness, Tingling Psychiatric: Denies: Anxiety, Depression, Homicidal Ideations, Suicidal Ideations Hematologic/ Lymphatic: Denies: Easy Bruising, Easy Bleeding VTE Information - Inpt Only VTE Present on Admission: No VTE Mechan Device Prophylaxis: None VTE Pharm Prophylaxis ordered?: Yes Patient Problems: Active and Suspected Problems (Last Reviewed 06/17/20 @ 11:32 by Carmen Campa) Severe sepsis (Acute) Cellulitis of left leg without foot (Acute) New onset of congestive heart failure (Acute) Hypoxia (Acute) Objective: General: Alert, Oriented x3, Cooperative, morbid obesity BMI 55.7 kg/m? HEENT: Atraumatic, PERRLA, EOMI, Normocephalic Oral: No Gingival or Mucosal Lesions/ Ulcerations Neck: Supple, No JVD, Negative Carotid Bruits Lungs: Air entry diminished in bilateral lung bases. Bilateral expiratory wheezing present. Cardiovascular: Regular rate, Regular Rhythm, Normal S1, Normal S2, No murmurs Abdomen: Bowel Sounds Present, Soft, Non Tender, Non-Distended : No renal angle tenderness. No suprapubic tenderness. Extremities: No edema, Capillary Refill Less than 3 Seconds Skin: Small superficial ulceration over left powers. Diffuse varicose vein. Diffuse erythematous, thick scaly rash of psoriasis mainly in both lower extremities. Tenderness and induration over left distal thigh and leg. Musculoskeletal: Tenderness present over left hip joint. Chronic DJD of left hip and bilateral knee joints. Neurological: Cranial nerves II-XII grossly intact, Deep Tendon Reflexes 2+/4 and Symmetrical, Neuro grossly intact Psych/Mental Status: Normal Affect, Appropriate. - Physical Exam Vitals/I&O's: Vital Signs Temp Pulse Resp BP Pulse Ox 99.1 F 89 99 H 157/86 H 94 08/11/20 18:21 08/11/20 18:21 08/11/20 18:21 08/11/20 18:21 08/11/20 18:21 Oxygen Flow Rate (L/min) 3 Oxygen Delivery Method Nasal Cannula Weight: 388 lb Body Mass Index (BMI) 55.6 Laboratory Results 08/11/20 16:56: WBC 9.6, RBC 5.98 H, Hgb 13.4, Hct 46.6, MCV 77.9 L, MCH 22.4 L, MCHC 28.8 L, RDW Std Deviation 50.6 H, RDW Coeff of Luis 18.9 H, Plt Count 204, MPV TNP, Immature Gran % (Auto) 0.500, Neut % (Auto) 72.3 H, Lymph % (Auto) 16.0 L, [place] % (Auto) 8.9, Eos % (Auto) 2.1, Baso % (Auto) 0.2, Absolute Neuts (auto) 6.9, Absolute Lymphs (auto) 1.54, Nucleated RBC % 0 08/11/20 16:56: Sodium 138, Potassium 3.9, Chloride 102, Carbon Dioxide 32.0, Anion Gap 4 L, BUN 11, Creatinine 0.67, Estim Creat Clear Calc 113.46, Est GFR (MDRD) Af Amer 122, Est GFR (MDRD) Non-Af 101, BUN/Creatinine Ratio 16.5, Glucose 147 H, Calcium 8.8, Total Bilirubin 0.30, AST 17, ALT 17, Alkaline Phosphatase 91, Troponin I < 0.015, Total Protein 8.4 H, Albumin 2.8 L, Globulin 5.6 H, Albumin/Globulin Ratio 0.5 L 08/11/20 16:56: Lactic Acid 2.2 H* 08/11/20 16:56: B-Natriuretic Peptide 63.3 Current Medications Vancomycin HCl 2,000 mg/ (Dextrose) 290 mls @ 250 mls/hr IV X1 ONE Stop: 08/11/20 19:26 Assessment/Plan All Active Problems (Last Reviewed 06/17/20 @ 11:32 by Carmen Campa) Severe sepsis (Acute) Cellulitis of left leg without foot (Acute) New onset of congestive heart failure (Acute) Hypoxia (Acute) This 45-year-old female came to ER with left leg superficial ulcer and cellulitis. 1. Severe sepsis (tachycardia, lactic acidosis) secondary to left lower extremity cellulitis complicated in immunocompromised host: Patient is being admitted in ICU. Patient is not candidate for IV fluid bolus as per severe sepsis protocol because of CHF exacerbation. Started on broad-spectrum antibiotic vancomycin and Zosyn in ER will continue it. Severe sepsis may be from severe sepsis or Metformin. Blood culture ordered. Patient denies burning micturition or increased frequency urgency. Repeat lactic acid. Hold immunosuppressive agent ixekizumab for psoriasis and Metformin. Title Camera Operator consult. 2. New diagnosis heart failure: Clinical findings and chest x-ray suggestive of heart failure. Started on Lasix 40 mill IV twice daily. Patient on losartan continued. 2D echo tomorrow a.m. Continue amlodipine. 3. Hypoxia probably from heart failure with possibility of COPD/ obstructive sleep apnea: Patient has wheezing and chronic smoking history. Might be COPD. DuoNeb as needed for shortness of breath. Outpatient PFT and sleep study. 4. Diabetes mellitus type 2: Accu-Chek before meals and at bedtime cover with Hem-o-niraj sliding scale. Lantus 10 unit subcutaneous at bedtime daily 5. Hypertension: Home medications resumed. 6. Psoriatic arthritis on ixekizumab: As mentioned above 7. Degenerative joint disease of lumbar spine, bilateral knees and hip joints 8. Anxiety and depression 9. VTE prophylaxis: High risk because of morbid obesity. Lovenox 30 mg subcu twice daily. Living will/advanced directive/end of life care: Patient does not have living will or advanced directive. After discussion of benefits/risks procedures involved with full code, DNR CC arrest and DNR CC, the patient opted for full code. Patient does want artificial life support including intubation, tube feed, ventilator and/chest compression, central venous catheter, vasopressor and DC shock if needed Total time spent in [id number] encounter in discussion of advanced directive 16 minutes. Inpatient E&M: 31716 Init Hosp L3 Procedures: 51981 Advncd Care Plan 30 Min
[2020-08-11 21:00] LABS: Allen Test Positive; Base Excess 8 mmol/L (-2 to +2); Bicarbonate 33.8 mmol/L (22-26); Blood Gas Specimen Type ART; O2 Delivery Device Cannula; PO2 67 mmHG (75-100); SITE L Radial; SO2 91 % (95-99); Total Carbon Dioxide 36 mmol/L; pCO2 60.9 mmHg (35-45); pH 7.35 (7.35-7.45)
[2020-08-11 21:15] LABS: Reflex Lactate? Y
[2020-08-11 21:25] LABS: International Normalized Ratio 1.2; Prothrombin Time (Protime)PT. 14.2 SECONDS (11.7-14.9)
[2020-08-11 21:33] LABS: Magnesium 1.8 mg/dL (1.6-2.6)
[2020-08-11 21:45] LABS: Lactic Acid 0.9 mmol/L (0.4-1.9)
[2020-08-11] MEDS: Enoxaparin 30 MG/0.3 ML Syringe SC (21:57)
[2020-08-11] MEDS: Gabapentin 600 MG Tablet PO (21:57)
[2020-08-11] MEDS: Atorvastatin Calcium 40 MG Tablet PO (21:57)
[2020-08-11 22:06] LABS: Bedside Glucose 167 mg/dL (70-110)
[2020-08-11 22:37] LABS: Probe Check PASS
[2020-08-11 22:38] LABS: M R Staph aureus DNA By PCR POSITIVE (Negative)
[2020-08-12] VITALS (20 sets, daily range): BP systolic 126–156; BP diastolic 60–86; PULSE 66–79; RESP 16–21; TEMP 36.3–37; O2SAT 90–95
[2020-08-12 04:59] LABS: Absolute Lymphocyte Count 1.43 X10^3/uL (0.83-4.51); Absolute Neutrophil Count 4.8 X10^3/uL (2.0-7.7); Basophil# 0.02 X10^3/uL; Basophil% 0.3 % (0-1); Eosinophil# 0.22 X10^3/uL; Eosinophils% 2.9 % (0-5); Hematocrit 46.1 % (37-47); Hemoglobin 12.9 g/dL (12.0-15.0); Lymphocyte # 1.43 X10^3/ul (4.0); Lymphocyte % 19.1 % (19-41); Mean Corpuscular Hgb 22.3 pg (27.0-32.0); Mean Corpuscular Volume 79.6 fL (81-99); Mean Platelet Vol. 10.4 fl (6.2-12.0); Monocyte# 0.97 X10^3/uL; NRBC Flagged by Analyzer 0 % (0-5); Neutrophil % 64.3 % (47-70); Platelet Count 189 K/mm3 (150-450); RBC Distribution Width CV 19.1 % (11.6-14.6); RBC Distribution Width SD 53.3 fl (35.1-43.9); Red Blood Count 5.79 M/mm3 (4.2-5.4); White Blood Count 7.5 K/mm3 (4.4-11.0)
[2020-08-12 05:30] LABS: Anion Gap 2 (5-15); BUN 10 mg/dL (7-18); BUN/Creat Ratio 17.7 RATIO (10-20); Calcium,Total 8.4 mg/dL (8.5-10.1); Chloride 102 mmol/L (98-107); Cholesterol 127 mg/dL (200); Creatinine, Serum 0.57 mg/dL (0.55-1.02); EST Glomerular Filtration Rate 122 mL/min (>60); Est Glom Filt Rate - Afr Amer 148 mL/min (>60); Estimated Creatinine Clearance 133.36 ml/min; Glucose 149 mg/dL (74-106); High Density Lipoprotein 36 mg/dL; Potassium 4.3 mmol/L (3.5-5.1); Sodium Level 140 mmol/L (136-145); Thyroid Stim Hormone (TSH) 1.09 uIU/mL (0.358-3.74); Triglycerides 118 mg/dL; Very Low Density Lipoprotein 24 mg/dL (5-40)
--- NOTE | 2020-08-12 05:39 | CPS ---
Pt. placed on AVAPS setting for about 4-5 minutes to get a better understanding for what pt.'s IPAP setting should be on. I placed pt. on BiPAP setting of 03/01, and she tolerated it fine. Return volumes were normal, and pt. said she was able to tolerate. RN called to inform me that pt. was having significant desaturations while on BiPAP, so she increased pt.'s FiO2 to 35% (pt.'s been wearing anywhere from 2-4 L NC). Pt. desatted to as low as 70% while wearing BiPAP at 35% FiO2. RN switched pt. back to 3-4L NC, and pt. maintained appropriate oxygenation through out her time sleeping. Pt.'s respiratory rate remained normal as well, with diminished breath sounds anteriorly.
--- NOTE | 2020-08-12 05:42 | CON.PCM_ITS ---
Reason for Consult Date of Consultation: 08/12/20 Reason for Consultation: Severe sepsis History of Present Illness: The patient is a 45-year-old female, with a history as outlined below, who presented to the emergency department on August 11 with complaints of a worsening left lower extremity wound, which had apparently been present for 2 months. She stated that over the last several days her left lower extremity began to swell when she was having drainage from the wound. The patient is a current daily smoker. She denies ever having been diagnosed with COPD previously. She does not currently utilize inhalers or supplemental oxygen at her baseline. On presentation to the emergency department, the patient was noted to be afebrile and hemodynamically stable. Laboratory evaluation revealed a normal white blood cell count. Coagulation profile was within normal limits. Chemistry profile was unremarkable. Lactate was elevated to 2.2. Arterial blood gas obtained on 2 L/min revealed a pH of 7.35 with a corresponding PCO2 of 61 and PO2 of 67. Troponin and BNP were unremarkable. MRSA screen was positive. Chest x-ray revealed mild pulmonary vascular congestion. Past Medical History Past Medical History (Chronic Problems): Chronic Problems (Last Reviewed 06/17/20 @ 11:32 by Caremn Campa) Primary osteoarthritis of left knee (Chronic) Psoriatic arthritis (Chronic) Type 2 diabetes mellitus (Chronic) Depression (Chronic) Borderline type 2 diabetes mellitus (Chronic) Tobacco abuse counseling (Chronic) Morbid obesity (Chronic) Hypertension (Chronic) Psoriasis (Chronic) Degenerative disc disease, lumbar (Chronic) Rheumatoid arthritis (Chronic) Back problem (Chronic) Lower back injections 03/09 Arthritis (Chronic) Degeneration of lumbar or lumbosacral intervertebral disc (Chronic) Radiculopathy of lumbosacral region (Chronic) Medical History: Medical History (Last Reviewed 06/17/20 @ 11:32 by Carmen Campa) Psoriasis (Chronic) L40.9 Degenerative disc disease, lumbar (Chronic) M51.36 Rheumatoid arthritis (Chronic) M06.9 Back problem (Chronic) M53.9 Lower back injections 03/09 Arthritis (Chronic) M19.90 Allergies No Known Allergies Allergy (Verified 08/11/20 16:31) Home Medications: Ambulatory Orders Medication Instructions Recorded Ixekizumab [Taltz Syringe] 80 mg SQ QMONTH 11/14/17 gabapentin 600 mg tablet 600 mg PO TID tab 08/15/18 Diclofenac [Voltaren] 75 mg PO BIDCM 01/02/19 sertraline 50 mg tablet 50 mg PO DAILY #90 tab 10/13/19 Amlodipine Besylate [Norvasc] 10 mg PO DAILY 08/11/20 Losartan Potassium [Cozaar] 50 mg PO DAILY 08/11/20 metFORMIN (XR) [Glucophage Xr] 1,000 mg PO QPM 08/11/20 Surgical History: Surgical History (Last Reviewed 06/17/20 @ 11:32 by Carmen Campa) History of Z98.891 2000 - Twins History of tonsillectomy Z90.89 Surgical History: noncontributory Lives: With Family Smoking Status: Current every day smoker Tobacco Use: Cigarettes Alcohol: None Drugs: None - *Family History Maternal Family History: Family History (Last Reviewed 06/17/20 @ 11:32 by Carmen Campa) Father Arthritis Autoimmune disorder Diabetes Heart disease Hypertension Mother Hypertension Sister Diabetes Grandmother Diabetes Review of Systems Constitutional: Denies: Chills, Fever Eyes: Denies: Blurred vision, Double vision HEENT: Denies: Head Aches, Sinus Congestion, Sinus Drainage Cardiovascular: Denies: Chest Pain, Palpitations Respiratory: Denies: Cough, Shortness of breath at rest, Sputum production Gastrointestinal: Denies: Abdominal Pain, Nausea, Vomiting Genitourinary: Denies: Dysuria Musculoskeletal: Reports: Leg Pain Skin: Reports: Wounds Neurological: Denies: Numbness, Tingling, Focal weakness Psychiatric: Denies: Anxiety, Depression, Homicidal Ideations, Suicidal Ideations Hematologic/ Lymphatic: Denies: Easy Bruising, Easy Bleeding Patient Problems: Active and Suspected Problems (Last Reviewed 06/17/20 @ 11:32 by Carmen Campa) Severe sepsis (Acute) Cellulitis of left leg without foot (Acute) New onset of congestive heart failure (Acute) Hypoxia (Acute) Objective: The patient's most recent lab work, culture data and imaging studies have all been personally reviewed. Blood cultures are currently pending. - Physical Exam Vitals/I&O's: Vital Signs Temp Pulse Resp BP Pulse Ox 97.4 F L 66 18 144/86 H 93 08/12/20 04:00 08/12/20 05:00 08/12/20 05:00 08/12/20 05:00 08/12/20 05:00 Oxygen Flow Rate (L/min) 4 Oxygen Delivery Method Nasal Cannula Weight: 399 lb 11.169 oz Body Mass Index (BMI) 57.5 Intake and Output for Last 24 Hours 08/10/20 08/11/20 08/12/20 23:59 23:59 23:59 Intake Total 640 / 880 290 / 290 Output Total 300 / 300 Balance 640 / 880 -10 / -10 General: Alert, Cooperative, No apparent distress HEENT: Atraumatic, Normocephalic Oral: Moist Mucosa, No Gingival or Mucosal Lesions/ Ulcerations Neck: Supple, No Nodes, Trachea Midline Lungs: No rhonchi, No wheeze, No rales, Diminished Cardiovascular: Regular rate, Regular Rhythm Abdomen: Bowel Sounds Present, Soft, Non Tender, Obese Extremities: No clubbing, No cyanosis Skin: Ulcer/ Wound, Rash Present Musculoskeletal: No Muscle Wasting Lymphatic: No Cervical, Supraclavicular, or Inguinal Adenopathy Neurological: Cranial nerves II-XII grossly intact, Neuro grossly intact Psych/Mental Status: Normal Affect, Appropriate Labs (Last 48 Hours) 08/11/20 08/11/20 08/11/20 16:56 16:56 16:56 WBC 9.6 RBC 5.98 H Hgb 13.4 Hct 46.6 MCV 77.9 L MCH 22.4 L MCHC 28.8 L RDW Std Deviation 50.6 H RDW Coeff of Luis 18.9 H Plt Count 204 MPV TNP Immature Gran % (Auto) 0.500 Neut % (Auto) 72.3 H Lymph % (Auto) 16.0 L Mclennan % (Auto) 8.9 Eos % (Auto) 2.1 Baso % (Auto) 0.2 Absolute Neuts (auto) 6.9 Absolute Lymphs (auto) 1.54 Nucleated RBC % 0 PT INR Specimen Type Sample Site pH Bicarbonate Actual Total CO2 Base Excess O2 Saturation ABG pCO2 ABG pO2 Carlos Manuel Test O2 Delivery Device Liter Flow Sodium 138 Potassium 3.9 Chloride 102 Carbon Dioxide 32.0 Anion Gap 4 L BUN 11 Creatinine 0.67 Estim Creat Clear Calc 113.46 Est GFR (MDRD) Af Amer 122 Est GFR (MDRD) Non-Af 101 BUN/Creatinine Ratio 16.5 Glucose 147 H Hemoglobin A1c Lactic Acid 2.2 H* Calcium 8.8 Magnesium Total Bilirubin 0.30 AST 17 ALT 17 Alkaline Phosphatase 91 Troponin I < 0.015 B-Natriuretic Peptide Total Protein 8.4 H Albumin 2.8 L Globulin 5.6 H Albumin/Globulin Ratio 0.5 L Triglycerides Cholesterol LDL Cholesterol VLDL Cholesterol HDL Cholesterol TSH MRSA (PCR) POC Glucose 08/11/20 08/11/20 08/11/20 16:56 20:42 20:42 WBC RBC Hgb Hct MCV MCH MCHC RDW Std Deviation RDW Coeff of Luis Plt Count MPV Immature Gran % (Auto) Neut % (Auto) Lymph % (Auto) Mclennan % (Auto) Eos % (Auto) Baso % (Auto) Absolute Neuts (auto) Absolute Lymphs (auto) Nucleated RBC % PT 14.2 INR 1.2 Specimen Type Sample Site pH Bicarbonate Actual Total CO2 Base Excess O2 Saturation ABG pCO2 ABG pO2 Carlos Manuel Test O2 Delivery Device Liter Flow Sodium Potassium Chloride Carbon Dioxide Anion Gap BUN Creatinine Estim Creat Clear Calc Est GFR (MDRD) Af Amer Est GFR (MDRD) Non-Af BUN/Creatinine Ratio Glucose Hemoglobin A1c Lactic Acid Calcium Magnesium 1.8 Total Bilirubin AST ALT Alkaline Phosphatase Troponin I < 0.015 B-Natriuretic Peptide 63.3 Total Protein Albumin Globulin Albumin/Globulin Ratio Triglycerides Cholesterol LDL Cholesterol VLDL Cholesterol HDL Cholesterol TSH MRSA (PCR) POC Glucose 08/11/20 08/11/20 08/11/20 20:42 20:42 20:56 WBC RBC Hgb Hct MCV MCH MCHC RDW Std Deviation RDW Coeff of Luis Plt Count MPV Immature Gran % (Auto) Neut % (Auto) Lymph % (Auto) Mclennan % (Auto) Eos % (Auto) Baso % (Auto) Absolute Neuts (auto) Absolute Lymphs (auto) Nucleated RBC % PT INR Specimen Type ART Sample Site L Radial pH 7.35 Bicarbonate Actual 33.8 H Total CO2 36 Base Excess 8 H O2 Saturation 91 L ABG pCO2 60.9 H ABG pO2 67 L Carlos Manuel Test Positive O2 Delivery Device Cannula Liter Flow 2.0 Sodium Potassium Chloride Carbon Dioxide Anion Gap BUN Creatinine Estim Creat Clear Calc Est GFR (MDRD) Af Amer Est GFR (MDRD) Non-Af BUN/Creatinine Ratio Glucose Hemoglobin A1c Lactic Acid 0.9 Calcium Magnesium Total Bilirubin AST ALT Alkaline Phosphatase Troponin I B-Natriuretic Peptide Total Protein Albumin Globulin Albumin/Globulin Ratio Triglycerides Cholesterol LDL Cholesterol VLDL Cholesterol HDL Cholesterol TSH MRSA (PCR) POSITIVE H POC Glucose 08/11/20 08/12/20 08/12/20 21:54 04:47 04:47 WBC 7.5 RBC 5.79 H Hgb 12.9 Hct 46.1 MCV 79.6 L MCH 22.3 L MCHC 28.0 L RDW Std Deviation 53.3 H RDW Coeff of Luis 19.1 H Plt Count 189 MPV 10.4 Immature Gran % (Auto) 0.400 Neut % (Auto) 64.3 Lymph % (Auto) 19.1 Mclennan % (Auto) 13.0 H Eos % (Auto) 2.9 Baso % (Auto) 0.3 Absolute Neuts (auto) 4.8 Absolute Lymphs (auto) 1.43 Nucleated RBC % 0 PT INR Specimen Type Sample Site pH Bicarbonate Actual Total CO2 Base Excess O2 Saturation ABG pCO2 ABG pO2 Carlos Manuel Test O2 Delivery Device Liter Flow Sodium 140 Potassium 4.3 Chloride 102 Carbon Dioxide 36.0 H Anion Gap 2 L BUN 10 Creatinine 0.57 Estim Creat Clear Calc 133.36 Est GFR (MDRD) Af Amer 148 Est GFR (MDRD) Non-Af 122 BUN/Creatinine Ratio 17.7 Glucose 149 H Hemoglobin A1c Lactic Acid Calcium 8.4 L Magnesium Total Bilirubin AST ALT Alkaline Phosphatase Troponin I B-Natriuretic Peptide Total Protein Albumin Globulin Albumin/Globulin Ratio Triglycerides 118 Cholesterol 127 LDL Cholesterol 67 VLDL Cholesterol 24 HDL Cholesterol 36 L TSH 1.09 MRSA (PCR) POC Glucose 167 H 08/12/20 04:47 WBC RBC Hgb Hct MCV MCH MCHC RDW Std Deviation RDW Coeff of Luis Plt Count MPV Immature Gran % (Auto) Neut % (Auto) Lymph % (Auto) Mclennan % (Auto) Eos % (Auto) Baso % (Auto) Absolute Neuts (auto) Absolute Lymphs (auto) Nucleated RBC % PT INR Specimen Type Sample Site pH Bicarbonate Actual Total CO2 Base Excess O2 Saturation ABG pCO2 ABG pO2 Carlos Manuel Test O2 Delivery Device Liter Flow Sodium Potassium Chloride Carbon Dioxide Anion Gap BUN Creatinine Estim Creat Clear Calc Est GFR (MDRD) Af Amer Est GFR (MDRD) Non-Af BUN/Creatinine Ratio Glucose Hemoglobin A1c Pending Lactic Acid Calcium Magnesium Total Bilirubin AST ALT Alkaline Phosphatase Troponin I B-Natriuretic Peptide Total Protein Albumin Globulin Albumin/Globulin Ratio Triglycerides Cholesterol LDL Cholesterol VLDL Cholesterol HDL Cholesterol TSH MRSA (PCR) POC Glucose Clinical Impression(s) from Imaging Studies Chest X-Ray 08/11/20 17:15 IMPRESSION: Mild pulmonary vascular congestion Electronically Signed: Brady Dya MD at 18:01 EDT , Service support , Current Medications Acetaminophen (Acetaminophen 325 Mg Tablet) 650 mg PO Q6H PRN PRN PRN Reason: Pain Score 1-10/Temp > 100.7 F Al Hydroxide/Mg Hydroxide (Mag Hydrox/Al Hydrox/Simeth 30 Ml Udc) 30 ml PO Q6H PRN PRN PRN Reason: Gastric Burning Albuterol Sulfate (Albuterol 2.5 Mg/3 Ml Vial.Neb.) 2.5 mg INHALATION Q2H PRN PRN PRN Reason: SOB/Wheezing Amlodipine Besylate (Amlodipine 10 Mg Tablet) 10 mg PO DAILY [facility] Atorvastatin Calcium (Atorvastatin Calcium 40 Mg Tablet) 40 mg PO QHS [facility] Last Admin: 08/11/20 21:57 Dose: 40 mg Documented by: Dextrose (Dextrose 50%-Water 25 Gm/50 Ml Disp.Syrin) 0 gm IV X1 PRN; Protocol PRN Reason: Hypoglycemia Enoxaparin Sodium (Enoxaparin 30 Mg/0.3 Ml Syringe) 30 mg SC BID [facility] Last Admin: 08/11/20 21:57 Dose: 30 mg Documented by: Furosemide (Furosemide 40 Mg/4 Ml Vial) 40 mg IV BID@1000,1800 NIKI Gabapentin (Gabapentin 600 Mg Tablet) 600 mg PO TID [facility] Last Admin: 08/11/20 21:57 Dose: 600 mg Documented by: Glucagon (Glucagon 1 Mg/Ml Syringe) 1 mg IM .X1 PRN PRN Reason: Hypoglycemia Vancomycin IV Pharmacy to Dose (1 each/ Sodium Chloride) 500 mls @ 250 mls/hr IV PRN PRN; Protocol PRN Reason: VANC DOSING PROTOCOL Piperacillin Sod/Tazobactam (Sod 3.375 gm/ Sodium Chloride) 50 mls @ 12.5 mls/hr IV Q8 [facility] Last Admin: 08/12/20 05:12 Dose: 12.5 mls/hr Documented by: Vancomycin HCl 1,500 mg/ (Sodium Chloride) 530 mls @ 250 mls/hr IV Q8H [facility] Insulin Glargine (Insulin Glargine 100 Units/Ml Pen) 10 units SC QHS [facility] Last Admin: 08/11/20 21:57 Dose: 10 units Documented by: Insulin Human Lispro (Insulin Lispro 100 Unit/Ml Insuln.Pen) 0 unit SC [facility]; Protocol Last Admin: 08/11/20 21:58 Dose: Not Given Documented by: Losartan Potassium (Losartan Potassium 50 Mg Tablet) 50 mg PO DAILY [facility] Melatonin (Melatonin 3 Mg Tablet) 3 mg PO QHS PRN PRN PRN Reason: INSOMNIA Morphine Sulfate (Morphine 2 Mg/Ml Syringe) 2 mg IV Q3H PRN PRN PRN Reason: Pain Score 6-10 Nitroglycerin (Nitroglycerin (Inpatient Use) 0.4 Mg Tab.Subl) 0.4 mg SL Q5M PRN PRN Reason: CARDIAC/CHEST PAIN Oxycodone HCl (Oxycodone 5 Mg Tablet) 5 mg PO Q4H PRN PRN PRN Reason: Pain Score 4-5 Prochlorperazine Edisylate (Prochlorperazine 10 Mg/2 Ml Vial) 5 mg IV Q4H PRN PRN PRN Reason: Breakthrough Nausea/Vomiting Senna/Docusate Sodium (Senna/Docusate Sodium 1 Tablet) 2 tablet PO BID PRN PRN Reason: Constipation Sertraline HCl (Sertraline 50 Mg Tablet) 50 mg PO DAILY [facility] Sodium Chloride (0.9% Saline Lock 10 Ml Syringe) 10 - 40 ml IV UD PRN PRN Reason: SALINE FLUSH Assessment/Plan Active and Suspected Problems (Last Reviewed 06/17/20 @ 11:32 by Carmen Campa) Severe sepsis (Acute) Cellulitis of left leg without foot (Acute) New onset of congestive heart failure (Acute) Hypoxia (Acute) RECOMMENDATIONS: 1. Wean supplemental oxygen to maintain saturations at or above 90%. 2. Encourage incentive spirometer use and mobilize patient as tolerated. 3. Continue antimicrobials. 4. Wound care consultation. 5. Tobacco cessation counseling provided. IMPRESSIONS: 1. Lower extremity cellulitis Plan to continue current supportive measures including antimicrobials. The patient remains hemodynamically stable. Wound care consultation is pending. 2. Acute hypoxemic respiratory insufficiency Likely multifactorial in etiology with underlying atelectasis and possible heart failure with preserved ejection fraction contributing. Plan to continue gentle diuresis as tolerated by hemodynamics and renal function. Wean supplemental oxygen to maintain saturations at or above 90%. Encourage incentive spirometer use and mobilize patient as tolerated. 3. Tobacco dependency I personally spent 4 minutes discussing the deleterious effects of continued tobacco use with the patient, including modalities which could be utilized to achieve a smoke-free lifestyle. Nicotine replacement therapy can be offered to the patient while admitted to the hospital. 4. Psoriatic arthritis on immunosuppression/diabetes mellitus/obesity/hypertension Complicates care, management, recovery and prognosis. Continue home medications as indicated. This note was generated with [employer] dictation software. It may contain incorrect words, spelling, and punctuation that were not noted in checking the note before signing. Inpatient E&M: 44909 Init Hosp L3 - Behavior Interventions Behavior Intervention: 35300 Smoking Cessation 3-10 min
[2020-08-12] MEDS: Gabapentin 600 MG Tablet PO ×3 (05:55→20:18)
--- NOTE | 2020-08-12 05:55 | ECHOCS_ITS ---
Version 2 Reason For Study: CHF Procedure This was a 2D Doppler, Color Flow transthoracic echocardiogram. Contrast injection was performed. The study was technically difficult. Pt positioned supine and upright at 45 * in chair. Exam performed portable in ICU/CCU. Left Ventricle Normal LV size. Left ventricular systolic function is normal. The estimated ejection fraction is 60 %. Stage 3 diastolic dysfunction. No regional wall motion abnormalities noted. Right Ventricle Normal RV size. Normal systolic function. Atria Normal left atrium. Normal right atrium. Mitral Valve Normal mitral valve. Tricuspid Valve Normal tricuspid valve. Mild (1+) tricuspid valve insufficiency. Pulmonary artery systolic pressure is 42 mmHg. Aortic Valve Normal aortic valve. Pulmonic Valve The pulmonic valve is not well visualized. Great Vessels Normal aortic root. Pericardium/Pleural No pericardial effusion. Medication Diluted definity 3.5ml given slow IV push to enhance endocardial definition. MMode/2D Measurements & Calculations LVIDd: 5.7 cm IVSd: 1.3 cm LVOT diam: 2.2 cm LVIDs: 4.2 cm LVPWd: 1.3 cm RVDd: 4.8 cm FS: 27.4 % LVOT area: 3.6 cm2 Ao root diam: 3.6 cm LAV(MOD-bp): 74.3 ml LVAd ap4: 50.0 cm2 LAV(MOD-bp) Indexed: 26.5 ml/m2 EDV(MOD-sp4): 208.9 ml LAV(MOD-sp2): 69.7 ml EDV(sp4-el): 217.1 ml LAV(MOD-sp4): 78.6 ml LVAs ap4: 28.4 cm2 ESV(MOD-sp4): 79.4 ml ESV(sp4-el): 81.8 ml EF(MOD-sp4): 62.0 % EF(sp4-el): 62.3 % SV(MOD-sp4): 129.5 ml SV(sp4-el): 135.3 ml LA A4 area: 23.9 cm2 LA dimension(2D): 5.1 cm RA A4 area: 24.2 cm2 Time Measurements MV dec time: 0.27 sec Doppler Measurements & Calculations MV E max anatoly: 148.3 cm/sec Lat Peak E' Anatoly: 17.2 cm/sec Med Peak E' Anatoly: 7.2 cm/sec MV A max anatoly: 71.2 cm/sec E/E' lat: 8.6 E/E' med: 20.5 MV E/A: 2.1 Ao V2 max: 215.6 cm/sec LV V1 max: 133.7 cm/sec SV(LVOT): 94.1 ml Ao max P.6 mmHg LV V1 max P.2 mmHg Ao V2 mean: 155.8 cm/sec LV V1 mean P.3 mmHg Ao mean P.6 mmHg LV V1 mean: 97.8 cm/sec Ao V2 VTI: 40.7 cm LV V1 VTI: 25.9 cm TERRY(I,D): 2.3 cm2 TERRY(V,D): 2.3 cm2 PA V2 max: 116.4 cm/sec TR max anatoly: 308.1 cm/sec TR max P.1 mmHg Interpretation Summary Normal LV size. Left ventricular systolic function is normal. The estimated ejection fraction is 60 %. Stage 3 diastolic dysfunction. Contrast injection was performed. Ordering Physician: Jai Niño Referring Physician: Heath Thomas Performed By: Carolina Hampton RDCS, RVT
[2020-08-12 07:23] LABS: Hemoglobin A1c 6.7 % (3.8-5.6)
[2020-08-12 08:40] LABS: Bedside Glucose 132 mg/dL (70-110)
--- NOTE | 2020-08-12 09:31 | CT_ITS ---
STUDY: CTA CHEST REASON FOR EXAM: Female, 45 years old. Shortness of breath RADIATION DOSAGE (If Supplied By Facility): CTDIvol = ( 65.42 ) mGy, DLP = ( 815.30 ) mGycm TECHNIQUE: The examination was performed with the intravenous administration of IV 100mL Isovue-370. Post-processing of the angiographic images was performed, with multiplanar reformation and 3D reconstruction. Individualized dose optimization techniques were used for this CT. COMPARISON: None. FINDINGS: Small benign appearing bilateral axillary lymph nodes. Normal enhancement of the main pulmonary artery and right and left pulmonary arteries. Normal enhancement of the bilateral peripheral pulmonary arteries. There is no demonstrated pulmonary embolism. Normal thoracic aorta and visualized great vessels. There is no demonstrated aortic dissection. Normal heart and pericardium. Normal mediastinum. Normal hilar regions. Normal visualized trachea and bronchi. The lungs are well expanded. Mild increased markings at the lung bases suggestive of bibasilar atelectasis. This is more prominent at the right lung base. Normal pleura. Normal chest wall structures. There are degenerative changes of thoracic spine. Normal visualized upper abdomen. CT/CTA Chest W/WO Contrast IMPRESSION: No evidence of pulmonary embolism. Mild degree of increased markings at the lung bases more prominent on the right side suggestive of bibasilar atelectasis. Electronically Signed: Alexander Thomas MD at 10:38 EDT , Service support ,
--- NOTE | 2020-08-12 09:52 | NURSING ---
HIM TECH transferred pt to CT scan on the monitor in bed at this time.
--- NOTE | 2020-08-12 10:15 | NURSING ---
pt returned from CT
[2020-08-12] MEDS: Losartan Potassium 50 MG Tablet PO (10:17)
[2020-08-12] MEDS: Enoxaparin 30 MG/0.3 ML Syringe SC ×2 (10:17→20:18)
[2020-08-12] MEDS: amLODIPine 10 MG Tablet PO (10:17)
[2020-08-12] MEDS: Sertraline 50 MG Tablet PO (10:17)
--- NOTE | 2020-08-12 11:30 | CASEMGMT ---
RN ARTHUR Face to Face with patient for initial transition planning/care coordination assessment. RN CM introduced self and role at [facility]. Patient sitting chair, alert and oriented. Patient willing to participate in assessment and is able to answer all questions appropriately. Care providers, pharmacy, and demographics verified. Patient wishes to discharge home, denies need for home health at this time. Patient states she has no further needs or concerns at this time. CM to follow for discharge planning needs that may arise. PCP: William Specialists: Pastor pain; Traci Robb, automotive consultant Preferred [facility]acy: [facility] Insurance: MARGUERITE Dumont Prescription Benefit: yes Living Will/HPOA: none LNOK: none listed, lives with 3 grandchildren and has neighbor that helps Living Arrangements: Patient lives with 3 grandchildren ages 3, 4, and 8yo, neighbor is caring for children while patient is in hospital. Patient lives in a 2 story home with bed and bath on first floor. 3 steps to enter the home. Patient is independent for self care. Neighbor assists with some household cleaning Transportation: self/neighbor DME/HHC: Patient states she has shower chair, cane, walker, and glucose monitor with testing supplies at home. Patient denies previous HHC or SNF Disposition Plan: Patient to discharge home with support of friend and follow-up plans in place. Rosanna WHITE, RN, CM
[2020-08-12 12:20] LABS: Bedside Glucose 126 mg/dL (70-110)
--- NOTE | 2020-08-12 14:31 | PN_ITS ---
Patient Problems: Active and Suspected Problems (Last Reviewed 06/17/20 @ 11:32 by Carmen Campa) Severe sepsis (Acute) Cellulitis of left leg without foot (Acute) New onset of congestive heart failure (Acute) Hypoxia (Acute) Subjective: Patient seen and examined. She was admitted with a complaint of left lower extremity wounds for 2 months prior to admission, which had gradually worsened. She also had worsening shortness of breath on exertion for 3-4 months prior to admission. CXR showed evidence of venous congestion and hypoventilation. She is being managed for severe sepsis due to cellulitis of the LLE and acute heart failure. She has no complaints this morning. Review of systems is otherwise negative. Vitals/I&O's: Vital Signs Temp Pulse Resp BP Pulse Ox 98.1 F 79 20 H 148/81 H 94 08/12/20 09:00 08/12/20 10:10 08/12/20 09:00 08/12/20 09:00 08/12/20 09:00 Oxygen Flow Rate (L/min) 4 Oxygen Delivery Method Nasal Cannula Weight: 399 lb 11.169 oz Body Mass Index (BMI) 57.5 Intake and Output for Last 24 Hours 08/10/20 08/11/20 08/12/20 23:59 23:59 23:59 Intake Total 640 / 880 1350 / 1350 Output Total 600 / 600 Balance 640 / 880 750 / 750 General: Alert, Oriented x3, Cooperative, No apparent distress, - - obese HEENT: Atraumatic, PERRLA, EOMI, Normocephalic Oral: Dry Mucosa Neck: Supple, No JVD, Negative Carotid Bruits Lungs: - - diminished breath sounds bibasally, no wheezes or crackles. Cardiovascular: Regular rate, Regular Rhythm, Normal S1, Normal S2, No murmurs Abdomen: Bowel Sounds Present, Soft, Non Tender, Non-Distended, No Hepato- splenomegaly Extremities: No clubbing, No cyanosis, No edema, Capillary Refill Less than 3 Seconds Skin: - - LUE has extensive erythematous plaques and erythema of the LUE. Musculoskeletal: No Tenderness to Palpation of Joints or Extremities Lymphatic: No Cervical, Supraclavicular, or Inguinal Adenopathy Neurological: Cranial nerves II-XII grossly intact, Neuro grossly intact, Motor Exam 5/5 strength throughout Psych/Mental Status: Normal Affect, Appropriate, Alert and oriented to time, place, person, mood and affect Microbiology Past 72 Hours 08/12/20 05:55 Urine, Random Legionella Antigen - Final 08/12/20 05:55 Urine, Random Streptococcus pneumoniae Antigen (M - Final Laboratory Results 08/11/20 16:56: WBC 9.6, RBC 5.98 H, Hgb 13.4, Hct 46.6, MCV 77.9 L, MCH 22.4 L, MCHC 28.8 L, RDW Std Deviation 50.6 H, RDW Coeff of Luis 18.9 H, Plt Count 204, MPV TNP, Immature Gran % (Auto) 0.500, Neut % (Auto) 72.3 H, Lymph % (Auto) 16.0 L, [place] % (Auto) 8.9, Eos % (Auto) 2.1, Baso % (Auto) 0.2, Absolute Neuts (auto) 6.9, Absolute Lymphs (auto) 1.54, Nucleated RBC % 0 08/11/20 16:56: Sodium 138, Potassium 3.9, Chloride 102, Carbon Dioxide 32.0, Anion Gap 4 L, BUN 11, Creatinine 0.67, Estim Creat Clear Calc 113.46, Est GFR (MDRD) Af Amer 122, Est GFR (MDRD) Non-Af 101, BUN/Creatinine Ratio 16.5, Glucose 147 H, Calcium 8.8, Total Bilirubin 0.30, AST 17, ALT 17, Alkaline Phosphatase 91, Troponin I < 0.015, Total Protein 8.4 H, Albumin 2.8 L, Globulin 5.6 H, Albumin/Globulin Ratio 0.5 L 08/11/20 16:56: Lactic Acid 2.2 H* 08/11/20 16:56: B-Natriuretic Peptide 63.3 08/11/20 20:42: Magnesium 1.8, Troponin I < 0.015 08/11/20 20:42: PT 14.2, INR 1.2 08/11/20 20:42: MRSA (PCR) POSITIVE H 08/11/20 20:42: Lactic Acid 0.9 08/11/20 20:56: Specimen Type ART, Sample Site L Radial, pH 7.35, Bicarbonate Actual 33.8 H, Total CO2 36, Base Excess 8 H, O2 Saturation 91 L, ABG pCO2 60.9 H, ABG pO2 67 L, Carlos Manuel Test Positive, O2 Delivery Device Cannula, Liter Flow 2.0 08/11/20 21:54: POC Glucose 167 H 08/12/20 04:47: WBC 7.5, RBC 5.79 H, Hgb 12.9, Hct 46.1, MCV 79.6 L, MCH 22.3 L, MCHC 28.0 L, RDW Std Deviation 53.3 H, RDW Coeff of Luis 19.1 H, Plt Count 189, MPV 10.4, Immature Gran % (Auto) 0.400, Neut % (Auto) 64.3, Lymph % (Auto) 19.1, [place] % (Auto) 13.0 H, Eos % (Auto) 2.9, Baso % (Auto) 0.3, Absolute Neuts (auto) 4.8, Absolute Lymphs (auto) 1.43, Nucleated RBC % 0 08/12/20 04:47: Sodium 140, Potassium 4.3, Chloride 102, Carbon Dioxide 36.0 H, Anion Gap 2 L, BUN 10, Creatinine 0.57, Estim Creat Clear Calc 133.36, Est GFR (MDRD) Af Amer 148, Est GFR (MDRD) Non-Af 122, BUN/Creatinine Ratio 17.7, Glucose 149 H, Calcium 8.4 L, Triglycerides 118, Cholesterol 127, LDL Cholesterol 67, VLDL Cholesterol 24, HDL Cholesterol 36 L, TSH 1.09 08/12/20 04:47: Hemoglobin A1c 6.7 H 08/12/20 08:35: POC Glucose 132 H 08/12/20 12:14: POC Glucose 126 H 08/12/20 : S.aureus Protein A PCR Pending, MRSA (PCR) Pending Diagnostic Data Chest X-Ray 08/11/20 17:15 IMPRESSION: Mild pulmonary vascular congestion Electronically Signed: Brady Day MD at 18:01 EDT , Service support , Chest CTA 08/12/20 09:31 IMPRESSION: No evidence of pulmonary embolism. Mild degree of increased markings at the lung bases more prominent on the right side suggestive of bibasilar atelectasis. Electronically Signed: Alexander Thomas MD at 10:38 EDT , Service support , Current Medications Acetaminophen (Acetaminophen 325 Mg Tablet) 650 mg PO Q6H PRN PRN PRN Reason: Pain Score 1-10/Temp > 100.7 F Al Hydroxide/Mg Hydroxide (Mag Hydrox/Al Hydrox/Simeth 30 Ml Udc) 30 ml PO Q6H PRN PRN PRN Reason: Gastric Burning Albuterol Sulfate (Albuterol 2.5 Mg/3 Ml Vial.Neb.) 2.5 mg INHALATION Q2H PRN PRN PRN Reason: SOB/Wheezing Amlodipine Besylate (Amlodipine 10 Mg Tablet) 10 mg PO DAILY [facility] Last Admin: 08/12/20 10:17 Dose: 10 mg Documented by: Atorvastatin Calcium (Atorvastatin Calcium 40 Mg Tablet) 40 mg PO QHS [facility] Last Admin: 08/11/20 21:57 Dose: 40 mg Documented by: Dextrose (Dextrose 50%-Water 25 Gm/50 Ml Disp.Syrin) 0 gm IV X1 PRN; Protocol PRN Reason: Hypoglycemia Diclofenac S[facility] ([facility] 75 Mg [facility] Enoxaparin Sodium (Enoxaparin 30 Mg/0.3 Ml Syringe) 30 mg SC BID [facility] Last Admin: 08/12/20 10:17 Dose: 30 mg Documented by: Furosemide (Furosemide 40 Mg/4 Ml Vial) 40 mg IV BID@1000,1800 [facility] Last Admin: 08/12/20 10:02 Dose: Not Given Documented by: Gabapentin (Gabapentin 600 Mg Tablet) 600 mg PO TID [facility] Last Admin: 08/12/20 13:18 Dose: 600 mg Documented by: Glucagon (Glucagon 1 Mg/Ml Syringe) 1 mg IM .X1 PRN PRN Reason: Hypoglycemia Vancomycin IV Pharmacy to Dose (1 each/ Sodium Chloride) 500 mls @ 250 mls/hr IV PRN PRN; Protocol PRN Reason: VANC DOSING PROTOCOL Piperacillin Sod/Tazobactam (Sod 3.375 gm/ Sodium Chloride) 50 mls @ 12.5 mls/hr IV Q8 [facility] Last Admin: 08/12/20 13:18 Dose: 12.5 mls/hr Documented by: Vancomycin HCl 1,500 mg/ (Sodium Chloride) 530 mls @ 250 mls/hr IV Q8H [facility] Last Infusion: 08/12/20 12:30 Dose: Infused Documented by: Insulin Glargine (Insulin Glargine 100 Units/Ml Pen) 10 units SC QHS [facility] Last Admin: 08/11/20 21:57 Dose: 10 units Documented by: Insulin Human Lispro (Insulin Lispro 100 Unit/Ml Insuln.Pen) 0 unit SC ACHS [facility]; Protocol Last Admin: 08/12/20 12:15 Dose: Not Given Documented by: Losartan Potassium (Losartan Potassium 50 Mg Tablet) 50 mg PO DAILY [facility] Last Admin: 08/12/20 10:17 Dose: 50 mg Documented by: Melatonin (Melatonin 3 Mg Tablet) 3 mg PO QHS PRN PRN PRN Reason: INSOMNIA Morphine Sulfate (Morphine 2 Mg/Ml Syringe) 2 mg IV Q3H PRN PRN PRN Reason: Pain Score 6-10 Nitroglycerin (Nitroglycerin (Inpatient Use) 0.4 Mg Tab.Subl) 0.4 mg SL Q5M PRN PRN Reason: CARDIAC/CHEST PAIN Oxycodone HCl (Oxycodone 5 Mg Tablet) 5 mg PO Q4H PRN PRN PRN Reason: Pain Score 4-5 Prochlorperazine Edisylate (Prochlorperazine 10 Mg/2 Ml Vial) 5 mg IV Q4H PRN PRN PRN Reason: Breakthrough Nausea/Vomiting Senna/Docusate Sodium (Senna/Docusate Sodium 1 Tablet) 2 tablet PO BID PRN PRN Reason: Constipation Sertraline HCl (Sertraline 50 Mg Tablet) 50 mg PO DAILY [facility] Last Admin: 08/12/20 10:17 Dose: 50 mg Documented by: Sodium Chloride (0.9% Saline Lock 10 Ml Syringe) 10 - 40 ml IV UD PRN PRN Reason: SALINE FLUSH Medical Necessity - Tobacco Use Smoking Status: Current every day smoker Tobacco Use: Cigarettes Assessment/Plan All Active Problems (Last Reviewed 06/17/20 @ 11:32 by Carmen Campa) Severe sepsis (Acute) Cellulitis of left leg without foot (Acute) New onset of congestive heart failure (Acute) Hypoxia (Acute) #Severe sepsis due to LLE cellulitis * also immunocompromised due to Psoriasis * on IV vancomycin and IV zosyn * blood cultures pending * #Acute HFpEF * BNP was only 63 * CXR showed mild vascular congestion * 2D echo showed EF of 60% with stage III diastolic dysfunction no regional wall motion abnormalities noted. * on IV lasix 40mg bid * monitor intake and output * fluid restriction to 1500cc daily * #Acute hypoxic respiratory insufficiency * due to heart failure * also has COPD and DARRICK * on breathing treatment with bronchodilators * titrate oxygen to maintain sats >90% * #Type 2 diabetes mellitus: ISS. lantus 10 units daily. Accuchecks ACHS #Hypertension: on amlodipine and losartan. #Psoriatic arthritis: on ixekizumab #Anxiety and depression: on sertraline Morbid obesity: complicates acute care, prognosis and expected recovery DVT prophylaxis: lovenox Code status: full code Inpatient E&M: 64964 Subs Hosp L3
--- NOTE | 2020-08-12 14:35 | NURSING ---
wound photo: left anterolateral lower leg
--- NOTE | 2020-08-12 14:36 | NURSING ---
wound photo: left posterior lower leg
--- NOTE | 2020-08-12 16:03 | NURSING ---
report called to ANANDA Gomez RN
[2020-08-12 16:15] LABS: Probe Check PASS; Staph aureus DNA By PCR POSITIVE (Negative)
[2020-08-12 16:17] LABS: M R Staph aureus DNA By PCR POSITIVE (Negative)
[2020-08-12] MEDS: Diclofenac 75 MG Tablet PO (16:45)
[2020-08-12 17:05] LABS: Bedside Glucose 119 mg/dL (70-110)
[2020-08-12] MEDS: Furosemide 40 MG/4 ML Vial IV (17:52)
[2020-08-12] MEDS: Atorvastatin Calcium 40 MG Tablet PO (20:18)
[2020-08-12 20:56] LABS: Bedside Glucose 128 mg/dL (70-110)
[2020-08-13] VITALS (11 sets, daily range): BP systolic 118–146; BP diastolic 43–66; PULSE 60–81; RESP 18–20; TEMP 35.7–37; O2SAT 93–97
[2020-08-13] MEDS: Gabapentin 600 MG Tablet PO ×2 (05:57→21:32)
--- NOTE | 2020-08-13 06:40 | PCM.PN.PUL ---
Patient Problems: Active and Suspected Problems (Last Reviewed 06/17/20 @ 11:32 by Carmen Campa) Severe sepsis (Acute) Cellulitis of left leg without foot (Acute) New onset of congestive heart failure (Acute) Hypoxia (Acute) Subjective: The patient was seen and examined at the bedside this morning. Events from the last 24 hours have been reviewed. The patient is currently afebrile, hemodynamically stable and maintaining appropriate oxygen saturations on 3 L/min via nasal cannula. Renal function is stable on scheduled diuretic therapy. Objective: The patient's most recent lab work, culture data and imaging studies have all been personally reviewed. Surface echocardiogram revealed normal LV size with an ejection fraction of 60% and stage III diastolic dysfunction. Pulmonary artery systolic pressure was estimated to be 42 mmHg. Blood and wound cultures are pending. - Physical Exam Vitals/I&O's: Vital Signs Temp Pulse Resp BP Pulse Ox 98.4 F 60 20 H 130/64 H 94 08/13/20 02:00 08/13/20 04:00 08/13/20 02:00 08/13/20 02:00 08/13/20 02:00 Oxygen Flow Rate (L/min) 3 Oxygen Delivery Method Nasal Cannula Weight: 399 lb 11.169 oz Body Mass Index (BMI) 57.5 Intake and Output for Last 24 Hours 08/11/20 08/12/20 08/13/20 23:59 23:59 23:59 Intake Total 640 / 880 2330 / 2330 580 / 580 Output Total 1000 / 1000 200 / 200 Balance 640 / 880 1330 / 1330 380 / 380 General: Alert, Cooperative, No apparent distress HEENT: Atraumatic, Normocephalic Oral: No Gingival or Mucosal Lesions/ Ulcerations Neck: Supple, No Nodes, Trachea Midline Lungs: No rhonchi, No wheeze, No rales, Diminished Cardiovascular: Regular rate, Regular Rhythm Abdomen: Bowel Sounds Present, Soft, Non Tender, Obese Extremities: No clubbing, No cyanosis, Edema Skin: - - No significant change from previous Musculoskeletal: No Tenderness to Palpation of Joints or Extremities Lymphatic: No Cervical, Supraclavicular, or Inguinal Adenopathy Neurological: Cranial nerves II-XII grossly intact, Neuro grossly intact Psych/Mental Status: Normal Affect, Appropriate Labs (Last 48 Hours) 08/11/20 08/11/2021 16:56 16:56 16:56 WBC 9.6 RBC 5.98 H Hgb 13.4 Hct 46.6 MCV 77.9 L MCH 22.4 L MCHC 28.8 L RDW Std Deviation 50.6 H RDW Coeff of Luis 18.9 H Plt Count 204 MPV TNP Immature Gran % (Auto) 0.500 Neut % (Auto) 72.3 H Lymph % (Auto) 16.0 L [place] % (Auto) 8.9 Eos % (Auto) 2.1 Baso % (Auto) 0.2 Absolute Neuts (auto) 6.9 Absolute Lymphs (auto) 1.54 Nucleated RBC % 0 PT INR Specimen Type Sample Site pH Bicarbonate Actual Total CO2 Base Excess O2 Saturation ABG pCO2 ABG pO2 Carlos Manuel Test O2 Delivery Device Liter Flow Sodium 138 Potassium 3.9 Chloride 102 Carbon Dioxide 32.0 Anion Gap 4 L BUN 11 Creatinine 0.67 Estim Creat Clear Calc 113.46 Est GFR (MDRD) Af Amer 122 Est GFR (MDRD) Non-Af 101 BUN/Creatinine Ratio 16.5 Glucose 147 H Hemoglobin A1c Lactic Acid 2.2 H* Calcium 8.8 Magnesium Total Bilirubin 0.30 AST 17 ALT 17 Alkaline Phosphatase 91 Troponin I < 0.015 B-Natriuretic Peptide Total Protein 8.4 H Albumin 2.8 L Globulin 5.6 H Albumin/Globulin Ratio 0.5 L Triglycerides Cholesterol LDL Cholesterol VLDL Cholesterol HDL Cholesterol TSH S.aureus Protein A PCR MRSA (PCR) POC Glucose 08/11/20 08/11/20 08/11/20 16:56 20:42 20:42 WBC RBC Hgb Hct MCV MCH MCHC RDW Std Deviation RDW Coeff of Luis Plt Count MPV Immature Gran % (Auto) Neut % (Auto) Lymph % (Auto) [place] % (Auto) Eos % (Auto) Baso % (Auto) Absolute Neuts (auto) Absolute Lymphs (auto) Nucleated RBC % PT 14.2 INR 1.2 Specimen Type Sample Site pH Bicarbonate Actual Total CO2 Base Excess O2 Saturation ABG pCO2 ABG pO2 Carlos Manuel Test O2 Delivery Device Liter Flow Sodium Potassium Chloride Carbon Dioxide Anion Gap BUN Creatinine Estim Creat Clear Calc Est GFR (MDRD) Af Amer Est GFR (MDRD) Non-Af BUN/Creatinine Ratio Glucose Hemoglobin A1c Lactic Acid Calcium Magnesium 1.8 Total Bilirubin AST ALT Alkaline Phosphatase Troponin I < 0.015 B-Natriuretic Peptide 63.3 Total Protein Albumin Globulin Albumin/Globulin Ratio Triglycerides Cholesterol LDL Cholesterol VLDL Cholesterol HDL Cholesterol TSH S.aureus Protein A PCR MRSA (PCR) POC Glucose 08/11/20 08/11/20 08/11/20 20:42 20:42 20:56 WBC RBC Hgb Hct MCV MCH MCHC RDW Std Deviation RDW Coeff of Luis Plt Count MPV Immature Gran % (Auto) Neut % (Auto) Lymph % (Auto) [place] % (Auto) Eos % (Auto) Baso % (Auto) Absolute Neuts (auto) Absolute Lymphs (auto) Nucleated RBC % PT INR Specimen Type ART Sample Site L Radial pH 7.35 Bicarbonate Actual 33.8 H Total CO2 36 Base Excess 8 H O2 Saturation 91 L ABG pCO2 60.9 H ABG pO2 67 L Carlos Manuel Test Positive O2 Delivery Device Cannula Liter Flow 2.0 Sodium Potassium Chloride Carbon Dioxide Anion Gap BUN Creatinine Estim Creat Clear Calc Est GFR (MDRD) Af Amer Est GFR (MDRD) Non-Af BUN/Creatinine Ratio Glucose Hemoglobin A1c Lactic Acid 0.9 Calcium Magnesium Total Bilirubin AST ALT Alkaline Phosphatase Troponin I B-Natriuretic Peptide Total Protein Albumin Globulin Albumin/Globulin Ratio Triglycerides Cholesterol LDL Cholesterol VLDL Cholesterol HDL Cholesterol TSH S.aureus Protein A PCR MRSA (PCR) POSITIVE H POC Glucose 08/11/20 08/12/20 08/12/20 21:54 04:47 04:47 WBC 7.5 RBC 5.79 H Hgb 12.9 Hct 46.1 MCV 79.6 L MCH 22.3 L MCHC 28.0 L RDW Std Deviation 53.3 H RDW Coeff of Luis 19.1 H Plt Count 189 MPV 10.4 Immature Gran % (Auto) 0.400 Neut % (Auto) 64.3 Lymph % (Auto) 19.1 [place] % (Auto) 13.0 H Eos % (Auto) 2.9 Baso % (Auto) 0.3 Absolute Neuts (auto) 4.8 Absolute Lymphs (auto) 1.43 Nucleated RBC % 0 PT INR Specimen Type Sample Site pH Bicarbonate Actual Total CO2 Base Excess O2 Saturation ABG pCO2 ABG pO2 Carlos Manuel Test O2 Delivery Device Liter Flow Sodium 140 Potassium 4.3 Chloride 102 Carbon Dioxide 36.0 H Anion Gap 2 L BUN 10 Creatinine 0.57 Estim Creat Clear Calc 133.36 Est GFR (MDRD) Af Amer 148 Est GFR (MDRD) Non-Af 122 BUN/Creatinine Ratio 17.7 Glucose 149 H Hemoglobin A1c Lactic Acid Calcium 8.4 L Magnesium Total Bilirubin AST ALT Alkaline Phosphatase Troponin I B-Natriuretic Peptide Total Protein Albumin Globulin Albumin/Globulin Ratio Triglycerides 118 Cholesterol 127 LDL Cholesterol 67 VLDL Cholesterol 24 HDL Cholesterol 36 L TSH 1.09 S.aureus Protein A PCR MRSA (PCR) POC Glucose 167 H 08/12/20 08/12/20 08/12/20 04:47 08:35 12:14 WBC RBC Hgb Hct MCV MCH MCHC RDW Std Deviation RDW Coeff of Luis Plt Count MPV Immature Gran % (Auto) Neut % (Auto) Lymph % (Auto) [place] % (Auto) Eos % (Auto) Baso % (Auto) Absolute Neuts (auto) Absolute Lymphs (auto) Nucleated RBC % PT INR Specimen Type Sample Site pH Bicarbonate Actual Total CO2 Base Excess O2 Saturation ABG pCO2 ABG pO2 Carlos Manuel Test O2 Delivery Device Liter Flow Sodium Potassium Chloride Carbon Dioxide Anion Gap BUN Creatinine Estim Creat Clear Calc Est GFR (MDRD) Af Amer Est GFR (MDRD) Non-Af BUN/Creatinine Ratio Glucose Hemoglobin A1c 6.7 H Lactic Acid Calcium Magnesium Total Bilirubin AST ALT Alkaline Phosphatase Troponin I B-Natriuretic Peptide Total Protein Albumin Globulin Albumin/Globulin Ratio Triglycerides Cholesterol LDL Cholesterol VLDL Cholesterol HDL Cholesterol TSH S.aureus Protein A PCR MRSA (PCR) POC Glucose 132 H 126 H 08/12/20 08/12/20 08/12/20 16:40 20:12 Unknown WBC RBC Hgb Hct MCV MCH MCHC RDW Std Deviation RDW Coeff of Luis Plt Count MPV Immature Gran % (Auto) Neut % (Auto) Lymph % (Auto) [place] % (Auto) Eos % (Auto) Baso % (Auto) Absolute Neuts (auto) Absolute Lymphs (auto) Nucleated RBC % PT INR Specimen Type Sample Site pH Bicarbonate Actual Total CO2 Base Excess O2 Saturation ABG pCO2 ABG pO2 Carlos Manuel Test O2 Delivery Device Liter Flow Sodium Potassium Chloride Carbon Dioxide Anion Gap BUN Creatinine Estim Creat Clear Calc Est GFR (MDRD) Af Amer Est GFR (MDRD) Non-Af BUN/Creatinine Ratio Glucose Hemoglobin A1c Lactic Acid Calcium Magnesium Total Bilirubin AST ALT Alkaline Phosphatase Troponin I B-Natriuretic Peptide Total Protein Albumin Globulin Albumin/Globulin Ratio Triglycerides Cholesterol LDL Cholesterol VLDL Cholesterol HDL Cholesterol TSH S.aureus Protein A PCR POSITIVE H MRSA (PCR) POSITIVE H POC Glucose 119 H 128 H Microbiology 08/12/20 05:55 Urine, Random Legionella Antigen - Final 08/12/20 05:55 Urine, Random Streptococcus pneumoniae Antigen (M - Final Clinical Impression(s) from Imaging Studies Chest X-Ray 08/11/20 17:15 IMPRESSION: Mild pulmonary vascular congestion Electronically Signed: Brady Day MD at 18:01 EDT , Service support , Chest CTA 08/12/20 09:31 IMPRESSION: No evidence of pulmonary embolism. Mild degree of increased markings at the lung bases more prominent on the right side suggestive of bibasilar atelectasis. Electronically Signed: Alexander Thomas MD at 10:38 EDT , Service support , Current Medications Acetaminophen (Acetaminophen 325 Mg Tablet) 650 mg PO Q6H PRN PRN PRN Reason: Pain Score 1-10/Temp > 100.7 F Al Hydroxide/Mg Hydroxide (Mag Hydrox/Al Hydrox/Simeth 30 Ml Udc) 30 ml PO Q6H PRN PRN PRN Reason: Gastric Burning Albuterol Sulfate (Albuterol 2.5 Mg/3 Ml Vial.Neb.) 2.5 mg INHALATION Q2H PRN PRN PRN Reason: SOB/Wheezing Amlodipine Besylate (Amlodipine 10 Mg Tablet) 10 mg PO DAILY [facility] Last Admin: 08/12/20 10:17 Dose: 10 mg Documented by: Atorvastatin Calcium (Atorvastatin Calcium 40 Mg Tablet) 40 mg PO QHS [facility] Last Admin: 08/12/20 20:18 Dose: 40 mg Documented by: Dextrose (Dextrose 50%-Water 25 Gm/50 Ml Disp.Syrin) 0 gm IV X1 PRN; Protocol PRN Reason: Hypoglycemia Diclofenac Sodium (Diclofenac 75 Mg Tablet) 75 mg PO BIDCM [facility] Last Admin: 08/12/20 16:45 Dose: 75 mg Documented by: Enoxaparin Sodium (Enoxaparin 30 Mg/0.3 Ml Syringe) 30 mg SC BID [facility] Last Admin: 08/12/20 20:18 Dose: 30 mg Documented by: Furosemide (Furosemide 40 Mg/4 Ml Vial) 40 mg IV BID@1000,1800 [facility] Last Admin: 08/12/20 17:52 Dose: 40 mg Documented by: Gabapentin (Gabapentin 600 Mg Tablet) 600 mg PO TID [facility] Last Admin: 08/13/20 05:57 Dose: 600 mg Documented by: Glucagon (Glucagon 1 Mg/Ml Syringe) 1 mg IM .X1 PRN PRN Reason: Hypoglycemia Vancomycin IV Pharmacy to Dose (1 each/ Sodium Chloride) 500 mls @ 250 mls/hr IV PRN PRN; Protocol PRN Reason: VANC DOSING PROTOCOL Piperacillin Sod/Tazobactam (Sod 3.375 gm/ Sodium Chloride) 50 mls @ 12.5 mls/hr IV Q8 [facility] Last Admin: 08/13/20 05:59 Dose: 12.5 mls/hr Documented by: Vancomycin HCl 1,500 mg/ (Sodium Chloride) 530 mls @ 250 mls/hr IV Q8H [facility] Last Infusion: 08/13/20 04:10 Dose: Infused Documented by: Insulin Glargine (Insulin Glargine 100 Units/Ml Pen) 10 units SC QHS [facility] Last Admin: 08/12/20 20:18 Dose: 10 units Documented by: Insulin Human Lispro (Insulin Lispro 100 Unit/Ml Insuln.Pen) 0 unit SC [facility]; Protocol Last Admin: 08/12/20 20:14 Dose: Not Given Documented by: Losartan Potassium (Losartan Potassium 50 Mg Tablet) 50 mg PO DAILY [facility] Last Admin: 08/12/20 10:17 Dose: 50 mg Documented by: Melatonin (Melatonin 3 Mg Tablet) 3 mg PO QHS PRN PRN PRN Reason: INSOMNIA Morphine Sulfate (Morphine 2 Mg/Ml Syringe) 2 mg IV Q3H PRN PRN PRN Reason: Pain Score 6-10 Nitroglycerin (Nitroglycerin (Inpatient Use) 0.4 Mg Tab.Subl) 0.4 mg SL Q5M PRN PRN Reason: CARDIAC/CHEST PAIN Oxycodone HCl (Oxycodone 5 Mg Tablet) 5 mg PO Q4H PRN PRN PRN Reason: Pain Score 4-5 Prochlorperazine Edisylate (Prochlorperazine 10 Mg/2 Ml Vial) 5 mg IV Q4H PRN PRN PRN Reason: Breakthrough Nausea/Vomiting Senna/Docusate Sodium (Senna/Docusate Sodium 1 Tablet) 2 tablet PO BID PRN PRN Reason: Constipation Sertraline HCl (Sertraline 50 Mg Tablet) 50 mg PO DAILY [facility] Last Admin: 08/12/20 10:17 Dose: 50 mg Documented by: Sodium Chloride (0.9% Saline Lock 10 Ml Syringe) 10 - 40 ml IV UD PRN PRN Reason: SALINE FLUSH Medical Necessity - Tobacco Use Smoking Status: Current every day smoker Tobacco Use: Cigarettes Assessment/Plan All Active Problems (Last Reviewed 06/17/20 @ 11:32 by Carmen Campa) Severe sepsis (Acute) Cellulitis of left leg without foot (Acute) New onset of congestive heart failure (Acute) Hypoxia (Acute) RECOMMENDATIONS: 1. Wean supplemental oxygen to maintain saturations at or above 90%. 2. Encourage incentive spirometer use and mobilize patient as tolerated. 3. Continue antimicrobials. 4. Continue diuretic therapy as tolerated by hemodynamics and renal function. IMPRESSIONS: 1. Lower extremity cellulitis Plan to continue current supportive measures including antimicrobials. The patient remains hemodynamically stable. Continue local wound care. 2. Acute hypoxemic respiratory insufficiency Likely multifactorial in etiology with underlying atelectasis and possible heart failure with preserved ejection fraction contributing. Plan to continue gentle diuresis as tolerated by hemodynamics and renal function. Wean supplemental oxygen to maintain saturations at or above 90%. Encourage incentive spirometer use and mobilize patient as tolerated. 3. Tobacco dependency Tobacco cessation counseling was provided. Nicotine replacement therapy can be offered to the patient while admitted to the hospital. 4. Psoriatic arthritis on immunosuppression/diabetes mellitus/obesity/hypertension Complicates care, management, recovery and prognosis. Continue home medications as indicated. This note was generated with [employer] dictation software. It may contain incorrect words, spelling, and punctuation that were not noted in checking the note before signing. Inpatient E&M: 37245 Subs Hosp L2
[2020-08-13 08:50] LABS: Absolute Neutrophil Count 5.1 X10^3/uL (2.0-7.7); Basophil# 0.05 X10^3/uL; Basophil% 0.7 % (0-1); Eosinophils% 1.5 % (0-5); Hematocrit 50.7 % (37-47); Hemoglobin 13.5 g/dL (12.0-15.0); Lymphocyte % 13.2 % (19-41); Mean Corp Hgb Conc 26.6 g/dL (32-36); Mean Corpuscular Hgb 22.4 pg (27.0-32.0); Mean Corpuscular Volume 84.1 fL (81-99); Mean Platelet Vol. 11.1 fl (6.2-12.0); Monocyte# 0.56 X10^3/uL; Monocyte% 8.2 % (0-10); NRBC Flagged by Analyzer 0 % (0-5); Neutrophil # 5.14 X10^3/uL (2.7-7.7); Neutrophil % 75.7 % (47-70); Platelet Count 187 K/mm3 (150-450); RBC Distribution Width CV 19.1 % (11.6-14.6); RBC Distribution Width SD 55.3 fl (35.1-43.9); Red Blood Count 6.03 M/mm3 (4.2-5.4); White Blood Count 6.8 K/mm3 (4.4-11.0)
[2020-08-13] MEDS: Losartan Potassium 50 MG Tablet PO (09:43)
[2020-08-13] MEDS: Furosemide 40 MG/4 ML Vial IV ×2 (09:43→17:27)
[2020-08-13] MEDS: Enoxaparin 30 MG/0.3 ML Syringe SC ×2 (09:43→21:36)
[2020-08-13] MEDS: Diclofenac 75 MG Tablet PO ×2 (09:43→17:27)
[2020-08-13] MEDS: Sertraline 50 MG Tablet PO (09:44)
[2020-08-13 10:02] LABS: Anion Gap 1 (5-15); BUN 8 mg/dL (7-18); BUN/Creat Ratio 18.3 RATIO (10-20); Calcium,Total 8.4 mg/dL (8.5-10.1); Chloride 102 mmol/L (98-107); Creatinine, Serum 0.44 mg/dL (0.55-1.02); EST Glomerular Filtration Rate 164 mL/min (>60); Est Glom Filt Rate - Afr Amer 199 mL/min (>60); Estimated Creatinine Clearance 172.76 ml/min; Glucose 135 mg/dL (74-106); Potassium 4.2 mmol/L (3.5-5.1); Sodium Level 133 mmol/L (136-145); Vancomycin, Trough Level 14.1 ug/mL (5.0-15.0)
--- NOTE | 2020-08-13 11:02 | PCM.RX.CS ---
Consult Pharmacy has been consulted to manage selected antiobiotic: Vancomycin Type of Consult: Follow-up Suspected Infection: Sepsis, Skin/Soft tissue Prior Doses of Antibiotics Received/Current Regimen: PATIENT HAS BEEN ON 1500MG Q8H Labs: Sodium 133 mmol/L (136-145) L 08/13/20 08:40 Potassium 4.2 mmol/L (3.5-5.1) 08/13/20 08:40 Chloride 102 mmol/L (98-107) 08/13/20 08:40 Carbon Dioxide 30.0 mmol/L (21.0-32.0) 08/13/20 08:40 Anion Gap 1 (5-15) L 08/13/20 08:40 BUN 8 mg/dL (7-18) 08/13/20 08:40 Creatinine 0.44 mg/dL (0.55-1.02) L 08/13/20 08:40 Est GFR (MDRD) Af Amer 199 mL/min (>60) 08/13/20 08:40 Est GFR (MDRD) Non-Af 164 mL/min (>60) 08/13/20 08:40 BUN/Creatinine Ratio 18.3 RATIO (10-20) 08/13/20 08:40 Glucose 135 mg/dL (74-106) H 08/13/20 08:40 Vancomycin Trough 14.1 ug/mL (5.0-15.0) 08/13/20 08:40 Microbiology: Microbiology 08/12/20 Unknown Wound - Leg, Left Wound Culture - Preliminary Staphylococcus aureus 08/12/20 05:55 Urine, Random Legionella Antigen - Final 08/12/20 05:55 Urine, Random Streptococcus pneumoniae Antigen (M - Final Goal Trough: 15-20 mcg/mL Pharmacy Plan for Drug Dosing: Pharmacy Service will continue to monitor and adjust dosing as required. PATIENT WILL RECEIVE 3 DOSES OF 1750MG Q8H WITH TROUGH DRAWN 08/14/2020 @0930 Follow-Up Labs: Trough Vancomycin - 08/14/2020 @0930
[2020-08-13 12:26] LABS: Bedside Glucose 93 mg/dL (70-110)
--- NOTE | 2020-08-13 13:54 | PCM.PN.HOSP ---
Patient Problems: Active and Suspected Problems (Last Reviewed 06/17/20 @ 11:32 by Carmen Campa) Severe sepsis (Acute) Cellulitis of left leg without foot (Acute) New onset of congestive heart failure (Acute) Hypoxia (Acute) Subjective: Patient seen and examined. She had no complaints today.Review of systems is otherwise negative. CT of the chest was negative for any PE. Vitals/I&O's: Vital Signs Temp Pulse Resp BP Pulse Ox 98.6 F 81 18 118/43 L 97 08/13/20 09:46 08/13/20 11:00 08/13/20 09:46 08/13/20 09:46 08/13/20 09:46 Oxygen Flow Rate (L/min) 4 Oxygen Delivery Method Nasal Cannula Weight: 398 lb 9.532 oz Body Mass Index (BMI) 57.5 Intake and Output for Last 24 Hours 08/11/20 08/12/20 08/13/20 23:59 23:59 23:59 Intake Total 640 / 880 2330 / 2330 1710 / 1710 Output Total 1000 / 1000 1950 / 1950 Balance 640 / 880 1330 / 1330 -240 / -240 General: Alert, Oriented x3, Cooperative, No apparent distress, - - obese HEENT: Atraumatic, PERRLA, EOMI, Normocephalic Oral: Dry Mucosa Neck: Supple, No JVD, Negative Carotid Bruits Lungs: - - diminished breath sounds bibasally, no wheezes or crackles. on 4L of oxy gen by nasal canula Cardiovascular: Regular rate, Regular Rhythm, Normal S1, Normal S2, No murmurs Abdomen: Bowel Sounds Present, Soft, Non Tender, Non-Distended, No Hepato-splenomegaly Extremities: No clubbing, No cyanosis, No edema, Capillary Refill Less than 3 Seconds Skin: - - LLE wrapped in NISH bandage Musculoskeletal: No Tenderness to Palpation of Joints or Extremities Lymphatic: No Cervical, Supraclavicular, or Inguinal Adenopathy Neurological: Cranial nerves II-XII grossly intact, Neuro grossly intact, Motor Exam 5/5 strength throughout Psych/Mental Status: Normal Affect, Appropriate, Alert and oriented to time, place, person, mood and affect Microbiology Past 72 Hours 08/12/20 Unknown Wound - Leg, Left Gram Stain - Final 08/12/20 Unknown Wound - Leg, Left Wound Culture - Preliminary Staphylococcus aureus 08/12/20 05:55 Urine, Random Legionella Antigen - Final 08/12/20 05:55 Urine, Random Streptococcus pneumoniae Antigen (M - Final Laboratory Results 08/12/20 16:40: POC Glucose 119 H 08/12/20 20:12: POC Glucose 128 H 08/12/20 : S.aureus Protein A PCR POSITIVE H, MRSA (PCR) POSITIVE H 08/13/20 08:40: Vancomycin Trough 14.1 08/13/20 08:40: WBC 6.8, RBC 6.03 H, Hgb 13.5, Hct 50.7 H, MCV 84.1 D, MCH 22.4 L, MCHC 26.6 L, RDW Std Deviation 55.3 H, RDW Coeff of Luis 19.1 H, Plt Count 187, MPV 11.1, Immature Gran % (Auto) 0.700, Neut % (Auto) 75.7 H, Lymph % (Auto) 13.2 L, [place] % (Auto) 8.2, Eos % (Auto) 1.5, Baso % (Auto) 0.7, Absolute Neuts (auto) 5.1, Absolute Lymphs (auto) 0.90, Nucleated RBC % 0 08/13/20 08:40: Sodium 133 L, Potassium 4.2, Chloride 102, Carbon Dioxide 30.0, Anion Gap 1 L, BUN 8, Creatinine 0.44 L, Estim Creat Clear Calc 172.76, Est GFR (MDRD) Af Amer 199, Est GFR (MDRD) Non-Af 164, BUN/Creatinine Ratio 18.3, Glucose 135 H, Calcium 8.4 L 08/13/20 12:03: POC Glucose 93 Diagnostic Data Chest X-Ray 08/11/20 17:15 IMPRESSION: Mild pulmonary vascular congestion Electronically Signed: Brady Day MD at 18:01 EDT , Service support , Chest CTA 08/12/20 09:31 IMPRESSION: No evidence of pulmonary embolism. Mild degree of increased markings at the lung bases more prominent on the right side suggestive of bibasilar atelectasis. Electronically Signed: Alexander Thomas MD at 10:38 EDT , Service support , Current Medications Acetaminophen (Acetaminophen 325 Mg Tablet) 650 mg PO Q6H PRN PRN PRN Reason: Pain Score 1-10/Temp > 100.7 F Al Hydroxide/Mg Hydroxide (Mag Hydrox/Al Hydrox/Simeth 30 Ml Udc) 30 ml PO Q6H PRN PRN PRN Reason: Gastric Burning Albuterol Sulfate (Albuterol 2.5 Mg/3 Ml Vial.Neb.) 2.5 mg INHALATION Q2H PRN PRN PRN Reason: SOB/Wheezing Amlodipine Besylate (Amlodipine 10 Mg Tablet) 10 mg PO DAILY [facility] Last Admin: 08/12/20 10:17 Dose: 10 mg Documented by: Atorvastatin Calcium (Atorvastatin Calcium 40 Mg Tablet) 40 mg PO QHS [facility] Last Admin: 08/12/20 20:18 Dose: 40 mg Documented by: Dextrose (Dextrose 50%-Water 25 Gm/50 Ml Disp.Syrin) 0 gm IV X1 PRN; Protocol PRN Reason: Hypoglycemia Diclofenac Sodium (Diclofenac 75 Mg Tablet) 75 mg PO BIDCM [facility] Last Admin: 08/13/20 09:43 Dose: 75 mg Documented by: Enoxaparin Sodium (Enoxaparin 30 Mg/0.3 Ml Syringe) 30 mg SC BID [facility] Last Admin: 08/13/20 09:43 Dose: 30 mg Documented by: Furosemide (Furosemide 40 Mg/4 Ml Vial) 40 mg IV BID@1000,1800 [facility] Last Admin: 08/13/20 09:43 Dose: 40 mg Documented by: Gabapentin (Gabapentin 600 Mg Tablet) 600 mg PO TID [facility] Last Admin: 08/13/20 05:57 Dose: 600 mg Documented by: Glucagon (Glucagon 1 Mg/Ml Syringe) 1 mg IM .X1 PRN PRN Reason: Hypoglycemia Vancomycin IV Pharmacy to Dose (1 each/ Sodium Chloride) 500 mls @ 250 mls/hr IV PRN PRN; Protocol PRN Reason: VANC DOSING PROTOCOL Piperacillin Sod/Tazobactam (Sod 3.375 gm/ Sodium Chloride) 50 mls @ 12.5 mls/hr IV Q8 [facility] Last Infusion: 08/13/20 09:59 Dose: Infused Documented by: Vancomycin HCl 1,750 mg/ (Sodium Chloride) 535 mls @ 250 mls/hr IV Q12H [facility] Insulin Glargine (Insulin Glargine 100 Units/Ml Pen) 10 units SC QHS [facility] Last Admin: 08/12/20 20:18 Dose: 10 units Documented by: Insulin Human Lispro (Insulin Lispro 100 Unit/Ml Insuln.Pen) 0 unit SC ACHS [facility]; Protocol Last Admin: 08/13/20 12:04 Dose: Not Given Documented by: Losartan Potassium (Losartan Potassium 50 Mg Tablet) 50 mg PO DAILY [facility] Last Admin: 08/13/20 09:43 Dose: 50 mg Documented by: Melatonin (Melatonin 3 Mg Tablet) 3 mg PO QHS PRN PRN PRN Reason: INSOMNIA Morphine Sulfate (Morphine 2 Mg/Ml Syringe) 2 mg IV Q3H PRN PRN PRN Reason: Pain Score 6-10 Nitroglycerin (Nitroglycerin (Inpatient Use) 0.4 Mg Tab.Subl) 0.4 mg SL Q5M PRN PRN Reason: CARDIAC/CHEST PAIN Oxycodone HCl (Oxycodone 5 Mg Tablet) 5 mg PO Q4H PRN PRN PRN Reason: Pain Score 4-5 Prochlorperazine Edisylate (Prochlorperazine 10 Mg/2 Ml Vial) 5 mg IV Q4H PRN PRN PRN Reason: Breakthrough Nausea/Vomiting Senna/Docusate Sodium (Senna/Docusate Sodium 1 Tablet) 2 tablet PO BID PRN PRN Reason: Constipation Sertraline HCl (Sertraline 50 Mg Tablet) 50 mg PO DAILY [facility] Last Admin: 08/13/20 09:44 Dose: 50 mg Documented by: Sodium Chloride (0.9% Saline Lock 10 Ml Syringe) 10 - 40 ml IV UD PRN PRN Reason: SALINE FLUSH STROKE Vital Signs/Narrative: Vital Signs Pulse 08/13/20 11:00 81 Medical Necessity - Tobacco Use Smoking Status: Current every day smoker Tobacco Use: Cigarettes Assessment/Plan All Active Problems (Last Reviewed 06/17/20 @ 11:32 by Carmen Campa) Severe sepsis (Acute) Cellulitis of left leg without foot (Acute) New onset of congestive heart failure (Acute) Hypoxia (Acute) #Severe sepsis due to LLE cellulitis also immunocompromised due to Psoriasis on IV vancomycin and IV zosyn blood cultures pending wound culture growing Staph aureus #Acute HFpEF BNP was only 63 CXR showed mild vascular congestion 2D echo showed EF of 60% with stage III diastolic dysfunction no regional wall motion abnormalities noted. on IV lasix 40mg bid monitor intake and output fluid restriction to 1500cc daily #Acute hypoxic respiratory insufficiency due to heart failure also has COPD and DARRICK on breathing treatment with bronchodilators titrate oxygen to maintain sats >90% currently on 4L of oxygen by nasal canula #Type 2 diabetes mellitus: ISS. lantus 10 units daily. Accuchecks ACHS #Hypertension: on amlodipine and losartan. #Psoriatic arthritis: on ixekizumab #Anxiety and depression: on sertraline Morbid obesity: complicates acute care, prognosis and expected recovery DVT prophylaxis: lovenox Code status: full code Inpatient E&M: 99336 Subs Hosp L2
[2020-08-13] MEDS: amLODIPine 10 MG Tablet PO (15:10)
--- NOTE | 2020-08-13 15:37 | CASEMGMT ---
Per [facility] screening tool, pt does not meet palliative criteria for c/s. SStaten RN CM
[2020-08-13] MEDS: 0.9% Saline Lock 10 ML Syringe IV ×3 (17:26→21:32)
[2020-08-13 17:41] LABS: Bedside Glucose 137 mg/dL (70-110)
[2020-08-13] MEDS: oxyCODONE 5 MG Tablet PO (21:36)
[2020-08-13] MEDS: Acetaminophen 325 MG Tablet 650 MG PO (21:36)
[2020-08-13] MEDS: Atorvastatin Calcium 40 MG Tablet PO (21:36)
[2020-08-13 21:40] LABS: Bedside Glucose 144 mg/dL (70-110)
[2020-08-14] VITALS (11 sets, daily range): BP systolic 115–157; BP diastolic 40–80; PULSE 60–90; RESP 16–20; TEMP 35.9–36.3; O2SAT 81–96
[2020-08-14] MEDS: Gabapentin 600 MG Tablet PO ×3 (05:55→22:45)
[2020-08-14 06:37] LABS: Absolute Lymphocyte Count 1.17 X10^3/uL (0.83-4.51); Absolute Neutrophil Count 4.6 X10^3/uL (2.0-7.7); Basophil# 0.02 X10^3/uL; Basophil% 0.3 % (0-1); Eosinophil# 0.17 X10^3/uL; Eosinophils% 2.5 % (0-5); Hematocrit 46.2 % (37-47); Hemoglobin 12.8 g/dL (12.0-15.0); Lymphocyte # 1.17 X10^3/ul (4.0); Lymphocyte % 17.2 % (19-41); Mean Corp Hgb Conc 27.7 g/dL (32-36); Mean Corpuscular Hgb 22.1 pg (27.0-32.0); Mean Corpuscular Volume 79.7 fL (81-99); Mean Platelet Vol. 10.4 fl (6.2-12.0); Monocyte# 0.77 X10^3/uL; Monocyte% 11.3 % (0-10); NRBC Flagged by Analyzer 0 % (0-5); Neutrophil # 4.64 X10^3/uL (2.7-7.7); Neutrophil % 68.4 % (47-70); Platelet Count 183 K/mm3 (150-450); RBC Distribution Width CV 18.4 % (11.6-14.6); RBC Distribution Width SD 51.1 fl (35.1-43.9); White Blood Count 6.8 K/mm3 (4.4-11.0)
[2020-08-14 06:46] LABS: Bedside Glucose 134 mg/dL (70-110)
[2020-08-14 07:05] LABS: Anion Gap 5 (5-15); BUN 11 mg/dL (7-18); Calcium,Total 8.2 mg/dL (8.5-10.1); Chloride 81 mmol/L (98-107); Creatinine, Serum 0.69 mg/dL (0.55-1.02); EST Glomerular Filtration Rate 98 mL/min (>60); Est Glom Filt Rate - Afr Amer 118 mL/min (>60); Estimated Creatinine Clearance 110.17 ml/min; Glucose 127 mg/dL (74-106); Potassium 2.9 mmol/L (3.5-5.1); Sodium Level 124 mmol/L (136-145)
[2020-08-14] MEDS: Potassium Chloride 10mEq/100mL 10 MEQ/100 ML IV.SOLN. 100 MEQ IV BOLUS ×4 (09:19→12:39)
[2020-08-14] MEDS: Potassium Chloride Oral Tablet 20 MEQ 40 MEQ PO (09:25)
[2020-08-14 09:49] LABS: Vancomycin, Trough Level 19.1 ug/mL (5.0-15.0)
[2020-08-14] MEDS: Diclofenac 75 MG Tablet PO ×2 (10:30→17:12)
[2020-08-14] MEDS: Sertraline 50 MG Tablet PO (10:30)
[2020-08-14] MEDS: amLODIPine 10 MG Tablet PO (10:34)
[2020-08-14] MEDS: Enoxaparin 30 MG/0.3 ML Syringe SC ×2 (10:34→22:45)
[2020-08-14] MEDS: Losartan Potassium 50 MG Tablet PO (10:34)
--- NOTE | 2020-08-14 10:40 | NURSING ---
Spoke with Kevan, pharmacist who advised this RN to give current scheduled dose of vancomycin.
[2020-08-14 11:51] LABS: Bedside Glucose 111 mg/dL (70-110)
--- NOTE | 2020-08-14 15:15 | PN_ITS ---
Patient Problems: Active and Suspected Problems (Last Reviewed 06/17/20 @ 11:32 by Carmen Campa) Severe sepsis (Acute) Cellulitis of left leg without foot (Acute) New onset of congestive heart failure (Acute) Hypoxia (Acute) Subjective: Patient seen and examined. She has no complaints today. Review of systems otherwise negative. Sodium is down to 124, potassium is 2.9. Review of systems is otherwise negative. Vitals/I&O's: Vital Signs Temp Pulse Resp BP Pulse Ox 97 F L 71 16 115/40 L 93 08/14/20 14:40 08/14/20 14:40 08/14/20 14:40 08/14/20 14:40 08/14/20 14:40 Oxygen Flow Rate (L/min) 2 Oxygen Delivery Method Nasal Cannula Weight: 394 lb 13.566 oz Body Mass Index (BMI) 57.5 Intake and Output for Last 24 Hours 08/12/20 08/13/20 08/14/20 23:59 23:59 23:59 Intake Total 2330 / 2330 2445 / 2745 2410 / 2410 Output Total 1000 / 1000 3000 / 5200 3200 / 3200 Balance 1330 / 1330 -555 / -2455 -790 / -790 General: Alert, Oriented x3, Cooperative, No apparent distress, - - obese HEENT: Atraumatic, PERRLA, EOMI, Normocephalic Oral: Dry Mucosa Neck: Supple, No JVD, Negative Carotid Bruits Lungs: - - diminished breath sounds bibasally, no wheezes or crackles. on 2L of oxygen by nasal canula Cardiovascular: Regular rate, Regular Rhythm, Normal S1, Normal S2, No murmurs Abdomen: Bowel Sounds Present, Soft, Non Tender, Non-Distended, No Hepato- splenomegaly Extremities: No clubbing, No cyanosis, No edema, Capillary Refill Less than 3 Seconds Skin: - - LLE wrapped in NISH bandage Musculoskeletal: No Tenderness to Palpation of Joints or Extremities Lymphatic: No Cervical, Supraclavicular, or Inguinal Adenopathy Neurological: Cranial nerves II-XII grossly intact, Neuro grossly intact, Motor Exam 5/5 strength throughout Psych/Mental Status: Normal Affect, Appropriate, Alert and oriented to time, place, person, mood and affect Microbiology Past 72 Hours 08/12/20 Unknown Wound - Leg, Left Gram Stain - Final 08/12/20 Unknown Wound - Leg, Left Wound Culture - Final Meth. resistant Staph. aureus Streptococcus group G 08/11/20 18:18 Blood Culture (Wb) - Right Hand Blood Culture - Preliminary No growth in 48 hours. 08/12/20 05:55 Urine, Random Legionella Antigen - Final 08/12/20 05:55 Urine, Random Streptococcus pneumoniae Antigen (M - Final Laboratory Results 08/13/20 17:20: POC Glucose 137 H 08/13/20 21:29: POC Glucose 144 H 08/14/20 05:54: WBC 6.8, RBC 5.80 H, Hgb 12.8, Hct 46.2, MCV 79.7 L D, MCH 22.1 L, MCHC 27.7 L, RDW Std Deviation 51.1 H, RDW Coeff of Luis 18.4 H, Plt Count 183, MPV 10.4, Immature Gran % (Auto) 0.300, Neut % (Auto) 68.4, Lymph % (Auto) 17.2 L, [place] % (Auto) 11.3 H, Eos % (Auto) 2.5, Baso % (Auto) 0.3, Absolute Neuts (auto) 4.6, Absolute Lymphs (auto) 1.17, Nucleated RBC % 0 08/14/20 05:54: Sodium 124 L, Potassium 2.9 L, Chloride 81 L, Carbon Dioxide 38.0 H, Anion Gap 5, BUN 11, Creatinine 0.69, Estim Creat Clear Calc 110.17, Est GFR (MDRD) Af Amer 118, Est GFR (MDRD) Non-Af 98, BUN/Creatinine Ratio 16.0, Glucose 127 H, Calcium 8.2 L 08/14/20 06:38: POC Glucose 134 H 08/14/20 09:10: Vancomycin Trough 19.1 H 08/14/20 11:31: POC Glucose 111 H Diagnostic Data Chest X-Ray 08/11/20 17:15 IMPRESSION: Mild pulmonary vascular congestion Electronically Signed: Brady Day MD at 18:01 EDT , Service support , Chest CTA 08/12/20 09:31 IMPRESSION: No evidence of pulmonary embolism. Mild degree of increased markings at the lung bases more prominent on the right side suggestive of bibasilar atelectasis. Electronically Signed: Alexander Thomas MD at 10:38 EDT , Service support , Current Medications Acetaminophen (Acetaminophen 325 Mg Tablet) 650 mg PO Q6H PRN PRN PRN Reason: Pain Score 1-10/Temp > 100.7 F Last Admin: 08/13/20 21:36 Dose: 650 mg Documented by: Al Hydroxide/Mg Hydroxide (Mag Hydrox/Al Hydrox/Simeth 30 Ml Udc) 30 ml PO Q6H PRN PRN PRN Reason: Gastric Burning Albuterol Sulfate (Albuterol 2.5 Mg/3 Ml Vial.Neb.) 2.5 mg INHALATION Q2H PRN PRN PRN Reason: SOB/Wheezing Amlodipine Besylate (Amlodipine 10 Mg Tablet) 10 mg PO DAILY [facility] Last Admin: 08/14/20 10:34 Dose: 10 mg Documented by: Atorvastatin Calcium (Atorvastatin Calcium 40 Mg Tablet) 40 mg PO QHS [facility] Last Admin: 08/13/20 21:36 Dose: 40 mg Documented by: Dextrose (Dextrose 50%-Water 25 Gm/50 Ml Disp.Syrin) 0 gm IV X1 PRN; Protocol PRN Reason: Hypoglycemia Diclofenac Sodium (Diclofenac 75 Mg Tablet) 75 mg PO BIDCM [facility] Last Admin: 08/14/20 10:30 Dose: 75 mg Documented by: Enoxaparin Sodium (Enoxaparin 30 Mg/0.3 Ml Syringe) 30 mg SC BID [facility] Last Admin: 08/14/20 10:34 Dose: 30 mg Documented by: Gabapentin (Gabapentin 600 Mg Tablet) 600 mg PO TID [facility] Last Admin: 08/14/20 14:57 Dose: 600 mg Documented by: Glucagon (Glucagon 1 Mg/Ml Syringe) 1 mg IM .X1 PRN PRN Reason: Hypoglycemia Vancomycin IV Pharmacy to Dose (1 each/ Sodium Chloride) 500 mls @ 250 mls/hr IV PRN PRN; Protocol PRN Reason: VANC DOSING PROTOCOL Piperacillin Sod/Tazobactam (Sod 3.375 gm/ Sodium Chloride) 50 mls @ 12.5 mls/hr IV Q8 [facility] Last Admin: 08/14/20 14:48 Dose: 12.5 mls/hr Documented by: Vancomycin HCl 1,500 mg/ (Sodium Chloride) 530 mls @ 250 mls/hr IV Q8H [facility] Sodium Chloride () 250 mls @ 15 mls/hr IV .[id number] PRN PRN Reason: Saline Flush Sodium Chloride () 250 mls @ 15 mls/hr IV .[id number] PRN PRN Reason: Additional IVPB Infusion Insulin Glargine (Insulin Glargine 100 Units/Ml Pen) 10 units SC QHS [facility] Last Admin: 08/13/20 21:31 Dose: 10 units Documented by: Insulin Human Lispro (Insulin Lispro 100 Unit/Ml Insuln.Pen) 0 unit SC [facility]; Protocol Last Admin: 08/14/20 11:32 Dose: Not Given Documented by: Losartan Potassium (Losartan Potassium 50 Mg Tablet) 50 mg PO DAILY [facility] Last Admin: 08/14/20 10:34 Dose: 50 mg Documented by: Melatonin (Melatonin 3 Mg Tablet) 3 mg PO QHS PRN PRN PRN Reason: INSOMNIA Morphine Sulfate (Morphine 2 Mg/Ml Syringe) 2 mg IV Q3H PRN PRN PRN Reason: Pain Score 6-10 Nitroglycerin (Nitroglycerin (Inpatient Use) 0.4 Mg Tab.Subl) 0.4 mg SL Q5M PRN PRN Reason: CARDIAC/CHEST PAIN Oxycodone HCl (Oxycodone 5 Mg Tablet) 5 mg PO Q4H PRN PRN PRN Reason: Pain Score 4-5 Last Admin: 08/13/20 21:36 Dose: 5 mg Documented by: Prochlorperazine Edisylate (Prochlorperazine 10 Mg/2 Ml Vial) 5 mg IV Q4H PRN PRN PRN Reason: Breakthrough Nausea/Vomiting Senna/Docusate Sodium (Senna/Docusate Sodium 1 Tablet) 2 tablet PO BID PRN PRN Reason: Constipation Sertraline HCl (Sertraline 50 Mg Tablet) 50 mg PO DAILY [facility] Last Admin: 08/14/20 10:30 Dose: 50 mg Documented by: Sodium Chloride (0.9% Saline Lock 10 Ml Syringe) 10 - 40 ml IV UD PRN PRN Reason: SALINE FLUSH Last Admin: 08/13/20 21:32 Dose: 10 ml Documented by: STROKE Vital Signs/Narrative: Vital Signs Temp Pulse Resp BP Pulse Ox 08/14/20 14:40 97 F L 71 16 115/40 L 93 Medical Necessity - Tobacco Use Smoking Status: Current every day smoker Tobacco Use: Cigarettes Assessment/Plan All Active Problems (Last Reviewed 06/17/20 @ 11:32 by Carmen Campa) Severe sepsis (Acute) Cellulitis of left leg without foot (Acute) New onset of congestive heart failure (Acute) Hypoxia (Acute) #Severe sepsis due to LLE cellulitis * also immunocompromised due to Psoriasis * on IV vancomycin and IV zosyn * blood cultures showed no growth. * wound culture growing MRSA; will switch to PO bactrim * #Acute HFpEF * BNP was only 63 * CXR showed mild vascular congestion * 2D echo showed EF of 60% with stage III diastolic dysfunction no regional wall motion abnormalities noted. * will dc lasix due to hyponatremia. will hydrate gently with IVF * monitor intake and output * fluid restriction to 1500cc daily * #Acute hyponatremia * sodium is 124. likely due to overdiuresis with IV lasix as chloride is also low and bicarb is elevated from probable metabolic alkalosis * dc IV lasix. hydrate very gently with IVF * #Metabolic alkalosis * bicarb is up to 38 today. was 30 yesterday. WIll dc lasix. * #Hypokalemia: K is 2.9. Will replace and monitor #Acute hypoxic respiratory insufficiency * due to heart failure * also has COPD and DARRICK * on breathing treatment with bronchodilators * titrate oxygen to maintain sats >90% * currently on 2L of oxygen by nasal canula * #Type 2 diabetes mellitus: ISS. lantus 10 units daily. Accuchecks ACHS #Hypertension: on amlodipine and losartan. #Psoriatic arthritis: on ixekizumab #Anxiety and depression: on sertraline Morbid obesity: complicates acute care, prognosis and expected recovery DVT prophylaxis: lovenox Code status: full code Inpatient E&M: 53942 Subs Hosp L2
[2020-08-14] MEDS: 0.9% Normal Saline 1,000 ML 75 ML IV (16:27)
[2020-08-14] MEDS: Smz/Tmp Ds Tablet 1 TABLET PO (16:29)
[2020-08-14] MEDS: Insulin Lispro 100 UNIT/ML INSULN.PEN SC (17:09)
[2020-08-14 17:21] LABS: Bedside Glucose 173 mg/dL (70-110)
[2020-08-14 18:25] LABS: Potassium 3.9 mmol/L (3.5-5.1)
[2020-08-14] MEDS: oxyCODONE 5 MG Tablet PO (19:50)
[2020-08-14] MEDS: Atorvastatin Calcium 40 MG Tablet PO (21:29)
[2020-08-14 21:36] LABS: Bedside Glucose 112 mg/dL (70-110)
[2020-08-15] VITALS (7 sets, daily range): BP systolic 133–149; BP diastolic 77–81; PULSE 68–95; RESP 16–18; TEMP 36.4–36.7; O2SAT 88–96
[2020-08-15] MEDS: Gabapentin 600 MG Tablet PO (06:00)
[2020-08-15 06:42] LABS: Absolute Lymphocyte Count 1.06 X10^3/uL (0.83-4.51); Absolute Neutrophil Count 4.3 X10^3/uL (2.0-7.7); Basophil# 0.01 X10^3/uL; Basophil% 0.2 % (0-1); Eosinophil# 0.19 X10^3/uL; Hematocrit 46.9 % (37-47); Lymphocyte # 1.06 X10^3/ul (4.0); Lymphocyte % 16.9 % (19-41); Mean Corp Hgb Conc 27.7 g/dL (32-36); Mean Corpuscular Volume 79.2 fL (81-99); Mean Platelet Vol. 11.1 fl (6.2-12.0); Monocyte# 0.67 X10^3/uL; Monocyte% 10.7 % (0-10); NRBC Flagged by Analyzer 0 % (0-5); Neutrophil % 68.7 % (47-70); Platelet Count 179 K/mm3 (150-450); RBC Distribution Width CV 18.4 % (11.6-14.6); RBC Distribution Width SD 50.7 fl (35.1-43.9); Red Blood Count 5.92 M/mm3 (4.2-5.4); White Blood Count 6.3 K/mm3 (4.4-11.0)
[2020-08-15 07:00] LABS: Bedside Glucose 133 mg/dL (70-110)
[2020-08-15 07:11] LABS: Anion Gap 1 (5-15); BUN 11 mg/dL (7-18); BUN/Creat Ratio 16.9 RATIO (10-20); Calcium,Total 8.7 mg/dL (8.5-10.1); Chloride 101 mmol/L (98-107); Creatinine, Serum 0.65 mg/dL (0.55-1.02); EST Glomerular Filtration Rate 104 mL/min (>60); Est Glom Filt Rate - Afr Amer 126 mL/min (>60); Estimated Creatinine Clearance 116.95 ml/min; Glucose 118 mg/dL (74-106); Potassium 3.7 mmol/L (3.5-5.1); Sodium Level 139 mmol/L (136-145)
[2020-08-15] MEDS: Diclofenac 75 MG Tablet PO (08:22)
[2020-08-15] MEDS: Smz/Tmp Ds Tablet 1 TABLET PO (08:22)
[2020-08-15] MEDS: amLODIPine 10 MG Tablet PO (11:13)
[2020-08-15] MEDS: Losartan Potassium 50 MG Tablet PO (11:13)
[2020-08-15] MEDS: Sertraline 50 MG Tablet PO (11:14)
--- NOTE | 2020-08-15 11:27 | CASEMGMT ---
Per Wilda OLSON, pt does qualify for home oxygen 2L continuous. Pt provided a list of DME providers consistent with the pt's preferred geographic region, medical needs, and insurance network. Pt chose [facility] and [place] [facility] [place]. Call to [facility] to notify of referral, voices understanding. Pt has been independent in room and states no further questions/concerns/needs. Raúl OLSON CM
[2020-08-15 11:40] LABS: Bedside Glucose 120 mg/dL (70-110)
--- NOTE | 2020-08-15 12:44 | DCINST_ITS ---
- Discharge Diagnoses Current Active Problems: Current Active and Chronic Problems (Last Reviewed 06/17/20 @ 11:32 by Carmen Campa) Primary osteoarthritis of left knee (Chronic) Psoriatic arthritis (Chronic) Severe sepsis (Acute) Cellulitis of left leg without foot (Acute) New onset of congestive heart failure (Acute) Hypoxia (Acute) Type 2 diabetes mellitus (Chronic) Depression (Chronic) Borderline type 2 diabetes mellitus (Chronic) Tobacco abuse counseling (Chronic) Morbid obesity (Chronic) Hypertension (Chronic) Psoriasis (Chronic) Degenerative disc disease, lumbar (Chronic) Rheumatoid arthritis (Chronic) Back problem (Chronic) Lower back injections 03/09 Arthritis (Chronic) Degeneration of lumbar or lumbosacral intervertebral disc (Chronic) Radiculopathy of lumbosacral region (Chronic) You will use the following diet at home:: Calorie/Carbohydrate Controlled (specify 1200, 1400, etc) - 1800 calories, Cardiac Your food should be the consistency of: Regular Your liquids should be the consistency of: Regular/Thin Discharge Activity: Return to Normal Activity Weight Bearing Status: Weight bearing as tolerated Call your doctor if you observe: Fever of 101 or Higher, Shortness of breath, Swelling in the ankles, Increased palpitations (irregular heartbeat) Instructions: Heart Failure, ED Cellulitis Additional Instructions: use 2L of oxygen as needed for shortness of breath Allergies/Adverse Reactions: Allergies No Known Allergies Allergy (Verified 08/11/20 16:31) Medications to take at Discharge Ixekizumab [Taltz Syringe] 80 mg SQ QMONTH 11/14/17 gabapentin 600 mg tablet 600 mg PO TID tab 08/15/18 Diclofenac [Voltaren] 75 mg PO BIDCM 01/02/19 sertraline 50 mg tablet 50 mg PO DAILY #90 tab 10/13/19 Amlodipine Besylate [Norvasc] 10 mg PO DAILY 08/11/20 Losartan Potassium [Cozaar] 50 mg PO DAILY 08/11/20 metFORMIN (XR) [Glucophage Xr] 1,000 mg PO QPM 08/11/20 Doxycycline 100 mg PO BID #14 capsule 08/15/20 Furosemide 40 mg PO DAILY #30 tablet 08/15/20 Potassium Chloride Oral Tablet [K-Dur] 20 meq PO DAILY #30 tab 08/15/20 The following prescriptions were given: Doxycycline 100 mg PO BID #14 capsule Transmission Status: Pending to [facility] Furosemide 40 mg PO DAILY #30 tablet Transmission Status: Pending to [facility] Potassium Chloride Oral Tablet [K-Dur] 20 meq PO DAILY #30 tab Transmission Status: Pending to [facility] Primary Care Physician: Heath Thomas MD [Primary Care Provider] - Please follow up with your Primary Care Physician in: 1-2 weeks Test Results: Test results from this visit will be discussed in further detail at your follow- up appointment, if applicable. Please Follow Up With: Karlos Stewart MD When: 2-4 weeks to establish cardiac care Proposed Discharge Date: 08/15/20
--- NOTE | 2020-08-15 12:50 | DS.PCM_ITS ---
Discharge Date and Diagnosis - Problem List Patient Problems: Active and Suspected Problems (Last Reviewed 06/17/20 @ 11:32 by Carmen Campa) Severe sepsis (Acute) Cellulitis of left leg without foot (Acute) New onset of congestive heart failure (Acute) Hypoxia (Acute) Date of Admission: 08/11/20 Date of Discharge: 08/15/20 - Primary Discharge Diagnosis Acute Problems: Active Problems (Last Reviewed 06/17/20 @ 11:32 by Carmen Campa) Severe sepsis (Acute) Cellulitis of left leg without foot (Acute) New onset of congestive heart failure (Acute) Hypoxia (Acute) - Secondary Discharge Diagnosis Chronic Problems: Chronic Problems (Last Reviewed 06/17/20 @ 11:32 by Carmen Campa) Primary osteoarthritis of left knee (Chronic) Psoriatic arthritis (Chronic) Type 2 diabetes mellitus (Chronic) Depression (Chronic) Borderline type 2 diabetes mellitus (Chronic) Tobacco abuse counseling (Chronic) Morbid obesity (Chronic) Hypertension (Chronic) Psoriasis (Chronic) Degenerative disc disease, lumbar (Chronic) Rheumatoid arthritis (Chronic) Back problem (Chronic) Lower back injections 03/09 Arthritis (Chronic) Degeneration of lumbar or lumbosacral intervertebral disc (Chronic) Radiculopathy of lumbosacral region (Chronic) Hospital Course and Treatment Imaging Results: Vital Signs Temp Pulse Resp BP Pulse Ox 97.9 F 95 18 141/81 H 96 08/15/20 11:10 08/15/20 11:10 08/15/20 11:10 08/15/20 11:10 08/15/20 11:10 Consultations 08/12/20 11:35 Consult: 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 He had begun to swell and she was having seepage from the wound. She also had pain and induration and had also had worsening shortness of breath on exertion for 3 to 4 months and was short of breath with exertion for about 100 feet. In the ED she was noted to have elevated blood pressure and she was saturating at 90% on room air. Chest x-ray was suggestive of venous congestion and EKG showed no acute ST changes. Patient had been a smoker since age of 15 and smoked about half a pack a day. She was admitted to be managed for sepsis due to cellulitis of her lower extremity as well as heart failure based on clinical diagnosis. BNP was not elevated though it was only around 63. She was diuresed with IV Lasix and started on IV vancomycin and Zosyn. Pulmonology was consulted and she was initially admitted to the ICU. Of note, she also had a history of psoriasis of the lower extremities. Patient shortness of breath improved and she was transferred of the ICU to the regular floor. 2D echo done showed EF of 60% with stage III diastolic dysfunction and no regional wall motion abnormalities. CT of the chest was also negative for PE. Wound culture was positive for MRSA and strep group B and blood cultures were negative. She remained stable and was discharged home on 08/15/2020. She was discharged with a prescription for p.o. doxycycline. She is to follow-up with her primary care doctor and she was also discharged with a prescription for p.o. Lasix as well as p.o. potassium. She had walking pulse ox which showed that she qualified for oxygen, with her oxygen level dropping down to 88 % on room air with ambulation, and requiring 2L of oxygen to go up to 92%, and so she was discharged with 2 L of oxygen to use for shortness of breath as needed. She was counseled to quit smoking. She was referred to cardiology for management of newly diagnosed heart failure with preserved ejection fraction. Patient seen and examined prior to discharge. She had no complaints. Review of symptoms otherwise negative. Labs and vitals reviewed. Home medication reviewed and reconciled. O/E: Vital Signs Temp Pulse Resp BP Pulse Ox 97.9 F 95 18 141/81 H 96 08/15/20 11:10 08/15/20 11:10 08/15/20 11:10 08/15/20 11:10 08/15/20 11:10 [] General: Alert, Oriented x3, Cooperative, No apparent distress, - - obese HEENT: Atraumatic, PERRLA, EOMI, Normocephalic Oral: Dry Mucosa Neck: Supple, No JVD, Negative Carotid Bruits Lungs: - - diminished breath sounds bibasally, no wheezes or crackles. on 2L of oxygen by nasal canula Cardiovascular: Regular rate, Regular Rhythm, Normal S1, Normal S2, No murmurs Abdomen: Bowel Sounds Present, Soft, Non Tender, Non-Distended, No Hepato- splenomegaly Extremities: No clubbing, No cyanosis, No edema, Capillary Refill Less than 3 Seconds Skin: - - LLE wrapped in NISH bandage Musculoskeletal: No Tenderness to Palpation of Joints or Extremities Lymphatic: No Cervical, Supraclavicular, or Inguinal Adenopathy Neurological: Cranial nerves II-XII grossly intact, Neuro grossly intact, Motor Exam 5/5 strength throughout Psych/Mental Status: Normal Affect, Appropriate, Alert and oriented to time, place, person, mood and affect Plan is for discharge home Patient Problems: Active and Suspected Problems (Last Reviewed 06/17/20 @ 11:32 by Carmen Campa) Severe sepsis (Acute) Cellulitis of left leg without foot (Acute) New onset of congestive heart failure (Acute) Hypoxia (Acute) - Physical Exam Vitals/I&O's: Vital Signs Temp Pulse Resp BP Pulse Ox 97.9 F 95 18 141/81 H 96 08/15/20 11:10 08/15/20 11:10 08/15/20 11:10 08/15/20 11:10 08/15/20 11:10 Oxygen Flow Rate (L/min) [ 2 AMBULATING with Oxygen #1] Oxygen Flow Rate (L/min) [At 2 REST with Oxygen] Oxygen Flow Rate (L/min) 2 Oxygen Delivery Method Nasal Cannula Weight: 394 lb 13.566 oz Body Mass Index (BMI) 57.5 Intake and Output for Last 24 Hours 08/13/20 08/14/20 08/15/20 23:59 23:59 23:59 Intake Total 2445 / 2745 2790.63 / 2890.63 1200 / 1200 Output Total 3000 / 5200 4000 / 4000 900 / 900 Balance -555 / -2455 -1209.37 / -1109.37 300 / 300 Microbiology Past 72 Hours 08/12/20 Unknown Wound - Leg, Left Gram Stain - Final 08/12/20 Unknown Wound - Leg, Left Wound Culture - Final Meth. resistant Staph. aureus Streptococcus group G 08/11/20 18:18 Blood Culture (Wb) - Right Hand Blood Culture - Preliminary No growth in 48 hours. Laboratory Results 08/14/20 17:08: POC Glucose 173 H 08/14/20 17:40: Potassium 3.9 08/14/20 21:27: POC Glucose 112 H 08/15/20 05:40: WBC 6.3, RBC 5.92 H, Hgb 13.0, Hct 46.9, MCV 79.2 L, MCH 22.0 L, MCHC 27.7 L, RDW Std Deviation 50.7 H, RDW Coeff of Luis 18.4 H, Plt Count 179, MPV 11.1, Immature Gran % (Auto) 0.500, Neut % (Auto) 68.7, Lymph % (Auto) 16.9 L, Morrow % (Auto) 10.7 H, Eos % (Auto) 3.0, Baso % (Auto) 0.2, Absolute Neuts (auto) 4.3, Absolute Lymphs (auto) 1.06, Nucleated RBC % 0 08/15/20 05:40: Sodium 139, Potassium 3.7, Chloride 101, Carbon Dioxide 37.0 H, Anion Gap 1 L, BUN 11, Creatinine 0.65, Estim Creat Clear Calc 116.95, Est GFR (MDRD) Af Amer 126, Est GFR (MDRD) Non-Af 104, BUN/Creatinine Ratio 16.9, Glucose 118 H, Calcium 8.7 08/15/20 06:58: POC Glucose 133 H 08/15/20 11:19: POC Glucose 120 H Current Medications Acetaminophen (Acetaminophen 325 Mg Tablet) 650 mg PO Q6H PRN PRN PRN Reason: Pain Score 1-10/Temp > 100.7 F Last Admin: 08/13/20 21:36 Dose: 650 mg Documented by: Al Hydroxide/Mg Hydroxide (Mag Hydrox/Al Hydrox/Simeth 30 Ml Udc) 30 ml PO Q6H PRN PRN PRN Reason: Gastric Burning Albuterol Sulfate (Albuterol 2.5 Mg/3 Ml Vial.Neb.) 2.5 mg INHALATION Q2H PRN PRN PRN Reason: SOB/Wheezing Amlodipine Besylate (Amlodipine 10 Mg Tablet) 10 mg PO DAILY [facility] Last Admin: 08/15/20 11:13 Dose: 10 mg Documented by: Atorvastatin Calcium (Atorvastatin Calcium 40 Mg Tablet) 40 mg PO QHS [facility] Last Admin: 08/14/20 21:29 Dose: 40 mg Documented by: Dextrose (Dextrose 50%-Water 25 Gm/50 Ml Disp.Syrin) 0 gm IV X1 PRN; Protocol PRN Reason: Hypoglycemia Diclofenac Sodium (Diclofenac 75 Mg Tablet) 75 mg PO BIDCM [facility] Last Admin: 08/15/20 08:22 Dose: 75 mg Documented by: Enoxaparin Sodium (Enoxaparin 30 Mg/0.3 Ml Syringe) 30 mg SC BID [facility] Last Admin: 08/15/20 11:18 Dose: Not Given Documented by: Gabapentin (Gabapentin 600 Mg Tablet) 600 mg PO TID [facility] Last Admin: 08/15/20 06:00 Dose: 600 mg Documented by: Glucagon (Glucagon 1 Mg/Ml Syringe) 1 mg IM .X1 PRN PRN Reason: Hypoglycemia Sodium Chloride () 250 mls @ 15 mls/hr IV .[id number] PRN PRN Reason: Saline Flush Sodium Chloride () 250 mls @ 15 mls/hr IV .[id number] PRN PRN Reason: Additional IVPB Infusion Insulin Glargine (Insulin Glargine 100 Units/Ml Pen) 10 units SC QHS [facility] Last Admin: 08/14/20 21:29 Dose: 10 units Documented by: Insulin Human Lispro (Insulin Lispro 100 Unit/Ml Insuln.Pen) 0 unit SC ACHS [facility]; Protocol Last Admin: 08/15/20 11:22 Dose: Not Given Documented by: Losartan Potassium (Losartan Potassium 50 Mg Tablet) 50 mg PO DAILY [facility] Last Admin: 08/15/20 11:13 Dose: 50 mg Documented by: Melatonin (Melatonin 3 Mg Tablet) 3 mg PO QHS PRN PRN PRN Reason: INSOMNIA Morphine Sulfate (Morphine 2 Mg/Ml Syringe) 2 mg IV Q3H PRN PRN PRN Reason: Pain Score 6-10 Nitroglycerin (Nitroglycerin (Inpatient Use) 0.4 Mg Tab.Subl) 0.4 mg SL Q5M PRN PRN Reason: CARDIAC/CHEST PAIN Oxycodone HCl (Oxycodone 5 Mg Tablet) 5 mg PO Q4H PRN PRN PRN Reason: Pain Score 4-5 Last Admin: 08/14/20 19:50 Dose: 5 mg Documented by: Prochlorperazine Edisylate (Prochlorperazine 10 Mg/2 Ml Vial) 5 mg IV Q4H PRN PRN PRN Reason: Breakthrough Nausea/Vomiting Senna/Docusate Sodium (Senna/Docusate Sodium 1 Tablet) 2 tablet PO BID PRN PRN Reason: Constipation Sertraline HCl (Sertraline 50 Mg Tablet) 50 mg PO DAILY [facility] Last Admin: 08/15/20 11:14 Dose: 50 mg Documented by: Sodium Chloride (0.9% Saline Lock 10 Ml Syringe) 10 - 40 ml IV UD PRN PRN Reason: SALINE FLUSH Last Admin: 08/13/20 21:32 Dose: 10 ml Documented by: Trimethoprim/Sulfamethoxazole (Smz/Tmp Ds [facility]t) [facility] Last Admin: 08/15/20 08:22 Dose: 1 tablet Documented by: Discharge Diet: Low fat/ Low Cholesterol Discharge Activity: Return to Normal Activity Weight Bearing Status: Weight bearing as tolerated Call your doctor if you observe: Fever of 101 or Higher, Shortness of breath, Swelling in the ankles, Increased palpitations (irregular heartbeat) Home Medications: Medications to take at Discharge Ixekizumab [Taltz Syringe] 80 mg SQ QMONTH 11/14/17 gabapentin 600 mg tablet 600 mg PO TID tab 08/15/18 Diclofenac [Voltaren] 75 mg PO BIDCM 01/02/19 sertraline 50 mg tablet 50 mg PO DAILY #90 tab 10/13/19 Amlodipine Besylate [Norvasc] 10 mg PO DAILY 08/11/20 Losartan Potassium [Cozaar] 50 mg PO DAILY 08/11/20 metFORMIN (XR) [Glucophage Xr] 1,000 mg PO QPM 08/11/20 Doxycycline 100 mg PO BID #14 capsule 08/15/20 Furosemide 40 mg PO DAILY #30 tablet 08/15/20 Potassium Chloride Oral Tablet [K-Dur] 20 meq PO DAILY #30 tab 08/15/20 Following Prescriptions Were Given to Patient: Doxycycline 100 mg PO BID #14 capsule Transmission Status: Received by KACY BOONE RD Furosemide 40 mg PO DAILY #30 tablet Transmission Status: Received by KACY BOONE RD Potassium Chloride Oral Tablet [K-Dur] 20 meq PO DAILY #30 tab Transmission Status: Received by KACY BOONE RD Primary Care Physician: Heath Thomas MD [Primary Care Provider] - Please follow up with your Primary Care Physician in: 1-2 weeks Please Follow Up With: Karlos Stewart MD When: 2-4 weeks to establish cardiac care Patient Instructions: Heart Failure, ED Cellulitis Disposition: Home Minutes spent on discharge:: 45 Medical Necessity - Tobacco Use Smoking Status: Current every day smoker Tobacco Use: Cigarettes Meaningful Use Info Meaningful Use Diagnoses (Choose all that apply): CHF - CHF NISH/ARB ordered at discharge?: Yes Documented LVEF (%): 60 Inpatient E&M: 97299 Disch Hosp
--- NOTE | 2020-08-18 15:33 | CASEMGMT ---
WHITNEY GIBSON Discharge Follow-up Phone Call: DENNIS: 12 Strata: 3 Call Date: 08/18/20 Discharge Date: 08/15/20 Time of Call: 1535 Duration: 1 min Admitting Diagnosis: Severe Sepsis, HF Exacerbation WHITNEY GIBSON attempted to complete follow-up phone call after recent hospitalization. No answer, mailbox full and unable to leave message. Patient was setup with home oxygen prior to discharge.
== END 2020-08-15 15:02 | disposition home or self-care (01) | DRG 602 ==
LOC: ED 18:37 → ICU 18:48 → PCU 08-12 16:42
PROVIDERS: Internal Medicine Critical Care Medicine; Admitting Provider Internal Medicine; Emergency Provider Emergency Medicine; PCP Internal Medicine; Visit Provider Student in an Organized Health Care Education/Training Program
DX: L03.116 Cellulitis of left lower limb (principal); I50.31 Acute diastolic (congestive) heart failure; Z68.43 Body mass index [BMI] 50.0-59.9, adult; D84.821 Immunodeficiency due to drugs; E87.1 Hypo-osmolality and hyponatremia; E87.3 Alkalosis; R09.02 Hypoxemia; E66.01 Morbid (severe) obesity due to excess calories; E11.9 Type 2 diabetes mellitus without complications; Z79.84 Long term (current) use of oral hypoglycemic drugs; I11.0 Hypertensive heart disease with heart failure; L40.50 Arthropathic psoriasis, unspecified; M47.816 Spondylosis without myelopathy or radiculopathy, lumbar region; M17.0 Bilateral primary osteoarthritis of knee; M16.0 Bilateral primary osteoarthritis of hip; F32.9 Major depressive disorder, single episode, unspecified; F41.9 Anxiety disorder, unspecified; F17.210 Nicotine dependence, cigarettes, uncomplicated; R06.89 Other abnormalities of breathing; G47.33 Obstructive sleep apnea (adult) (pediatric); J44.9 Chronic obstructive pulmonary disease, unspecified; B95.62 Methicillin resistant Staphylococcus aureus infection as the cause of diseases classified elsewhere; E87.6 Hypokalemia; B95.1 Streptococcus, group B, as the cause of diseases classified elsewhere
CPT/HCPCS: 36415; 36600; 71046; 71275; 80048; 80053; 80061; 80202; 82803; 82962; 83036; 83605; 83735; 83880; 84132; 84443; 84484; 85025; 85610; 87040; 87070; 87077; 87186; 87205; 87449; 87640; 87641; 93005; 93306; 97161; 97166; 97530; 97802; 97803; 99251; 99285; J7030; J7040; J7050; Q9957; Q9967; A4216; C8929; G0463; J1940

== ENCOUNTER → 2020-10-15 10:37 | Outpatient (CLI) | payer MEDICARE, MEDICAID, SELFPAY ==
[2020-10-15 10:14] VITALS: BMI 55.5
[2020-10-15 12:27] LABS: Anion Gap 4 (5-15); BUN 11 mg/dL (7-18); BUN/Creat Ratio 16.3 RATIO (10-20); Calcium,Total 9.3 mg/dL (8.5-10.1); Chloride 101 mmol/L (98-107); Creatinine, Serum 0.68 mg/dL (0.55-1.02); EST Glomerular Filtration Rate 100 mL/min (>60); Est Glom Filt Rate - Afr Amer 121 mL/min (>60); Glucose 109 mg/dL (74-106); Sodium Level 138 mmol/L (136-145)
== END ==
PROVIDERS: PCP Internal Medicine; Referring Provider Internal Medicine; Visit Provider Internal Medicine
DX: I11.0 Hypertensive heart disease with heart failure (principal); I50.32 Chronic diastolic (congestive) heart failure
CPT/HCPCS: 36415; 80048

== ENCOUNTER 2020-11-06 09:35 | Outpatient (RCR) | payer MEDICARE, SELFPAY ==
[2020-10-15 10:14] VITALS: BMI 55.5
[2020-11-06 10:18] VITALS: BP 144/69; PULSE 81; RESP 18; TEMP 36.3; BMI 53.5
--- NOTE | 2020-11-06 16:15 | PCM.WC.HP ---
History of Present Illness Date of Service: 11/06/20 Chief Complaint: Left Lower Extremity Ulcer History of Wound: Ms. Carrion is a 45-year-old who was referred to the wound center by me due to nonhealing left lower extremity ulcer. Referred here about 3 weeks ago and at that time, had an over 3-month left lower extremity ulcer. Had been applying silver cell however has had significant concerns with edema control. Since her last visit at the office, she states that she has been using Dav wraps for compression, has lost some weight and has become also more active. No significant drainage in the recent days. No chills, fever or otherwise feeling of unwell. Recently approved for bariatric surgery. [facility] Medical History (Updated 11/06/20 @ 16:[address] Heath Thomas MD) Arthritis Back problem Bilateral lower extremity edema Cellulitis of left leg without foot Chronic diastolic (congestive) heart failure Degeneration of lumbar or lumbosacral intervertebral disc Degenerative disc disease, lumbar Depression Essential (primary) hypertension Hypoxia Incomplete right bundle branch block Marijuana user Morbid obesity Nicotine dependence Primary osteoarthritis of left knee Psoriasis Psoriatic arthritis Radiculopathy of lumbosacral region Rheumatoid arthritis Secondary pulmonary arterial hypertension Severe sepsis Tobacco abuse counseling Type 2 diabetes mellitus Ulcer of left lower extremity Ulcer of left lower leg Home Medications gabapentin 600 mg tablet 600 mg PO TID tablet 08/15/18 [History Last Taken 08/11/20] diclofenac sodium 75 mg PO BIDCM 01/02/19 [History Last Taken 08/11/20] amlodipine 10 mg PO DAILY 08/11/20 [History Last Taken 08/11/20] metformin 1,000 mg PO QPM 08/11/20 [History Last Taken 08/10/20] blood pressure monitor #1 each 08/20/20 [Rx Last Taken Unknown] losartan 100 mg tablet 100 mg PO DAILY #90 tablet 08/20/20 [Rx Last Taken Unknown] potassium chloride 20 mEq tablet,extended release(part/cryst) 20 meq PO DAILY #30 tab 09/12/20 [Rx Last Taken Unknown] furosemide 40 mg tablet 40 mg PO BID 90 Days #180 tab 09/17/20 [Rx Last Taken Unknown] blood sugar diagnostic #100 ea 09/23/20 [Rx Last Taken Unknown] dulaglutide 1.5 mg/0.5 mL subcutaneous pen injector 1.5 mg SUBCUT QWEEK ml 10/01/20 [History Last Taken Unknown] ixekizumab 80 mg/mL subcutaneous syringe 80 mg SUBCUT QMONTH 10/01/20 [History Last Taken Unknown] sertraline 100 mg tablet 100 mg PO DAILY #90 tab 10/15/20 [Rx Last Taken Unknown] Allergy/AdvReac Type Severity Reaction Status Date / Time codeine Allergy Mild rash Verified 10/15/20 10:08 varenicline [From Chantix] AdvReac hallucinati Verified 10/15/20 10:08 ons Family History Father Arthritis Autoimmune disorder Diabetes Heart disease Hypertension Mother Hypertension Sister Diabetes Grandmother Diabetes Surgical History History of History of tonsillectomy Social History Smoking Status: Light Smoker (<10/day) alcohol intake: never substance use type: does not use and marijuana what type of physical activity do you participate in: none ROS Constitutional Constitutional: Denies chills, daytime sleepiness, lethargy, malaise, night sweats or poor appetite Eyes Eyes: Denies blind spots, bloody eye, diplopia, discharge from eye(s), discongugate gaze or double vision ENT HEENT: Denies bleeding gums, dysphagia, foreign body in nose, halitosis, headache(s) or nasal discharge Cardiovascular Cardiovascular: Denies abdominal bloating, chest pain, chest pain at rest, chest pain with activity, claudication or dyspnea at rest Respiratory/Chest Respiratory/Chest: Denies change in phlegm color, difficulty clearing secretions, dyspnea, dyspnea on exertion, excessive phlegm production or hemoptysis Gastrointestinal Gastrointestinal: Denies abdominal pain, chewing difficulty, constipation, cramping or diarrhea Genitourinary Genitourinary: Denies burning urination, change in libido, change in urinary stream, external genitalia discoloration, flank pain or hematuria Musculoskeletal Musculoskeletal: Denies loss of height, muscle cramps, muscle spasms or muscle weakness Integumentary Integumentary: Reports rash; Denies change in pigmentation, jaundice, lesions, photosensitivity or pruritus Neurologic Neurologic: Denies focal weakness, frequent falls, headache(s), lack of coordination or radicular pain Psychiatric Psychiatric: Denies change in appetite, change in libido, cognitive impairment, confusion, depression or difficulty concentrating Endocrine Endocrinology: Denies change in libido, cold intolerance, excessive sweating, palpitations, polydipsia, polyphagia or polyuria Allergic/Immunologic Allergic/Immunologic: Denies tongue swelling, hives, urticaria, eczemia or wheezing Vital Signs Vital Signs Vital Signs: 11/06/20 10:18 Temperature 97.3 F L Temperature Source Temporal Pulse Rate 81 Respiratory Rate 18 Blood Pressure 144/69 H Blood Pressure Mean 94 Blood Pressure Source Monitor Blood Pressure Position Semi-Fowlers Blood Pressure Location Left Arm Weight Weight: 373 lb 5.187 oz Body Mass Index (BMI) 53.5 Physical Exam Const alert, oriented x3 and no apparent distress General Appearance: cooperative and comfortable HEENT normocephalic and head/scalp atraumatic Head and Scalp: normal to inspection, normocephalic and atraumatic External Ear: external ears normal Eyes EOMs intact bilaterally Neck full ROM General: normal visual inspection Resp normal respiratory effort Effort and Inspection: able to speak in complete sentences Skin General Skin Exam: no breakdown and dry skin Neuro oriented x3, CN's II-XII intact bilaterally and moves all extremities Psych mental status grossly normal Appearance: grossly normal Speech: normal speech Mood & Affect: euthymic mood Thought Process: normal thought process Debridement Note Debridement Note No debridement was completed: No debridement was completed today Charges/Coding Visit Charges Office Visits / Consults: [id number] OV L3 Est Assessment/Plan Assessment/Plan (1) Ulcer of left lower extremity: CODE(S): L97.929 - Non-pressure chronic ulcer of unspecified part of left lower leg with unspecified severity (2) Type 2 diabetes mellitus: CODE(S): E11.9 - Type 2 diabetes mellitus without complications (3) Morbid obesity: CODE(S): E66.01 - Morbid (severe) obesity due to excess calories (4) Bilateral lower extremity edema: CODE(S): R60.0 - Localized edema PLAN: No debridement completed today. No open areas of ulceration. As above, has lost some weight and been using Dav wraps for edema management. She was commended. Double layer Tubigrip's given. Elevate lower extremities when seated and in bed. Adequate hydration and moisturizing with moisturizers such as CeraVe, Cetaphil, Eucerin or Aveeno discussed/recommended. Use copious amounts several times daily. Questions were answered and she was advised to call with any further questions or concerns. Discharge from the wound center. Follow-up in office as scheduled. This note was generated with CrossReader dictation software. It may contain incorrect words, spelling, and punctuation that were not noted in checking the note before signing.
== END 2020-11-06 10:52 | disposition home or self-care (01) ==
LOC: WC 09:35
PROVIDERS: PCP Internal Medicine; Visit Provider Internal Medicine
DX: L97.929 Non-pressure chronic ulcer of unspecified part of left lower leg with unspecified severity (principal); E11.9 Type 2 diabetes mellitus without complications; E66.01 Morbid (severe) obesity due to excess calories; R60.0 Localized edema; F17.200 Nicotine dependence, unspecified, uncomplicated; F32.9 Major depressive disorder, single episode, unspecified; I11.0 Hypertensive heart disease with heart failure; I50.32 Chronic diastolic (congestive) heart failure; M06.9 Rheumatoid arthritis, unspecified; I27.21 Secondary pulmonary arterial hypertension; M17.12 Unilateral primary osteoarthritis, left knee; M51.17 Intervertebral disc disorders with radiculopathy, lumbosacral region; Z79.84 Long term (current) use of oral hypoglycemic drugs; M51.36 Other intervertebral disc degeneration, lumbar region; Z68.43 Body mass index [BMI] 50.0-59.9, adult
CPT/HCPCS: 99203; G0463

== ENCOUNTER → 2020-11-12 13:29 | Outpatient (CLI) | payer MEDICARE, SELFPAY ==
[2020-11-12 13:09] VITALS: BMI 53.5
[2020-11-12 15:21] LABS: Anion Gap 7 (5-15); BUN 12 mg/dL (7-18); BUN/Creat Ratio 16.5 RATIO (10-20); Calcium,Total 8.9 mg/dL (8.5-10.1); Chloride 103 mmol/L (98-107); Creatinine, Serum 0.73 mg/dL (0.55-1.02); EST Glomerular Filtration Rate 91 mL/min (>60); Est Glom Filt Rate - Afr Amer 111 mL/min (>60); Glucose 94 mg/dL (74-106); Sodium Level 139 mmol/L (136-145)
== END ==
PROVIDERS: PCP Internal Medicine; Referring Provider Nurse Practitioner Family; Visit Provider Nurse Practitioner Family
DX: I11.0 Hypertensive heart disease with heart failure (principal); I50.30 Unspecified diastolic (congestive) heart failure
CPT/HCPCS: 36415; 80048

== ENCOUNTER 2020-12-08 09:17 | Day surgery (SDC) | payer MEDICARE, SELFPAY ==
[2020-11-12 13:09] VITALS: BMI 53.5
[2020-12-08] MEDS: Lactated Ringers 1,000 ML 100 ML IV (10:15)
[2020-12-08 10:26] VITALS: BP 150/78; PULSE 77; RESP 16; TEMP 36.6; O2SAT 95; BMI 50.8
[2020-12-08 10:40] LABS: Bedside Glucose 90 mg/dL (70-110)
--- NOTE | 2020-12-08 12:05 | RAD_ITS ---
PROCEDURE: Fluoroscopy in the OR. DATE OF EXAMINATION: 12/08/2020. INDICATION: Female, 45 years old. Bilateral knee injection FLUOROSCOPY TIME (if supplied): 9 second RADIATION DOSAGE (If Supplied By Facility): Not provided PROCEDURE/TECHNIQUE: Fluoroscopic guidance was provided. A single image was presented for interpretation. Single AP view of the knee. This is not marked as right or left. There is a needle in the intercondylar space with contrast in the intercondylar space and medial joint compartment. Please refer to the procedure report for further details. RAD/Fluoro Guided Needle Placement IMPRESSION: Fluoroscopy provided during a bilateral knee injection. Electronically Signed: Jovanny Ojeda DO at 16:57 EDT Tel [phone], Service support ,
--- NOTE | 2020-12-08 12:05 | RAD_ITS ---
PROCEDURE: Fluoroscopy in the OR. DATE OF EXAMINATION: 12/08/2020. INDICATION: Female, 45 years old. Bilateral knee injections. FLUOROSCOPY TIME (if supplied): 9 seconds RADIATION DOSAGE (If Supplied By Facility): Not provided PROCEDURE/TECHNIQUE: Endoscopic guidance was provided. A single image is presented for interpretation. This study is not marked as the right or left knee. There is a needle in the intercondylar notch with contrast seen within the medial femorotibial joint space. Please refer to procedural report for further details. RAD/Fluoro Guided Needle Placement IMPRESSION: Fluoroscopy provided during bilateral knee injection. Electronically Signed: Jovanny Ojeda DO at 16:44 EDT Tel [phone], Service support ,
[2020-12-08] MEDS: MethylPREDNISolone Acetate 80 MG/ML Vial (12:09)
[2020-12-08] MEDS: Lidocaine 1% (5 ml sdv) 5 ML Vial (12:09)
[2020-12-08] MEDS: Bupivacaine 0.25% 30 ML Vial (12:09)
[2020-12-08 12:17] VITALS: BP 128/74; BP 150/78; PULSE 76; RESP 18; TEMP 36.3; O2SAT 96
[2020-12-08 12:20] VITALS: BP 135/68; BP 150/78; PULSE 76; RESP 16; O2SAT 97
[2020-12-08 12:25] VITALS: BP 150/78; BP 158/76; PULSE 74; RESP 16; O2SAT 96
[2020-12-08 12:29] VITALS: BP 150/78; BP 152/70; PULSE 72; RESP 16; TEMP 36.7; O2SAT 98
[2020-12-08 12:52] VITALS: BP 150/78
--- NOTE | 2020-12-08 17:25 | PCM.OPRPT ---
Report of Operation Date of Procedure: 12/08/20 Description of Surgical Findings:: PREOPERATIVE DIAGNOSIS: Osteoarthritis of the bilateral knees. POSTOPERATIVE DIAGNOSIS: Osteoarthritis of the bilateral knees. PROCEDURE PERFORMED: Bilateral knees intraarticular steroid injection under fluoroscopic guidance. ANESTHESIA:Local. BLOOD LOSS: Minimal. COMPLICATIONS: None. DESCRIPTION OF PROCEDURE: History and physical of today was reviewed. Risks and benefits of the procedure were explained. The patient understood and agreed to proceed. Informed consent was obtained. IV inserted per routine protocol. The patient was taken to the operating room and placed in the supine position. The bilateral knees area were prepped and draped in a sterile fashion using iodine x3. Under fluoroscopy guidance on AP view, the bilateral knee joints were visualized. The skin and subcutaneous tissue was anesthetized with approximately 3 mL of 1% lidocaine using a 25-gauge regular needle at the medial aspect of the left knee and right knee. Under direct visualization with fluoroscopy, on AP view, using a 22-gauge 3-1/2-inch spinal needle, the needle was advanced via the skin. The tip of the needle was maneuvered and directed towards the intraarticular space at the medial compartment of the right knee and left knee. Once the tip of the needle was at the vicinity of the knee, after negative aspiration for blood, positive aspiration of the synovial fluid, a total of 1 mL of contrast was injected to confirm correct placement of the needle as well as intraarticular spread medial as well as lateral compartment. After confirmation on AP as well as lateral view and repeated negative aspiration, a total of 5 ml of preservative-free 0.25% Marcaine with 40 mg of Depo-Medrol was injected easily into each knee. The needle was then removed intact. The patient experienced no sign or symptoms of intravascular injection. The patient experienced no paresthesia. The procedure was completed without any apparent difficulty or any complications. The patient appeared to tolerate it well. Assessment and plan: This is a 45-year-old female with osteoarthritis of bilateral knees status post bilateral knees intra-articular steroid injection under fluoroscopic guidance, patient will continue current medications, patient found approximately 2 weeks for reevaluation.
== END 2020-12-08 12:53 | disposition home or self-care (01) ==
LOC: SDC 09:17 → AC 10:07
PROVIDERS: PCP Internal Medicine; Referring Provider Anesthesiology Pain Medicine; Visit Provider Anesthesiology Pain Medicine
PROC: 3E0U3GC Introduction of Other Therapeutic Substance into Joints, Percutaneous Approach (ICD-10-PCS; CPT 20610; principal; 2020-12-08 10:55)
DX: M17.0 Bilateral primary osteoarthritis of knee (principal); M06.9 Rheumatoid arthritis, unspecified; I11.0 Hypertensive heart disease with heart failure; I50.32 Chronic diastolic (congestive) heart failure; E66.01 Morbid (severe) obesity due to excess calories; E11.9 Type 2 diabetes mellitus without complications; Z68.43 Body mass index [BMI] 50.0-59.9, adult; F17.210 Nicotine dependence, cigarettes, uncomplicated; Z79.84 Long term (current) use of oral hypoglycemic drugs; Z79.899 Other long term (current) drug therapy
CPT/HCPCS: 20610; 76000; 77002; 82962; J7120

== ENCOUNTER 2020-12-26 17:58 | Emergency (ER) | payer MEDICARE, SELFPAY ==
[2020-12-16 12:59] VITALS: BMI 55.1
[2020-12-26 17:59] VITALS: BP 164/89; PULSE 114; RESP 18; TEMP 36.1; O2SAT 99; BMI 50.5
--- NOTE | 2020-12-26 19:22 | EDS_ITS ---
HPI History of Present Illness Chief Complaint: Rash Informant: patient Onset/Context/Timing Onset: Days Context: Gradual Onset Timing: Continuous Current Severity: Moderate Maximum Severity: Moderate Narrative Narrative: 45-year-old female known history of psoriasis, diabetes and hypertension. Patient states that her psoriasis is typically treated with a monthly injection she gets it at the end of each month. She sees digital project coordinator Dr. Traci Ennis in [place]. They believe that she may have had a reaction to Wellbutrin which she was taking for smoking sensation. This began a week ago. She was treated with a tapering dose of prednisone and has had no relief of her rash. She is got very dry flaking skin of her upper or lower extremities. Hands and feet. Patient denies any fever or chills. Prior similar symptoms: No Recent Illness/Hospitalization: No PFSH FOR[facility] Medical History Allergic dermatitis Arthritis Back problem Bilateral lower extremity edema Cellulitis of left leg without foot Chronic diastolic (congestive) heart failure Degeneration of lumbar or lumbosacral intervertebral disc Degenerative disc disease, lumbar Depression Essential (primary) hypertension Hypoxia Incomplete right bundle branch block Marijuana user Morbid obesity Nicotine dependence Primary osteoarthritis of left knee Psoriasis Psoriasis Psoriatic arthritis Radiculopathy of lumbosacral region Rheumatoid arthritis Secondary pulmonary arterial hypertension Severe sepsis Tobacco abuse Tobacco abuse counseling Type 2 diabetes mellitus Ulcer of left lower extremity Ulcer of left lower leg Home Medications gabapentin 600 mg tablet 600 mg PO TID tablet 08/15/18 [History Last Taken 08/11/20] diclofenac sodium 75 mg PO BIDCM 01/02/19 [History Last Taken 08/11/20] amlodipine 10 mg PO DAILY 08/11/20 [History Last Taken 08/11/20] metformin 1,000 mg PO QPM 08/11/20 [History Last Taken 08/10/20] blood pressure monitor #1 each 08/20/20 [Rx Last Taken Unknown] losartan 100 mg tablet 100 mg PO DAILY #90 tablet 08/20/20 [Rx Last Taken Unknown] furosemide 40 mg tablet 40 mg PO BID 90 Days #180 tab 09/17/20 [Rx Last Taken Unknown] blood sugar diagnostic #100 ea 09/23/20 [Rx Last Taken Unknown] ixekizumab 80 mg/mL subcutaneous syringe 80 mg SUBCUT QMONTH 10/01/20 [History Last Taken Unknown] sertraline 100 mg tablet 100 mg PO DAILY #90 tab 10/15/20 [Rx Last Taken Unknown] bupropion HCl 150 mg tablet,12 hr sustained-release 150 mg PO BID #60 ea 11/12/20 [Rx Last Taken Unknown] dulaglutide 1.5 mg/0.5 mL subcutaneous pen injector 1.5 mg SUBCUT QWEEK #2 ml 11/20/20 [Rx Last Taken 11/27/20] triamcinolone acetonide 0.1 % topical cream 1 applic TOPICAL BID #80 g 12/11/20 [Rx Last Taken Unknown] hydroxyzine HCl 50 mg tablet 50 mg PO BID PRN #20 tab 12/16/20 [Rx Last Taken Unknown] tramadol 50 mg tablet 50 mg PO Q12H PRN #14 tab 12/16/20 [Rx Last Taken Unknown] prednisone 40 mg PO DAILY 10 Days #20 tab 12/26/20 [Rx Last Taken Unknown] Allergy/AdvReac Type Severity Reaction Status Date / Time codeine Allergy Mild rash Verified 12/26/20 18:00 bupropion [From Wellbutrin] Allergy Rash Verified 12/26/20 18:00 varenicline [From Chantix] AdvReac hallucinati Verified 12/26/20 18:00 ons Family History Father Arthritis Autoimmune disorder Diabetes Heart disease Hypertension Mother Hypertension Sister Diabetes Grandmother Diabetes Surgical History History of History of tonsillectomy Social History Smoking Status: Current some day smoker tobacco type: cigarettes alcohol intake: never substance use type: does not use and marijuana what type of physical activity do you participate in: none ROS ROS ED ROS Narrative Rash. Review of Systems ROS Unobtainable: Denies due to encephalopathy Constitutional Constitutional ED: Denies chills or fever(s) Eyes Eyes: Denies change in vision ENT ENT ED: Denies ear pain or sore throat Cardiovascular Cardiovascular: Denies chest pain Respiratory/Chest Respiratory/Chest: Denies cough or dyspnea Gastrointestinal Gastrointestinal: Denies abdominal pain, diarrhea, nausea or vomiting Genitourinary Genitourinary ED: Denies dysuria or hematuria Musculoskeletal Musculoskeletal: Denies myalgias Integumentary Reports rash Neurologic Neurologic: Denies headache(s) Psychiatric Psychiatric: Denies depression Endocrine Endocrinology: Denies polyuria Allergic/Immunologic Allergic/Immunologic ED: Denies urticaria EXAM Physical Exam Narrative Exam Narrative: White female no acute distress. Lungs are clear. Heart regular rate and rhythm. Abdomen soft nontender. Moving all 4 extremities. Significant rash red with dry skin and flaking consistent with psoriasis and/or allergic reaction. The skin is cracked. There is no obvious cellulitis or acute infection. The most severe areas of the rash on her upper extremities hands lower extremities and feet. Const Vital Signs: 12/26/20 17:59 Temperature 97 F L Temperature Source Temporal Pulse Rate 114 H Respiratory Rate 18 Blood Pressure 164/89 H Blood Pressure Mean 114 Pulse Ox 99 Positive well nourished and well developed; Negative for unkempt General Appearance ED: well developed and NAD; Negative for unkempt HEENT Reports moist mucous membranes Negative for trauma or tenderness Eyes PERRL and EOMs intact bilaterally Neck no lymphadenopathy, supple and no JVD General: Negative for tenderness Chest Wall inspection of chest normal and palpation of chest normal Resp normal respiratory effort and clear to auscultation bilaterally Cardio regular rate, regular rhythm, S1 normal heart sound, S2 normal heart sound and no murmurs GI normal to inspection, nondistended, normoactive bowel sounds, non-tender and non-distended Palpation: soft Back/Spine no CVA tenderness Extremity General Extremety ED: Negative for edema or tenderness General Extremity: Negative for edema Neuro oriented x3 and CN's II-XII intact bilaterally Sensorium / Orientation: alert Motor Exam: strength 5/5 throughout Psych mental status grossly normal Appearance: Negative for unkempt Skin No no rashes or lesions noted and no wounds Skin Narrative: Skin rash consistent with psoriasis and or generalized allergic reaction with dry cracked skin. Red. Raised. Not cellulitic. No pus. No lymphangitic streaking. Most severe on the upper extremities and hands and lower extremities and feet. Rashes: rashes noted MDM MDM MDM Narrative Medical decision making narrative: Clinically this looks like severe psoriasis and/or a superimposed allergic reaction. She got no significant relief with steroid taper as an outpatient. I am obtaining screening labs but clinically I do not think this is secondary infection. Repeat exam at 10:30 PM unchanged. Doing well. Will be discharged with a prescription of prednisone for the next 10 days. Also to follow-up with her digital project coordinator in [place]. Lab Data Attestation: I reviewed the patient's lab results. Lab results narrative: CBC shows a white count of 12.2. Hemoglobin 13. Electrolytes unremarkable gap of 4. Creatinine 0.8. Liver enzymes unremarkable. Labs: Laboratory Results - last 24 hr 12/26/20 12/26/20 19:30 19:30 WBC 12.2 H RBC 5.10 Hgb 13.5 Hct 43.1 MCV 84.5 MCH 26.5 L MCHC 31.3 L RDW Std Deviation 48.4 H RDW Coeff of Luis 15.6 H Plt Count 266 MPV 10.6 Immature Gran % (Auto) 0.500 Neut % (Auto) 71.7 H Lymph % (Auto) 15.6 L [place] % (Auto) 7.6 Eos % (Auto) 4.4 Baso % (Auto) 0.2 Absolute Neuts (auto) 8.7 H Absolute Lymphs (auto) 1.90 Nucleated RBC % 0 Sodium 139 Potassium 3.5 Chloride 100 Carbon Dioxide 35.0 H Anion Gap 4 L BUN 14 Creatinine 0.86 Estim Creat Clear Calc 88.39 Est GFR (MDRD) Af Amer 92 Est GFR (MDRD) Non-Af 76 BUN/Creatinine Ratio 16.4 Glucose 103 Calcium 8.9 Total Bilirubin 0.30 AST 11 L ALT 22 Alkaline Phosphatase 76 Total Protein 8.4 H Albumin 3.1 L Globulin 5.3 H Albumin/Globulin Ratio 0.6 L Discharge Plan Triage Chief Complaint: Rash ED Provider: hCau Bobby Dx/Rx/DC Orders Clinical Impression: Psoriasis Instructions: ED Psoriasis Prescriptions: New prednisone 20 mg tablet 40 mg PO DAILY 10 Days Qty: 20 RF: 0 No Action gabapentin 600 mg tablet 600 mg PO TID RF: 0 losartan 100 mg tablet 100 mg PO DAILY Qty: 90 RF: 2 (DME) blood pressure monitor Kit See Rx Instructions .MEDSUPPLY Qty: 1 RF: 0 furosemide 40 mg tablet 40 mg PO BID 90 Days Qty: 180 RF: 1 sertraline 100 mg tablet 100 mg PO DAILY Qty: 90 RF: 3 bupropion HCl [Wellbutrin SR] 150 mg tablet sustained-release 12 hr 150 mg PO BID Qty: 60 RF: 1 Hold Instructions: Order Changed hydroxyzine HCl 50 mg tablet 50 mg PO BID PRN (Reason: itching) Qty: 20 RF: 1 tramadol 50 mg tablet 50 mg PO Q12H PRN (Reason: pain) Qty: 14 RF: 0 triamcinolone acetonide 0.1 % cream 1 applic topical BID Qty: 80 RF: 0 ixekizumab 80 mg/mL syringe 80 mg subcut QMONTH RF: 0 diclofenac sodium 75 MG tablet 75 mg PO BIDCM RF: 0 amlodipine 10 MG tablet 10 mg PO DAILY RF: 0 metformin 500 MG tablet 1,000 mg PO QPM RF: 0 (DME) True Metrix Glucose Test Strip Strip See Rx Instructions .ROUTE .MEDSUPPLY Qty: 100 RF: 6 dulaglutide 1.5 mg/0.5 mL pen injector 1.5 mg subcut QWEEK Qty: 2 RF: 1 Primary Care Provider: Heath Thomas Referrals: Heath Thomas MD [Primary Care Provider] - As Needed Traci Ennis MD [NON-STAFF] - As soon as possible Activity Restrictions/Additional Instructions: Call and follow-up with your digital project coordinator as soon as possible. Prednisone daily for the next 10 days 40 mg a day. Watch for any signs of infection such as fever, pus or worsening redness and swelling. Disposition Disposition: Home, Self Care
[2020-12-26 19:34] LABS: Absolute Neutrophil Count 8.7 X10^3/uL (2.0-7.7); Basophil# 0.03 X10^3/uL; Basophil% 0.2 % (0-1); Eosinophil# 0.53 X10^3/uL; Eosinophils% 4.4 % (0-5); Hematocrit 43.1 % (37-47); Hemoglobin 13.5 g/dL (12.0-15.0); Lymphocyte % 15.6 % (19-41); Mean Corp Hgb Conc 31.3 g/dL (32-36); Mean Corpuscular Hgb 26.5 pg (27.0-32.0); Mean Corpuscular Volume 84.5 fL (81-99); Mean Platelet Vol. 10.6 fl (6.2-12.0); Monocyte# 0.92 X10^3/uL; Monocyte% 7.6 % (0-10); NRBC Flagged by Analyzer 0 % (0-5); Neutrophil # 8.71 X10^3/uL (2.7-7.7); Neutrophil % 71.7 % (47-70); Platelet Count 266 K/mm3 (150-450); RBC Distribution Width CV 15.6 % (11.6-14.6); RBC Distribution Width SD 48.4 fl (35.1-43.9); White Blood Count 12.2 K/mm3 (4.4-11.0)
[2020-12-26 19:51] LABS: ALB/GLOB Ratio 0.6 RATIO (0.9-2.4); AST(SGOT) 11 U/L (15-37); Alanine Aminotransfer ALT/SGPT 22 U/L (13-56); Albumin, Serum 3.1 g/dL (3.2-5.0); Alkaline Phosphatase 76 U/L (45-117); Anion Gap 4 (5-15); BUN 14 mg/dL (7-18); BUN/Creat Ratio 16.4 RATIO (10-20); Calcium,Total 8.9 mg/dL (8.5-10.1); Chloride 100 mmol/L (98-107); Creatinine, Serum 0.86 mg/dL (0.55-1.02); EST Glomerular Filtration Rate 76 mL/min (>60); Est Glom Filt Rate - Afr Amer 92 mL/min (>60); Estimated Creatinine Clearance 88.39 ml/min; Globulin 5.3 g/dL (2.2-4.2); Glucose 103 mg/dL (74-106); Potassium 3.5 mmol/L (3.5-5.1); Protein, Total 8.4 g/dL (6.4-8.2); Sodium Level 139 mmol/L (136-145)
[2020-12-26 22:55] VITALS: BP 134/69
== END 2020-12-26 22:55 | disposition home or self-care (01) ==
PROVIDERS: Emergency Provider Emergency Medicine; PCP Internal Medicine
DX: L40.50 Arthropathic psoriasis, unspecified (principal); I10 Essential (primary) hypertension; I50.32 Chronic diastolic (congestive) heart failure; F32.9 Major depressive disorder, single episode, unspecified; E66.01 Morbid (severe) obesity due to excess calories; E11.9 Type 2 diabetes mellitus without complications; M17.12 Unilateral primary osteoarthritis, left knee; M06.9 Rheumatoid arthritis, unspecified; F17.210 Nicotine dependence, cigarettes, uncomplicated; Z79.84 Long term (current) use of oral hypoglycemic drugs; Z79.899 Other long term (current) drug therapy
CPT/HCPCS: 80053; 85025; 99283; A4216

== ENCOUNTER 2020-12-29 00:25 | Emergency (ER) | payer MEDICARE, MEDICAID, SELFPAY ==
[2020-12-29 00:25] VITALS: BP 180/75; PULSE 87; RESP 18; TEMP 36.3; O2SAT 98; BMI 51.2
--- NOTE | 2020-12-29 01:03 | EX.ED.UPPERE ---
HPI History of Present Illness Chief Complaint: Wound Informant: patient Narrative Narrative: Patient presents with worsening left hand pain. She was just seen a couple days ago and had blood work done. She is on prednisone. She is also on chronic immunosuppression due to her psoriasis. No fevers or chills. She states any motion or palpation of the left hand hurts. Nothing makes it better. [facility] Medical History Allergic dermatitis Arthritis Back problem Bilateral lower extremity edema Cellulitis of left leg without foot Chronic diastolic (congestive) heart failure Degeneration of lumbar or lumbosacral intervertebral disc Degenerative disc disease, lumbar Depression Essential (primary) hypertension Hypoxia Incomplete right bundle branch block Marijuana user Morbid obesity Nicotine dependence Primary osteoarthritis of left knee Psoriasis Psoriasis Psoriatic arthritis Radiculopathy of lumbosacral region Rheumatoid arthritis Secondary pulmonary arterial hypertension Severe sepsis Tobacco abuse Tobacco abuse counseling Type 2 diabetes mellitus Ulcer of left lower extremity Ulcer of left lower leg Home Medications gabapentin 600 mg tablet 600 mg PO TID tablet 08/15/18 [History Last Taken 08/11/20] diclofenac sodium 75 mg PO BIDCM 01/02/19 [History Last Taken 08/11/20] amlodipine 10 mg PO DAILY 08/11/20 [History Last Taken 08/11/20] metformin 1,000 mg PO QPM 08/11/20 [History Last Taken 08/10/20] blood pressure monitor #1 each 08/20/20 [Rx Last Taken Unknown] losartan 100 mg tablet 100 mg PO DAILY #90 tablet 08/20/20 [Rx Last Taken Unknown] furosemide 40 mg tablet 40 mg PO BID 90 Days #180 tab 09/17/20 [Rx Last Taken Unknown] blood sugar diagnostic #100 ea 09/23/20 [Rx Last Taken Unknown] ixekizumab 80 mg/mL subcutaneous syringe 80 mg SUBCUT QMONTH 10/01/20 [History Last Taken Unknown] sertraline 100 mg tablet 100 mg PO DAILY #90 tab 10/15/20 [Rx Last Taken Unknown] dulaglutide 1.5 mg/0.5 mL subcutaneous pen injector 1.5 mg SUBCUT QWEEK #2 ml 11/20/20 [Rx Last Taken 11/27/20] triamcinolone acetonide 0.1 % topical cream 1 applic TOPICAL BID #80 g 12/11/20 [Rx Last Taken Unknown] prednisone 40 mg PO DAILY 10 Days #20 tab 12/26/20 [Rx Last Taken Unknown] Allergy/AdvReac Type Severity Reaction Status Date / Time codeine Allergy Mild rash Verified 12/26/20 18:00 bupropion [From Wellbutrin] Allergy Rash Verified 12/26/20 18:00 varenicline [From Chantix] AdvReac hallucinati Verified 12/26/20 18:00 ons Family History Father Arthritis Autoimmune disorder Diabetes Heart disease Hypertension Mother Hypertension Sister Diabetes Grandmother Diabetes Surgical History History of History of tonsillectomy Social History Smoking Status: Current some day smoker tobacco type: cigarettes alcohol intake: never substance use type: does not use and marijuana what type of physical activity do you participate in: none ROS ROS ED Constitutional Constitutional ED: Denies chills or sweats Eyes Eyes: Denies blurry vision ENT ENT ED: Denies rhinorrhea or sore throat Cardiovascular Cardiovascular: Denies chest pain Respiratory/Chest Respiratory/Chest: Denies cough or dyspnea Gastrointestinal Gastrointestinal: Denies nausea or vomiting Genitourinary Genitourinary ED: Denies dysuria Musculoskeletal Musculoskeletal: Reports other Details: Left hand pain. Primarily over the proximal volar left index finger. ; Denies back pain or neck pain Integumentary Reports abscess and rash Neurologic Neurologic: Denies headache(s) or paresthesias Endocrine Endocrinology: Denies polydipsia or polyuria Hematologic/Lymphatic Hematologic/Lymphatic: Denies easy bleeding or easy bruising EXAM Physical Exam Const Vital Signs: 12/29/20 00:25 Temperature 97.4 F L Temperature Source Temporal Pulse Rate 87 Respiratory Rate 18 Blood Pressure 180/75 H Blood Pressure Mean 110 Pulse Ox 98 Oxygen Delivery Method Room Air Positive well nourished and well developed General Appearance ED: well developed and NAD HEENT normocephalic Neck supple Chest Wall inspection of chest normal Resp normal respiratory effort Cardio regular rate and regular rhythm GI non-tender Palpation: soft Back/Spine no CVA tenderness Extremity Extremity Narrative: Patient has erythema warmth and swelling mostly on the volar surface of the left hand. This really over the lines the second metacarpal phalangeal joint and a little bit onto the proximal phalanx of that left index finger. It is held in neutral position. Very painful with motion. This is concerning for tendon involvement. She has diffuse psoriasis also. Neuro oriented x3 Sensorium / Orientation: alert Psych mental status grossly normal Skin Skin Narrative: See above. Patient also has diffuse psoriasis all over her body. MDM MDM MDM Narrative Medical decision making narrative: Patient's blood work showed high white count. Her CRP was elevated. Glucose was actually well controlled. X-ray showed no acute process no gas or bony erosion. My concern is this patient has a deep space infection of the left hand. This could be a tenosynovitis but also may be intra-articular into the second MCP. I have given her vancomycin. This patient also has diabetes and immunosuppression for her psoriasis in addition to prednisone. Patient requested I call [facility] and then [place] who had no beds. She then requested [facility]. I discussed the case with the emergency physician, Dr. Zarco who will accept the patient in transfer. Likely orthopedic residents will see the patient upon arrival. Lab Data Attestation: I reviewed the patient's lab results. Discharge Plan Triage Chief Complaint: Wound ED Provider: Agusto Olivas Dx/Rx/DC Orders Clinical Impression: Infected hand, Leukocytosis, Immunosuppression Prescriptions: No Action gabapentin 600 mg tablet 600 mg PO TID RF: 0 losartan 100 mg tablet 100 mg PO DAILY Qty: 90 RF: 2 (DME) blood pressure monitor Kit See Rx Instructions .MEDSUPPLY Qty: 1 RF: 0 furosemide 40 mg tablet 40 mg PO BID 90 Days Qty: 180 RF: 1 sertraline 100 mg tablet 100 mg PO DAILY Qty: 90 RF: 3 triamcinolone acetonide 0.1 % cream 1 applic topical BID Qty: 80 RF: 0 ixekizumab 80 mg/mL syringe 80 mg subcut QMONTH RF: 0 diclofenac sodium 75 MG tablet 75 mg PO BIDCM RF: 0 amlodipine 10 MG tablet 10 mg PO DAILY RF: 0 metformin 500 MG tablet 1,000 mg PO QPM RF: 0 prednisone 20 mg tablet 40 mg PO DAILY 10 Days Qty: 20 RF: 0 (DME) True Metrix Glucose Test Strip Strip See Rx Instructions .ROUTE .MEDSUPPLY Qty: 100 RF: 6 dulaglutide 1.5 mg/0.5 mL pen injector 1.5 mg subcut QWEEK Qty: 2 RF: 1 Primary Care Provider: Heath Thomas Referrals: Heath Thomas MD [Primary Care Provider] - Disposition Disposition: Acute Care Hospital Discharge Location: [facility]
[2020-12-29 01:41] LABS: Absolute Lymphocyte Count 2.62 X10^3/uL (0.83-4.51); Basophil# 0.03 X10^3/uL; Basophil% 0.2 % (0-1); Eosinophil# 0.27 X10^3/uL; Eosinophils% 1.8 % (0-5); Hematocrit 46.5 % (37-47); Hemoglobin 14.2 g/dL (12.0-15.0); Lymphocyte # 2.62 X10^3/ul (0.83-4.51); Lymphocyte % 17.4 % (19-41); Mean Corp Hgb Conc 30.5 g/dL (32-36); Mean Corpuscular Hgb 26.2 pg (27.0-32.0); Mean Corpuscular Volume 85.6 fL (81-99); Mean Platelet Vol. 10.8 fl (6.2-12.0); Monocyte# 1.01 X10^3/uL; Monocyte% 6.7 % (0-10); NRBC Flagged by Analyzer 0 % (0-5); Neutrophil # 11.01 X10^3/uL (2.7-7.7); Neutrophil % 73.2 % (47-70); Platelet Count 278 K/mm3 (150-450); RBC Distribution Width CV 15.6 % (11.6-14.6); Red Blood Count 5.43 M/mm3 (4.2-5.4)
[2020-12-29 01:51] LABS: Erythrocyte Sedimentation Rate 42 mm/hr (0-30)
[2020-12-29] MEDS: Morphine 4 MG/ML Syringe IV (01:51)
[2020-12-29 01:55] LABS: Anion Gap 4 (5-15); BUN 12 mg/dL (7-18); Calcium,Total 9.2 mg/dL (8.5-10.1); Chloride 104 mmol/L (98-107); EST Glomerular Filtration Rate 114 mL/min (>60); Est Glom Filt Rate - Afr Amer 138 mL/min (>60); Estimated Creatinine Clearance 126.69 ml/min; Glucose 120 mg/dL (74-106); Potassium 3.6 mmol/L (3.5-5.1); Sodium Level 138 mmol/L (136-145)
[2020-12-29 02:01] LABS: Internal QC Validated? YES +Cl - CLEAR BKGD; Pregnancy, Serum, hCG Quali. NEGATIVE Negative
[2020-12-29 02:07] LABS: Lactic Acid 1.8 mmol/L (0.4-1.9)
--- NOTE | 2020-12-29 02:22 | RAD_ITS ---
STUDY: X-RAY - LEFT HAND REASON FOR EXAM: Female, 45 years old. Pain and swelling TECHNIQUE: 3 view(s) of the hand. COMPARISON: None. FINDINGS: No visible fracture. No osseous destruction. Alignment anatomic. Mild degenerative changes. Prominent soft tissue swelling dorsal to the metacarpals. RAD/Hand Min 3 Views IMPRESSION: No acute osseous abnormality. Dorsal soft tissue swelling. Electronically Signed: Casey Dwyer MD at 3:37 EDT Tel , Service support ,
[2020-12-29 02:32] VITALS: BP 180/75; PULSE 55; RESP 16; TEMP 36.4; O2SAT 99
[2020-12-29] MEDS: HYDROmorphone 1 MG/ML Syringe IV (02:38)
[2020-12-29 03:02] VITALS: BP 118/71; PULSE 84; RESP 16; TEMP 35.9; O2SAT 96
[2020-12-29 04:02] VITALS: BP 135/68; PULSE 67; RESP 16; TEMP 36.2; O2SAT 97
[2020-12-29 04:28] VITALS: BP 150/74; PULSE 71; RESP 16; TEMP 36.6; O2SAT 99
[2020-12-29] MEDS: HYDROmorphone 0.5 MG/0.5 ML SYRINGE IV (04:51)
[2020-12-29 05:02] VITALS: BP 150/74; PULSE 73; RESP 16; TEMP 36.6; O2SAT 98
== END 2020-12-29 05:06 | disposition short-term general hospital (02) ==
PROVIDERS: Emergency Provider Emergency Medicine; PCP Internal Medicine
DX: B99.8 Other infectious disease (principal); D72.829 Elevated white blood cell count, unspecified; D84.821 Immunodeficiency due to drugs; L40.50 Arthropathic psoriasis, unspecified; M06.9 Rheumatoid arthritis, unspecified; E11.9 Type 2 diabetes mellitus without complications; M17.12 Unilateral primary osteoarthritis, left knee; F17.210 Nicotine dependence, cigarettes, uncomplicated; E66.01 Morbid (severe) obesity due to excess calories; Z79.52 Long term (current) use of systemic steroids
CPT/HCPCS: 73130; 80048; 83605; 84703; 85025; 85652; 86140; 87040; 87426; 96365; 96366; 96375; 96376; 99285; J7030; J7040; A4216

== ENCOUNTER → 2021-01-20 08:37 | Outpatient (CLI) | payer MEDICARE, SELFPAY ==
[2021-01-20 12:24] LABS: Absolute Lymphocyte Count 1.76 X10^3/uL (0.83-4.51); Basophil# 0.03 X10^3/uL; Basophil% 0.5 % (0-1); Eosinophil# 0.17 X10^3/uL; Eosinophils% 2.6 % (0-5); Hematocrit 42.9 % (37-47); Hemoglobin 13.4 g/dL (12.0-15.0); Lymphocyte # 1.76 X10^3/ul (0.83-4.51); Mean Corp Hgb Conc 31.2 g/dL (32-36); Mean Corpuscular Hgb 26.6 pg (27.0-32.0); Mean Corpuscular Volume 85.1 fL (81-99); Mean Platelet Vol. 10.8 fl (6.2-12.0); Monocyte# 0.58 X10^3/uL; Monocyte% 8.9 % (0-10); NRBC Flagged by Analyzer 0 % (0-5); Neutrophil # 3.97 X10^3/uL (2.7-7.7); Neutrophil % 60.7 % (47-70); Platelet Count 232 K/mm3 (150-450); RBC Distribution Width CV 16.4 % (11.6-14.6); RBC Distribution Width SD 50.4 fl (35.1-43.9); Red Blood Count 5.04 M/mm3 (4.2-5.4); White Blood Count 6.5 K/mm3 (4.4-11.0)
[2021-01-20 12:58] LABS: ALB/GLOB Ratio 0.6 RATIO (0.9-2.4); AST(SGOT) 14 U/L (15-37); Alanine Aminotransfer ALT/SGPT 24 U/L (13-56); Albumin, Serum 3.3 g/dL (3.2-5.0); Alkaline Phosphatase 70 U/L (45-117); Anion Gap 6 (5-15); BUN 7 mg/dL (7-18); BUN/Creat Ratio 12.9 RATIO (10-20); CRP 6.35 mg/L (0.0-3.0); Calcium,Total 8.8 mg/dL (8.5-10.1); Chloride 105 mmol/L (98-107); Cholesterol 188 mg/dL (200); Creatinine, Serum 0.54 mg/dL (0.55-1.02); EST Glomerular Filtration Rate 128 mL/min (>60); Est Glom Filt Rate - Afr Amer 155 mL/min (>60); Globulin 5.4 g/dL (2.2-4.2); Glucose 93 mg/dL (74-106); High Density Lipoprotein 48 mg/dL; Potassium 3.5 mmol/L (3.5-5.1); Protein, Total 8.7 g/dL (6.4-8.2); Sodium Level 138 mmol/L (136-145); Triglycerides 156 mg/dL; Very Low Density Lipoprotein 31 mg/dL (5-40)
[2021-01-20 13:29] LABS: HIV - WCH Non-Reactive (Nonreactive); Hepatitis B Surface Antibody Non-Reactive; Hepatitis B Surface Antigen Non-Reactive (Nonreactive); Hepatitis C Antibody Non-Reactive (Nonreactive)
== END ==
PROVIDERS: PCP Internal Medicine; Referring Provider Internal Medicine; Visit Provider Internal Medicine
DX: L02.512 Cutaneous abscess of left hand (principal); T81.89XA Other complications of procedures, not elsewhere classified, initial encounter; L08.9 Local infection of the skin and subcutaneous tissue, unspecified; L85.3 Xerosis cutis; Z11.59 Encounter for screening for other viral diseases; Z79.899 Other long term (current) drug therapy
CPT/HCPCS: 36415; 80053; 80061; 85025; 86140; 86703; 86706; 86803; 87340

== ENCOUNTER → 2021-01-21 08:17 | Outpatient (CLI) | payer MEDICARE, SELFPAY ==
[2021-01-23 14:09] LABS: Hepatitis A IgM Antibody Negative (Negative)
[2021-01-23 19:21] LABS: Hepatitis B Core AB IgM Negative (Negative)
== END ==
PROVIDERS: PCP Internal Medicine; Referring Provider Dermatology; Visit Provider Dermatology
DX: Z79.899 Other long term (current) drug therapy (principal); Z11.1 Encounter for screening for respiratory tuberculosis; Z11.59 Encounter for screening for other viral diseases
CPT/HCPCS: 36415; 86480; 86705; 86709

== ENCOUNTER 2021-02-05 09:30 | Outpatient (RCR) | payer MEDICARE, SELFPAY ==
[2021-01-29 09:25] VITALS: BP 167/72; PULSE 69; RESP 17; TEMP 36.2
--- NOTE | 2021-01-29 14:25 | PCM.WC.HP ---
History of Present Illness Date of Service: 01/29/21 Chief Complaint: Non healing surgical wound of left hand History of Wound: Ms. Carrion is a 45-year-old who was referred to the wound center by me due to non healing surgical wound. Had emergency surgical debridement and abscess drainage to her left hand abscess at [facility]. Was seen at the office over a week ago due to non healing. She was advised to stop soaking which she had been doing and silver cell which she had at home. She has noted improvement since applying silver cell. No drainage. Denies chills, fever or feeling of unwell. [facility] Medical History (Updated 01/20/21 @ 08:[address] Heath Thomas MD) Abscess of hand, left Allergic dermatitis Arthritis Back problem Bilateral lower extremity edema Cellulitis of left leg without foot Chronic diastolic (congestive) heart failure Degeneration of lumbar or lumbosacral intervertebral disc Degenerative disc disease, lumbar Depression Essential (primary) hypertension Hypoxia Incomplete right bundle branch block Marijuana user Morbid obesity Nicotine dependence Non-healing surgical wound Primary osteoarthritis of left knee Psoriasis Psoriasis Psoriatic arthritis Radiculopathy of lumbosacral region Rheumatoid arthritis Secondary pulmonary arterial hypertension Severe sepsis Tobacco abuse Tobacco abuse counseling Type 2 diabetes mellitus Ulcer of left lower extremity Ulcer of left lower leg Home Medications gabapentin 600 mg tablet 600 mg PO TID tablet 08/15/18 [History Last Taken 08/11/20] diclofenac sodium 75 mg PO BIDCM 01/02/19 [History Last Taken 08/11/20] metformin 1,000 mg PO QPM 08/11/20 [History Last Taken 08/10/20] blood pressure monitor #1 each 08/20/20 [Rx Last Taken Unknown] losartan 100 mg tablet 100 mg PO DAILY #90 tablet 08/20/20 [Rx Last Taken Unknown] furosemide 40 mg tablet 40 mg PO BID 90 Days #180 tab 09/17/20 [Rx Last Taken Unknown] blood sugar diagnostic #100 ea 09/23/20 [Rx Last Taken Unknown] ixekizumab 80 mg/mL subcutaneous syringe 80 mg SUBCUT QMONTH 10/01/20 [History Last Taken Unknown] sertraline 100 mg tablet 100 mg PO DAILY #90 tab 10/15/20 [Rx Last Taken Unknown] dulaglutide 1.5 mg/0.5 mL subcutaneous pen injector 1.5 mg SUBCUT QWEEK #2 ml 11/20/20 [Rx Last Taken 11/27/20] triamcinolone acetonide 0.1 % topical cream 1 applic TOPICAL BID #80 g 12/11/20 [Rx Last Taken Unknown] prednisone 40 mg PO DAILY 10 Days #20 tab 12/26/20 [Rx Last Taken Unknown] amlodipine 10 mg tablet 10 mg PO DAILY #30 tab 01/14/21 [Rx Last Taken Unknown] cephalexin 500 mg tablet 500 mg PO TID #30 tab 01/20/21 [Rx Last Taken Unknown] doxycycline hyclate 100 mg tablet 100 mg PO BID #20 tab 01/20/21 [Rx Last Taken Unknown] Allergy/AdvReac Type Severity Reaction Status Date / Time codeine Allergy Mild rash Verified 01/20/21 08:17 bupropion [From Wellbutrin] Allergy Rash Verified 01/20/21 08:17 varenicline [From Chantix] AdvReac hallucinati Verified 01/20/21 08:17 ons Family History Father Arthritis Autoimmune disorder Diabetes Heart disease Hypertension Mother Hypertension Sister Diabetes Grandmother Diabetes Surgical History History of History of tonsillectomy Social History Smoking Status: Current some day smoker tobacco type: cigarettes alcohol intake: never substance use type: does not use and marijuana what type of physical activity do you participate in: none ROS Constitutional Constitutional: Denies chills, daytime sleepiness, lethargy, malaise, night sweats or poor appetite Eyes Eyes: Denies blind spots, bloody eye, diplopia, discharge from eye(s), discongugate gaze or double vision ENT HEENT: Denies bleeding gums, dysphagia, foreign body in nose, halitosis, headache(s) or nasal discharge Cardiovascular Cardiovascular: Denies abdominal bloating, chest pain, chest pain at rest, chest pain with activity, claudication or dyspnea at rest Respiratory/Chest Respiratory/Chest: Denies change in phlegm color, difficulty clearing secretions, dyspnea, dyspnea on exertion, excessive phlegm production or hemoptysis Gastrointestinal Gastrointestinal: Denies abdominal pain, chewing difficulty, constipation, cramping or diarrhea Genitourinary Genitourinary: Denies burning urination, change in libido, change in urinary stream, external genitalia discoloration, flank pain or hematuria Musculoskeletal Musculoskeletal: Denies loss of height, muscle cramps, muscle spasms or muscle weakness Integumentary Integumentary: Reports rash; Denies change in pigmentation, jaundice, lesions, photosensitivity or pruritus Neurologic Neurologic: Denies focal weakness, frequent falls, headache(s), lack of coordination or radicular pain Psychiatric Psychiatric: Denies change in appetite, change in libido, cognitive impairment, confusion, depression or difficulty concentrating Endocrine Endocrinology: Denies change in libido, cold intolerance, excessive sweating, palpitations, polydipsia, polyphagia or polyuria Allergic/Immunologic Allergic/Immunologic: Denies tongue swelling, hives, urticaria, eczemia or wheezing Vital Signs Vital Signs Vital Signs: 01/29/21 09:25 Temperature 97.2 F L Temperature Source Temporal Pulse Rate 69 Respiratory Rate 17 Blood Pressure 167/72 H Blood Pressure Mean 103 Blood Pressure Source Monitor Blood Pressure Position Sitting Blood Pressure Location Left Arm Physical Exam Const alert, oriented x3 and no apparent distress General Appearance: cooperative and comfortable HEENT normocephalic and head/scalp atraumatic Head and Scalp: normal to inspection, normocephalic and atraumatic External Ear: external ears normal Eyes EOMs intact bilaterally Neck full ROM General: normal visual inspection Resp normal respiratory effort Effort and Inspection: able to speak in complete sentences Skin General Skin Exam: dry skin Lesions: lesion noted Neuro oriented x3, CN's II-XII intact bilaterally and moves all extremities Psych mental status grossly normal Appearance: grossly normal Speech: normal speech Mood & Affect: euthymic mood Thought Process: normal thought process Debridement Note Debridement Note Wound debrided: Left Index finger Type of Debridement: Excisional debridement Anesthesia Used: 4% Lidocaine Solution Depth: Down to and including healthy tissue and in the subcutaneous layer Percentage of wound debrided: 100 Instrument Used: 3mm curette Tissue Removed: Slough and devitalized tissue Severity: Fat Layer Exposed Amount of bleeding with debridement: Mild Bleeding Controlled with: Pressure Patient tolerated procedure: Patient tolerated procedure well Post-Debridement Measurements and Additional Note: Post-Debridement Measurements/Treatment CARIN - Nurse 1 - General Ulcer Assessment Start: 01/29/21 09:24 Freq: Status: Active Protocol: CATRACHO Activity Type Activity Date Activity User E-Sign Co-Sign Detail Recorded Client Recorded Date Recorded By Document 01/29/21 09:25 ML [id number] 01/29/21 09:30 ML 01/29/21 09:25 - Today's Visit Information Type of service Initial Visit Arrival Mode Ambulatory Transfer Assistance None Patient Identification Verified (Name & Yes ) Patient Requires Transmission-Based No Precautions Safety Precautions NA Vital Signs Temperature (97.8 F-99.1 F) 97.2 F L Temperature Source Temporal Pulse Rate (60-100) 69 Pulse Location Monitor Respiratory Rate (12-18) 17 Respiratory rate source Observation Blood Pressure (90/60-120/80) 167/72 H Blood Pressure Mean 103 Source Monitor Position Sitting Blood Pressure Location Left Arm History Since Last Visit- (Skip if this is Patient's initial visit) Have you changed medications since your No last visit? Any new allergies or adverse reactions No Had a fall/change in ADL's that may No increase risk of falls Signs or symptoms of abuse and/or No neglect since last visit Have you been in the hospital since your No last visit? Has dressing in place as prescribed No Has compression in place as prescribed N/A Has offloadiing in place as prescribed N/A Experienced any changes in pain level or No management Left Footwear Regular Shoe Right Footwear Regular Shoe Pain Scale: 0-10 Numeric Is Patient Pain Free? Yes - Nurse 1 - General Ulcer Measurement Start: 01/29/21 09:24 Freq: Status: Active Protocol: Activity Type Activity Date Activity User E-Sign Co-Sign Detail Recorded Client Recorded Date Recorded By Document 01/29/21 09:25 ML [id number] 01/29/21 09:30 ML 01/29/21 09:25 Wound Center Nurse 1 #3 left hand first digit -Current Size (cm) - Length 1 -Current Size (cm) - Width 0.7 -Current Size (cm) - Depth 0.1 -Total Square Cm 0.7 -Exudate Amt Medium -Exudate Type Serosanguineous -Wound Margin Distinct, Outline Attached -Granulation Amt Medium (34-66%) -Slough/Fibrin Yes -Necrosis Amt Medium (34-66%) -Necrotic Tissue Type Adherent Slough -Texture (Jonelle-wound Skin Appearance) Assessed -Moisture (Jonelle-wound Skin Appearance) Assessed -Color (Jonelle-wound Skin Appearance) Assessed -Temperature (Jonelle-wound Skin No Abnormality Appearance) (Pt Warm) -Tenderness on Palpation (Jonelle-wound No Skin Appearance) -Ulcer Cleansing Rinsed/ Irrigated with Saline -Foul Odor after Cleansing No -Anesthetic Used 5% Lidocaine Gel WC - Nurse 2 - General Ulcer CM Notes Start: 01/29/21 09:24 Freq: Status: Active Protocol: Activity Type Activity Date Activity User E-Sign Co-Sign Detail Recorded Client Recorded Date Recorded By Document 01/29/21 09:53 OR [id number] 01/29/21 09:59 OR 01/29/21 09:53 Wound Center Nurse 2 -Time 09:53 -Correct Patient Yes -Correct Side, Site, Position Yes -Correct Procedure Yes -Procedure Performed Yes -Type of Procedure Debridement -Clinical Debridement Subcutaneous -Tissue Removed Subcutaneous -Post Debridement (cm) - Length 1 -Post Debridement (cm) - Width 0.7 -Post Debridement (cm) - Depth 0.2 -Total Square (Post) (cm) 0.7 -Area of Debridement (cm) - Length 1 -Area of Debridement (cm) - Width 0.7 -Total Square (Area) (cm) 0.7 -Tunneling No -Undermining/Tunneling No -Circular Undermining No -Wound/Ulcer Outcome Not Healed -Ulcer Cleansing Rinsed/ Irrigated with Saline -Foul Odor after Cleansing No -Bioengineered Tissue No -Bleeding Controlled with Pressure -Offloading No -Treatment Response Procedure Tolerated Well -Debridement - Subq, 1st 20sq cm Yes Charges/Coding Visit Charges Office Visits / Consults: 55251 OV L3 Est Procedures Integumentary 111xxx-113xx: 74238 Tammy subq tissue 20 sq cm/< Assessment/Plan Assessment/Plan (1) Non-healing surgical wound: CODE(S): T81.89XA - Other complications of procedures, not elsewhere classified, initial encounter (2) Abscess of hand, left: CODE(S): L02.512 - Cutaneous abscess of left hand (3) Infected hand: CODE(S): L08.9 - Local infection of the skin and subcutaneous tissue, unspecified PLAN: Nonhealing left index finger wound following surgical debridement of left hand abscess. Debridement done as documented above, procedure was well-tolerated. There has been improvement since she initiated silver cell and so we will continue with same. Change daily, cover with gauze and tape. Optimal diabetes control. Vitamin C, D and zinc. Her questions were answered and she was advised to call with any further questions or concerns. Follow-up in a week. This note was generated with [employer] dictation software. It may contain incorrect words, spelling, and punctuation that were not noted in checking the note before signing.
[2021-02-05 09:26] VITALS: BP 164/85; PULSE 71; RESP 20; TEMP 36.2
--- NOTE | 2021-02-05 10:42 | PCM.WC.PN ---
History of Present Illness Date of Service: 02/05/21 Chief Complaint: Non healing surgical wound of left hand History of Wound: Ms. Carrion is a 45-year-old who was referred to the wound center by me due to non healing surgical wound. Had emergency surgical debridement and abscess drainage to her left hand abscess at [facility]. Was seen at the office over a week ago due to non healing. She was advised to stop soaking which she had been doing and silver cell which she had at home. She has noted improvement since applying silver cell. No drainage. Denies chills, fever or feeling of unwell. Subjective Subjective Improving, no new concerns at this time. Objective Data Objective Data Vital Signs: Vital Signs Temp Pulse Resp BP 97.2 F L 71 20 H 164/85 H 02/05/21 09:26 02/05/21 09:26 02/05/21 09:26 02/05/21 09:26 Charges/Coding Procedures Integumentary 111xxx-113xx: [id number] Tammy subq tissue 20 sq cm/< Physical Exam Const alert, oriented x3 and no apparent distress General Appearance: cooperative and comfortable HEENT normocephalic and head/scalp atraumatic Head and Scalp: normal to inspection, normocephalic and atraumatic External Ear: external ears normal Eyes EOMs intact bilaterally Neck full ROM General: normal visual inspection Resp normal respiratory effort Effort and Inspection: able to speak in complete sentences Skin General Skin Exam: dry skin Lesions: lesion noted Wounds: wounds noted Neuro oriented x3, CN's II-XII intact bilaterally and moves all extremities Psych mental status grossly normal Appearance: grossly normal Speech: normal speech Thought Process: normal thought process Debridement Note Debridement Note Wound debrided: Left index finger Type of Debridement: Excisional debridement Anesthesia Used: 4% Lidocaine Solution Depth: Down to and including healthy tissue and in the subcutaneous layer Percentage of wound debrided: 100 Instrument Used: 3mm curette Tissue Removed: Slough and devitalized tissue Severity: Fat Layer Exposed Amount of bleeding with debridement: Mild Bleeding Controlled with: Pressure Patient tolerated procedure: Patient tolerated procedure well Post-Debridement Measurements and Additional Note: Post-Debridement Measurements/Treatment CARIN - Nurse 1 - General Ulcer Assessment Start: 01/29/21 09:24 Freq: Status: Active Protocol: CATRACHO Activity Type Activity Date Activity User E-Sign Co-Sign Detail Recorded Client Recorded Date Recorded By Document 01/29/21 09:25 ML [id number] 01/29/21 09:30 ML Document 02/05/21 09:26 DL [id number] 02/05/21 09:28 DL 01/29/21 02/05/21 09:25 09:26 - Today's Visit Information Type of service Initial Visit Follow-up Visit (Physician/PUBLIC RELATIONS WRITER ) Arrival Mode Ambulatory Ambulatory Transfer Assistance None None Patient Identification Verified (Name & Yes Yes ) Patient Requires Transmission-Based No No Precautions Safety Precautions NA Vital Signs Temperature (97.8 F-99.1 F) 97.2 F L 97.2 F L Temperature Source Temporal Temporal Pulse Rate (60-100) 69 71 Pulse Location Monitor Monitor Respiratory Rate (12-18) 17 20 H Respiratory rate source Observation Observation Blood Pressure (90/60-120/80) 167/72 H 164/85 H Blood Pressure Mean (mm Hg) 103 111 Source Monitor Monitor Position Sitting Blood Pressure Location Left Arm History Since Last Visit- (Skip if this is Patient's initial visit) Have you changed medications since your No No last visit? Any new allergies or adverse reactions No No Had a fall/change in ADL's that may No No increase risk of falls Signs or symptoms of abuse and/or No No neglect since last visit Have you been in the hospital since your No No last visit? Has dressing in place as prescribed No Yes Has compression in place as prescribed N/A N/A Has offloadiing in place as prescribed N/A N/A Experienced any changes in pain level or No No management Left Footwear Regular Shoe Right Footwear Regular Shoe Pain Scale: 0-10 Numeric Is Patient Pain Free? Yes Yes - Nurse 1 - General Ulcer Measurement Start: 01/29/21 09:24 Freq: Status: Active Protocol: Activity Type Activity Date Activity User E-Sign Co-Sign Detail Recorded Client Recorded Date Recorded By Document 01/29/21 09:25 ML [id number] 01/29/21 09:30 ML Document 02/05/21 09:26 DL [id number] 02/05/21 09:28 DL 01/29/21 02/05/21 09:25 09:26 Wound Center Nurse 1 #3 left index finger -Current Size (cm) - Length 1 0.3 -Current Size (cm) - Width 0.7 0.3 -Current Size (cm) - Depth 0.1 0.1 -Total Square Cm 0.7 0.09 -Photo Taken No -Exudate Amt Medium None Present -Exudate Type Serosanguineous -Wound Margin Distinct, Thickened Outline Attached -Granulation Amt Medium (34-66%) None Present (0 %) -Slough/Fibrin Yes -Necrosis Amt Medium (34-66%) Large (67-100%) -Necrotic Tissue Type Adherent Slough Adherent Slough -Structure Exposed N/A -Texture (Jonelle-wound Skin Appearance) Assessed Scarring -Moisture (Jonelle-wound Skin Appearance) Assessed Dry/Scaly -Color (Jonelle-wound Skin Appearance) Assessed No Abnormality -Temperature (Jonelle-wound Skin No Abnormality No Abnormality Appearance) (Pt Warm) (Pt Warm) -Tenderness on Palpation (Jonelle-wound No No Skin Appearance) -Ulcer Cleansing Rinsed/ Rinsed/ Irrigated with Irrigated with Saline Saline -Foul Odor after Cleansing No No -Anesthetic Used 5% Lidocaine 5% Lidocaine Gel Gel WC - Nurse 2 - General Ulcer CM Notes Start: 01/29/21 09:24 Freq: Status: Active Protocol: Activity Type Activity Date Activity User E-Sign Co-Sign Detail Recorded Client Recorded Date Recorded By Document 01/29/21 09:53 MT [id number] 01/29/21 09:59 MT Document 02/05/21 09:50 MW [email or web address] 02/05/21 10:08 MW 01/29/21 02/05/21 09:53 09:50 Wound Center Nurse 2 -Time 09:53 09:50 -Correct Patient Yes Yes -Correct Side, Site, Position Yes Yes -Correct Procedure Yes Yes -Procedure Performed Yes Yes -Type of Procedure Debridement Debridement -Clinical Debridement Subcutaneous Subcutaneous -Tissue Removed Subcutaneous Subcutaneous -Post Debridement (cm) - Length 1 0.4 -Post Debridement (cm) - Width 0.7 0.6 -Post Debridement (cm) - Depth 0.2 0.2 -Total Square (Post) (cm) 0.7 0.24 -Area of Debridement (cm) - Length 1 0.4 -Area of Debridement (cm) - Width 0.7 0.6 -Total Square (Area) (cm) 0.7 0.24 -Tunneling No No -Undermining/Tunneling No No -Circular Undermining No No -Wound/Ulcer Outcome Not Healed Not Healed -Ulcer Cleansing Rinsed/ Rinsed/ Irrigated with Irrigated with Saline Saline -Foul Odor after Cleansing No No -Bioengineered Tissue No No -Bleeding Controlled with Pressure Pressure -Offloading No No -Treatment Response Procedure Procedure Tolerated Well Tolerated Well -Debridement - Subq, 1st 20sq cm Yes Yes Pain Scale: 0-10 Numeric Is Patient Pain Free? Yes - Nurse 3 - General Ulcer D/C NN Start: 01/29/21 09:24 Freq: Status: Active Protocol: Activity Type Activity Date Activity User E-Sign Co-Sign Detail Recorded Client Recorded Date Recorded By Document 02/05/21 09:56 [facility] [id number] 02/05/21 09:57 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 Yes - Visit Discharge Discharge Condition Stable Ambulatory Status Ambulatory,Cane Assessment/Plan Assessment/Plan (1) Non-healing surgical wound: CODE(S): T81.89XA - Other complications of procedures, not elsewhere classified, initial encounter (2) Abscess of hand, left: CODE(S): L02.512 - Cutaneous abscess of left hand (3) Infected hand: CODE(S): L08.9 - Local infection of the skin and subcutaneous tissue, unspecified PLAN: Improving. No new concerns at this time. Debridement done as documented above, procedure was well-tolerated. Continue silver cell, change daily, cover with gauze and tape. Optimal diabetes control. Vitamin C, D and zinc. Her questions were answered and she was advised to call with any further questions or concerns. Follow-up in a week. This note was generated with [employer] software. It may contain incorrect words, spelling, and punctuation that were not noted in checking the note before signing.
== END 2021-02-17 10:14 | disposition home or self-care (01) ==
LOC: WC 09:30
PROVIDERS: PCP Internal Medicine; Visit Provider Internal Medicine
DX: T81.89XA Other complications of procedures, not elsewhere classified, initial encounter (principal); L02.512 Cutaneous abscess of left hand; L08.9 Local infection of the skin and subcutaneous tissue, unspecified; E11.9 Type 2 diabetes mellitus without complications; I10 Essential (primary) hypertension; E66.01 Morbid (severe) obesity due to excess calories; F17.210 Nicotine dependence, cigarettes, uncomplicated; F32.9 Major depressive disorder, single episode, unspecified; I11.0 Hypertensive heart disease with heart failure; I50.32 Chronic diastolic (congestive) heart failure; I45.10 Unspecified right bundle-branch block; I27.21 Secondary pulmonary arterial hypertension; M06.9 Rheumatoid arthritis, unspecified; Z79.52 Long term (current) use of systemic steroids; Z79.84 Long term (current) use of oral hypoglycemic drugs
CPT/HCPCS: 11042; 99213; G0463

== ENCOUNTER → 2021-02-09 | Outpatient (CLI) | payer MEDICARE, SELFPAY ==
[2021-02-09 13:29] LABS: Mucous, Urine 0 SEEN /hpf (<or=2+)
[2021-02-09 15:03] LABS: Glucose, Dipstick Normal (Normal); Ketone-Dipstick 5 mg/dl (Negative); Leukocyte Esterase-Dipstick 500 /ul (Negative); Nitrite-Dipstick Positive (Negative); Occult Blood-Urine 250 /ul (Negative); Protein-Dipstick 500 mg/dl (Negative); Specific Gravity, Urine 1.015 (1.002-1.030); Urine Bilirubin Dipstick Negative (Negative); Urine Urobilinogen 1 mg/dl (Normal)
[2021-02-09 15:09] LABS: Color, Urine Amber (Yellow); Urine Clarity Cloudy (Clear)
[2021-02-09 15:14] LABS: Bacteria 1+ /hpf (None Seen); Red Blood Cells-Urine > 100 SEEN /hpf (0-5); Squamous Epithelial Cells - UA 0-5 SEEN /hpf (5-10); White Blood Cells >100 SEEN /hpf (0-5)
== END | disposition home or self-care (01) ==
LOC: LABSPEC 13:28
PROVIDERS: PCP Internal Medicine; Referring Provider Physician Assistant; Visit Provider Physician Assistant
DX: R30.0 Dysuria (principal)
CPT/HCPCS: 81001; 87077; 87086; 87088; 87186

== ENCOUNTER → 2021-02-13 | Outpatient (CLI) | payer MEDICARE, SELFPAY | END | disposition home or self-care (01) | PROVIDERS: PCP Internal Medicine; Referring Provider Physician Assistant Surgical; Visit Provider Physician Assistant Surgical | DX: R09.81 Nasal congestion (principal) | CPT/HCPCS: 87635; U0005; U0003 ==

== ENCOUNTER 2021-04-27 09:01 | Day surgery (SDC) | payer MEDICARE, SELFPAY ==
[2021-04-27] MEDS: Lactated Ringers 1,000 ML 15 ML IV (09:25)
[2021-04-27 09:49] VITALS: BP 127/64; PULSE 58; RESP 16; TEMP 37; O2SAT 94; BMI 49.6
--- NOTE | 2021-04-27 10:00 | RAD_ITS ---
STUDY: X-RAY - RIGHT KNEE REASON FOR EXAM: Female, 46 years old. BILAT KNEE INJECTIONS - RIGHT SIDE TECHNIQUE: AP fluoroscopic view(s) of the knee. 6 seconds of fluoroscopy time. Single fluoroscopic image. COMPARISON: None. FINDINGS: Limited single image of the knee with needle overlying the knee joint. RAD/Fluoro Guided Needle Placement IMPRESSION: Fluoroscopic guidance for needle injection. Please see procedural report. Minimal diagnostic information on the provided image. Electronically Signed: Noah King MD ([place]) at 11:42 EST , Service support ,
[2021-04-27] MEDS: Lidocaine 1% (5 ml sdv) 5 ML Vial (10:17)
[2021-04-27] MEDS: MethylPREDNISolone Acetate 80 MG/ML Vial (10:17)
[2021-04-27] MEDS: Bupivacaine 0.25% 30 ML Vial (10:17)
[2021-04-27 10:25] VITALS: BP 127/64; BP 132/80; PULSE 73; RESP 16; TEMP 36.4; O2SAT 96
[2021-04-27 10:30] VITALS: BP 127/64; BP 132/63; PULSE 70; RESP 16; O2SAT 92
[2021-04-27 10:35] VITALS: BP 124/53; BP 127/64; PULSE 70; RESP 16; O2SAT 92
--- NOTE | 2021-04-27 10:35 | PCM.OPRPT ---
Report of Operation Date of Procedure: 04/27/21 Description of Surgical Findings:: PREOPERATIVE DIAGNOSIS: Osteoarthritis of the bilateral knees. POSTOPERATIVE DIAGNOSIS: Osteoarthritis of the bilateral knees. PROCEDURE PERFORMED: Bilateral knees intraarticular steroid injection under fluoroscopic guidance. ANESTHESIA:Local. BLOOD LOSS: Minimal. COMPLICATIONS: None. DESCRIPTION OF PROCEDURE: History and physical of today was reviewed. Risks and benefits of the procedure were explained. The patient understood and agreed to proceed. Informed consent was obtained. IV inserted per routine protocol. The patient was taken to the operating room and placed in the supine position. The bilateral knees area were prepped and draped in a sterile fashion using iodine x3. Under fluoroscopy guidance on AP view, the bilateral knee joints were visualized. The skin and subcutaneous tissue was anesthetized with approximately 3 mL of 1% lidocaine using a 25-gauge regular needle at the medial aspect of the left knee and right knee. Under direct visualization with fluoroscopy, on AP view, using a 22-gauge 3-1/2-inch spinal needle, the needle was advanced via the skin. The tip of the needle was maneuvered and directed towards the intraarticular space at the medial compartment of the right knee and left knee. Once the tip of the needle was at the vicinity of the knee, after negative aspiration for blood, positive aspiration of the synovial fluid, a total of 2 mL of contrast was injected to confirm correct placement of the needle as well as intraarticular spread medial as well as lateral compartment. After confirmation on AP as well as lateral view and repeated negative aspiration, a total of 5 ml of preservative-free 0.25% Marcaine with 40 mg of Depo-Medrol was injected easily into each knee. The needle was then removed intact. The patient experienced no sign or symptoms of intravascular injection. The patient experienced no paresthesia. The procedure was completed without any apparent difficulty or any complications. The patient appeared to tolerate it well. Assessment and plan: This is a 46-year-old female with osteoarthritis of bilateral knees status post bilateral knees intra-articular steroid injection under fluoroscopic guidance, patient will continue her current medications, patient found approximately 2 weeks for reevaluation.
[2021-04-27 10:40] VITALS: BP 127/64; BP 129/85; PULSE 94; RESP 16; TEMP 36.3; O2SAT 94
--- NOTE | 2021-04-27 10:40 | RAD_ITS ---
STUDY: X-RAY - LEFT KNEE REASON FOR EXAM: Female, 46 years old. BILAT KNEE INJECTIONS - LEFT SIDE TECHNIQUE: AP fluoroscopic view(s) of the knee. 6 seconds of fluoroscopy time. Single fluoroscopic image. COMPARISON: None. FINDINGS: Limited single image of the knee with needle overlying the knee joint. RAD/Fluoro Guided Needle Placement IMPRESSION: Fluoroscopic guidance for needle injection. Please see procedural report. Minimal diagnostic information on the provided image. Electronically Signed: Noah King MD ([place]) at 11:42 EST , Service support ,
[2021-04-27 11:04] VITALS: BP 127/64
== END 2021-04-27 11:07 | disposition home or self-care (01) ==
LOC: SDC 09:07 → AC 09:16
PROVIDERS: PCP Internal Medicine; Visit Provider Anesthesiology Pain Medicine
PROC: 3E0U3GC Introduction of Other Therapeutic Substance into Joints, Percutaneous Approach (ICD-10-PCS; CPT 20610; principal; 2021-04-27 10:35)
DX: M17.0 Bilateral primary osteoarthritis of knee (principal); E66.01 Morbid (severe) obesity due to excess calories; Z68.42 Body mass index [BMI] 45.0-49.9, adult; I11.0 Hypertensive heart disease with heart failure; I50.32 Chronic diastolic (congestive) heart failure; E11.9 Type 2 diabetes mellitus without complications; M06.9 Rheumatoid arthritis, unspecified; Z79.84 Long term (current) use of oral hypoglycemic drugs; Z79.899 Other long term (current) drug therapy
CPT/HCPCS: 20610; 76000; 77002; J7120

== ENCOUNTER → 2021-05-08 14:29 | Outpatient (CLI) | payer MEDICARE, MEDICAID, SELFPAY ==
[2021-05-08 14:31] LABS: Mucous, Urine 0 SEEN /hpf (<or=2+)
[2021-05-08 15:26] LABS: Color, Urine Yellow (Yellow); Glucose, Dipstick Normal (Normal); Ketone-Dipstick Negative (Negative); Leukocyte Esterase-Dipstick 500 /ul (Negative); Nitrite-Dipstick Positive (Negative); Occult Blood-Urine 250 /ul (Negative); Protein-Dipstick 100 mg/dl (Negative); Urine Bilirubin Dipstick Negative (Negative); Urine Clarity Sl. Cloudy (Clear); Urine Urobilinogen Normal (Normal)
[2021-05-08 15:40] LABS: Bacteria 1+ /hpf (None Seen); Red Blood Cells-Urine 25-50 SEEN /hpf (0-5); Squamous Epithelial Cells - UA 0-5 SEEN /hpf (5-10); White Blood Cells 25-50 SEEN /hpf (0-5)
== END ==
PROVIDERS: PCP Internal Medicine; Visit Provider Physician Assistant
DX: R35.0 Frequency of micturition (principal)
CPT/HCPCS: 81001; 87077; 87086; 87088; 87186

== ENCOUNTER 2021-07-07 14:53 | Outpatient (CLI) | payer MEDICARE, MEDICAID, SELFPAY ==
[2021-07-07 14:57] LABS: Bacteria 0 SEEN /hpf (None Seen); Mucous, Urine 0 SEEN /hpf (<or=2+); Red Blood Cells-Urine 0 SEEN /hpf (0-5); Squamous Epithelial Cells - UA 0 SEEN /hpf (5-10)
[2021-07-07 16:36] LABS: Color, Urine Yellow (Yellow); Glucose, Dipstick Normal (Normal); Ketone-Dipstick 5 mg/dl (Negative); Leukocyte Esterase-Dipstick 500 /ul (Negative); Nitrite-Dipstick Positive (Negative); Occult Blood-Urine 250 /ul (Negative); Protein-Dipstick 100 mg/dl (Negative); Urine Clarity Turbid (Clear); Urine Urobilinogen Normal (Normal)
[2021-07-07 16:37] LABS: Absolute Lymphocyte Count 1.91 X10^3/uL (0.83-4.51); Absolute Neutrophil Count 6.1 X10^3/uL (2.0-7.7); Basophil# 0.01 X10^3/uL; Basophil% 0.1 % (0-1); Eosinophil# 0.19 X10^3/uL; Eosinophils% 2.2 % (0-5); Hematocrit 47.6 % (37-47); Hemoglobin 14.9 g/dL (12.0-15.0); Lymphocyte # 1.91 X10^3/ul (0.83-4.51); Mean Corp Hgb Conc 31.3 g/dL (32-36); Mean Corpuscular Hgb 25.1 pg (27.0-32.0); Mean Corpuscular Volume 80.3 fL (81-99); Mean Platelet Vol. 11.4 fl (6.2-12.0); Monocyte# 0.47 X10^3/uL; Monocyte% 5.4 % (0-10); NRBC Flagged by Analyzer 0 % (0-5); Neutrophil # 6.08 X10^3/uL (2.7-7.7); Neutrophil % 69.8 % (47-70); Platelet Count 285 K/mm3 (150-450); RBC Distribution Width CV 16.7 % (11.6-14.6); RBC Distribution Width SD 47.3 fl (35.1-43.9); Red Blood Count 5.93 M/mm3 (4.2-5.4); White Blood Count 8.7 K/mm3 (4.4-11.0)
[2021-07-07 16:41] LABS: Urine Bilirubin Dipstick 1 mg/dL (Negative)
[2021-07-07 16:52] LABS: ALB/GLOB Ratio 0.7 RATIO (0.9-2.4); AST(SGOT) 13 U/L (15-37); Alanine Aminotransfer ALT/SGPT 21 U/L (13-56); Albumin, Serum 3.3 g/dL (3.2-5.0); Alkaline Phosphatase 89 U/L (45-117); Anion Gap 4 (5-15); BUN 10 mg/dL (7-18); BUN/Creat Ratio 10.6 RATIO (10-20); Calcium,Total 8.9 mg/dL (8.5-10.1); Chloride 104 mmol/L (98-107); Creatinine, Serum 0.94 mg/dL (0.55-1.02); EST Glomerular Filtration Rate 68 mL/min (>60); Est Glom Filt Rate - Afr Amer 82 mL/min (>60); Glucose 151 mg/dL (74-106); Potassium 3.7 mmol/L (3.5-5.1); Protein, Total 8.3 g/dL (6.4-8.2); Sodium Level 137 mmol/L (136-145)
[2021-07-07 16:55] LABS: Hemoglobin A1c 5.7 % (3.8-5.6)
[2021-07-07 16:57] LABS: White Blood Cells >100 SEEN /hpf (0-5)
[2021-07-07 17:23] LABS: Microalbumin:Creatinine Ratio 568.8 mg/g CRE (<30 mg/g CRE)
== END 2021-07-07 23:59 | disposition home or self-care (01) ==
LOC: LABSPEC 14:55 → BIMLAB 15:08
PROVIDERS: PCP Internal Medicine; Referring Provider Internal Medicine; Visit Provider Internal Medicine
DX: N39.0 Urinary tract infection, site not specified (principal); E11.9 Type 2 diabetes mellitus without complications; I10 Essential (primary) hypertension; R30.0 Dysuria
CPT/HCPCS: 36415; 80053; 81001; 82043; 82570; 83036; 85025; 87077; 87086; 87088; 87186

== ENCOUNTER 2021-08-18 09:26 | Outpatient (CLI) | payer MEDICARE, MEDICAID, SELFPAY ==
--- NOTE | 2021-08-18 09:30 | BI_ITS ---
MAMMOGRAPHY - BILATERAL SCREENING REASON FOR EXAM: Female, 46 years old. Routine annual screening examination. PERTINENT HISTORY: Non-contributory. TECHNIQUE: Digital bilateral breast lucio (3D mammographic acquisition) in the CC and MLO projections. 2-D mediolateral oblique (MLO) and craniocaudad (CC) views of both breasts were obtained. CAD: Full Field Digital Mammography with Computer Added Detection was performed. COMPARISON: None. Baseline examination. FINDINGS: Breast Composition: There are scattered areas of fibroglandular density. There are no dominant masses or suspicious calcifications. No other significant abnormalities are identified. BI/SCRN MAMM (CAD)W/LUCIO BILAT IMPRESSION: Negative screening mammogram. Yearly followup mammogram recommended. (A) ASSESSMENT CATEGORY: BIRADS Category 1: Negative. A letter regarding these results will be sent to the patient by the facility within 30 days. Approximately 10% of breast cancers are not detected by mammography. A normal mammogram should not delay biopsy of a clinically suspicious abnormality. [id number] Electronically Signed: Alexander Thomas MD at 11:05 EDT ,
== END 2021-08-18 23:59 | disposition home or self-care (01) ==
LOC: OPBI 09:26
PROVIDERS: PCP Internal Medicine; Visit Provider Internal Medicine
DX: Z12.31 Encounter for screening mammogram for malignant neoplasm of breast (principal)
CPT/HCPCS: 77063; 77067

== ENCOUNTER 2021-08-19 09:45 | Outpatient (CLI) | payer MEDICARE, SELFPAY ==
--- NOTE | 2021-08-19 09:49 | US_ITS ---
STUDY: RENAL ULTRASOUND - COMPLETE REASON FOR EXAM: Female, 46 years old. UTI TECHNIQUE: Ultrasound evaluation of the kidneys was performed with real-time and static rocha-scale imaging. COMPARISON: Comparison is made with prior study to 02/19/2020. FINDINGS: RIGHT KIDNEY: Normal location of the right kidney, which is normal in size. The right kidney measures 13.3 cm x 7.4 cm x 5.1 cm. There is a normal cortex of the right kidney. The renal cortex measures 2.1 cm. There is a 6 mm x 5 mm x 5 mm cyst in the lateral superior pole of the kidney. There are no right renal calculi. There is no right hydronephrosis. DISTAL RIGHT URETER: There is non-visualization of the distal right ureter. There is no demonstrated right ureterovesical junction calculus. There is no demonstrated right ureteral jet. LEFT KIDNEY: Normal location of the left kidney, which is normal in size. The left kidney measures 14.3 cm x 5.2 cm x 6 cm. There is a normal cortex of the left kidney. The renal cortex measures 2.4 cm. There is no left renal mass or cyst. There are no left renal calculi. There is no left hydronephrosis. DISTAL LEFT URETER: There is non-visualization of the distal left ureter. There is no demonstrated left ureterovesical junction calculus. There is a visualized left ureteral jet. BLADDER: The distended urinary bladder has a volume of 257 ml. There is a normal wall thickness of the distended urinary bladder. There is no demonstrated mass within the urinary bladder. There are no demonstrated bladder calculi. US/Kidney and Bladder IMPRESSION: Subcentimeter cyst in the right kidney. Electronically Signed: Alexander Thomas MD at 12:26 EDT ,
== END 2021-08-19 23:59 | disposition home or self-care (01) ==
PROVIDERS: PCP Internal Medicine; Referring Provider Urology; Visit Provider Urology
DX: N39.0 Urinary tract infection, site not specified (principal)
CPT/HCPCS: 76770

== ENCOUNTER 2021-08-26 17:43 | Outpatient (CLI) | payer MEDICARE, MEDICAID, SELFPAY | END 2021-08-26 23:59 | disposition home or self-care (01) | PROVIDERS: PCP Internal Medicine; Visit Provider Urology | DX: N39.0 Urinary tract infection, site not specified (principal) | CPT/HCPCS: 87077; 87086; 87088; 87186 ==

== ENCOUNTER → 2021-10-26 | Outpatient (CLI) | payer MEDICARE, MEDICAID, SELFPAY | END | disposition home or self-care (01) | PROVIDERS: PCP Internal Medicine; Visit Provider Surgery | DX: Z00.00 Encounter for general adult medical examination without abnormal findings (principal) ==

== ENCOUNTER → 2021-12-04 | Outpatient (CLI) | payer MEDICARE, MEDICAID, SELFPAY ==
--- NOTE | 2021-12-04 18:50 | CT_ITS ---
EXAM: CT ABDOMEN AND PELVIS WITHOUT AND WITH INTRAVENOUS CONTRAST CLINICAL INDICATION: HEMATURIA TECHNIQUE: Helically acquired images were obtained of the abdomen and pelvis without and with intravenous contrast. This CT exam was performed using one or more of the following dose reduction techniques: automated exposure control, adjustment of the mA and/or kV according to patient size, and/or use of iterative reconstruction technique. This report was created using [employer] report generation technology. CONTRAST: ISOVUE 300-100ml RADIATION DOSE: CTDIvol = 26.29 mGy, DLP = 5298.44 mGy-cm. COMPARISON: None. FINDINGS: LOWER THORAX: Unremarkable. Lung bases are clear. No cardiomegaly. No significant pericardial effusion. ABDOMEN: LIVER: Unremarkable. Homogeneous. No focal mass. GALLBLADDER AND BILE DUCTS: Unremarkable. No calcified gallstones. No gallbladder distention or wall edema. No intra- or extrahepatic biliary ductal dilation. PANCREAS: Unremarkable. No focal cystic or solid mass. SPLEEN: Unremarkable. Normal size without focal cystic or solid mass. ADRENALS: Unremarkable. No nodules. KIDNEYS AND URETERS: Unremarkable. Normal renal size and position. No hydronephrosis. STOMACH AND BOWEL: Unremarkable. No stomach or bowel distention. No focal inflammatory change. PELVIS: APPENDIX: Normal appendix. BLADDER: Unremarkable. REPRODUCTIVE: Unremarkable as visualized. No mass. ABDOMEN and PELVIS: INTRAPERITONEAL SPACE: Unremarkable. No ascites or other fluid collection. No free air. BONES/JOINTS: Unremarkable. No suspicious lytic or blastic abnormality. SOFT TISSUES: Unremarkable. No discrete abdominal or pelvic wall hernia. VASCULATURE: Unremarkable. Abdominal aorta is non-dilated. LYMPH NODES: Unremarkable. No enlarged lymph nodes. CT/CT Abd/Pelvis W/WO Contrast IMPRESSION: No acute findings in the abdomen or pelvis. Electronically Signed: Octavio Arzate MD at 20:38 EDT ,
[2021-12-04 19:15] LABS: CREATININE FINGERSTICK < 0.9 mg/dL (0.55-1.02); EGFR FINGERSTICK > 60.0000 mL/min (>60)
== END | disposition home or self-care (01) ==
LOC: CT 18:48
PROVIDERS: PCP Internal Medicine; Visit Provider Urology
DX: R31.9 Hematuria, unspecified (principal)
CPT/HCPCS: 74178; Q9967

== ENCOUNTER 2022-06-18 16:37 | Emergency (ER) | payer MEDICARE, MEDICAID, SELFPAY ==
[2022-06-18 16:40] VITALS: BP 126/76; PULSE 91; RESP 18; TEMP 36.8; O2SAT 90; BMI 51.9
--- NOTE | 2022-06-18 17:50 | EDS_ITS ---
HPI History of Present Illness Chief Complaint: Wound Informant: patient Narrative Narrative: Patient is concerned about the start of cellulitis over the past few days to a week. She states Tuesday she had nausea and vomiting and felt warm but she has been fine since from that point of view. She is not nauseated now. No fevers. Her blood sugar she states has been at 120. She has a history of cellulitis because she has psoriasis and some edema. She is also on Toltz for her psoriasis but has not had it for over a month. Nothing makes her symptoms better or worse. She states her left lower extremity over the powers ankle and near the knee are more red warm and sore than normal. This is like cellulitis has started before. [facility] Medical History Abscess of hand, left Allergic dermatitis Arthritis Back problem Bilateral lower extremity edema Cellulitis of left leg without foot Chronic diastolic (congestive) heart failure Colon cancer screening Degeneration of lumbar or lumbosacral intervertebral disc Degenerative disc disease, lumbar Depression Essential (primary) hypertension Health care maintenance Hypoxia Incomplete right bundle branch block Marijuana user Morbid obesity Nicotine dependence Non-healing surgical wound Primary osteoarthritis of left knee Psoriasis Psoriasis Psoriatic arthritis Radiculopathy of lumbosacral region Recurrent UTI Rheumatoid arthritis Secondary pulmonary arterial hypertension Severe sepsis Tobacco abuse Tobacco abuse counseling Type 2 diabetes mellitus Ulcer of left lower extremity Ulcer of left lower leg Home Medications gabapentin 600 mg tablet 600 mg PO TID NERVE PAIN 08/15/18 [History Last Taken 04/27/21] diclofenac sodium 75 mg tablet,delayed release 75 mg PO BIDCM PAIN 01/02/19 [History Last Taken 04/27/21] blood pressure monitor #1 ea 08/20/20 [Rx Last Taken Unknown] blood sugar diagnostic (True Metrix Glucose Test Strip) #100 ea 09/23/20 [Rx Last Taken Unknown] ixekizumab 80 mg/mL subcutaneous syringe 80 mg subcut QMONTH AUTO IMMUNE 10/01/20 [History Last Taken Unknown] triamcinolone acetonide 0.1 % topical cream 1 applic topical BID #80 grams 12/11/20 [Rx Last Taken Unknown] dulaglutide 1.5 mg/0.5 mL subcutaneous pen injector 1.5 mg (0.5 mL) subcut QWEEK #2 mL 02/09/21 [Rx Last Taken Unknown] lancets 28 gauge (FreeStyle Lancets) #100 ea 02/09/21 [Rx Last Taken Unknown] phenazopyridine 100 mg tablet 100 mg PO TID PRN pain #6 tabs 02/09/21 [Rx Last Taken Unknown] ondansetron HCl 4 mg tablet (Zofran) 4 mg PO Q6H PRN nausea and vomiting #14 tabs 02/13/21 [Rx Last Taken Unknown] furosemide 40 mg tablet 40 mg PO BID 3 months #180 tabs 03/09/21 [Rx Last Taken Unknown] cephalexin 500 mg capsule 500 mg PO Q12H #28 caps 08/04/21 [Rx Last Taken Unknown] amlodipine 10 mg tablet 10 mg PO DAILY BP #90 tabs 09/21/21 [Rx Last Taken Unknown] sertraline 100 mg tablet 100 mg PO DAILY #90 tabs 10/01/21 [Rx Last Taken Unknown] metformin 500 mg tablet,extended release 24 hr 1,000 mg PO QPM DEPRESSION 3 months #180 tabs 04/05/22 [Rx Last Taken Unknown] losartan 100 mg tablet 100 mg PO DAILY BP #90 tabs 05/31/22 [Rx Last Taken Unknown] cephalexin 500 mg capsule 500 mg PO Q6 #40 CAPSULES 06/18/22 [Rx Last Taken Unknown] sulfamethoxazole 800 mg-trimethoprim 160 mg tablet 1 tab PO BID #20 TABLETS 05/24 12/12 [Rx Last Taken Unknown] Allergy/AdvReac Type Severity Reaction Status Date / Time codeine Allergy Mild rash Verified 06/18/22 16:41 bupropion [From Wellbutrin] Allergy Rash Verified 06/18/22 16:41 varenicline [From Chantix] AdvReac hallucinati Verified 06/18/22 16:41 ons Family History Father Arthritis Autoimmune disorder Diabetes Heart disease Hypertension Mother Hypertension Sister Diabetes Grandmother Diabetes Surgical History History of History of tonsillectomy Social History Smoking Status: Current some day smoker tobacco type: cigarettes alcohol intake: never substance use type: does not use and marijuana what type of physical activity do you participate in: none ROS ROS ED Constitutional Constitutional ED: Reports subjective Eyes Eyes: Denies change in vision ENT ENT ED: Denies rhinorrhea or sore throat Cardiovascular Cardiovascular: Denies chest pain, palpitations or racing heartbeat Respiratory/Chest Respiratory/Chest: Denies cough or dyspnea Gastrointestinal Gastrointestinal: Reports nausea, vomiting and other Details: She had symptoms 2 days ago but none now. Genitourinary Genitourinary ED: Denies urinary frequency Musculoskeletal Musculoskeletal: Denies neck pain Integumentary Reports rash Neurologic Neurologic: Denies headache(s) or weakness Endocrine Endocrinology: Denies polydipsia or polyuria Hematologic/Lymphatic Hematologic/Lymphatic: Denies easy bleeding or easy bruising Allergic/Immunologic Allergic/Immunologic ED: Denies urticaria EXAM Physical Exam Narrative Exam Narrative: Patient awake alert no acute distress sitting quietly in bed. Carries on normal conversation. HEENT shows moist mucous membranes. No pallor noted. No JVD or meningismus. Chest is clear bilaterally. No coughing. Cardiac shows heart is regular. I do not hear any murmurs. Abdomen is obese but nontender No CVA or suprapubic tenderness Patient is alert oriented and appropriate and has intact sensation in both lower extremities Skin shows psoriasis on both shins but also on arms. She has some chronic erythema around the psoriatic plaques. However, the lateral aspect of her left lower extremity is more red than anywhere else. It is also warm. There is no subcu air or crepitance. I can move her ankle and knee without difficulty. But this does look more red and warm and cellulitic than other areas. Const Vital Signs: 06/18/22 16:40 06/18/22 16:39 Temperature 98.2 F Temperature Source Temporal Pulse Rate 91 Respiratory Rate 18 Respiratory Pattern Normal Blood Pressure 126/76 H Blood Pressure Mean 92 Pulse Ox 90 Oxygen Delivery Method Room Air MDM MDM MDM Narrative Medical decision making narrative: Patient CBC does show elevated white count at 14.4. No anemia. Platelets are normal. Electrolytes do show minimally low potassium that should self correct. She does have a rise of her creatinine but admits that she was having vomiting and not drinking but now she is drinking. So I think this should self correct. We will give her some IV fluids to assist with this. Since she is eating and drinking I do not think she requires admission just for this but this should have follow-up testing and this was explained to her. Her glucose is just minimally up at 120. We talked patient about options. She states she feels well and would like to go home. She would like to try outpatient therapy. She evidently has been successful as an outpatient before. I will write her for Bactrim and Keflex. We discussed reasons to return that would include fever, vomiting, rising sugars or other concerns. If she is not having improvement within about 3 days she should return as she may need admission and IV antibiotics. Lab Data Attestation: I reviewed the patient's lab results. Labs: Laboratory Results - last 24 hr 06/18/22 06/18/22 18:20 18:20 WBC 14.4 H RBC 6.32 H Hgb 15.0 Hct 50.5 H MCV 79.9 L MCH 23.7 L MCHC 29.7 L RDW Std Deviation 52.3 H RDW Coeff of Luis 19.1 H Plt Count 198 MPV 10.9 Immature Gran % (Auto) 0.800 Neut % (Auto) 86.8 H Lymph % (Auto) 5.7 L [place] % (Auto) 6.4 Eos % (Auto) 0.1 Baso % (Auto) 0.2 Absolute Neuts (auto) 12.5 H Absolute Lymphs (auto) 0.82 L Nucleated RBC % 0 Sodium 137 Potassium 3.3 L Chloride 96 L Carbon Dioxide 33.0 H Anion Gap 8 BUN 34 H Creatinine 1.81 H Estim Creat Clear Calc 41.10 Est GFR (MDRD) Af Amer 38 L Est GFR (MDRD) Non-Af 32 L BUN/Creatinine Ratio 18.8 Glucose 120 H Calcium 9.4 Discharge Plan Triage Chief Complaint: Wound Other Complaint: Cellulitis ED Provider: Agusto Olivas Dx/Rx/DC Orders Clinical Impression: Cellulitis of left lower extremity, Leukocytosis, Dehydration, Acute kidney injury Instructions: ED Cellulitis Prescriptions: New sulfamethoxazole-trimethoprim [sulfamethoxazole-trimethoprim] 800-160 mg tablet 1 tab PO BID Qty: 20 0RF cephalexin [cephalexin] 500 mg capsule 500 mg PO Q6 Qty: 40 0RF No Action gabapentin 600 mg tablet 600 mg PO TID (DME) blood pressure monitor Kit See Rx Instructions .MEDSUPPLY Qty: 1 0RF Rx Instructions: Check blood pressure daily for hypertension I10 triamcinolone acetonide 0.1 % cream 1 applic topical BID Qty: 80 0RF (DME) lancets [FreeStyle Lancets] 28 gauge misc See Rx Instructions .ROUTE .MEDSUPPLY Qty: 100 1RF Rx Instructions: Check blood glucose daily for type 2 DM dulaglutide 1.5 mg/0.5 mL pen injector 1.5 mg subcut QWEEK Qty: 2 1RF Rx Instructions: fridays phenazopyridine 100 mg tablet 100 mg PO TID PRN (Reason: pain) Qty: 6 0RF ondansetron HCl [Zofran] 4 mg tablet 4 mg PO Q6H PRN (Reason: nausea and vomiting) Qty: 14 0RF cephalexin 500 mg capsule 500 mg PO Q12H Qty: 28 0RF ixekizumab 80 mg/mL syringe 80 mg subcut QMONTH Label Comments: LAST DOSE OVER 1 MONTH- PENDING INSURANCE APPROVAL Rx Instructions: 24th of the month diclofenac sodium 75 MG tablet 75 mg PO BIDCM (DME) True Metrix Glucose Test Strip Strip See Rx Instructions .ROUTE .MEDSUPPLY Qty: 100 6RF Rx Instructions: test blood glucose 3 times daily as directed for tpye 2 DM furosemide 40 mg tablet 40 mg PO BID 90 Days Qty: 180 1RF amlodipine 10 mg tablet 10 mg PO DAILY Qty: 90 3RF sertraline 100 mg tablet 100 mg PO DAILY Qty: 90 3RF metformin 500 mg tablet extended release 24 hr 1,000 mg PO QPM 90 Days Qty: 180 0RF losartan 100 mg tablet 100 mg PO DAILY Qty: 90 0RF Rx Instructions: take 1 tablet by mouth once daily Primary Care Provider: Heath Thomas Referrals: Heath Thomas MD [Primary Care Provider] - 3-5 Days Disposition Disposition: Home, Self Care
[2022-06-18 18:38] LABS: Absolute Lymphocyte Count 0.82 X10^3/uL (0.83-4.51); Absolute Neutrophil Count 12.5 X10^3/uL (2.0-7.7); Basophil# 0.03 X10^3/uL; Basophil% 0.2 % (0-1); Eosinophil# 0.02 X10^3/uL; Eosinophils% 0.1 % (0-5); Hematocrit 50.5 % (37-47); Lymphocyte # 0.82 X10^3/ul (0.83-4.51); Lymphocyte % 5.7 % (19-41); Mean Corp Hgb Conc 29.7 g/dL (32-36); Mean Corpuscular Hgb 23.7 pg (27.0-32.0); Mean Corpuscular Volume 79.9 fL (81-99); Mean Platelet Vol. 10.9 fl (6.2-12.0); Monocyte# 0.92 X10^3/uL; Monocyte% 6.4 % (0-10); NRBC Flagged by Analyzer 0 % (0-5); Neutrophil # 12.49 X10^3/uL (2.7-7.7); Neutrophil % 86.8 % (47-70); Platelet Count 198 K/mm3 (150-450); RBC Distribution Width CV 19.1 % (11.6-14.6); RBC Distribution Width SD 52.3 fl (35.1-43.9); Red Blood Count 6.32 M/mm3 (4.2-5.4); White Blood Count 14.4 K/mm3 (4.4-11.0)
[2022-06-18 18:41] LABS: Anion Gap 8 (5-15); BUN 34 mg/dL (7-18); BUN/Creat Ratio 18.8 RATIO (10-20); Calcium,Total 9.4 mg/dL (8.5-10.1); Chloride 96 mmol/L (98-107); Creatinine, Serum 1.81 mg/dL (0.55-1.02); EST Glomerular Filtration Rate 32 mL/min (>60); Est Glom Filt Rate - Afr Amer 38 mL/min (>60); Glucose 120 mg/dL (74-106); Potassium 3.3 mmol/L (3.5-5.1); Sodium Level 137 mmol/L (136-145)
[2022-06-18] MEDS: 0.9% Normal Saline 1,000 ML 999 ML IV (19:26)
== END 2022-06-18 22:03 | disposition home or self-care (01) ==
PROVIDERS: Emergency Provider Emergency Medicine; PCP Internal Medicine; Visit Provider Emergency Medicine
DX: L03.116 Cellulitis of left lower limb (principal); I50.32 Chronic diastolic (congestive) heart failure; I11.0 Hypertensive heart disease with heart failure; E11.9 Type 2 diabetes mellitus without complications; E86.0 Dehydration; D72.829 Elevated white blood cell count, unspecified; L40.9 Psoriasis, unspecified; F17.210 Nicotine dependence, cigarettes, uncomplicated; S37.009A Unspecified injury of unspecified kidney, initial encounter; X58.XXXA Exposure to other specified factors, initial encounter
CPT/HCPCS: 36415; 80048; 85025; 87040; 96365; 96366; 99283; J7030; J7040; A4216

== ENCOUNTER 2022-06-23 10:11 | Inpatient (IN) | payer MEDICARE, MEDICAID, SELFPAY ==
[2022-06-23] VITALS (7 sets, daily range): BP systolic 132–172; BP diastolic 71–80; PULSE 76–90; RESP 16–18; TEMP 36.6–37.1; O2SAT 90–99; BMI 50.8; BMI 57.7
--- NOTE | 2022-06-23 10:32 | RAD_ITS ---
STUDY: X-RAY - LEFT FOOT CLINICAL: Female, 47 years old. Soft tissue swelling and pain. Cutaneous blisters. TECHNIQUE: 3 view(s) of the foot. COMPARISON: None. FINDINGS: Calcaneal spurs. Normal visualized subtalar, talonavicular, calcaneocuboid, tarsal and tarsometatarsal articulations. Accessory navicular bone. Normal metatarsi. Normal metatarsophalangeal joint of the great toe. Normal tibial and fibular sesamoid bones. Normal interphalangeal joint of the great toe. Normal phalanges of the great toe. Normal second through fifth metatarsophalangeal joints. Normal interphalangeal joints and phalanges of the lesser toes. Diffuse soft tissue swelling more prominent along the dorsal aspect of the foot. RAD/Foot min 3 Views IMPRESSION: Diffuse soft tissue swelling more prominent along the dorsal aspect of the foot. Calcaneal spurs. Electronically Signed: Alexander Thomas MD at 12:00 EST ,
--- NOTE | 2022-06-23 10:32 | EDS_ITS ---
HPI History of Present Illness Chief Complaint: Wound Detail of Chief Complaint: Redness and swelling to left leg Informant: patient Narrative Narrative: Patient presents with redness and swelling that initially started 6 days ago to her left lower extremity. Patient was seen in the emergency department 5 days ago and had IV antibiotics and started on Keflex and Bactrim and discharged home. Patient was seen by pain management today and they noted increased redness and swelling and referred back to the emergency department. Patient [place] fever. She has had some chills. She complains of some nausea and just not feeling well. Patient is a diabetic. Patient now noticing blisters to the top of her left foot. [facility] Medical History Abscess of hand, left Allergic dermatitis Arthritis Back problem Bilateral lower extremity edema Cellulitis of left leg without foot Chronic diastolic (congestive) heart failure Colon cancer screening Degeneration of lumbar or lumbosacral intervertebral disc Degenerative disc disease, lumbar Depression Essential (primary) hypertension Health care maintenance Hypoxia Incomplete right bundle branch block Marijuana user Morbid obesity Nicotine dependence Non-healing surgical wound Primary osteoarthritis of left knee Psoriasis Psoriasis Psoriatic arthritis Radiculopathy of lumbosacral region Recurrent UTI Rheumatoid arthritis Secondary pulmonary arterial hypertension Severe sepsis Tobacco abuse Tobacco abuse counseling Type 2 diabetes mellitus Ulcer of left lower extremity Ulcer of left lower leg Home Medications gabapentin 600 mg tablet 600 mg PO TID NERVE PAIN 08/15/18 [History Last Taken 04/27/21] diclofenac sodium 75 mg tablet,delayed release 75 mg PO BIDCM PAIN 01/02/19 [History Last Taken 04/27/21] blood pressure monitor #1 ea 08/20/20 [Rx Last Taken Unknown] blood sugar diagnostic (True Metrix Glucose Test Strip) #100 ea 09/23/20 [Rx Last Taken Unknown] ixekizumab 80 mg/mL subcutaneous syringe 80 mg subcut QMONTH AUTO IMMUNE 10/01/20 [History Last Taken Unknown] triamcinolone acetonide 0.1 % topical cream 1 applic topical BID #80 grams 12/11/20 [Rx Last Taken Unknown] dulaglutide 1.5 mg/0.5 mL subcutaneous pen injector 1.5 mg (0.5 mL) subcut QWEEK #2 mL 02/09/21 [Rx Last Taken Unknown] lancets 28 gauge (FreeStyle Lancets) #100 ea 02/09/21 [Rx Last Taken Unknown] phenazopyridine 100 mg tablet 100 mg PO TID PRN pain #6 tabs 02/09/21 [Rx Last Taken Unknown] ondansetron HCl 4 mg tablet (Zofran) 4 mg PO Q6H PRN nausea and vomiting #14 tabs 02/13/21 [Rx Last Taken Unknown] furosemide 40 mg tablet 40 mg PO BID 3 months #180 tabs 03/09/21 [Rx Last Taken Unknown] cephalexin 500 mg capsule 500 mg PO Q12H #28 caps 08/04/21 [Rx Last Taken Unknown] amlodipine 10 mg tablet 10 mg PO DAILY BP #90 tabs 09/21/21 [Rx Last Taken Unknown] sertraline 100 mg tablet 100 mg PO DAILY #90 tabs 10/01/21 [Rx Last Taken Unknown] metformin 500 mg tablet,extended release 24 hr 1,000 mg PO QPM DEPRESSION 3 months #180 tabs 04/05/22 [Rx Last Taken Unknown] losartan 100 mg tablet 100 mg PO DAILY BP #90 tabs 05/31/22 [Rx Last Taken Unknown] cephalexin 500 mg capsule 500 mg PO Q6 #40 CAPSULES 06/18/22 [Rx Last Taken Unknown] sulfamethoxazole 800 mg-trimethoprim 160 mg tablet 1 tab PO BID #20 TABLETS 06/18/22 [Rx Last Taken Unknown] Allergy/AdvReac Type Severity Reaction Status Date / Time codeine Allergy Mild rash Verified 06/23/22 10:11 bupropion [From Wellbutrin] Allergy Rash Verified 06/23/22 10:11 varenicline [From Chantix] AdvReac hallucinati Verified 06/23/22 10:11 ons Family History Father Arthritis Autoimmune disorder Diabetes Heart disease Hypertension Mother Hypertension Sister Diabetes Grandmother Diabetes Surgical History History of History of tonsillectomy Social History Smoking Status: Current some day smoker tobacco type: cigarettes alcohol intake: never substance use type: does not use and marijuana what type of physical activity do you participate in: none ROS ROS ED Review of Systems ROS Unobtainable: other Constitutional Constitutional ED: Reports chills and lethargy; Denies fever(s), sweats or weight loss Eyes Eyes: Denies blurry vision, change in vision or diplopia ENT ENT ED: Denies rhinorrhea or sore throat Cardiovascular Cardiovascular: Denies chest pain, orthopnea or racing heartbeat Respiratory/Chest Respiratory/Chest: Denies cough, dyspnea, dyspnea on exertion, orthopnea or sputum Gastrointestinal Gastrointestinal: Denies abdominal pain, diarrhea, nausea or vomiting Genitourinary Genitourinary ED: Denies dysuria, hematuria or urinary frequency Musculoskeletal Musculoskeletal: Denies arthralgias, back pain, myalgias or neck pain Integumentary Reports rash and other Details: Redness and swelling to left leg with blisters to the top of the foot. ; Denies abscess or Abrasions Neurologic Neurologic: Denies headache(s) or weakness Psychiatric Psychiatric: Denies anxiety, depression or suicidal thoughts Endocrine Endocrinology: Denies polydipsia, polyphagia or polyuria Hematologic/Lymphatic Hematologic/Lymphatic: Denies easy bleeding, easy bruising or lymphadenopathy Allergic/Immunologic Allergic/Immunologic ED: Denies mouth swelling, tongue swelling or urticaria EXAM Physical Exam Const Vital Signs: 06/23/22 10:12 06/23/22 10:20 Temperature 97.8 F 97.8 F Temperature Source Temporal Temporal Pulse Rate 89 78 Respiratory Rate 16 16 Blood Pressure 134/78 H 140/73 H Blood Pressure Mean 96 95 Pulse Ox 99 99 Oxygen Delivery Method Room Air Room Air Positive well nourished and well developed General Appearance ED: well developed and NAD HEENT Reports TM's clear and moist mucous membranes normocephalic and atraumatic; Negative for trauma or tenderness Tympanic Membrane ED: Yes TM's clear Eyes PERRL and EOMs intact bilaterally General Eye ED: Negative for pale conjunctiva or scleral icterus Neck no lymphadenopathy, supple and no JVD General: Negative for tenderness Chest Wall inspection of chest normal and palpation of chest normal Chest: Negative for tenderness Resp normal respiratory effort and clear to auscultation bilaterally Effort and Inspection: Negative for respiratory distress or pain with movement Auscultation: Negative for rhonchi, wheezes or diminished lung sounds Cardio regular rate, regular rhythm, S1 normal heart sound, S2 normal heart sound and no murmurs Peripheral Pulses: pulses 2+ throughout GI normal to inspection, nondistended, normoactive bowel sounds, soft to palpation, non-tender, non-distended and no masses Back/Spine no CVA tenderness and no thoracic nor lumbar tenderness Extremity Extremity Narrative: Left leg-patient does have changes of psoriasis on her left lower extremity. She does have diffuse erythema. Evaluation of the foot does reveal diffuse swelling with clear blister formation on the top of the foot. She has cellulitic changes. General Extremety ED: Negative for edema General Extremity: Negative for edema Neuro oriented x3, CN's II-XII intact bilaterally, no sensory deficits noted and gait normal Sensorium / Orientation: awake, alert, oriented to person, oriented to place and oriented to time Motor Exam: strength 5/5 throughout and strength abnormal Psych mental status grossly normal Skin no rashes or lesions noted and no wounds MDM MDM MDM Narrative Medical decision making narrative: IV line established on arrival. Patient was started on Unasyn and vancomycin IV. Lab work-up showed an elevated white count 11.2. Chemistries unremarkable and lactate was normal 1.5. X-ray left foot obtained interpreted by myself soft tissue swelling without evidence of osteomyelitis or gas in the tissues. Official report from radiology will be pending. Case discussed with hospitalist who will evaluate patient for admission for cellulitis left leg with failed outpatient therapy in a diabetic patient. Lab Data Attestation: I reviewed the patient's lab results. Labs: Laboratory Results - last 24 hr 06/23/22 06/23/22 06/23/22 10:50 10:50 10:50 WBC 11.2 H RBC 5.98 H Hgb 13.8 Hct 47.4 H MCV 79.3 L MCH 23.1 L MCHC 29.1 L RDW Std Deviation 52.2 H RDW Coeff of Luis 19.0 H Plt Count 248 MPV 10.5 Sodium 138 Potassium 3.9 Chloride 98 Carbon Dioxide 35.0 H Anion Gap 5 BUN 8 Creatinine 0.74 Estim Creat Clear Calc 100.54 Est GFR (MDRD) Af Amer 108 Est GFR (MDRD) Non-Af 89 BUN/Creatinine Ratio 10.9 Glucose 143 H Lactic Acid 1.5 Calcium 9.1 Discharge Plan Triage Chief Complaint: Wound ED Provider: Shabnam James Dx/Rx/DC Orders Clinical Impression: Cellulitis of left leg, Diabetes mellitus, Weakness Prescriptions: No Action gabapentin 600 mg tablet 600 mg PO TID (DME) blood pressure monitor Kit See Rx Instructions .MEDSUPPLY Qty: 1 0RF Rx Instructions: Check blood pressure daily for hypertension I10 triamcinolone acetonide 0.1 % cream 1 applic topical BID Qty: 80 0RF (DME) lancets [FreeStyle Lancets] 28 gauge misc See Rx Instructions .ROUTE .MEDSUPPLY Qty: 100 1RF Rx Instructions: Check blood glucose daily for type 2 DM dulaglutide 1.5 mg/0.5 mL pen injector 1.5 mg subcut QWEEK Qty: 2 1RF Rx Instructions: fridays phenazopyridine 100 mg tablet 100 mg PO TID PRN (Reason: pain) Qty: 6 0RF ondansetron HCl [Zofran] 4 mg tablet 4 mg PO Q6H PRN (Reason: nausea and vomiting) Qty: 14 0RF cephalexin 500 mg capsule 500 mg PO Q12H Qty: 28 0RF ixekizumab 80 mg/mL syringe 80 mg subcut QMONTH Label Comments: LAST DOSE OVER 1 MONTH- PENDING INSURANCE APPROVAL Rx Instructions: 24th of the month diclofenac sodium 75 MG tablet 75 mg PO BIDCM sulfamethoxazole-trimethoprim [sulfamethoxazole-trimethoprim] 800-160 mg tablet 1 tab PO BID Qty: 20 0RF cephalexin [cephalexin] 500 mg capsule 500 mg PO Q6 Qty: 40 0RF (DME) True Metrix Glucose Test Strip Strip See Rx Instructions .ROUTE .MEDSUPPLY Qty: 100 6RF Rx Instructions: test blood glucose 3 times daily as directed for tpye 2 DM furosemide 40 mg tablet 40 mg PO BID 90 Days Qty: 180 1RF amlodipine 10 mg tablet 10 mg PO DAILY Qty: 90 3RF sertraline 100 mg tablet 100 mg PO DAILY Qty: 90 3RF metformin 500 mg tablet extended release 24 hr 1,000 mg PO QPM 90 Days Qty: 180 0RF losartan 100 mg tablet 100 mg PO DAILY Qty: 90 0RF Rx Instructions: take 1 tablet by mouth once daily Primary Care Provider: Heath Thomas Referrals: Heath Thomas MD [Primary Care Provider] - Disposition Disposition: Acute Care Hospital [facility]
[2022-06-23 11:02] LABS: Hematocrit 47.4 % (37-47); Hemoglobin 13.8 g/dL (12.0-15.0); Mean Corp Hgb Conc 29.1 g/dL (32-36); Mean Corpuscular Hgb 23.1 pg (27.0-32.0); Mean Corpuscular Volume 79.3 fL (81-99); Mean Platelet Vol. 10.5 fl (6.2-12.0); Platelet Count 248 K/mm3 (150-450); RBC Distribution Width SD 52.2 fl (35.1-43.9); Red Blood Count 5.98 M/mm3 (4.2-5.4); White Blood Count 11.2 K/mm3 (4.4-11.0)
[2022-06-23 11:14] LABS: Anion Gap 5 (5-15); BUN 8 mg/dL (7-18); BUN/Creat Ratio 10.9 RATIO (10-20); Calcium,Total 9.1 mg/dL (8.5-10.1); Chloride 98 mmol/L (98-107); Creatinine, Serum 0.74 mg/dL (0.55-1.02); EST Glomerular Filtration Rate 89 mL/min (>60); Est Glom Filt Rate - Afr Amer 108 mL/min (>60); Estimated Creatinine Clearance 100.54 ml/min; Glucose 143 mg/dL (74-106); Potassium 3.9 mmol/L (3.5-5.1); Sodium Level 138 mmol/L (136-145)
[2022-06-23] MEDS: 0.9% Normal Saline 1,000 ML 150 ML IV (11:20)
[2022-06-23 11:22] LABS: Lactic Acid 1.5 mmol/L (0.4-1.9)
--- NOTE | 2022-06-23 11:28 | NURSING ---
DR RECIO FOR DR ORLANDO
--- NOTE | 2022-06-23 11:32 | NURSING ---
MED SURG TERELETSKY CELLULITIS LEFT LEG WITH FAILED OUTPATIENT THERAPY
--- NOTE | 2022-06-23 13:23 | PCM.RX.CS ---
Consult Pharmacy has been consulted to manage selected antiobiotic: Vancomycin Type of Consult: New start Suspected Infection: Skin/Soft tissue Labs: Sodium 138 mmol/L (136-145) 06/23/22 10:50 Potassium 3.9 mmol/L (3.5-5.1) 06/23/22 10:50 Chloride 98 mmol/L (98-107) 06/23/22 10:50 Carbon Dioxide 35.0 mmol/L (21.0-32.0) H 06/23/22 10:50 Anion Gap 5 (5-15) 06/23/22 10:50 BUN 8 mg/dL (7-18) 06/23/22 10:50 Creatinine 0.74 mg/dL (0.55-1.02) 06/23/22 10:50 Est GFR (MDRD) Af Amer 108 mL/min (>60) 06/23/22 10:50 Est GFR (MDRD) Non-Af 89 mL/min (>60) 06/23/22 10:50 BUN/Creatinine Ratio 10.9 RATIO (10-20) 06/23/22 10:50 Glucose 143 mg/dL (74-106) H 06/23/22 10:50 Pharmacy Plan for Drug Dosing: NEW START IV VANCOMYCIN Consulting Physician: ALMITA Indication: CELLULITIS Goal Trough: 10-15 MG/DL SrCr: 0.74 MG/DL CrCl: >100 ML/MIN Comments: ER DOSE OF 2000MG GIVEN 06/23 @ 1206 Vancomycin Dose: WILL START 1750MG Q12 (06/24 @ 0000) AND GET A TROUGH PRIOR TO 4TH TOTAL DOSE OF REGIMEN. Pending Level: 06/24/22 @ 7050 Pharmacy Service will continue to monitor and adjust dosing as required.
--- NOTE | 2022-06-23 13:31 | VDLE_ITS ---
Reason For Study: LEG SWELLING RIGHT LEFT CFV is compressible, spontaneous, phasic, GSV is normal. competent and demonstrates normal CFV is compressible, spontaneous, phasic, augmentation. competent, and demonstrates normal Procedure augmentation. This is a venous duplex using B-mode, color FV is compressible, spontaneous, phasic, flow and spectral Doppler. competent and demonstrates normal Exam performed portable in patient room. augmentation. The exam was diagnostic. POP V is compressible, spontaneous, phasic, Technically difficult study due to swelling competent and demonstrates normal and body habitus. augmentation. A preliminary report was called and/or faxed T/P Trunk is compressible. 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 PTV is compressible. LT Luciana V only visualized in distal segment. Prox and Mid unable to visualize. Enlarged and vascularized lymph node visualized in Lt Groin measuring approximately 5.71cm x 1.45cm. VL/Venous Duplex US, Unilateral Interpretation Summary Deep veins of the left lower extremity are patent and compressible segmentally. There is no evidence of left lower extremity deep vein thrombosis. The left great saphenous vein maynor ears patent and compressible segmentally. Enlarged and vascularized lymph node visualized in left groin measuring approxi mately 5.71cm x 1.45cm. Limited study below knee Ordering Physician: Raymon Gonzalez Referring Physician: Heath Thomas Performed By: Yordan Fonseca, RVT
[2022-06-23 14:11] LABS: Bedside Glucose 106 mg/dL (74-106)
[2022-06-23] MEDS: Ceftriaxone 1 GM/50 ML BAG IV (15:14)
--- NOTE | 2022-06-23 16:29 | PCM.HP.STD ---
HPI - General General Date of Admission: 06/23/22 Date of Service: 06/23/22 Chief Complaint: Left leg redness and swelling HPI Narrative DANILO NEGRETE, is a 47 F who presents to the emergency room at [facility] after being sent to the emergency room by pain management for evaluation of increased redness and swelling in her left leg. She had been seen in the emergency room 6 days ago for left lower extremity swelling and redness and had been given IV antibiotics in the emergency room and placed on Keflex and Bactrim and discharged home. Patient has not significantly improved since she was placed on the antibiotics. Examination of the patient's left lower leg reveals chronic psoriasis over majority of the left lower leg, there is swelling of the left lower leg along with bullae formation on the top of the left foot. Labs obtained in the emergency room revealed an elevated white blood cell count at 11.2, chemistry profile was remarkable for a blood glucose of 143. Patient was given IV Unasyn and vancomycin in the emergency room, she will be admitted to [facility] for left lower extremity cellulitis- failed outpatient treatment. [facility] Medical History Abscess of hand, left Allergic dermatitis Arthritis Back problem Bilateral lower extremity edema Cellulitis of left leg without foot Chronic diastolic (congestive) heart failure Colon cancer screening Degeneration of lumbar or lumbosacral intervertebral disc Degenerative disc disease, lumbar Depression Essential (primary) hypertension Health care maintenance Hypoxia Incomplete right bundle branch block Marijuana user Morbid obesity Nicotine dependence Non-healing surgical wound Primary osteoarthritis of left knee Psoriasis Psoriasis Psoriatic arthritis Radiculopathy of lumbosacral region Recurrent UTI Rheumatoid arthritis Secondary pulmonary arterial hypertension Severe sepsis Tobacco abuse Tobacco abuse counseling Type 2 diabetes mellitus Ulcer of left lower extremity Ulcer of left lower leg Home Medications gabapentin 600 mg tablet 600 mg PO TID NERVE PAIN 08/15/18 [History Last Taken 06/23/22] diclofenac sodium 75 mg tablet,delayed release 75 mg PO BIDCM PAIN 01/02/19 [History Last Taken 06/23/22] blood pressure monitor #1 ea 08/20/20 [Rx Last Taken Unknown] blood sugar diagnostic (True Metrix Glucose Test Strip) #100 ea 09/23/20 [Rx Last Taken Unknown] ixekizumab 80 mg/mL subcutaneous syringe 80 mg subcut QMONTH AUTO IMMUNE 10/01/20 [History Last Taken 2 Months Ago ~04/22/22] triamcinolone acetonide 0.1 % topical cream 1 applic topical BID #80 grams 12/11/20 [Rx Last Taken 1 Week Ago ~06/16/22] lancets 28 gauge (FreeStyle Lancets) #100 ea 02/09/21 [Rx Last Taken Unknown] amlodipine 10 mg tablet 10 mg PO DAILY BP #90 tabs 09/21/21 [Rx Last Taken 06/22/22] sertraline 100 mg tablet 100 mg PO DAILY #90 tabs 10/01/21 [Rx Last Taken 06/22/22] losartan 100 mg tablet 100 mg PO DAILY BP #90 tabs 05/31/22 [Rx Last Taken 06/22/22] sulfamethoxazole 800 mg-trimethoprim 160 mg tablet 1 tab PO BID #20 TABLETS 06/18/22 [Rx Last Taken 06/23/22] cephalexin 500 mg capsule 500 mg PO Q6H 06/23/22 [History Last Taken 06/23/22] metformin 500 mg tablet,extended release 24 hr 1,000 mg PO DAILY DIABETES 06/23/22 [History Last Taken 06/22/22] Allergy/AdvReac Type Severity Reaction Status Date / Time codeine Allergy Mild rash Verified 06/23/22 10:11 bupropion [From Wellbutrin] Allergy Rash Verified 06/23/22 10:11 varenicline [From Chantix] AdvReac hallucinati Verified 06/23/22 10:11 ons Family History Father Arthritis Autoimmune disorder Diabetes Heart disease Hypertension Mother Hypertension Sister Diabetes Grandmother Diabetes Surgical History History of History of tonsillectomy Social History Smoking Status: Current every day smoker tobacco type: cigarettes alcohol intake: never substance use type: does not use and marijuana what type of physical activity do you participate in: none ROS Constitutional Constitutional: Denies anorexia, change in weight, chills, fatigue, fever(s), malaise, night sweats or weakness Eyes Eyes: Denies blurry vision, change in vision, discharge from eye(s) or eye pain Cardiovascular Cardiovascular: Denies chest pain, claudication, dyspnea on exertion, edema, lightheadedness, orthopnea or palpitations Respiratory/Chest Respiratory/Chest: Denies cough, excessive phlegm production, hemoptysis, productive cough, shortness of breath at rest or shortness of breath with exertion Gastrointestinal Gastrointestinal: Denies abdominal pain, coffee ground emesis, constipation, diarrhea, hematemesis, hematochezia, melena, nausea or vomiting Genitourinary Genitourinary: Denies difficulty urinating, dysuria, hematuria, nocturia, urinary frequency, urinary hesitancy, urinary incontinence or urinary urgency Musculoskeletal Musculoskeletal: Reports arthralgias; Denies back pain, joint pain, joint stiffness, joint swelling, myalgias or neck pain Neurologic Neurologic: Denies abnormal gait, abnormal speech, dizziness, focal weakness, headache(s), loss of vision, numbness, other visual disturbances, paresthesias, syncope or tingling Psychiatric Psychiatric: Denies anxiety, cognitive impairment, depression, irritability, mood swings or suicidal ideation Endocrine Endocrinology: Denies change in body appearance, cold intolerance, excessive sweating, heat intolerance, polydipsia or polyuria Hematologic/Lymphatic Hematologic/Lymphatic: Denies none, anemia, easy bleeding, easy bruising or lymphadenopathy Allergic/Immunologic Allergic/Immunologic: Denies rhinitis, urticaria, eczemia or asthma Vital Signs Vital Signs Vital Signs: 06/23/22 10:12 06/23/22 10:20 06/23/22 12:00 Temperature 97.8 F 97.8 F 97.8 F Temperature Source Temporal Temporal Temporal Pulse Rate 89 78 88 Respiratory Rate 16 16 18 Respiratory Effort Respiratory Depth Respiratory Pattern Blood Pressure 134/78 H 140/73 H 134/78 H Blood Pressure Mean 96 95 96 Blood Pressure Source Blood Pressure Position Blood Pressure Location Pulse Ox 99 99 95 Oxygen Delivery Method Room Air Room Air Room Air 06/23/22 13:15 06/23/22 13:30 Temperature 97.9 F Temperature Source Oral Pulse Rate 76 Respiratory Rate 18 Respiratory Effort Normal Non-Labored Respiratory Depth Normal Respiratory Pattern Normal Blood Pressure 147/74 H Blood Pressure Mean 98 Blood Pressure Source Monitor Blood Pressure Position Semi-Fowlers Blood Pressure Location Left Forearm Pulse Ox 94 Oxygen Delivery Method Room Air Room Air Weight Weight: 172.3 kg Body Mass Index (BMI) 57.7 Physical Exam Narrative Patient is morbidly obese Const alert, oriented x3 and no apparent distress General Appearance: cooperative, well kempt and well developed Orientation / Consciousness: awake, oriented to person, oriented to place and oriented to time HEENT normocephalic, head/scalp atraumatic, hearing grossly normal bilaterally and moist oral mucous membranes Eyes PERRL, EOMs intact bilaterally and conjunctivae normal Neck supple, no JVD and thyroid normal General: trachea midline Resp normal respiratory effort, no retractions, no use of accessory muscles and clear to auscultation bilaterally Auscultation: Negative for rales, rhonchi or wheezes Cardio regular rate, regular rhythm, S1 normal heart sound, S2 normal heart sound, no murmurs, no rub and no gallops GI normal to inspection, nondistended, normoactive bowel sounds, soft to palpation, non-tender and non-distended GI Narrative: Patient is morbidly obese Extremity Extremity Narrative: There is marked edema noted over the left lower leg as compared with the right lower leg, there are extensive areas of psoriasis noted over both lower legs worse on the left, there is bullae formation on the dorsum of the left foot-and 1 bullae on the left great toe on the dorsal aspect Skin Skin Narrative: Generalized redness and swelling is noted over the left lower leg along with extensive psoriasis over both the left and right lower legs-worse on the left. Bullae formation is noted on the dorsum of the left foot including the left great toe. Neuro oriented x3, CN's II-XII intact bilaterally, moves all extremities, no focal motor deficits and no sensory deficits noted Sensorium / Orientation: awake, alert, oriented to person, oriented to place and oriented to time Speech: speech normal Psych affect normal Results Lab / Micro Data Result Diagrams: 06/23/22 10:50 06/23/22 10:50 Labs: Laboratory Results - last 24 hr 06/23/22 10:50: WBC 11.2 H, RBC 5.98 H, Hgb 13.8, Hct 47.4 H, MCV 79.3 L, MCH 23.1 L, MCHC 29.1 L, RDW Std Deviation 52.2 H, RDW Coeff of Luis 19.0 H, Plt Count 248, MPV 10.5 06/23/22 10:50: Sodium 138, Potassium 3.9, Chloride 98, Carbon Dioxide 35.0 H, Anion Gap 5, BUN 8, Creatinine 0.74, Estim Creat Clear Calc 100.54, Est GFR (MDRD) Af Amer 108, Est GFR (MDRD) Non-Af 89, BUN/Creatinine Ratio 10.9, Glucose 143 H, Calcium 9.1 06/23/22 10:50: Lactic Acid 1.5 06/23/22 13:48: POC Glucose 106 Radiology Impression Foot X-Ray 06/23/22 10:32 IMPRESSION: Diffuse soft tissue swelling more prominent along the dorsal aspect of the foot. Calcaneal spurs. Electronically Signed: Alexander Thomas MD at 12:00 EST , Venous Doppler Study 06/23/22 13:31 Interpretation Summary Deep veins of the left lower extremity are patent and compressible segmentally. There is no evidence of left lower extremity deep vein thrombosis. The left great saphenous vein appears patent and compressible segmentally. Enlarged and vascularized lymph node visualized in left groin measuring approximately 5.71cm x 1.45cm. Limited study below knee Ordering Physician: Raymon Gonzalez Referring Physician: Heath Thomas Performed By: Yordan Fonseca, LIZETT Assessment & Plan Assessment/Plan (1) Cellulitis of left lower extremity: PLAN: Plan #1 left lower leg cellulitis-patient will be admitted to [facility], she will be placed on IV vancomycin and IV Rocephin #2 chronic psoriasis-patient states she is on Taltz and triamcinolone cream, triamcinolone cream will be continued #3 morbid obesity-complicates care, medical course, recovery, and prognosis #4 type 2 diabetes-blood sugars will be monitored via fingerstick blood sugars, sign scale insulin will be used, patient will remain on her home medications #5 mild pulmonary hypertension-complicates care, medical course, recovery, and prognosis #6 essential hypertension-patient will remain on her current medications #7 chronic depression-patient is on Zoloft Total clinical time spent by myself addressing the patient's medical issues, reviewing all the data, and collaborating with patient's care team: 75 minutes Charges/Coding Visit Charges Inpatient E&M: 24676 Init Hosp L3
[2022-06-23] MEDS: Diclofenac 75 MG Tablet PO (17:08)
[2022-06-23 17:30] LABS: Bedside Glucose 113 mg/dL (74-106)
[2022-06-23] MEDS: Furosemide 20 MG/2 ML VIAL IV (17:48)
[2022-06-23] MEDS: 0.9% Saline Lock 10 ML Syringe IV ×2 (17:48→23:08)
[2022-06-23] MEDS: Gabapentin 600 MG Tablet PO (22:44)
[2022-06-23] MEDS: Heparin Injection (Vial) 5,000 UNIT/ML VIAL 5000 UNIT SC (22:44)
[2022-06-23 22:45] LABS: Bedside Glucose 128 mg/dL (74-106)
[2022-06-23] MEDS: Acetaminophen 325 MG Tablet 650 MG PO (23:08)
[2022-06-24] VITALS (9 sets, daily range): BP systolic 104–161; BP diastolic 60–75; PULSE 70–88; RESP 16–18; TEMP 36.2–37.1; O2SAT 80–94
[2022-06-24 06:34] LABS: Hematocrit 46.5 % (37-47); Hemoglobin 13.3 g/dL (12.0-15.0); Mean Corp Hgb Conc 28.6 g/dL (32-36); Mean Corpuscular Hgb 23.2 pg (27.0-32.0); Mean Corpuscular Volume 81.2 fL (81-99); Mean Platelet Vol. 11.1 fl (6.2-12.0); POSITIVE COUNT YES; POSITIVE MORPHOLOGY YES; Platelet Count 243 K/mm3 (150-450); RBC Distribution Width CV 18.9 % (11.6-14.6); RBC Distribution Width SD 53.9 fl (35.1-43.9); Red Blood Count 5.73 M/mm3 (4.2-5.4); White Blood Count 11.4 K/mm3 (4.4-11.0)
[2022-06-24 06:39] LABS: Differential Indicated MANUAL DIFF
[2022-06-24] MEDS: Gabapentin 600 MG Tablet PO ×3 (06:47→21:21)
[2022-06-24 07:17] LABS: Anion Gap 5 (5-15); BUN 9 mg/dL (7-18); BUN/Creat Ratio 16.9 RATIO (10-20); Calcium,Total 8.8 mg/dL (8.5-10.1); Chloride 101 mmol/L (98-107); Creatinine, Serum 0.53 mg/dL (0.55-1.02); EST Glomerular Filtration Rate 130 mL/min (>60); Est Glom Filt Rate - Afr Amer 158 mL/min (>60); Estimated Creatinine Clearance 130.95 ml/min; Glucose 139 mg/dL (74-106); Potassium 3.8 mmol/L (3.5-5.1); Sodium Level 139 mmol/L (136-145)
[2022-06-24 07:33] LABS: Eosinophil 1 % (0-5); Lymphocyte 12 % (19-41); Metamyelocyte 6 % (0-1); Monocyte 2 % (0-10); Myelocyte 2 % (0-0); Neutrophil-Band 3 % (0-5); Neutrophil-Segmented 74 % (47-70); Nucleated Red Bld Cells,Manual 1 % (0-5); Total Cells Counted 100 (MANUAL DIFF)
[2022-06-24 07:34] LABS: Platelet Estimate ADEQUATE (ADEQ); Red Cell Morphology NORM C+C NORMAL (NORM C&C)
[2022-06-24 07:35] LABS: Absolute Neutrophil Count 8.7 X10^3/uL (2.0-7.7)
[2022-06-24 07:46] LABS: Bedside Glucose 132 mg/dL (74-106)
[2022-06-24] MEDS: metFORMIN (XR) 500 MG Tablet 1000 MG PO (09:22)
[2022-06-24] MEDS: Losartan Potassium 100 MG Tablet PO (09:22)
[2022-06-24] MEDS: Diclofenac 75 MG Tablet PO ×2 (09:22→16:44)
[2022-06-24] MEDS: Furosemide 20 MG/2 ML VIAL IV ×2 (09:22→16:44)
[2022-06-24] MEDS: 0.9% Saline Lock 10 ML Syringe IV ×3 (09:22→21:23)
[2022-06-24] MEDS: Heparin Injection (Vial) 5,000 UNIT/ML VIAL 5000 UNIT SC ×2 (09:23→21:11)
[2022-06-24] MEDS: Ceftriaxone 1 GM/50 ML BAG IV (09:23)
[2022-06-24] MEDS: Potassium Chloride Oral Tablet 20 MEQ PO ×2 (09:23→16:44)
[2022-06-24] MEDS: Sertraline 100 MG Tablet PO (09:23)
[2022-06-24] MEDS: amLODIPine 10 MG Tablet PO (09:23)
[2022-06-24] MEDS: Glucerna Shake 120 ML LIQUID PO ×3 (09:24→16:44)
--- NOTE | 2022-06-24 10:10 | RAD_ITS ---
STUDY: X-RAY CHEST REASON FOR EXAM: Female, 47 years old. Hypoxia TECHNIQUE: PA and lateral views of the chest. COMPARISON: None. FINDINGS: The lungs are clear and expanded. There is no demonstrated pleural abnormality. Normal size heart. Normal mediastinum and josé. Normal visualized pulmonary arteries. Normal visualized aortic arch and descending thoracic aorta. There are degenerative changes of the visualized thoracic spine. Normal visualized ribs, clavicles, and shoulders. There is no demonstrated abnormality of the visualized soft tissue structures of the upper abdomen. RAD/Chest PA and Lateral IMPRESSION: No acute abnormality is seen. Electronically Signed: Alexander Thomas MD at 12:33 EST ,
[2022-06-24 12:10] LABS: Bedside Glucose 102 mg/dL (74-106)
--- NOTE | 2022-06-24 14:40 | CASEMGMT ---
WHITNEY GIBSON DC Planning Assessment: Face to Face with patient for initial transition planning/care coordination assessment. WHITNEY GIBSON introduced self and role at [facility], pt voices understanding. Pt alert, Ox4, and agreeable to participating in assessment. Care providers, pharmacy, and demographics verified. Admitting Dx: Cellulitis of legs PCP: William Specialists: Clarisse (Dermatology), Jose Ramon (pain) Preferred [facility]acy: [facility] Insurance: [facility] A/B, [facility] crossover Prescription Benefit: Pt states but is unclear of her coverage. States sometimes I have to pay for my medications and sometimes I don't. Living Will/HPOA: No but states she and a friend are going to have these completed and list each other as HPOA's. LNOK: none, pt states she is not speaking with her children or family at this time and does not wish to have them listed. Living Arrangements: Pt states she lives alone in a 3 level home with a 1st floor set-up and 4 steps to enter. Pt states she is independent with ADLs including household tasks. Transportation: pt drives and has friends who can also assist. DME: shower chair, can SNF/HHC: none Plan: Pt plans to return home at discharge and denies any dc needs at this time. Will continue to monitor and assit with DC needs as determined. Tammi Hawkins RN CM
--- NOTE | 2022-06-24 14:56 | WOUNDNOTE ---
wound photo: left lower leg
--- NOTE | 2022-06-24 14:57 | WOUNDNOTE ---
wound photo: left foot
--- NOTE | 2022-06-24 14:57 | WOUNDNOTE ---
wound photo: left foot
--- NOTE | 2022-06-24 14:58 | WOUNDNOTE ---
skin photo: right lower leg
--- NOTE | 2022-06-24 17:00 | PN.HOSP_ITS ---
Subjective Subjective Was seen and examined today, she does not complain of any shortness of breath, she required 3 L of oxygen via nasal cannula today. I did a chest x-ray which did not show any acute pathology Objective Data Objective Data Vital Signs: Vital Signs Temp Pulse Resp BP Pulse Ox O2 Del Method O2 Flow Rate 98.1 F 72 16 104/66 94 Nasal Cannula 3 06/24/22 15:15 06/24/22 15:15 06/24/22 15:15 06/24/22 15:15 06/24/22 15:15 06/24/22 15:15 06/24/22 15:15 Oxygen Flow Rate (L/min) 3 Oxygen Delivery Method Nasal Cannula Weight: 172.3 kg Body Mass Index (BMI) 57.7 Intake & Output: Intake and Output for Last 24 Hours 06/22/22 06/23/22 06/24/22 23:59 23:59 23:59 Intake Total 1012 / 1012 2079 / 2079 Balance 1012 / 1012 2079 Lab / Micro Data Result Diagrams: 06/24/22 06:03 06/24/22 06:03 Labs: Laboratory Results - last 24 hr 06/23/22 17:09: POC Glucose 113 H 06/23/22 22:14: POC Glucose 128 H 06/24/22 06:03: WBC 11.4 H, RBC 5.73 H, Hgb 13.3, Hct 46.5, MCV 81.2, MCH 23.2 L , MCHC 28.6 L, RDW Std Deviation 53.9 H, RDW Coeff of Luis 18.9 H, Plt Count 243, MPV 11.1, Neut % (Auto) Not Reportable, Absolute Neuts (auto) 8.7 H, Absolute Lymphs (auto) 1.40, Total Counted 100, Neutrophils % (Manual) 74 H, Band Neut rophils % 3, Lymphocytes % (Manual) 12 L, Monocytes % (Manual) 2, Eosinophils % (Manual) 1, Metamyelocytes % 6 H, Myelocytes % 2 H, Nucleated RBCs/100 WBC 1, Diff Path Review September, Platelet Estimate ADEQUATE, RBC Morphology NORM C+C 06/24/22 06:03: Sodium 139, Potassium 3.8, Chloride 101, Carbon Dioxide 33.0 H, Anion Gap 5, BUN 9, Creatinine 0.53 L, Estim Creat Clear Calc 130.95, Est GFR (MDRD) Af Amer 158, Est GFR (MDRD) Non-Af 130, BUN/Creatinine Ratio 16.9, Glucose 139 H, Calcium 8.8 06/24/22 06:34: POC Glucose 132 H 06/24/22 11:53: POC Glucose 102 Micro: Microbiology 06/23/22 15:00 Wound - Left Foot Gram Stain - Final 06/23/22 15:00 Wound - Left Foot Wound Culture - Preliminary No growth-Final to follow Radiography Diagnostic Testing: Radiology Impression Chest X-Ray 06/24/22 10:10 IMPRESSION: No acute abnormality is seen. Electronically Signed: Alexander Thomas MD at 12:33 EST , Physical Exam Narrative Patient is morbidly obese Const alert, oriented x3 and no apparent distress General Appearance: cooperative, well kempt and well developed Orientation / Consciousness: awake, oriented to person, oriented to place and oriented to time HEENT normocephalic, head/scalp atraumatic, hearing grossly normal bilaterally and moist oral mucous membranes Eyes PERRL, EOMs intact bilaterally and conjunctivae normal Neck supple, no JVD and thyroid normal General: trachea midline Resp normal respiratory effort, no retractions, no use of accessory muscles and clear to auscultation bilaterally Auscultation: Negative for rales, rhonchi or wheezes Cardio regular rate, regular rhythm, S1 normal heart sound, S2 normal heart sound, no murmurs, no rub and no gallops GI normal to inspection, nondistended, normoactive bowel sounds, soft to palpation, non-tender and non-distended GI Narrative: Patient is morbidly obese Extremity Extremity Narrative: There is marked edema noted over the left lower leg as compared with the right lower leg, there are extensive areas of psoriasis noted over both lower legs worse on the left, her legs were not completely examined due to the fact they were wrapped with surgical dressing Skin Narrative: Generalized redness and swelling is noted over the left lower leg along with extensive psoriasis over both the left and right lower legs-worse on the left.? Neuro oriented x3, CN's II-XII intact bilaterally, moves all extremities, no focal motor deficits and no sensory deficits noted Sensorium / Orientation: awake, alert, oriented to person, oriented to place and oriented to time Speech: speech normal Psych affect normal Assessment & Plan Assessment/Plan (1) Cellulitis of left lower extremity: PLAN: Plan #1 left lower leg cellulitis-continue present IV antibiotics #2 chronic psoriasis-patient states she is on Taltz and triamcinolone cream, tri amcinolone cream will be continued #3 morbid obesity-complicates care, medical course, recovery, and prognosis #4 type 2 diabetes-blood sugars will be monitored via fingerstick blood sugars, sign scale insulin will be used, patient will remain on her home medications #5 mild pulmonary hypertension-complicates care, medical course, recovery, and prognosis #6 essential hypertension-patient will remain on her current medications #7 chronic depression-patient is on Zoloft #8 hypoxia-probably secondary to hypoventilation, supplemental oxygen will be continued as needed Total clinical time spent by myself addressing the patient's medical issues, reviewing all the data, and collaborating with patient's care team: 38 minutes Charges/Coding Visit Charges Inpatient E&M: 92219 Subs Hosp L2
[2022-06-24 17:05] LABS: Bedside Glucose 114 mg/dL (74-106)
[2022-06-24 23:56] LABS: Vancomycin, Trough Level 10.8 ug/mL (5.0-15.0)
[2022-06-25] VITALS (7 sets, daily range): BP systolic 128–135; BP diastolic 61–73; PULSE 72–105; RESP 14–18; TEMP 36.5–36.9; O2SAT 93–95
--- NOTE | 2022-06-25 00:11 | PCM.RX.CS ---
Consult Pharmacy has been consulted to manage selected antiobiotic: Vancomycin Type of Consult: Follow-up Suspected Infection: Skin/Soft tissue Prior Doses of Antibiotics Received/Current Regimen: Medications Vancomycin HCl 1,750 mg/ (Sodium Chloride) 535 mls @ 250 mls/hr IV Q12H NIKI Last Admin: 06/24/22 13:39 Dose: Infused Labs: Sodium 139 mmol/L (136-145) 06/24/22 06:03 Potassium 3.8 mmol/L (3.5-5.1) 06/24/22 06:03 Chloride 101 mmol/L (98-107) 06/24/22 06:03 Carbon Dioxide 33.0 mmol/L (21.0-32.0) H 06/24/22 06:03 Anion Gap 5 (5-15) 06/24/22 06:03 BUN 9 mg/dL (7-18) 06/24/22 06:03 Creatinine 0.53 mg/dL (0.55-1.02) L 06/24/22 06:03 Est GFR (MDRD) Af Amer 158 mL/min (>60) 06/24/22 06:03 Est GFR (MDRD) Non-Af 130 mL/min (>60) 06/24/22 06:03 BUN/Creatinine Ratio 16.9 RATIO (10-20) 06/24/22 06:03 Glucose 139 mg/dL (74-106) H 06/24/22 06:03 Vancomycin Trough 10.8 ug/mL (5.0-15.0) 06/24/22 23:12 Microbiology: Microbiology 06/23/22 11:23 Blood Culture (Wb) - Right Wrist Blood Culture - Preliminary 06/23/22 15:00 Wound - Left Foot Gram Stain - Final 06/23/22 15:00 Wound - Left Foot Wound Culture - Preliminary No growth-Final to follow Weight used for dosin.3 kg Estimated Creatinine Clearance: >120 Goal Trough: 10-15 mcg/mL Pharmacy Plan for Drug Dosing: Vancomycin trough level of 10.8, drawn 12 hours post-dose was 10.8 mcg/ml. This is within the target range of 10-15. Will continue dosing at 1750mg q12h, and draw another trough in two days. Pharmacy Service will continue to monitor and adjust dosing as required. Follow-Up Labs: Trough Vancomycin Labs to be done on [date and time ordered]: 06/26/22 @5186
[2022-06-25] MEDS: 0.9% Saline Lock 10 ML Syringe IV (01:16)
[2022-06-25 01:31] LABS: Bedside Glucose 131 mg/dL (74-106)
[2022-06-25 05:56] LABS: Hematocrit 44.1 % (37-47); Hemoglobin 12.6 g/dL (12.0-15.0); Mean Corp Hgb Conc 28.6 g/dL (32-36); Mean Corpuscular Hgb 23.3 pg (27.0-32.0); Mean Corpuscular Volume 81.5 fL (81-99); Mean Platelet Vol. 11.5 fl (6.2-12.0); POSITIVE COUNT YES; POSITIVE MORPHOLOGY YES; Platelet Count 232 K/mm3 (150-450); RBC Distribution Width CV 18.8 % (11.6-14.6); RBC Distribution Width SD 54.5 fl (35.1-43.9); Red Blood Count 5.41 M/mm3 (4.2-5.4)
[2022-06-25 06:07] LABS: Differential Indicated MANUAL DIFF
[2022-06-25 06:23] LABS: Eosinophil 1 % (0-5); Lymphocyte 6 % (19-41); Metamyelocyte 1 % (0-1); Monocyte 4 % (0-10); Myelocyte 2 % (0-0); Neutrophil-Band 5 % (0-5); Neutrophil-Segmented 80 % (47-70); Platelet Estimate ADEQUATE (ADEQ); Promyelocyte 1 % (0-0); Total Cells Counted 100 (MANUAL DIFF)
[2022-06-25 06:24] LABS: Absolute Neutrophil Count 8.5 X10^3/uL (2.0-7.7); Neutrophil # 8.51 X10^3/uL (2.7-7.7); Red Cell Morphology N CHROM NORMAL (NORM C&C); Stomatocyte RARE
[2022-06-25 06:25] LABS: Anion Gap 5 (5-15); BUN 10 mg/dL (7-18); BUN/Creat Ratio 16.6 RATIO (10-20); Calcium,Total 8.7 mg/dL (8.5-10.1); Chloride 100 mmol/L (98-107); EST Glomerular Filtration Rate 113 mL/min (>60); Est Glom Filt Rate - Afr Amer 137 mL/min (>60); Estimated Creatinine Clearance 115.67 ml/min; Glucose 137 mg/dL (74-106); Potassium 4.4 mmol/L (3.5-5.1); Sodium Level 140 mmol/L (136-145)
[2022-06-25] MEDS: Gabapentin 600 MG Tablet PO ×3 (06:25→21:07)
[2022-06-25 07:10] LABS: Bedside Glucose 119 mg/dL (74-106)
[2022-06-25] MEDS: metFORMIN (XR) 500 MG Tablet 1000 MG PO (09:12)
[2022-06-25] MEDS: Potassium Chloride Oral Tablet 20 MEQ PO ×2 (09:12→17:12)
[2022-06-25] MEDS: Losartan Potassium 100 MG Tablet PO ×2 (09:13→09:15)
[2022-06-25] MEDS: Diclofenac 75 MG Tablet PO ×2 (09:13→17:12)
[2022-06-25] MEDS: Furosemide 20 MG/2 ML VIAL IV ×2 (09:13→17:11)
[2022-06-25] MEDS: amLODIPine 10 MG Tablet PO (09:14)
[2022-06-25] MEDS: Sertraline 100 MG Tablet PO (09:14)
[2022-06-25] MEDS: Heparin Injection (Vial) 5,000 UNIT/ML VIAL 5000 UNIT SC ×2 (09:15→21:05)
[2022-06-25] MEDS: Ceftriaxone 1 GM/50 ML BAG IV (09:46)
--- NOTE | 2022-06-25 09:49 | WOUNDNOTE ---
wound photo: right foot
--- NOTE | 2022-06-25 09:51 | WOUNDNOTE ---
wound photo: left foot
--- NOTE | 2022-06-25 09:52 | WOUNDNOTE ---
wound photo: left foot
[2022-06-25 09:55] LABS: Pathologist Review Reviewed
[2022-06-25 10:40] LABS: D-Dimer Quantitative (DVT/PE) 2.15 FEU/ug/m (0.27-0.49)
--- NOTE | 2022-06-25 10:44 | CT_ITS ---
STUDY: CTA CHEST REASON FOR EXAM: Female, 47 years old. Hypoxia. RADIATION DOSAGE (If Supplied By Facility): CTDIvol = ( 21.41 ) mGy, DLP = ( 755.16 ) mGycm TECHNIQUE: The examination was performed with the intravenous administration of IV 100mL Isovue-370. Post-processing of the angiographic images was performed, with multiplanar reformation and 3D reconstruction. Individualized dose optimization techniques were used for this CT. COMPARISON: Comparison is made with prior CTA of the chest dated 08/12/2021 and prior chest radiograph done 06/24/2022. FINDINGS: Normal enhancement of the main pulmonary artery and right and left pulmonary arteries. Normal enhancement of the bilateral peripheral pulmonary arteries. There is no demonstrated pulmonary embolism. Normal thoracic aorta and visualized great vessels. There is no demonstrated aortic dissection. Normal heart and pericardium. There are visualized mediastinal lymph nodes, which are within normal size limits, and with normal morphology. Normal hilar regions. Normal visualized trachea and bronchi. The lungs are well expanded. Mild degree of increased linear markings at the left lung base. Nonspecific groundglass appearance in the upper lobes slightly more prominent on the right side. No definite pulmonary infiltrate is seen. Normal pleura. Normal chest wall structures. There are degenerative changes of thoracic spine. Findings suggestive of a hemangioma of the mid and lower dorsal vertebrae. Findings suggestive of hepatomegaly. CT/CTA Chest W/WO Contrast IMPRESSION: Nonspecific groundglass appearance in the upper lobes more prominent on the right side. Mild degree of increase in markings at the left lung base. No evidence of pulmonary embolism. Electronically Signed: Alexander Thomas MD at 12:07 EST ,
[2022-06-25 12:06] LABS: Bedside Glucose 109 mg/dL (74-106)
[2022-06-25] MEDS: Glucerna Shake 120 ML LIQUID PO ×3 (14:09→21:05)
--- NOTE | 2022-06-25 17:02 | PN.HOSP_ITS ---
Subjective Subjective Patient was seen and examined today, she still is requiring 3 L of nasal cannula oxygen to maintain her pulse ox. Patient's white blood cell count remained stable. I had a D-dimer performed on the patient today and it was elevated so I obtained a CTA of the chest, this showed nonspecific groundglass appearance in the upper lobes more prominent on the right side, there is no evidence of pulmonary embolism. I talked with the wound nurse today about her wounds, she states that the left foot still appears reddened and swollen. Wound culture shows no growth at this time. Blood culture shows no growth in 48 hours. Objective Data Objective Data Vital Signs: Vital Signs Temp Pulse Resp BP Pulse Ox O2 Del Method O2 Flow Rate 98.3 F 74 16 128/62 H 94 Nasal Cannula 3 06/25/22 14:30 06/25/22 14:30 06/25/22 14:30 06/25/22 14:30 06/25/22 14:30 06/25/22 14:30 06/25/22 14:30 Oxygen Flow Rate (L/min) 3 Oxygen Delivery Method Nasal Cannula Weight: 172.3 kg Body Mass Index (BMI) 57.7 Intake & Output: Intake and Output for Last 24 Hours 06/23/22 06/24/22 06/25/22 23:59 23:59 23:59 Intake Total 1012 / 1012 2080 / 2080 1620 / 1620 Balance 1012 / 1012 0 / 2080 1620 / 1620 Lab / Micro Data Result Diagrams: 06/25/22 04:32 06/25/22 04:32 Labs: Laboratory Results - last 24 hr 06/23/22 : S.aureus Protein A PCR Cancelled, MRSA (PCR) Cancelled 06/24/22 06:03: Diff Path Review Reviewed 06/24/22 16:42: POC Glucose 114 H 06/24/22 21:08: POC Glucose 131 H 06/24/22 23:12: Vancomycin Trough 10.8 06/25/22 04:32: WBC 10.0, RBC 5.41 H, Hgb 12.6, Hct 44.1, MCV 81.5, MCH 23.3 L, MCHC 28.6 L, RDW Std Deviation 54.5 H, RDW Coeff of Luis 18.8 H, Plt Count 232, MPV 11.5, Neut % (Auto) Not Reportable, Absolute Neuts (auto) 8.5 H, Absolute Lymphs (auto) 0.60 L, Total Counted 100, Neutrophils % (Manual) 80 H, Band Neutrophils % 5, Lymphocytes % (Manual) 6 L, Monocytes % (Manual) 4, Eosinophils % (Manual) 1, Metamyelocytes % 1, Myelocytes % 2 H, Promyelocytes % 1 H, Diff Path Review May foll, Platelet Estimate ADEQUATE, RBC Morphology N CHROM, Stomatocytes RARE 06/25/22 04:32: Sodium 140, Potassium 4.4, Chloride 100, Carbon Dioxide 35.0 H, Anion Gap 5, BUN 10, Creatinine 0.60, Estim Creat Clear Calc 115.67, Est GFR (MDRD) Af Amer 137, Est GFR (MDRD) Non-Af 113, BUN/Creatinine Ratio 16.6, Glucose 137 H, Calcium 8.7 06/25/22 06:25: POC Glucose 119 H 06/25/22 10:18: D-Dimer Quant (PE/DVT) 2.15 H* 06/25/22 11:46: POC Glucose 109 H Micro: Microbiology 06/23/22 10:50 Blood Culture (Wb) - Anticubital Right Blood Culture - Preliminary No growth in 48 hours. 06/23/22 11:23 Blood Culture (Wb) - Right Wrist Blood Culture - Preliminary 06/23/22 15:00 Wound - Left Foot Gram Stain - Final 06/23/22 15:00 Wound - Left Foot Wound Culture - Preliminary No growth-Final to follow Radiography Diagnostic Testing: Radiology Impression Chest CTA 06/25/22 10:44 IMPRESSION: Nonspecific groundglass appearance in the upper lobes more prominent on the right side. Mild degree of increase in markings at the left lung base. No evidence of pulmonary embolism. Electronically Signed: Alexander Thomas MD at 12:07 EST , Physical Exam Narrative Patient is morbidly obese Const alert, oriented x3 and no apparent distress General Appearance: cooperative, well kempt and well developed Orientation / Consciousness: awake, oriented to person, oriented to place and oriented to time HEENT normocephalic, head/scalp atraumatic, hearing grossly normal bilaterally and moist oral mucous membranes Eyes PERRL, EOMs intact bilaterally and conjunctivae normal Neck supple, no JVD and thyroid normal General: trachea midline Resp normal respiratory effort, no retractions, no use of accessory muscles and clear to auscultation bilaterally Auscultation: Negative for rales, rhonchi or wheezes Cardio regular rate, regular rhythm, S1 normal heart sound, S2 normal heart sound, no murmurs, no rub and no gallops GI normal to inspection, nondistended, normoactive bowel sounds, soft to palpation, non-tender and non-distended GI Narrative: Patient is morbidly obese Extremity Extremity Narrative: There is marked edema noted over the left lower leg as compared with the right lower leg, there are extensive areas of psoriasis noted over both lower legs worse on the left, her legs were not completely examined due to the fact they were wrapped with surgical dressing Skin Narrative: Generalized redness and swelling is noted over the left lower leg along with extensive psoriasis over both the left and right lower legs-worse on the left.? Neuro oriented x3, CN's II-XII intact bilaterally, moves all extremities, no focal motor deficits and no sensory deficits noted Sensorium / Orientation: awake, alert, oriented to person, oriented to place and oriented to time Speech: speech normal Psych affect normal Assessment & Plan Assessment/Plan (1) Cellulitis of left lower extremity: PLAN: Plan #1 left lower leg cellulitis-continue present IV antibiotics #2 chronic psoriasis-patient states she is on Taltz and triamcinolone cream, triamcinolone cream will be continued #3 morbid obesity-complicates care, medical course, recovery, and prognosis #4 type 2 diabetes-blood sugars will be monitored via fingerstick blood sugars, sign scale insulin will be used, patient will remain on her home medications. Patient's blood sugar appears under good control at this time. #5 mild pulmonary hypertension-complicates care, medical course, recovery, and prognosis #6 essential hypertension-patient will remain on her current medications #7 chronic depression-patient is on Zoloft #8 hypoxia-probably secondary to hypoventilation, supplemental oxygen will be co ntinued as needed Total clinical time spent by myself addressing the patient's medical issues, reviewing all the data, and collaborating with patient's care team: 37 minutes Charges/Coding Visit Charges Inpatient E&M: 68655 Subs Hosp L2
[2022-06-25 17:05] LABS: Bedside Glucose 91 mg/dL (74-106)
[2022-06-25] MEDS: Acetaminophen 325 MG Tablet 650 MG PO (20:18)
[2022-06-25 21:31] LABS: Bedside Glucose 121 mg/dL (74-106)
[2022-06-26 02:30] VITALS: BP 116/57; PULSE 66; RESP 18; TEMP 36.6; O2SAT 92
[2022-06-26 03:00] VITALS: RESP 18; O2SAT 95
[2022-06-26] MEDS: Gabapentin 600 MG Tablet PO ×3 (06:36→20:57)
[2022-06-26 07:00] LABS: Bedside Glucose 110 mg/dL (74-106)
[2022-06-26 07:52] VITALS: O2SAT 95
[2022-06-26] MEDS: Ceftriaxone 1 GM/50 ML BAG IV (08:39)
[2022-06-26 09:26] VITALS: BP 139/60; PULSE 72; RESP 15; TEMP 36.8; O2SAT 93
[2022-06-26] MEDS: Acetaminophen 325 MG Tablet 650 MG PO ×2 (09:28→19:48)
[2022-06-26] MEDS: Furosemide 20 MG/2 ML VIAL IV (09:30)
[2022-06-26] MEDS: 0.9% Saline Lock 10 ML Syringe IV ×2 (09:30→10:14)
[2022-06-26] MEDS: Potassium Chloride Oral Tablet 20 MEQ PO ×2 (09:30→16:45)
[2022-06-26] MEDS: Diclofenac 75 MG Tablet PO ×2 (09:31→16:45)
[2022-06-26] MEDS: Heparin Injection (Vial) 5,000 UNIT/ML VIAL 5000 UNIT SC (09:32)
[2022-06-26] MEDS: Sertraline 100 MG Tablet PO (09:33)
[2022-06-26] MEDS: metFORMIN (XR) 500 MG Tablet 1000 MG PO (09:33)
[2022-06-26] MEDS: amLODIPine 10 MG Tablet PO (09:34)
--- NOTE | 2022-06-26 10:22 | PCM.PN.HOSP ---
Subjective Subjective Is a 47-year-old morbidly obese white female who presented to emergency department was prehospital on 06/23/2022 with left lower extremity redness and swelling. She has a history of psoriasis and had increased redness and swelling in her left lower extremity. She was seen as an outpatient in the emergency department on 06/18/2022 and discharged with Keflex and Bactrim. She reported no significant improvement at that time and was placed on antibiotics. On presentation she had increased erythema and edema in the left lower extremity along with bullae formation on the top of her left foot. She had a mild leukocytosis on presentation and was given IV Unasyn and vancomycin and admitted for failure of outpatient treatment. Upon admission she was given ceftriaxone and vancomycin cultures of the bullae are negative however 1 of 2 blood cultures are positive for a staph species and a gram-positive elizabeth which has yet to be identified. She is also requiring supplemental oxygen which has not been something she required at baseline. D-dimer was obtained and found to be elevated therefore CTA of her chest was performed and found nonspecific groundglass appearance in the upper lobes more predominant and on the right side than the lower lobes. Patient states she is feeling better overall. Indicates the redness and swelling has decreased. Is asking when she will be able to go home. We did discuss possible discharge tomorrow if she is clinically stable. I did discuss with her 1 of 2 blood cultures is positive for a gram-positive rods and a staph species that has not yet been identified. We also discussed the need for checking an ABG on room air to rule out obesity hypoventilation syndrome. Objective Data Objective Data Vital Signs: Vital Signs Temp Pulse Resp BP Pulse Ox O2 Del Method O2 Flow Rate 98.3 F 72 15 139/60 H 93 Nasal Cannula 3 06/26/22 09:26 06/26/22 09:26 06/26/22 09:26 06/26/22 09:26 06/26/22 09:26 06/26/22 10:17 06/26/22 10:17 Oxygen Flow Rate (L/min) 3 Oxygen Delivery Method Nasal Cannula Weight: 172.3 kg Body Mass Index (BMI) 57.7 Intake & Output: Intake and Output for Last 24 Hours 06/24/22 06/25/22 06/26/22 23:59 23:59 23:59 Intake Total 2079 2079 1385 / 1385 Balance 2079 1385 / 1385 Lab / Micro Data Result Diagrams: 06/25/22 04:32 06/25/22 04:32 Labs: Laboratory Results - last 24 hr 06/25/22 10:18: D-Dimer Quant (PE/DVT) 2.15 H* 06/25/22 11:46: POC Glucose 109 H 06/25/22 16:47: POC Glucose 91 06/25/22 21:03: POC Glucose 121 H 06/26/22 06:36: POC Glucose 110 H Micro: Microbiology 06/23/22 11:23 Blood Culture (Wb) - Right Wrist Blood Culture - Preliminary Gram positive elizabeth Staphylococcus species 06/23/22 15:00 Wound - Left Foot Gram Stain - Final 06/23/22 15:00 Wound - Left Foot Wound Culture - Final No growth aerobically. 06/23/22 10:50 Blood Culture (Wb) - Anticubital Right Blood Culture - Preliminary No growth in 48 hours. Radiography Diagnostic Testing: Radiology Impression Chest CTA 06/25/22 10:44 IMPRESSION: Nonspecific groundglass appearance in the upper lobes more prominent on the right side. Mild degree of increase in markings at the left lung base. No evidence of pulmonary embolism. Electronically Signed: Alexander Thomas MD at 12:07 EST Reading Location ID and State: [facility] / [place] , Service support , Physical Exam Const alert, oriented x3, no apparent distress and well nourished Constitutional Narrative: Morbidly obese white female sitting up in a chair at the bedside, eating lunch, watching television, appears comfortable nontoxic HEENT head/scalp atraumatic and moist oral mucous membranes HEENT Narrative: Mallampati 3-4, no thrush Head and Scalp: normocephalic Neck Neck Narrative: Neck is short and thick with redundant tissue, no thyroid enlargement noted, trachea midline Resp normal respiratory effort, no use of accessory muscles and clear to auscultation bilaterally Resp Narrative: Diminished but clear Auscultation: Negative for crackles, rhonchi or wheezes Cardio regular rate, regular rhythm, S1 normal heart sound, S2 normal heart sound, no murmurs, no rub, no gallops and no clicks GI normal to inspection, nondistended, normoactive bowel sounds, soft to palpation and non-tender Extremity Extremity Narrative: Left lower extremity with dressing in place, erythema is retracting from outlined area noted at the time of presentation, chronic bilateral lower extremity pitting edema, pedal pulses are 1+ but cap refill is 2+ bilateral lower extremities Neuro oriented x3, moves all extremities and no focal motor deficits Speech: speech normal Psych affect normal Psych Narrative: Appears comfortable, pleasant, appropriately interactive Assessment & Plan Assessment/Plan (1) Cellulitis of left leg: (2) Weakness: (3) Positive blood culture: (4) Leukocytosis: (5) Immunosuppression: (6) Hypoxia: PLAN: Plan Left lower extremity cellulitis/positive blood cultures -Continue Rocephin and vancomycin -Doppler negative -Cultures of bullae is negative -1 of 2 blood cultures positive for staph species as well as a gram-positive elizabeth -Repeat blood cultures -We will hold on ID consultation at this time as patient clinically is improved and cultures are 1 of 2 positive which could be contaminant -Await further identification -Patient is immunosuppressed at baseline secondary to her history of psoriasis and psoriatic arthritis Hypoxia -Suspect component of obesity hypoventilation syndrome along with possible RV dysfunction and acute heart failure versus COPD -ABG does show chronic hypercapnia as well as chronic hypoxia -AA gradient is 20.23 with her normal being 15 mmHg -Will need discharged with supplemental oxygen -Patient would also qualify for trilogy based on ABGs drawn during her hospitalization and previous hospitalizations -Will discuss with her in a.m. -BMI is 57.8 -Patient does appear to have chronic bicarbonate elevation on her BMP which I suspect she is chronically hypercapnic as well -Patient is on Lasix 20 mg IV push twice daily -Discontinue -Start Bumex 4 mg p.o. twice daily HFpEF-chronic -Unclear if there is currently an acute component -Echo done in 2020 shows stage III diastolic dysfunction -Patient also has documented secondary pulmonary artery hypertension in her chart -Continue aggressive diuresis with transition of IV Lasix 20 mg twice daily to Bumex 4 mg twice daily -Does not appear to be on any diuretics at baseline -Check a.m. BMP Leukocytosis -Now resolved -Did have left shift with an 86.8% neutrophilia on admission -Repeat CBC in a.m. Chronic immunosuppression -Patient is on ixekizumab at baseline for her psoriasis/psoriatic arthritis -We will consult ID with positive blood cultures DM-2 -Controlled -A1c was 5.7 a year ago -Blood sugars overall have been well controlled while here -Continue subcu insulin -Continue metformin 1000 mg p.o. daily Diabetic neuropathy -Continue home gabapentin 600 3 times daily Hypertension -Continue amlodipine 10 mg daily -Continue losartan 100 mg p.o. daily Morbid obesity -BMI is 57.8 -Recommend weight loss -Complicates treatment, prognosis, outcomes Depression -Continue home Zoloft DVT prophylaxis -Discontinue heparin and convert to Lovenox 40 mg SQ twice daily with BMI 57.8 CODE STATUS -Full code Charges/Coding Visit Charges Inpatient E&M: 91959 Subs Hosp L2
[2022-06-26 12:10] LABS: Base Excess 12 mmol/L (-2 to +2); Bicarbonate 37.4 mmol/L (22-26); Blood Gas Specimen Type ART; O2 Delivery Device Cannula; PO2 76 mmHG (75-100); SITE L Radial; SO2 94 % (95-99); Total Carbon Dioxide 39 mmol/L; pCO2 64.3 mmHg (35-45); pH 7.37 (7.35-7.45)
[2022-06-26 12:10] LABS: Bedside Glucose 99 mg/dL (74-106)
--- NOTE | 2022-06-26 14:45 | CASEMGMT ---
WHITNEY GIBSON: Notified of need for home O2 at discharge. WHITNEY GIBSON to pt's room. Pt up in chair and alert. Pt states she has an O2 concentrator at home that she had gotten from [employer] last summer. States she also has portable tanks but does not know if they are full. States she does not have tubing with extensions to navigate her home. Call placed to [facility] on-call high lift driver re: obtaining tubing at discharge for patient. No return call has been received as of this time. Unable to verify if pt has an active prescription for home o2 at this time. Green [facility]. Tammi Hawkins RN CM
[2022-06-26 15:21] VITALS: BP 124/75; PULSE 75; RESP 16; TEMP 36.8; O2SAT 93
[2022-06-26 15:40] LABS: Allen Test Positive; Base Excess 12 mmol/L (-2 to +2); Bicarbonate 36.5 mmol/L (22-26); Blood Gas Specimen Type ART; O2 Delivery Device Room Air; PO2 62 mmHG (75-100); SITE R Radial; SO2 91 % (95-99); Total Carbon Dioxide 38 mmol/L; pH 7.44 (7.35-7.45)
[2022-06-26] MEDS: Bumetanide 2 MG Tablet 4 MG PO (16:45)
[2022-06-26 17:10] LABS: Bedside Glucose 144 mg/dL (74-106)
[2022-06-26] MEDS: Enoxaparin 40 MG/0.4 ML Syringe SC (20:57)
[2022-06-26 21:00] VITALS: BP 135/65; PULSE 74; RESP 16; TEMP 36.9; O2SAT 94
[2022-06-27] MEDS: 0.9% Saline Lock 10 ML Syringe IV (00:01)
[2022-06-27 00:39] LABS: Vancomycin, Trough Level 11.1 ug/mL (5.0-15.0)
[2022-06-27 01:06] LABS: Bedside Glucose 117 mg/dL (74-106)
--- NOTE | 2022-06-27 01:25 | PCM.RX.CS ---
Consult Pharmacy has been consulted to manage selected antiobiotic: Vancomycin Type of Consult: Follow-up Suspected Infection: Skin/Soft tissue Prior Doses of Antibiotics Received/Current Regimen: Medications Vancomycin HCl 1,750 mg/ (Sodium Chloride) 535 mls @ 250 mls/hr IV Q12H NIKI Last Admin: 06/27/22 00:06 Dose: 200 mls/hr Labs: Sodium 140 mmol/L (136-145) 06/25/22 04:32 Potassium 4.4 mmol/L (3.5-5.1) 06/25/22 04:32 Chloride 100 mmol/L (98-107) 06/25/22 04:32 Carbon Dioxide 35.0 mmol/L (21.0-32.0) H 06/25/22 04:32 Anion Gap 5 (5-15) 06/25/22 04:32 BUN 10 mg/dL (7-18) 06/25/22 04:32 Creatinine 0.60 mg/dL (0.55-1.02) 06/25/22 04:32 Est GFR (MDRD) Af Amer 137 mL/min (>60) 06/25/22 04:32 Est GFR (MDRD) Non-Af 113 mL/min (>60) 06/25/22 04:32 BUN/Creatinine Ratio 16.6 RATIO (10-20) 06/25/22 04:32 Glucose 137 mg/dL (74-106) H 06/25/22 04:32 Vancomycin Trough 11.1 ug/mL (5.0-15.0) 06/26/22 23:43 Microbiology: Microbiology 06/23/22 11:23 Blood Culture (Wb) - Right Wrist Blood Culture - Preliminary Gram positive elizabeth Staphylococcus species 06/23/22 15:00 Wound - Left Foot Gram Stain - Final 06/23/22 15:00 Wound - Left Foot Wound Culture - Final No growth aerobically. 06/23/22 10:50 Blood Culture (Wb) - Anticubital Right Blood Culture - Preliminary No growth in 48 hours. Weight used for dosin.3 kg Estimated Creatinine Clearance: >120 Goal Trough: 10-15 mcg/mL Pharmacy Plan for Drug Dosing: Vancomycin trough level of 11.1 was within the target range of 10-15. Will continue dosing at 1750mg q12h. Since two levels have come back w/in range, the next trough will be drawn in four days. Pharmacy Service will continue to monitor and adjust dosing as required. Follow-Up Labs: Trough Vancomycin Labs to be done on [date and time ordered]: 06/30/22 @[id number]
[2022-06-27 03:15] VITALS: BP 153/73; PULSE 71; RESP 18; TEMP 36.6; O2SAT 93
[2022-06-27 06:16] LABS: Absolute Lymphocyte Count 1.22 X10^3/uL (0.83-4.51); Absolute Neutrophil Count 6.6 X10^3/uL (2.0-7.7); Basophil# 0.03 X10^3/uL; Basophil% 0.3 % (0-1); Eosinophil# 0.21 X10^3/uL; Eosinophils% 2.4 % (0-5); Hematocrit 45.9 % (37-47); Hemoglobin 12.9 g/dL (12.0-15.0); Lymphocyte # 1.22 X10^3/ul (0.83-4.51); Lymphocyte % 13.8 % (19-41); Mean Corp Hgb Conc 28.1 g/dL (32-36); Mean Corpuscular Hgb 23.1 pg (27.0-32.0); Mean Corpuscular Volume 82.1 fL (81-99); Mean Platelet Vol. 11.4 fl (6.2-12.0); Monocyte# 0.55 X10^3/uL; Monocyte% 6.2 % (0-10); NRBC Flagged by Analyzer 0 % (0-5); Neutrophil # 6.62 X10^3/uL (2.7-7.7); Neutrophil % 74.9 % (47-70); Platelet Count 247 K/mm3 (150-450); RBC Distribution Width CV 18.3 % (11.6-14.6); RBC Distribution Width SD 53.1 fl (35.1-43.9); Red Blood Count 5.59 M/mm3 (4.2-5.4); White Blood Count 8.8 K/mm3 (4.4-11.0)
[2022-06-27] MEDS: Gabapentin 600 MG Tablet PO (06:24)
[2022-06-27 06:56] LABS: ALB/GLOB Ratio 0.4 RATIO (0.9-2.4); AST(SGOT) 11 U/L (15-37); Alanine Aminotransfer ALT/SGPT 17 U/L (13-56); Albumin, Serum 2.2 g/dL (3.2-5.0); Alkaline Phosphatase 113 U/L (45-117); Anion Gap 4 (5-15); BUN 12 mg/dL (7-18); BUN/Creat Ratio 21.6 RATIO (10-20); Calcium,Total 8.9 mg/dL (8.5-10.1); Chloride 96 mmol/L (98-107); Creatinine, Serum 0.56 mg/dL (0.55-1.02); EST Glomerular Filtration Rate 124 mL/min (>60); Est Glom Filt Rate - Afr Amer 150 mL/min (>60); Estimated Creatinine Clearance 123.93 ml/min; Globulin 5.7 g/dL (2.2-4.2); Glucose 121 mg/dL (74-106); Magnesium 1.9 mg/dL (1.6-2.6); Phosphorus 4.9 mg/dL (2.5-4.9); Potassium 4.2 mmol/L (3.5-5.1); Protein, Total 7.9 g/dL (6.4-8.2); Sodium Level 138 mmol/L (136-145)
[2022-06-27 07:05] LABS: Bedside Glucose 135 mg/dL (74-106)
[2022-06-27 07:52] VITALS: O2SAT 93
[2022-06-27 09:21] VITALS: BP 128/55; PULSE 77; RESP 16; TEMP 36.9; O2SAT 93
[2022-06-27] MEDS: Potassium Chloride Oral Tablet 20 MEQ PO (09:23)
[2022-06-27] MEDS: Diclofenac 75 MG Tablet PO (09:24)
[2022-06-27] MEDS: Bumetanide 2 MG Tablet 4 MG PO (09:24)
[2022-06-27] MEDS: Enoxaparin 40 MG/0.4 ML Syringe SC (09:26)
[2022-06-27] MEDS: Sertraline 100 MG Tablet PO (09:26)
[2022-06-27] MEDS: Losartan Potassium 100 MG Tablet PO (09:27)
[2022-06-27] MEDS: amLODIPine 10 MG Tablet PO (09:27)
[2022-06-27] MEDS: Ceftriaxone 1 GM/50 ML BAG IV (09:32)
[2022-06-27 11:21] VITALS: O2SAT 86; O2SAT 88; O2SAT 90; O2SAT 95
[2022-06-27] MEDS: Acetaminophen 325 MG Tablet 650 MG PO (11:33)
--- NOTE | 2022-06-27 11:48 | DS.PCM_ITS ---
Providers Date of Admission: 06/23/22 Primary Care Physician: Dr. Heath Thomas MD Consultations 06/23/22 13:32 Consult: Onc/Wound/nursing home manager Routine Comment: Reason for Consult:: LLE Blister 06/23/22 14:01 Consult: Onc/Wound/nursing home manager Routine Comment: Reason for Consult:: left foot blisters Reason For Visit: CELLULITIS LEFT LEG, FAILED OUTPATIENT THERAPY Diagnosis Discharge Diagnosis (1) Cellulitis of left leg: Status: Acute Code(s): L03.116 - Cellulitis of left lower limb (2) Weakness: Status: Acute Code(s): R53.1 - Weakness (3) Positive blood culture: Status: Acute Code(s): R78.81 - Bacteremia (4) Leukocytosis: Status: Acute Code(s): D72.829 - Elevated white blood cell count, unspecified (5) Immunosuppression: Status: Acute Code(s): D84.9 - Immunodeficiency, unspecified (6) Hypoxia: Status: Acute Code(s): R09.02 - Hypoxemia Plan Left lower extremity cellulitis/positive blood cultures -Continue Rocephin and vancomycin -Doppler negative -Cultures of bullae is negative -1 of 2 blood cultures positive for staph species as well as a gram-positive elizabeth -Repeat blood cultures -We will hold on ID consultation at this time as patient clinically is improved and cultures are 1 of 2 positive which could be contaminant -Await further identification -Patient is immunosuppressed at baseline secondary to her history of psoriasis and psoriatic arthritis Hypoxia -Suspect component of obesity hypoventilation syndrome along with possible RV dysfunction and acute heart failure versus COPD -ABG does show chronic hypercapnia as well as chronic hypoxia -AA gradient is 20.23 with her normal being 15 mmHg -Will need discharged with supplemental oxygen -Patient would also qualify for trilogy based on ABGs drawn during her hospitalization and previous hospitalizations -Will discuss with her in a.m. -BMI is 57.8 -Patient does appear to have chronic bicarbonate elevation on her BMP which I suspect she is chronically hypercapnic as well -Patient is on Lasix 20 mg IV push twice daily -Discontinue -Start Bumex 4 mg p.o. twice daily HFpEF-chronic -Unclear if there is currently an acute component -Echo done in 2020 shows stage III diastolic dysfunction -Patient also has documented secondary pulmonary artery hypertension in her chart -Continue aggressive diuresis with transition of IV Lasix 20 mg twice daily to Bumex 4 mg twice daily -Does not appear to be on any diuretics at baseline -Check a.m. BMP Leukocytosis -Now resolved -Did have left shift with an 86.8% neutrophilia on admission -Repeat CBC in a.m. Chronic immunosuppression -Patient is on ixekizumab at baseline for her psoriasis/psoriatic arthritis -We will consult ID with positive blood cultures DM-2 -Controlled -A1c was 5.7 a year ago -Blood sugars overall have been well controlled while here -Continue subcu insulin -Continue metformin 1000 mg p.o. daily Diabetic neuropathy -Continue home gabapentin 600 3 times daily Hypertension -Continue amlodipine 10 mg daily -Continue losartan 100 mg p.o. daily Morbid obesity -BMI is 57.8 -Recommend weight loss -Complicates treatment, prognosis, outcomes Depression -Continue home Zoloft DVT prophylaxis -Discontinue heparin and convert to Lovenox 40 mg SQ twice daily with BMI 57.8 CODE STATUS -Full code Medications at Discharge Home Medications gabapentin 600 mg tablet 600 mg PO TID NERVE PAIN 08/15/18 diclofenac sodium 75 mg tablet,delayed release 75 mg PO BIDCM PAIN 01/02/19 blood pressure monitor #1 ea 08/20/20 blood sugar diagnostic (True Metrix Glucose Test Strip) #100 ea 09/23/20 ixekizumab 80 mg/mL subcutaneous syringe 80 mg subcut QMONTH AUTO IMMUNE 10/01/20 triamcinolone acetonide 0.1 % topical cream 1 applic topical BID #80 grams 12/11/20 lancets 28 gauge (FreeStyle Lancets) #100 ea 02/09/21 amlodipine 10 mg tablet 10 mg PO DAILY BP #90 tabs 09/21/21 sertraline 100 mg tablet 100 mg PO DAILY #90 tabs 10/01/21 losartan 100 mg tablet 100 mg PO DAILY BP #90 tabs 05/31/22 sulfamethoxazole 800 mg-trimethoprim 160 mg tablet 1 tab PO BID #20 TABLETS 06/18/22 cephalexin 500 mg capsule 500 mg PO Q6H 06/23/22 metformin 500 mg tablet,extended release 24 hr 1,000 mg PO DAILY DIABETES 06/23/22 Hospital Course Procedures - (X-ray foot/CTA chest/left lower extremity Doppler/chest x-ray) Summary of Care Provided Minutes Spent on Discharge: 37 Hospital Course: Is a 47-year-old morbidly obese white female who presented to emergency department was prehospital on 06/23/2022 with left lower extremity redness and swelling.? She has a history of psoriasis and had increased redness and swelling in her left lower extremity.? She was seen as an outpatient in the emergency department on 06/18/2022 and discharged with Keflex and Bactrim.? She reported no significant improvement at that time and was placed on antibiotics.? On presentation she had increased erythema and edema in the left lower extremity along with bullae formation on the top of her left foot.? She had a mild leukocytosis on presentation and was given IV Unasyn and vancomycin and admitted for failure of outpatient treatment.? Upon admission she was given ceftriaxone and vancomycin cultures of the bullae are negative however 1 of 2 blood cultures are positive for a staph species and a gram-positive elizabeth which has yet to be identified, which was still the case on the day of discharge. Repeat blood cultures were obtained on 06/28/2021. I suspect the organisms above were contaminant and we will follow these and repeat blood cultures. Patient will be discharged on oral antibiotics. Clinically she was much improved with a normalized white count and significant retraction of the erythema in her left lower extremity. The area of the bullae had been eradicated and is healing. She will complete her course of antibiotics with the Keflex and Bactrim that she has at home (she was on ceftriaxone and vancomycin during her hospital course). The bullae had no growth from the wound culture. She is to follow-up with the wound center and indicated she would call tomorrow for an appointment. She has been seen there previously. She is also requiring supplemental oxygen which has not been something she required at baseline.? D-dimer was obtained and found to be elevated therefore CTA of her chest was performed and found nonspecific groundglass appearance in the upper lobes more predominant and on the right side than the lower lobes. I obtained a ABG on room air which showed a pH of 7.44, PCO2 of 54.0, PO2 of 62, and a sat of 91%. Her AA gradient was calculated to be 20 with a normal for her age correction being 15. I suspect she has combined etiology of obesity hypoventilation syndrome, obstructive sleep apnea, COPD, and likely some right-sided heart failure which is currently compensated causing her hypoxia. We did check her home O2 requirements at discharge and the patient needs no oxygen at rest as her sats were between 90 and 92% but does require 3 L with exertion as she became hypoxic into the 80s with exertion. I have strongly recommended that she continue on her course of smoking cessation and that she follow-up with pulmonary medicine within the next month. She is to call on Tuesday to make an appointment to be seen with outpatient pulmonary medicine. She does have oxygen tank at home. She also continues to try to lose weight and plans on going through bariatric surgery. She has lost a significant amount of weight thus far indicating she was previously over 400 pounds. She had been going through [facility] with regards to her weight loss journey but states she has not heard back from them and they told her they would call her once COVID became less of a factor and they can get her scheduled for surgery. I did indicate to her that they like we will not do any surgery until we get her leg cleaned up however I discussed with her about calling back and touching base with them again to see where they are in this process and she stated she would do this. She was able to be discharged home in stable condition on 06/27/2022. I will continue to follow her cultures and adjust antibiotics if needed. This was voiced to her and she voiced understanding. She is to follow-up again with her primary care physician within the next 1 to 2 weeks, pulmonary medicine within the next month, and wound care center this week. Discharge diagnoses: Left lower extremity cellulitis Positive blood culture 1 of 2-suspect contaminant Hypoxia secondary to obesity hypoventilation syndrome, DARRICK, chronic RV dysfunction, COPD HFpEF-chronic Leukocytosis-resolved Chronic immunosuppression secondary to psoriatic arthritis/psoriasis DM-2 Diabetic neuropathy Hypertension Morbid obesity Depression Physical Exam Narrative Patient states she is feeling well. Feels her leg is much better, anxious to go home. States she has followed up with the wound center previously and will call tomorrow for follow-up appointment this week Const alert, oriented x3, no apparent distress and well nourished Constitutional Narrative: Morbidly obese, white female sitting up in bed, watching television, appears comfortable, nontoxic General Appearance: cooperative, comfortable, well kempt and well developed Orientation / Consciousness: awake, oriented to person, oriented to place and oriented to time Exam Limitations: no limitations Nutritional Appearance: morbidly obese HEENT normocephalic, head/scalp atraumatic, hearing grossly normal bilaterally and moist oral mucous membranes Eyes PERRL, EOMs intact bilaterally and conjunctivae normal Neck no lymphadenopathy, supple and no JVD Neck Narrative: Neck is short and thick with redundant tissue, no thyroid enlargement noted, trachea midline Resp normal respiratory effort, no retractions, no use of accessory muscles and clear to auscultation bilaterally Resp Narrative: Diminished but clear Auscultation: Negative for crackles, rales, rhonchi or wheezes Cardio regular rate, regular rhythm, S1 normal heart sound, S2 normal heart sound, no murmurs, no rub, no gallops and no clicks GI normal to inspection, nondistended, normoactive bowel sounds, soft to palpation, non-tender and non-distended GI Narrative: Patient is morbidly obese Extremity Extremity Narrative: Left lower extremity with dressing in place, erythema is retracting from outlined area noted at the time of presentation, chronic bilateral lower extremity pitting edema, pedal pulses are 1+ but cap refill is 2+ bilateral lower extremities Skin Skin Narrative: Generalized redness and swelling is noted over the left lower leg along with ext ensive psoriasis over both the left and right lower legs-worse on the left, redness has retracted significantly around the outlined area in the left lower extremity however patient still with significant psoriatic changes in the skin Neuro oriented x3, CN's II-XII intact bilaterally, moves all extremities, no focal motor deficits and no sensory deficits noted Neuro Narrative: Mild generalized weakness proximal greater than distal but no focal deficits Sensorium / Orientation: awake, alert, oriented to person, oriented to place and oriented to time Speech: speech normal Psych affect normal Psych Narrative: Appears comfortable, pleasant, appropriately interactive Weight / BMI Weight Weight: 172.3 kg Body Mass Index (BMI) 57.7 ABG / Lab / Microbiology Data Result Diagrams: 06/27/22 05:57 06/27/22 05:57 Laboratory: Laboratory Results - last 24 hr 06/26/22 11:47: POC Glucose 99 06/26/22 16:47: POC Glucose 144 H 06/26/22 20:56: POC Glucose 117 H 06/26/22 23:43: Vancomycin Trough 11.1 06/27/22 05:57: WBC 8.8, RBC 5.59 H, Hgb 12.9, Hct 45.9, MCV 82.1, MCH 23.1 L, MCHC 28.1 L, RDW Std Deviation 53.1 H, RDW Coeff of Luis 18.3 H, Plt Count 247, MPV 11.4, Immature Gran % (Auto) 2.400 H, Neut % (Auto) 74.9 H, Lymph % (Auto) 13.8 L, [place] % (Auto) 6.2, Eos % (Auto) 2.4, Baso % (Auto) 0.3, Absolute Neuts (auto) 6.6, Absolute Lymphs (auto) 1.22, Nucleated RBC % 0 06/27/22 05:57: Sodium 138, Potassium 4.2, Chloride 96 L, Carbon Dioxide 38.0 H, Anion Gap 4 L, BUN 12, Creatinine 0.56, Estim Creat Clear Calc 123.93, Est GFR (MDRD) Af Amer 150, Est GFR (MDRD) Non-Af 124, BUN/Creatinine Ratio 21.6 H, Glucose 121 H, Calcium 8.9, Phosphorus 4.9, Magnesium 1.9, Total Bilirubin 0.30, AST 11 L, ALT 17, Alkaline Phosphatase 113, Total Protein 7.9, Albumin 2.2 L, Globulin 5.7 H, Albumin/Globulin Ratio 0.4 L 06/27/22 06:23: POC Glucose 135 H Microbiology: Microbiology 06/23/22 11:23 Blood Culture (Wb) - Right Wrist Blood Culture - Preliminary Gram positive elizabeth Staphylococcus species 06/23/22 15:00 Wound - Left Foot Gram Stain - Final 06/23/22 15:00 Wound - Left Foot Wound Culture - Final No growth aerobically. 06/23/22 10:50 Blood Culture (Wb) - Anticubital Right Blood Culture - Preliminary No growth in 48 hours. ABG: ABG 06/26/22 06/26/22 12:04 15:33 Specimen Type ART ART Sample Site L Radial R Radial pH 7.37 7.44 Bicarbonate Actual 37.4 H 36.5 H Total CO2 39 38 Base Excess 12 H 12 H O2 Saturation 94 L 91 L ABG pCO2 64.3 H 54.0 H ABG pO2 76 62 L Carlos Manuel Test Positive O2 Delivery Device Cannula Room Air Liter Flow 3.0 D/C Instructions Discharge Diet: Low fat / Low cholesterol and 1800 Calorie Control Diet Discharge Activity: Return to Normal Activity Return to work on: 06/30/22 Keep extremity elevated above heart level: Left Leg Change Dressing in: leave in place till F/U (With wound center) Meaningful Use Info Meaningful Use Diagnoses (Choose all that apply): None applicable Discharge Plan Admission Admit Date/Time: 06/23/22 11:31 Attending Provider: Jacqueline Iqbal Primary Care Provider: Heath Thomas Consulting Providers: Raymon Gonzalez Additional Instructions / Restrictions: 1. Continue antibiotics previously prescribed with Bactrim and Keflex to complete antibiotic course 2. You require no oxygen at rest and 3 L with exertion 3. Please call preschool teacher's assistant listed below for follow-up to be seen within the next month or as soon as possible 4. Please call wound center to make follow-up appointment to be seen next week for left lower extremity wound care Discharge Orders/Prescriptions Prescriptions: Continued gabapentin 600 mg tablet 600 mg PO TID (DME) blood pressure monitor Kit See Rx Instructions .MEDSUPPLY Qty: 1 0RF Rx Instructions: Check blood pressure daily for hypertension I10 triamcinolone acetonide 0.1 % cream 1 applic topical BID Qty: 80 0RF (DME) lancets [FreeStyle Lancets] 28 gauge misc See Rx Instructions .ROUTE .MEDSUPPLY Qty: 100 1RF Rx Instructions: Check blood glucose daily for type 2 DM ixekizumab 80 mg/mL syringe 80 mg subcut QMONTH Label Comments: LAST DOSE OVER 1 MONTH- PENDING INSURANCE APPROVAL Rx Instructions: 24th of the month diclofenac sodium 75 MG tablet 75 mg PO BIDCM sulfamethoxazole-trimethoprim 800-160 mg tablet 1 tab PO BID Qty: 20 0RF metformin 500 mg tablet extended release 24 hr 1,000 mg PO DAILY Label Comments: take 2 tablets by mouth every evening cephalexin 500 mg capsule 500 mg PO Q6H (DME) True Metrix Glucose Test Strip Strip See Rx Instructions .ROUTE .MEDSUPPLY Qty: 100 6RF Rx Instructions: test blood glucose 3 times daily as directed for tpye 2 DM amlodipine 10 mg tablet 10 mg PO DAILY Qty: 90 3RF sertraline 100 mg tablet 100 mg PO DAILY Qty: 90 3RF losartan 100 mg tablet 100 mg PO DAILY Qty: 90 0RF Rx Instructions: take 1 tablet by mouth once daily Referrals / Follow Up: Leon Martino MD [Med Staff - Active Staff] - Within 1 Month (call for appt) Heath Thomas MD [Primary Care Provider] - Within 1 Week Disposition Disposition (needs filled in before D/C Order can be placed): Home, Self Care Charges/Coding Visit Charges Inpatient E&M: 57302 Disch Hosp >30min
[2022-06-27 12:00] LABS: Bedside Glucose 113 mg/dL (74-106)
[2022-06-27 12:09] VITALS: BP 128/55; PULSE 77; RESP 16; TEMP 36.9; O2SAT 93
--- NOTE | 2022-06-27 13:11 | NURSING ---
[facility] notified of updated prescription and faxed update to [facility].
[2022-06-28 10:49] LABS: Pathologist Review Reviewed
== END 2022-06-27 15:28 | disposition home or self-care (01) | DRG 603 ==
LOC: ED 11:37 → PCU 11:48
PROVIDERS: Internal Medicine; Admitting Provider Internal Medicine; Emergency Provider Emergency Medicine; PCP Internal Medicine; Visit Provider Internal Medicine
DX: L03.116 Cellulitis of left lower limb (principal); Z68.43 Body mass index [BMI] 50.0-59.9, adult; E66.2 Morbid (severe) obesity with alveolar hypoventilation; I50.32 Chronic diastolic (congestive) heart failure; I27.21 Secondary pulmonary arterial hypertension; I50.812 Chronic right heart failure; E11.40 Type 2 diabetes mellitus with diabetic neuropathy, unspecified; I11.0 Hypertensive heart disease with heart failure; J44.9 Chronic obstructive pulmonary disease, unspecified; L40.50 Arthropathic psoriasis, unspecified; M06.9 Rheumatoid arthritis, unspecified; F17.210 Nicotine dependence, cigarettes, uncomplicated; S90.822A Blister (nonthermal), left foot, initial encounter; X58.XXXA Exposure to other specified factors, initial encounter; R09.02 Hypoxemia; R53.1 Weakness; F32.A Depression, unspecified; Z79.84 Long term (current) use of oral hypoglycemic drugs; Z79.899 Other long term (current) drug therapy; R23.8 Other skin changes
CPT/HCPCS: 36415; 36600; 71046; 71275; 73630; 80048; 80053; 80202; 82803; 82962; 83605; 83735; 84100; 85025; 85027; 85379; 87040; 87070; 87077; 87186; 87205; 87640; 93971; 97802; 99283; J7030; J7040; A4216; J0295; J1940

== ENCOUNTER 2022-07-15 09:00 | Outpatient (CLI) | payer MEDICARE, MEDICAID, SELFPAY ==
[2022-07-15 10:51] LABS: Anion Gap 4 (5-15); BUN 11 mg/dL (7-18); BUN/Creat Ratio 18.5 RATIO (10-20); Calcium,Total 9.1 mg/dL (8.5-10.1); Chloride 102 mmol/L (98-107); Creatinine, Serum 0.59 mg/dL (0.55-1.02); EST Glomerular Filtration Rate 115 mL/min (>60); Est Glom Filt Rate - Afr Amer 139 mL/min (>60); Glucose 94 mg/dL (74-106); Sodium Level 139 mmol/L (136-145)
== END 2022-07-15 23:59 | disposition home or self-care (01) ==
LOC: LAB.FUTURE 09:02 → LAB 07-16 06:20
PROVIDERS: PCP Internal Medicine; Referring Provider Nurse Practitioner Family; Visit Provider Nurse Practitioner Family
DX: M51.37 Other intervertebral disc degeneration, lumbosacral region (principal); E11.621 Type 2 diabetes mellitus with foot ulcer; L97.522 Non-pressure chronic ulcer of other part of left foot with fat layer exposed; E11.69 Type 2 diabetes mellitus with other specified complication; M47.817 Spondylosis without myelopathy or radiculopathy, lumbosacral region; R60.0 Localized edema; I89.0 Lymphedema, not elsewhere classified; L40.9 Psoriasis, unspecified; F17.200 Nicotine dependence, unspecified, uncomplicated
CPT/HCPCS: 29580; 36415; 80048

== ENCOUNTER 2022-07-19 09:30 | Outpatient (RCR) | payer MEDICARE, MEDICAID, SELFPAY ==
[2022-07-05 09:36] VITALS: BP 156/88; PULSE 69; RESP 20; TEMP 35.8
--- NOTE | 2022-07-05 11:34 | PCM.WC.HP ---
History of Present Illness Date of Service: 07/05/22 Chief Complaint: Non healing surgical wound of left hand History of Wound: 45-year-old woman who recently was hospitalized 06/23/22 - 06/27/22 for cellulitis on her left leg that failed outpatient therapy. When she got home she developed a large blister on her dorsal portion of her left foot. She was discharged home on Keflex and Bactrim which she finishes today. She states she has a history of psoriasis/arthritis on her bilateral legs that have caused thick scabbing. She sees a pumping station engineer in [place] for this and has been on Ixekizumab without improvement in her symptoms. She states that she has had the dry, itchy patches on her legs that never improve for years and she also has psoriatic arthritis. She comes in today for evaluation of the ulcers on her left foot and bilateral lower leg edema. She denies fever, chills, nausea or vomiting at this time. Progress of Wound: Left dorsal foot ulcer into the subcutaneous tissue. It started as a blister and it drained and has not been showing any improvement. It is draining a significant amount of clear fluid. She also has an ulcer on the left lateral aspect of her foot. She has been covering these ulcers with dry gauze. She has thick, dry plaques of skin covering anterior portion of legs bilaterally that she states are very itchy, nothing helps improve it including the medication that her pumping station engineer has her on. [facility] Medical History (Reviewed 07/08/22 @ 10:46 by Yasmin Krishnan SENIOR WEALTH ADVISOR, SENIOR WEALTH ADVISOR-C) Abscess of hand, left Allergic dermatitis Arthritis Back problem Bilateral lower extremity edema Cellulitis of left leg without foot Chronic diastolic (congestive) heart failure Chronic venous insufficiency Colon cancer screening Degeneration of lumbar or lumbosacral intervertebral disc Degenerative disc disease, lumbar Depression Diabetes mellitus Essential (primary) hypertension Health care maintenance Hypoxia Immunosuppression Incomplete right bundle branch block Marijuana user Morbid obesity Nicotine dependence Non-healing surgical wound Primary osteoarthritis of left knee Psoriasis Psoriasis Psoriatic arthritis Radiculopathy of lumbosacral region Recurrent UTI Rheumatoid arthritis Secondary pulmonary arterial hypertension Severe sepsis Tobacco abuse Tobacco abuse counseling Type 2 diabetes mellitus Ulcer of left lower extremity Ulcer of left lower leg Home Medications gabapentin 600 mg tablet 600 mg PO TID NERVE PAIN 08/15/18 [History Last Taken 06/23/22] diclofenac sodium 75 mg tablet,delayed release 75 mg PO BIDCM PAIN 01/02/19 [History Last Taken 06/23/22] blood pressure monitor #1 ea 08/20/20 [Rx Last Taken Unknown] blood sugar diagnostic (True Metrix Glucose Test Strip) #100 ea 09/23/20 [Rx Last Taken Unknown] ixekizumab 80 mg/mL subcutaneous syringe 80 mg subcut QMONTH AUTO IMMUNE 10/01/20 [History Last Taken 2 Months Ago ~04/22/22] triamcinolone acetonide 0.1 % topical cream 1 applic topical BID #80 grams 12/11/20 [Rx Last Taken 1 Week Ago ~06/16/22] lancets 28 gauge (FreeStyle Lancets) #100 ea 02/09/21 [Rx Last Taken Unknown] amlodipine 10 mg tablet 10 mg PO DAILY BP #90 tabs 09/21/21 [Rx Last Taken 06/22/22] sertraline 100 mg tablet 100 mg PO DAILY #90 tabs 10/01/21 [Rx Last Taken 06/22/22] losartan 100 mg tablet 100 mg PO DAILY BP #90 tabs 05/31/22 [Rx Last Taken 06/22/22] sulfamethoxazole 800 mg-trimethoprim 160 mg tablet 1 tab PO BID #20 TABLETS 06/18/22 [Rx Last Taken 06/23/22] cephalexin 500 mg capsule 500 mg PO Q6H infection 06/23/22 [History Last Taken 06/23/22] metformin 500 mg tablet,extended release 24 hr 1,000 mg PO BID DIABETES 3 months #360 tabs 06/30/22 [Rx Last Taken Unknown] ammonium lactate 5 % lotion (Lac-Hydrin Five) 1 applic topical BID 30 days #226 grams 07/05/22 [Rx Last Taken Unknown] Allergy/AdvReac Type Severity Reaction Status Date / Time codeine Allergy Mild rash Verified 06/30/22 13:51 bupropion [From Wellbutrin] Allergy Rash Verified 06/30/22 13:51 varenicline [From Chantix] AdvReac hallucinati Verified 06/30/22 13:51 ons Family History (Reviewed 07/08/22 @ 10:46 by Yasmin Krishnan SENIOR WEALTH ADVISOR, SENIOR WEALTH ADVISOR-C) Father Arthritis Autoimmune disorder Diabetes Heart disease Hypertension Mother Hypertension Sister Diabetes Grandmother Diabetes Surgical History (Reviewed 07/08/22 @ 10:46 by Yasmin Krishnan SENIOR WEALTH ADVISOR, SENIOR WEALTH ADVISOR-C) History of History of tonsillectomy Social History Smoking Status: Current every day smoker tobacco type: cigarettes alcohol intake: never substance use type: marijuana what type of physical activity do you participate in: none ROS Constitutional Constitutional: Denies chills or fever(s) Eyes Eyes: Reports none ENT HEENT: Reports none Cardiovascular Cardiovascular: Reports systems reviewed and no addt'l complaints, except as documented and edema; Denies chest pain or dyspnea Respiratory/Chest Respiratory/Chest: Denies cough or dyspnea Gastrointestinal Gastrointestinal: Reports none Musculoskeletal Musculoskeletal: Reports back pain, joint pain and joint stiffness Integumentary Integumentary: Reports skin ulcer and skin swelling Neurologic Neurologic: Reports none Psychiatric Psychiatric: Denies depression Vital Signs Vital Signs Vital Signs: 07/05/22 09:36 Temperature 96.5 F L Temperature Source Temporal Pulse Rate 69 Respiratory Rate 20 H Blood Pressure 156/88 H Blood Pressure Mean 110 Blood Pressure Source Monitor Blood Pressure Position Sitting Blood Pressure Location Right Forearm Physical Exam Const alert, oriented x3, no apparent distress and well nourished General Appearance: cooperative HEENT normocephalic Head and Scalp: atraumatic Eyes General Eye: normal appearance of both eyes Lymph Lymphatic: lymphedema moderate Resp normal respiratory effort and normal air movement Cardio regular rate GI non-tender Back/Spine normal ROM Extremity normal capillary refill Extremity Narrative: Bilateral lower extremity +3 edema/lymphedema Skin Skin Narrative: Bilateral lower legs with very thick, dry, plaques of skin that are dark godoy/brown in color. Wound Narrative: Left dorsal foot ulcer in subcutaneous tissue with clear drainage. Very tender to palpation. Left dorsal foot ulcer with pink base. Neuro oriented x3 and moves all extremities Psych mental status grossly normal, cooperative and affect normal Debridement Note Debridement Note Wound debrided: dorsal foot ulcer Laterality: Left Type of Debridement: Excisional debridement Depth: Down to and including healthy tissue and in the subcutaneous layer Percentage of wound debrided: 100 Instrument Used: 5mm curette Tissue Removed: Devitalized tissue and slough Severity: Fat Layer Exposed Amount of bleeding with debridement: Mild Bleeding Controlled with: Pressure and Compression and gauze Patient tolerated procedure: Patient tolerated procedure well Post-Debridement Measurements and Additional Note: Post-Debridement Measurements/Treatment WC - Nurse 1 - General Ulcer Assessment Start: 07/05/22 09:36 Freq: Status: Active Protocol: CATRACHO Activity Type Activity Date Activity User E-sign Co-sign Detail Recorded Client Recorded Date Recorded By Document 07/05/22 09:36 KVNG [id number] 07/05/22 09:46 KVNG 07/05/22 09:36 WC - Today's Visit Information Type of service Initial Visit Arrival Mode Ambulatory,Cane Transfer Assistance None Patient Identification Verified (Name & Yes ) Patient Requires Transmission-Based No Precautions Safety Precautions NA Vital Signs Temperature (97.8 F-99.1 F) 96.5 F L Temperature Source Temporal Pulse Rate (60-100) 69 Pulse Location Monitor Respiratory Rate (12-18) 20 H Respiratory rate source Observation Blood Pressure (90/60-120/80) 156/88 H Blood Pressure Mean 110 Source Monitor Position Sitting Blood Pressure Location Right Forearm History Since Last Visit- (Skip if this is Patient's initial visit) Have you changed medications since your No last visit? Any new allergies or adverse reactions No Had a fall/change in ADL's that may No increase risk of falls Signs or symptoms of abuse and/or No neglect since last visit Have you been in the hospital since your No last visit? Has dressing in place as prescribed No Has compression in place as prescribed N/A Has offloadiing in place as prescribed N/A Experienced any changes in pain level or No management Left Footwear Regular Shoe Right Footwear Regular Shoe Pain Scale: 0-10 Numeric Is Patient Pain Free? Yes - Nurse 1 - General Ulcer Measurement Start: 07/05/22 09:36 Freq: Status: Active Protocol: Activity Type Activity Date Activity User E-sign Co-sign Detail Recorded Client Recorded Date Recorded By Document 07/05/22 09:36 KVNG [id number] 07/05/22 09:46 KVNG 07/05/22 09:36 Wound Center Nurse 1 #3 L dorsal FOOT -Current Size (cm) - Length 5.5 -Current Size (cm) - Width 5.5 -Current Size (cm) - Depth 1 -Total Square Cm 30.25 -Photo Taken No -Exudate Amt Medium -Exudate Type Serosanguineous -Wound Margin Distinct, Outline Attached -Granulation Amt None Present (0 %) -Slough/Fibrin Yes -Necrosis Amt None Present (0 %) -Texture (Jonelle-wound Skin Appearance) Assessed -Moisture (Jonelle-wound Skin Appearance) Assessed -Color (Jonelle-wound Skin Appearance) Assessed -Temperature (Jonelle-wound Skin No Abnormality Appearance) (Pt Warm) -Tenderness on Palpation (Jonelle-wound Yes Skin Appearance) -Ulcer Cleansing Rinsed/ Irrigated with Saline -Foul Odor after Cleansing No -Anesthetic Used 5% Lidocaine Gel Right Calf (cm) 52 Right Ankle (cm) 24 Left Calf (cm) 57.5 Left Ankle (cm) 28 WC - Nurse 2 - General Ulcer CM Notes Start: 07/05/22 09:36 Freq: Status: Active Protocol: Activity Type Activity Date Activity User E-sign Co-sign Detail Recorded Client Recorded Date Recorded By Document 07/05/22 10:03 MAHAD [id number] 07/05/22 10:18 MAHAD 07/05/22 10:03 Wound Center Nurse 2 4-left lateral foot -Time 10:16 -Correct Patient Yes -Correct Side, Site, Position Yes -Correct Procedure Yes -Procedure Performed Yes -Type of Procedure Debridement -Clinical Debridement Subcutaneous -Tissue Removed Subcutaneous -Post Debridement (cm) - Length 4.0 -Post Debridement (cm) - Width 2.5 -Post Debridement (cm) - Depth 0.1 -Total Square (Post) (cm) 10.00 -Area of Debridement (cm) - Length 4.0 -Area of Debridement (cm) - Width 2.5 -Total Square (Area) (cm) 10.00 -Tunneling No -Undermining/Tunneling No -Circular Undermining No -Wound/Ulcer Outcome Not Healed -Ulcer Cleansing Rinsed/ Irrigated with Saline -Foul Odor after Cleansing No -Bioengineered Tissue No -Bleeding Controlled with Pressure -Treatment Response Procedure Tolerated Well -Offloading No -Debridement - Subq, 1st 20sq cm No #3 L dorsal FOOT -Time 10:13 -Correct Patient Yes -Correct Side, Site, Position Yes -Correct Procedure Yes -Procedure Performed Yes -Type of Procedure Debridement -Clinical Debridement Subcutaneous -Tissue Removed Subcutaneous -Post Debridement (cm) - Length 5.0 -Post Debridement (cm) - Width 6.5 -Post Debridement (cm) - Depth 0.1 -Total Square (Post) (cm) 32.50 -Area of Debridement (cm) - Length 5.0 -Area of Debridement (cm) - Width 6.5 -Total Square (Area) (cm) 32.50 -Tunneling No -Undermining/Tunneling No -Circular Undermining No -Wound/Ulcer Outcome Not Healed -Ulcer Cleansing Rinsed/ Irrigated with Saline -Foul Odor after Cleansing No -Bioengineered Tissue No -Bleeding Controlled with Pressure -Treatment Response Procedure Tolerated Well -Offloading No -Debridement - Subq, 1st 20sq cm Yes -Debridement, SubQ, ea addt'l 20sq cm 2 or part thereof Pain Scale: 0-10 Numeric Is Patient Pain Free? Yes WC - Nurse 3 - General Ulcer D/C NN Start: 07/05/22 09:36 Freq: Status: Active Protocol: Activity Type Activity Date Activity User E-sign Co-sign Detail Recorded Client Recorded Date Recorded By Document 07/05/22 10:26 KVNG [id number] 07/05/22 10:27 KVNG 07/05/22 10:26 Wound Care Center Nurse 3 4-left lateral foot -Ulcer Cleansing Rinsed/ Irrigated with Saline -Foul Odor after Cleansing No -Negative Pressure Wound Therapy N/A -Primary Dressing Applied Aquacel AG 4x4 -Primary Dressing Covered/Secured with Dry Gauze, Secured with Tape -Aquacel AG 4x4 2 #3 L dorsal FOOT -Ulcer Cleansing Rinsed/ Irrigated with Saline -Foul Odor after Cleansing No -Negative Pressure Wound Therapy N/A -Primary Dressing Applied Aquacel AG 4x4 -Primary Dressing Covered/Secured with Dry Gauze & Roll Gauze, Secured with Tape -Aquacel AG 4x4 0 Pain Scale: 0-10 Numeric Is Patient Pain Free? No WC - Visit Discharge Discharge Condition Stable Ambulatory Status Ambulatory Transportation Private Auto Medication Reconcilliation completed & Yes provided to patient/care provider Clinical Summary of Care Provided Yes Additional Wound Wound debrided: lateral foot ulcer Laterality: Left Type of Debridement: Excisional debridement Anesthesia Used: 5% Lidocaine Gel Depth: Down to and including healthy tissue and in the subcutaneous layer Percentage of wound debrided: 100 Instrument Used: 5mm curette Tissue Removed: Devitalized tissue and slough Severity: Fat Layer Exposed Amount of bleeding with debridement: Mild Bleeding Controlled with: Pressure and Compression and gauze Patient tolerated procedure: Patient tolerated procedure well Charges/Coding Visit Charges Office Visits / Consults: 75495 OV L4 Est (25 modifier) Procedures Integumentary [id number]: [id number] Tammy subq tissue 20 sq cm/< Add On Codes: 11863 Tammy subq tissue add-on (x2) Assessment/Plan Assessment/Plan (1) Non-pressure chronic ulcer of other part of left foot with fat layer exposed: CODE(S): L97.522 - Non-pressure chronic ulcer of other part of left foot with fat layer exposed (2) Ulcer of left foot: CODE(S): L97.529 - Non-pressure chronic ulcer of other part of left foot with unspecified severity (3) Edema of both legs: CODE(S): R60.0 - Localized edema (4) Lymphedema: CODE(S): I89.0 - Lymphedema, not elsewhere classified (5) Type 2 diabetes mellitus: CODE(S): E11.9 - Type 2 diabetes mellitus without complications QUALIFIERS: Diabetes mellitus complication status: with other specified complication Diabetes mellitus long-term insulin use: without lobsterman use Qualified Code(s): E11.69 - Type 2 diabetes mellitus with other specified complication (6) Psoriasis: CODE(S): L40.9 - Psoriasis, unspecified (7) Nicotine dependence: CODE(S): F17.200 - Nicotine dependence, unspecified, uncomplicated PLAN: Plan Patient evaluated at the wound center today. Wound care to her left dorsal foot ulcer and left lateral foot ulcer will be moistened Aquacel-Ag covered with gauze/ABD daily after washing area with soap and water. Compression will be Single tubigrip. Will order venous and arterial studies to evaluate her vascular system to determine how much compression can be applied. She has thick, dry plaques of skin on anterior lower legs bilaterally. She states this is her psoriasis but her medication doesn't help improve it. Will order Lac Hydrin 5% lotion to place on these areas 1-2 times daily after washing with soap and water. Encouraged a high protein, low carbohydrate diet to help with wound healing to help control diabetes. Follow up one week. Greater than 35 minutes spent evaluating, developing plan of care, educating, reviewing old records and documenting.
--- NOTE | 2022-07-08 09:29 | ART_ITS ---
Reason For Study: Wounds Procedure A bilateral lower extremity continuous wave Doppler with analog waveform analysis,segmental pressures,and ankle brachial indexes without exercise. Left Segmental Pressures Left brachial= 130mmHg. Left posterior tibial artery = 171mmHg. Left dorsalis pedis artery = 180mmHg. Unable to acquire digit due to open wound. The left posterior tibial artery waveforms are triphasic. The left dorsalis pedis waveforms are triphasic. Right Segmental Pressures Right brachial= 138mmHg. Right posterior tibial artery = 185mmHg. Right dorsalis pedis artery = 170mmHg. Right digit = 133 mmHg. The right posterior tibial artery waveforms are triphasic. The right dorsalis pedis waveforms are triphasic. Indices The right ankle brachial index by the posterior tibial artery is 1.34. The right ankle brachial index by the dorsalis pedis is 1.23. The right digital-brachial index is 0.96. The left ankle brachial index by the posterior tibial artery is 1.24. The left ankle brachial index by the dorsalis pedis is 1.30. Unable to acquire digit due to open wound. VL/Lower Ext Art Exam w/o Exercis Interpretation Summary Triphasic Doppler waveforms are noted at ankle level bilaterally. Pulse-volume recordings appear satisfactory at all levels bilaterally. Resting ankle-brachial indices are norm al bilaterally. The right digital-brachial index is normal. The left digital-brachial index was not determined. There is no evidence of significant arterial occlusive disease in the lower ext remities bilaterally. Arterial flow at digital level on the left was not fully evaluated due to the p resence of an open wound. Ordering Physician: Elvira Gaviria Referring Physician: ELVIRA GAVIRIA [employer]-C Performed By: Yordan Fonseca RVT
--- NOTE | 2022-07-08 09:29 | VDLE_ITS ---
Reason For Study: Wounds RIGHT LEFT CFV is compressible, spontaneous, phasic, CFV is compressible, spontaneous, phasic, competent and demonstrates normal competent, and demonstrates normal augmentation. augmentation. FV is compressible, spontaneous, phasic, FV is compressible, spontaneous, phasic, competent and demonstrates normal competent and demonstrates normal augmentation. augmentation. POP V is compressible, spontaneous, phasic, POP V is compressible, spontaneous, phasic, competent and demonstrates normal competent and demonstrates normal augmentation. augmentation. T/P Trunk is compressible. T/P Trunk is compressible. PTV is compressible. SFJ is competent and measures 0.84 x 0.87 cm. RT PerV is compressible. GSV proximal thigh measures 0.91 x 0.95 cm. SFJ is competent and measures 0.68 x 0.76 cm. GSV at knee measures 0.82 x 0.86 cm. GSV proximal thigh measures 0.84 x 0.86 cm. GSV above knee is competent. GSV at knee measures 0.56 x 0.56 cm. SSV proximal calf is competent and measures GSV is competent throughout. 0.71 x 0.65 cm. SSV proximal calf is competent and measures Unable to visualize all vessels below prox 0.57 x 0.57 cm. calf due to thick psoriasis lesions and open ASV proximal calf is INCOMPETENT for greater wounds. than 0.5 seconds and measures 0.60cm in Enlarged and vascularized lymph node noted in longitudinal axis cm. left inguinal canal measuring approximately Enlarged and vascularized lymph node noted in 5.75cm x 1.66cm. right inguinal canal measuring approximately 3.79cm x 1.39cm. Procedure This is a venous duplex using B-mode, color flow and spectral Doppler. Exam performed in department. The study was technically limited. The study was technically difficult due to body habitus, open wounds and skin lesions. The exam was diagnostic. VL/Venous Duplex US - Eric Extrem Interpretation Summary Deep veins of the lower extremities are bilaterally patent and compressible seg mentally. There is no evidence of deep vein thrombosis on either side. Valvular competence appears in tact within the proximal deep venous systems bilaterally. The great saphenous veins appear bila terally patent and compressible segmentally. Sapheno-femoral junctions are bilaterally competent . The right great saphenous vein appears segmentally competent. The left great saphenous vein maynor ears competent above the knee. The left great saphenous vein below the knee, and the deep veins of t he left calf, were not visualized due to the presence of open wounds. Small saphenous veins are pa tent and competent bilaterally. An accessory saphenous vein in the right proximal calf is incompet ent. An enlarged lymph node is noted in both the right and left groin, with dimensions as docume nted above. Ordering Physician: Yasmin Krishnan Referring Physician: Yasmin Krishnan Performed By: Yordan Fonseca RVT
[2022-07-12 09:23] VITALS: BP 146/90; PULSE 70; RESP 16; TEMP 35.7
--- NOTE | 2022-07-12 10:20 | PN.PCM_ITS ---
History of Present Illness Date of Service: 07/12/22 Chief Complaint: Non healing surgical wound of left hand History of Wound: 47-year-old woman who recently was hospitalized 06/23/22 - 06/27/22 for cellulitis on her left leg that failed outpatient therapy. When she got home she developed a large blister on her dorsal portion of her left foot. She was discharged home on Keflex and Bactrim which she finishes today. She states she has a history of psoriasis/arthritis on her bilateral legs that have caused thick scabbing. She sees a bowling ball engraver in [place] for this and has been on Ixekizumab without improvement in her symptoms. She states that she has had the dry, itchy patches on her legs that never improve for years and she also has psoriatic arthritis. She comes in today for evaluation of the ulcers on her left foot and bilateral lower leg edema. Venous study done 07/08/22 which show the left great saphenous vein below the knee, and the deep veins of the left calf, were not visualized due to the presence of open wounds. An accessory saphenous vein in the right proximal calf is incompetent. An enlarged lymph node is noted in both the right groin measuring approximately 3.79 x 1.30 cm and left groin measuring approximately 5.75 x 1.66 cm. Arterial study done 07/08/22 - Right ankle brachial index by dorsalis pedis is 1.23. The right digital-brachial index is 0.96. The left ankle brachial index by the dorsalis pedis is 1.30. Unable to acquire digit due to open wound. She denies fever, chills, nausea or vomiting at this time. Progress of Wound: Left dorsal foot ulcer into the subcutaneous tissue that extends onto her proximal toes. It has an increase of non viable tissue present today. The left lateral foot ulcer has increased dry slough present. She has thick, dry plaques of skin covering anterior portion of legs bilaterally that she states are very itchy, nothing helps improve it including the medication that her bowling ball engraver has her on. Prescribed Lac hydrin lotion that she has not been able to fern picker due it being on back order. Objective Data Objective Data Vital Signs: Vital Signs Temp Pulse Resp BP O2 Del Method 96.2 F L 70 16 146/90 H Room Air 07/12/22 09:23 07/12/22 09:23 07/12/22 09:23 07/12/22 09:23 07/12/22 09:23 Oxygen Delivery Method Room Air Charges/Coding Procedures Integumentary 111xxx-113xx: 63340 Tammy subq tissue 20 sq cm/< Add On Codes: 44339 Tammy subq tissue add-on (x4) Debridement Note Debridement Note Wound debrided: dorsal foot and proximal toes ulcer Laterality: Left Wound Grade/Stage: Stage III Type of Debridement: Excisional debridement Depth: Down to and including healthy tissue and in the subcutaneous layer Percentage of wound debrided: 100 Instrument Used: 5mm curette Tissue Removed: Devitalized tissue and slough Severity: Fat Layer Exposed Amount of bleeding with debridement: Mild Bleeding Controlled with: Pressure and Compression and gauze Patient tolerated procedure: Patient tolerated procedure well Debridement Free Text: Macerated tissue on proximal toes removed. Post-Debridement Measurements and Additional Note: Post-Debridement Measurements/Treatment - Nurse 1 - General Ulcer Assessment Start: 07/05/22 09:36 Freq: Status: Active Protocol: CATRACHO Activity Type Activity Date Activity User E-sign Co-sign Detail Recorded Client Recorded Date Recorded By Document 07/05/22 09:36 AK [id number] 07/05/22 09:46 AK Document 07/12/22 09:23 BMF [id number] 07/12/22 09:30 BMF Edit Result 07/12/22 09:23 BMF (1) [id number] 07/12/22 09:31 BMF (1) Pulse Rate (60-100) => 70 Respiratory Rate (12-18) => 16 Blood Pressure (90/60-120/80) => 146/90 H Blood Pressure Mean (mm Hg) => 108 07/05/22 07/12/22 09:36 09:23 - Today's Visit Information Type of service Initial Visit Follow-up Visit (Physician/PHYSICAL THERAPY ASSISTANT ) Arrival Mode Ambulatory,Cane Ambulatory,Cane Transfer Assistance None None Patient Identification Verified (Name & Yes Yes ) Patient Requires Transmission-Based No No Precautions Safety Precautions NA Vital Signs Temperature (97.8 F-99.1 F) 96.5 F L 96.2 F L Temperature Source Temporal Temporal Pulse Rate (60-100) 69 70 Pulse Location Monitor Monitor Respiratory Rate (12-18) 20 H 16 Respiratory rate source Observation Observation Oxygen Delivery Method Room Air Blood Pressure (90/60-120/80) 156/88 H 146/90 H Blood Pressure Mean (mm Hg) 110 108 Source Monitor Monitor Position Sitting Sitting Blood Pressure Location Right Forearm Left Arm History Since Last Visit- (Skip if this is Patient's initial visit) Have you changed medications since your No No last visit? Any new allergies or adverse reactions No No Had a fall/change in ADL's that may No No increase risk of falls Signs or symptoms of abuse and/or No No neglect since last visit Have you been in the hospital since your No No last visit? Has dressing in place as prescribed No Yes Has compression in place as prescribed N/A Yes Has offloadiing in place as prescribed N/A N/A Experienced any changes in pain level or No No management Left Footwear Regular Shoe Slipper Right Footwear Regular Shoe Slipper Pain Scale: 0-10 Numeric Is Patient Pain Free? Yes Yes WC - Nurse 1 - General Ulcer Measurement Start: 07/05/22 09:36 Freq: Status: Active Protocol: Activity Type Activity Date Activity User E-sign Co-sign Detail Recorded Client Recorded Date Recorded By Document 07/05/22 09:36 [place] [id number] 07/05/22 09:46 AK Document 07/12/22 09:23 [facility] [id number] 07/12/22 09:30 [facility] 07/05/22 07/12/22 09:36 09:23 Wound Center Nurse 1 #5 L LAT FOOT -Combined with other wound No -Current Size (cm) - Length 3 -Current Size (cm) - Width 1.3 -Current Size (cm) - Depth 0.1 -Total Square Cm 3.9 -Date of Last Picture (Recall this 07/12/22 field) -Photo Taken Yes -Epithelialization None Present -Tunneling No -Undermining/Tunneling No -Circular Undermining No -Exudate Amt Medium -Exudate Type Serosanguineous -Wound Margin Distinct, Outline Attached -Granulation Amt Small (1-33%) -Granulation Quality [place] -Slough/Fibrin Yes -Necrosis Amt Large (67-100%) -Necrotic Tissue Type Adherent Slough -Texture (Jonelle-wound Skin Appearance) Assessed, Scarring -Moisture (Jonelle-wound Skin Appearance) Assessed,Dry/ Scaly -Color (Jonelle-wound Skin Appearance) Assessed -Temperature (Jonelle-wound Skin No Abnormality Appearance) (Pt Warm) -Tenderness on Palpation (Jonelle-wound Yes Skin Appearance) -Ulcer Cleansing Soap and Water -Foul Odor after Cleansing No -Anesthetic Used 4% Lidocaine Solution #4 L DORSAL FOOT -Combined with other wound No -Current Size (cm) - Length 5.5 8.4 -Current Size (cm) - Width 5.5 7 -Current Size (cm) - Depth 1 0.1 -Total Square Cm 30.25 58.8 -Date of Last Picture (Recall this 07/12/22 field) -Photo Taken No Yes -Epithelialization None Present -Tunneling No -Undermining/Tunneling No -Circular Undermining No -Exudate Amt Medium Medium -Exudate Type Serosanguineous Serosanguineous -Wound Margin Distinct, Distinct, Outline Outline Attached Attached -Granulation Amt None Present (0 None Present (0 %) %) -Slough/Fibrin Yes Yes -Necrosis Amt None Present (0 Large (67-100%) %) -Necrotic Tissue Type Adherent Slough -Texture (Jonelle-wound Skin Appearance) Assessed Assessed, Scarring -Moisture (Jonelle-wound Skin Appearance) Assessed Assessed, Maceration,Dry/ Scaly -Color (Jonelle-wound Skin Appearance) Assessed Assessed -Temperature (Jonelle-wound Skin No Abnormality No Abnormality Appearance) (Pt Warm) (Pt Warm) -Tenderness on Palpation (Jonelle-wound Yes Yes Skin Appearance) -Ulcer Cleansing Rinsed/ Soap and Water Irrigated with Saline -Foul Odor after Cleansing No No -Anesthetic Used 5% Lidocaine 4% Lidocaine Gel Solution Lower Limb Edema Present Yes Right Calf (cm) 52 Right Ankle (cm) 24 Left Calf (cm) 57.5 54.6 Left Ankle (cm) 28 27.2 WC - Nurse 2 - General Ulcer CM Notes Start: 07/05/22 09:36 Freq: Status: Active Protocol: Activity Type Activity Date Activity User E-sign Co-sign Detail Recorded Client Recorded Date Recorded By Document 07/05/22 10:03 MAHAD [id number] 07/05/22 10:18 Document 07/12/22 09:45 MAHAD [id number] 07/12/22 10:02 JF 07/05/22 07/12/22 10:03 09:45 Wound Center Nurse 2 #5 L LAT FOOT -Time 10:16 09:46 -Correct Patient Yes Yes -Correct Side, Site, Position Yes Yes -Correct Procedure Yes Yes -Procedure Performed Yes Yes -Type of Procedure Debridement Debridement -Clinical Debridement Subcutaneous Subcutaneous -Tissue Removed Subcutaneous Subcutaneous -Post Debridement (cm) - Length 4.0 6.0 -Post Debridement (cm) - Width 2.5 3.0 -Post Debridement (cm) - Depth 0.1 0.1 -Total Square (Post) (cm) 10.00 18.00 -Area of Debridement (cm) - Length 4.0 6.0 -Area of Debridement (cm) - Width 2.5 3.0 -Total Square (Area) (cm) 10.00 18.00 -Tunneling No No -Undermining/Tunneling No No -Circular Undermining No No -Wound/Ulcer Outcome Not Healed Not Healed -Ulcer Cleansing Rinsed/ Rinsed/ Irrigated with Irrigated with Saline Saline -Foul Odor after Cleansing No No -Bioengineered Tissue No No -Bleeding Controlled with Pressure Pressure -Treatment Response Procedure Procedure Tolerated Well Tolerated Well -Offloading No No -Debridement - Subq, 1st 20sq cm No No #4 L DORSAL FOOT -Time 10:13 09:46 -Correct Patient Yes Yes -Correct Side, Site, Position Yes Yes -Correct Procedure Yes Yes -Procedure Performed Yes Yes -Type of Procedure Debridement Debridement -Clinical Debridement Subcutaneous Subcutaneous -Tissue Removed Subcutaneous Subcutaneous -Post Debridement (cm) - Length 5.0 8.7 -Post Debridement (cm) - Width 6.5 9.0 -Post Debridement (cm) - Depth 0.1 0.1 -Total Square (Post) (cm) 32.50 78.30 -Area of Debridement (cm) - Length 5.0 8.7 -Area of Debridement (cm) - Width 6.5 9.0 -Total Square (Area) (cm) 32.50 78.30 -Tunneling No No -Undermining/Tunneling No No -Circular Undermining No No -Wound/Ulcer Outcome Not Healed Not Healed -Ulcer Cleansing Rinsed/ Rinsed/ Irrigated with Irrigated with Saline Saline -Foul Odor after Cleansing No No -Bioengineered Tissue No No -Bleeding Controlled with Pressure Pressure -Treatment Response Procedure Procedure Tolerated Well Tolerated Well -Offloading No No -Debridement - Subq, 1st 20sq cm Yes Yes -Debridement, SubQ, ea addt'l 20sq cm 2 4 or part thereof Pain Scale: 0-10 Numeric Is Patient Pain Free? Yes Yes - Nurse 3 - General Ulcer D/C NN Start: 07/05/22 09:36 Freq: Status: Active Protocol: Activity Type Activity Date Activity User E-sign Co-sign Detail Recorded Client Recorded Date Recorded By Document 07/05/22 10:26 AK [id number] 07/05/22 10:27 AK Document 07/12/22 10:06 JF [id number] 07/12/22 10:09 JF 07/05/22 07/12/22 10:26 10:06 Wound Care Center Nurse 3 #5 L LAT FOOT -Ulcer Cleansing Rinsed/ Rinsed/ Irrigated with Irrigated with Saline Saline -Foul Odor after Cleansing No No -Negative Pressure Wound Therapy N/A -Primary Dressing Applied Aquacel AG 4x4 Aquacel AG 4x4, Optilok 6.5x10 -Primary Dressing Covered/Secured with Dry Gauze, Dry Gauze Secured with Tape -Aquacel AG 4x4 2 1 -Optilok 6.5x10 1 #4 L DORSAL FOOT -Ulcer Cleansing Rinsed/ Soap and Water Irrigated with Saline -Foul Odor after Cleansing No No -Negative Pressure Wound Therapy N/A -Primary Dressing Applied Aquacel AG 4x4 -Other Dressing aqaucel ag, superabsorber -Primary Dressing Covered/Secured with Dry Gauze & Roll Gauze, Secured with Tape -Aquacel AG 4x4 0 Right -Tubular Bandage Single Layer -Size of Tubigrip Used Size F -Size F ($) 1 Left -Multi-Layered Wrap Application Unna Boot - Left ($) Treatment Response Procedure Tolerated Well Pain Scale: 0-10 Numeric Is Patient Pain Free? No Yes - Visit Discharge Discharge Condition Stable Stable Ambulatory Status Ambulatory Ambulatory Transportation Private Auto Private Auto Medication Reconcilliation completed & Yes provided to patient/care provider Clinical Summary of Care Provided Yes Additional Wound Wound debrided: lateral foot ulcer Laterality: Left Type of Debridement: Excisional debridement Anesthesia Used: 5% Lidocaine Gel Depth: Down to and including healthy tissue and in the subcutaneous layer Percentage of wound debrided: 100 Instrument Used: 5mm curette Tissue Removed: Devitalized tissue and slough Severity: Fat Layer Exposed Amount of bleeding with debridement: Mild Bleeding Controlled with: Pressure and Compression and gauze Patient tolerated procedure: Patient tolerated procedure well Assessment/Plan Assessment/Plan (1) Non-pressure chronic ulcer of other part of left foot with fat layer exposed: CODE(S): L97.522 - Non-pressure chronic ulcer of other part of left foot with fat layer exposed (2) Ulcer of left foot: CODE(S): L97.529 - Non-pressure chronic ulcer of other part of left foot with unspecified severity (3) Edema of both legs: CODE(S): R60.0 - Localized edema (4) Lymphedema: CODE(S): I89.0 - Lymphedema, not elsewhere classified (5) Type 2 diabetes mellitus: CODE(S): E11.9 - Type 2 diabetes mellitus without complications QUALIFIERS: Diabetes mellitus superintendent container terminal insulin use: without long-term use Diabetes mellitus complication status: with other specified complication Qualified Code(s): E11.69 - Type 2 diabetes mellitus with other specified complication (6) Psoriasis: CODE(S): L40.9 - Psoriasis, unspecified (7) Nicotine dependence: CODE(S): F17.200 - Nicotine dependence, unspecified, uncomplicated PLAN: Plan Patient evaluated at the wound center today. Wound care to her left dorsal foot ulcer and left lateral foot ulcer will be Aquacel-Ag covered with gauze/ABD, place either silver or gauze between toes to help prevent further maceration. Compression will be Unna boot on left. If she tolerates it well will consider placing on on the right leg also. She will come in on or Tuesday to have it changed. Place Tubigrip on right leg. Venous study done 07/08/22 which show the left great saphenous vein below the knee, and the deep veins of the left calf, were not visualized due to the presence of open wounds. An accessory saphenous vein in the right proximal calf is incompetent. An enlarged lymph node is noted in both the right groin measuring approximately 3.79 x 1.30 cm and left groin measuring approximately 5.75 x 1.66 cm. Arterial study done 07/08/22 - Right ankle brachial index by dorsalis pedis is 1.23. The right digital-brachial index is 0.96. The left ankle brachial index by the dorsalis pedis is 1.30. Unable to acquire digit due to open wound. She has thick, dry plaques of skin on anterior lower legs bilaterally. She states this is her psoriasis but her medication doesn't help improve it. Ordered Lac Hydrin 5% lotion to place on these areas 1-2 times daily but it is on back order. Encouraged a high protein, low carbohydrate diet to help with wound healing to help control diabetes. Follow up or Tuesday for a nurse visit to have Asa munoz changed and follow up one week with me.
[2022-07-15 13:23] VITALS: BP 159/91; PULSE 83; RESP 16; TEMP 35.7
[2022-07-19 09:25] VITALS: RESP 16; TEMP 36
--- NOTE | 2022-07-19 14:33 | PCM.WC.PN ---
History of Present Illness Date of Service: 07/19/22 Chief Complaint: Non healing surgical wound of left hand History of Wound: 47-year-old woman who recently was hospitalized 06/23/22 - 06/27/22 for cellulitis on her left leg that failed outpatient therapy. When she got home she developed a large blister on her dorsal portion of her left foot. She was discharged home on Keflex and Bactrim which she finishes today. She states she has a history of psoriasis/arthritis on her bilateral legs that have caused thick scabbing. She sees a perinatal social worker in [place] for this and has been on Ixekizumab without improvement in her symptoms. She states that she has had the dry, itchy patches on her legs that never improve for years and she also has psoriatic arthritis. She comes in today for evaluation of the ulcers on her left foot and bilateral lower leg edema. Venous study done 07/08/22 which show the left great saphenous vein below the knee, and the deep veins of the left calf, were not visualized due to the presence of open wounds. An accessory saphenous vein in the right proximal calf is incompetent. An enlarged lymph node is noted in both the right groin measuring approximately 3.79 x 1.30 cm and left groin measuring approximately 5.75 x 1.66 cm. Arterial study done 07/08/22 - Right ankle brachial index by dorsalis pedis is 1.23. The right digital-brachial index is 0.96. The left ankle brachial index by the dorsalis pedis is 1.30. Unable to acquire digit due to open wound. She denies fever, chills, nausea or vomiting at this time. Progress of Wound: Left dorsal foot ulcer into the subcutaneous tissue that extends onto her proximal toes. It appears smaller. There is dry scabbing present around the edges. The left lateral foot ulcer is healed today. She tolerated the Unna boots well. She continues to have thickened plaques on the anterior portion of her left anterior leg. Objective Data Objective Data Vital Signs: Vital Signs Temp Pulse Resp BP O2 Del Method 96.8 F L 83 16 159/91 H Room Air 07/19/22 09:25 07/15/22 13:23 07/19/22 09:25 07/15/22 13:23 07/19/22 09:25 Oxygen Delivery Method Room Air Charges/Coding Procedures Integumentary 111xxx-113xx: 10878 Tammy subq tissue 20 sq cm/< Add On Codes: 46943 Tammy subq tissue add-on Debridement Note Debridement Note Wound debrided: dorsal foot and proximal toes ulcer Laterality: Left Wound Grade/Stage: Stage III Type of Debridement: Excisional debridement Depth: Down to and including healthy tissue and in the subcutaneous layer Percentage of wound debrided: 100 Instrument Used: 5mm curette Tissue Removed: Devitalized tissue and slough Severity: Fat Layer Exposed Amount of bleeding with debridement: Mild Bleeding Controlled with: Pressure and Compression and gauze Patient tolerated procedure: Patient tolerated procedure well Post-Debridement Measurements and Additional Note: Post-Debridement Measurements/Treatment - Nurse 1 - General Ulcer Assessment Start: 07/05/22 09:36 Freq: Status: Active Protocol: CATRACHO Activity Type Activity Date Activity User E-sign Co-sign Detail Recorded Client Recorded Date Recorded By Document 07/05/22 09:36 AK [id number] 07/05/22 09:46 AK Document 07/12/22 09:23 BMF [id number] 07/12/22 09:30 BMF Edit Result 07/12/22 09:23 BMF (1) [id number] 07/12/22 09:31 BMF Document 07/15/22 13:23 BMF [id number] 07/15/22 13:25 BMF Document 07/19/22 09:25 BMF [id number] 07/19/22 09:30 BMF (1) Pulse Rate (60-100) => 70 Respiratory Rate (12-18) => 16 Blood Pressure (90/60-120/80) => 146/90 H Blood Pressure Mean (mm Hg) => 108 07/05/22 07/12/22 07/15/22 09:36 09:23 13:23 - Today's Visit Information Type of service Initial Visit Follow-up Visit Nurse-only (Physician/HAND II CUTTER Visit ) Arrival Mode Ambulatory,Cane Ambulatory,Cane Ambulatory,Cane Transfer Assistance None None None Patient Identification Verified (Name & Yes Yes Yes ) Patient Requires Transmission-Based No No No Precautions Safety Precautions NA Vital Signs Temperature (97.8 F-99.1 F) 96.5 F L 96.2 F L 96.2 F L Temperature Source Temporal Temporal Temporal Pulse Rate (60-100) 69 70 83 Pulse Location Monitor Monitor Monitor Respiratory Rate (12-18) 20 H 16 16 Respiratory rate source Observation Observation Observation Oxygen Delivery Method Room Air Room Air Blood Pressure (90/60-120/80) 156/88 H 146/90 H 159/91 H Blood Pressure Mean (mm Hg) 110 108 113 Source Monitor Monitor Monitor Position Sitting Sitting Sitting Blood Pressure Location Right Forearm Left Arm Left Forearm History Since Last Visit- (Skip if this is Patient's initial visit) Have you changed medications since your No No No last visit? Any new allergies or adverse reactions No No No Had a fall/change in ADL's that may No No No increase risk of falls Signs or symptoms of abuse and/or No No No neglect since last visit Have you been in the hospital since your No No No last visit? Has dressing in place as prescribed No Yes Yes Has compression in place as prescribed N/A Yes N/A Has offloadiing in place as prescribed N/A N/A N/A Experienced any changes in pain level or No No No management Left Footwear Regular Shoe Slipper Regular Shoe Right Footwear Regular Shoe Slipper Regular Shoe Other Footwear Pain Scale: 0-10 Numeric Is Patient Pain Free? Yes Yes Yes 07/19/22 09:25 WC - Today's Visit Information Type of service Follow-up Visit (Physician/HAND II CUTTER ) Arrival Mode Ambulatory Transfer Assistance None Patient Identification Verified (Name & Yes ) Patient Requires Transmission-Based No Precautions Safety Precautions Vital Signs Temperature (97.8 F-99.1 F) 96.8 F L Temperature Source Temporal Pulse Rate (60-100) Pulse Location Monitor Respiratory Rate (12-18) 16 Respiratory rate source Observation Oxygen Delivery Method Room Air Blood Pressure (90/60-120/80) Blood Pressure Mean (mm Hg) Source Monitor Position Sitting Blood Pressure Location Left Arm History Since Last Visit- (Skip if this is Patient's initial visit) Have you changed medications since your No last visit? Any new allergies or adverse reactions No Had a fall/change in ADL's that may No increase risk of falls Signs or symptoms of abuse and/or No neglect since last visit Have you been in the hospital since your No last visit? Has dressing in place as prescribed Yes Has compression in place as prescribed N/A Has offloadiing in place as prescribed Experienced any changes in pain level or No management Left Footwear Regular Shoe Right Footwear Regular Shoe Other Footwear pt removed unna wrap to shower prior to visit as instructed Pain Scale: 0-10 Numeric Is Patient Pain Free? Yes WC - Nurse 1 - General Ulcer Measurement Start: 07/05/22 09:36 Freq: Status: Active Protocol: Activity Type Activity Date Activity User E-sign Co-sign Detail Recorded Client Recorded Date Recorded By Document 07/05/22 09:36 [place] [id number] 07/05/22 09:46 AK Document 07/12/22 09:23 BMF [id number] 07/12/22 09:30 BMF Document 07/15/22 13:23 BMF [id number] 07/15/22 13:25 BMF Document 07/19/22 09:25 BMF [id number] 07/19/22 09:30 BMF 07/05/22 07/12/22 07/15/22 09:36 09:23 13:23 Wound Center Nurse 1 #5 L LAT FOOT -Combined with other wound No -Current Size (cm) - Length 3 -Current Size (cm) - Width 1.3 -Current Size (cm) - Depth 0.1 -Total Square Cm 3.9 -Date of Last Picture (Recall this 07/12/22 field) -Photo Taken Yes -Epithelialization None Present -Tunneling No -Undermining/Tunneling No -Circular Undermining No -Exudate Amt Medium -Exudate Type Serosanguineous -Wound Margin Distinct, Outline Attached -Granulation Amt Small (1-33%) -Granulation Quality Bland -Slough/Fibrin Yes -Necrosis Amt Large (67-100%) -Necrotic Tissue Type Adherent Slough -Texture (Jonelle-wound Skin Appearance) Assessed, Scarring -Moisture (Jonelle-wound Skin Appearance) Assessed,Dry/ Scaly -Color (Jonelle-wound Skin Appearance) Assessed -Temperature (Jonelle-wound Skin No Abnormality Appearance) (Pt Warm) -Tenderness on Palpation (Jonelle-wound Yes Skin Appearance) -Ulcer Cleansing Soap and Water -Foul Odor after Cleansing No -Anesthetic Used 4% Lidocaine Solution #4 L DORSAL FOOT -Combined with other wound No -Current Size (cm) - Length 5.5 8.4 -Current Size (cm) - Width 5.5 7 -Current Size (cm) - Depth 1 0.1 -Total Square Cm 30.25 58.8 -Date of Last Picture (Recall this 07/12/22 field) -Photo Taken No Yes -Epithelialization None Present -Tunneling No -Undermining/Tunneling No -Circular Undermining No -Exudate Amt Medium Medium -Exudate Type Serosanguineous Serosanguineous -Wound Margin Distinct, Distinct, Outline Outline Attached Attached -Granulation Amt None Present (0 None Present (0 %) %) -Slough/Fibrin Yes Yes -Necrosis Amt None Present (0 Large (67-100%) %) -Necrotic Tissue Type Adherent Slough -Texture (Jonelle-wound Skin Appearance) Assessed Assessed, Scarring -Moisture (Jonelle-wound Skin Appearance) Assessed Assessed, Maceration,Dry/ Scaly -Color (Jonelel-wound Skin Appearance) Assessed Assessed -Temperature (Jonelle-wound Skin No Abnormality No Abnormality Appearance) (Pt Warm) (Pt Warm) -Tenderness on Palpation (Jonelle-wound Yes Yes Skin Appearance) -Ulcer Cleansing Rinsed/ Soap and Water Irrigated with Saline -Foul Odor after Cleansing No No -Anesthetic Used 5% Lidocaine 4% Lidocaine Gel Solution Lower Limb Edema Present Yes Yes Right Calf (cm) 52 Right Ankle (cm) 24 Left Calf (cm) 57.5 54.6 52.2 Left Ankle (cm) 28 27.2 27.7 07/19/22 09:25 Wound Center Nurse 1 #5 L LAT FOOT -Combined with other wound No -Current Size (cm) - Length 0.1 -Current Size (cm) - Width 0.1 -Current Size (cm) - Depth 0.1 -Total Square Cm 0.01 -Date of Last Picture (Recall this 07/19/22 field) -Photo Taken Yes -Epithelialization Large 67-100% -Tunneling -Undermining/Tunneling -Circular Undermining -Exudate Amt -Exudate Type -Wound Margin -Granulation Amt -Granulation Quality -Slough/Fibrin -Necrosis Amt -Necrotic Tissue Type -Texture (Jonelle-wound Skin Appearance) Assessed, Scarring -Moisture (Jonelle-wound Skin Appearance) Assessed,Dry/ Scaly -Color (Jonelle-wound Skin Appearance) Assessed -Temperature (Jonelle-wound Skin No Abnormality Appearance) (Pt Warm) -Tenderness on Palpation (Jonelle-wound No Skin Appearance) -Ulcer Cleansing Soap and Water -Foul Odor after Cleansing No -Anesthetic Used 4% Lidocaine Solution #4 L DORSAL FOOT -Combined with other wound No -Current Size (cm) - Length 4.3 -Current Size (cm) - Width 5 -Current Size (cm) - Depth 0.1 -Total Square Cm 21.5 -Date of Last Picture (Recall this 07/19/22 field) -Photo Taken Yes -Epithelialization Small 1-33% -Tunneling No -Undermining/Tunneling No -Circular Undermining No -Exudate Amt Large -Exudate Type Serosanguineous -Wound Margin Distinct, Outline Attached -Granulation Amt None Present (0 %) -Slough/Fibrin Yes -Necrosis Amt Large (67-100%) -Necrotic Tissue Type Adherent Slough -Texture (Jonelle-wound Skin Appearance) Assessed, Scarring -Moisture (Jonelle-wound Skin Appearance) Assessed,Dry/ Scaly -Color (Jonelle-wound Skin Appearance) Assessed -Temperature (Jonelle-wound Skin No Abnormality Appearance) (Pt Warm) -Tenderness on Palpation (Jonelle-wound No Skin Appearance) -Ulcer Cleansing Soap and Water -Foul Odor after Cleansing No -Anesthetic Used 4% Lidocaine Solution Lower Limb Edema Present Yes Right Calf (cm) Right Ankle (cm) Left Calf (cm) 54.2 Left Ankle (cm) 28 WC - Nurse 2 - General Ulcer CM Notes Start: 07/05/22 09:36 Freq: Status: Active Protocol: Activity Type Activity Date Activity User E-sign Co-sign Detail Recorded Client Recorded Date Recorded By Document 07/05/22 10:03 [id number] 07/05/22 10:18 Document 07/12/22 09:45 [id number] 07/12/22 10:02 Document 07/19/22 10:03 [id number] 07/19/22 10:11 07/05/22 07/12/22 07/19/22 10:03 09:45 10:03 Wound Center Nurse 2 #5 L LAT FOOT -Time 10:16 09:46 -Correct Patient Yes Yes No -Correct Side, Site, Position Yes Yes No -Correct Procedure Yes Yes No -Procedure Performed Yes Yes No -Type of Procedure Debridement Debridement -Clinical Debridement Subcutaneous Subcutaneous -Tissue Removed Subcutaneous Subcutaneous -Post Debridement (cm) - Length 4.0 6.0 0 -Post Debridement (cm) - Width 2.5 3.0 0 -Post Debridement (cm) - Depth 0.1 0.1 0 -Total Square (Post) (cm) 10.00 18.00 0 -Area of Debridement (cm) - Length 4.0 6.0 0 -Area of Debridement (cm) - Width 2.5 3.0 0 -Total Square (Area) (cm) 10.00 18.00 0 -Tunneling No No -Undermining/Tunneling No No -Circular Undermining No No -Wound/Ulcer Outcome Not Healed Not Healed Healed- Epithelialized -Ulcer Cleansing Rinsed/ Rinsed/ Irrigated with Irrigated with Saline Saline -Foul Odor after Cleansing No No -Bioengineered Tissue No No -Bleeding Controlled with Pressure Pressure -Treatment Response Procedure Procedure Tolerated Well Tolerated Well -Offloading No No -Debridement - Subq, 1st 20sq cm No No #4 L DORSAL FOOT -Time 10:13 09:46 10:03 -Correct Patient Yes Yes Yes -Correct Side, Site, Position Yes Yes Yes -Correct Procedure Yes Yes Yes -Procedure Performed Yes Yes Yes -Type of Procedure Debridement Debridement Debridement -Clinical Debridement Subcutaneous Subcutaneous Subcutaneous -Tissue Removed Subcutaneous Subcutaneous Subcutaneous -Post Debridement (cm) - Length 5.0 8.7 5.5 -Post Debridement (cm) - Width 6.5 9.0 6.5 -Post Debridement (cm) - Depth 0.1 0.1 0.1 -Total Square (Post) (cm) 32.50 78.30 35.75 -Area of Debridement (cm) - Length 5.0 8.7 5.5 -Area of Debridement (cm) - Width 6.5 9.0 6.5 -Total Square (Area) (cm) 32.50 78.30 35.75 -Tunneling No No No -Undermining/Tunneling No No No -Circular Undermining No No No -Wound/Ulcer Outcome Not Healed Not Healed Not Healed -Ulcer Cleansing Rinsed/ Rinsed/ Rinsed/ Irrigated with Irrigated with Irrigated with Saline Saline Saline -Foul Odor after Cleansing No No No -Bioengineered Tissue No No No -Bleeding Controlled with Pressure Pressure Pressure -Treatment Response Procedure Procedure Procedure Tolerated Well Tolerated Well Tolerated Well -Offloading No No No -Debridement - Subq, 1st 20sq cm Yes Yes Yes -Debridement, SubQ, ea addt'l 20sq cm 2 4 1 or part thereof Pain Scale: 0-10 Numeric Is Patient Pain Free? Yes Yes Yes WC - Nurse 3 - General Ulcer D/C NN Start: 07/05/22 09:36 Freq: Status: Active Protocol: Activity Type Activity Date Activity User E-sign Co-sign Detail Recorded Client Recorded Date Recorded By Document 07/05/22 10:26 [place] [id number] 07/05/22 10:27 [place] Document 07/12/22 10:06 [id number] 07/12/22 10:09 Document 07/15/22 13:23 [facility] [id number] 07/15/22 13:25 [facility] Document 07/19/22 10:43 [place] [id number] 07/19/22 10:45 [place] 07/05/22 07/12/22 07/15/22 10:26 10:06 13:23 Wound Care Center Nurse 3 #5 L LAT FOOT -Ulcer Cleansing Rinsed/ Rinsed/ Soap and Water Irrigated with Irrigated with Saline Saline -Foul Odor after Cleansing No No No -Negative Pressure Wound Therapy N/A -Primary Dressing Applied Aquacel AG 4x4 Aquacel AG 4x4, Aquacel AG 4x4 Optilok 6.5x10 -Other Dressing unna boot -Primary Dressing Covered/Secured with Dry Gauze, Dry Gauze Secured with Tape -Aquacel AG 4x4 2 1 1 -Optilok 6.5x10 1 #4 L DORSAL FOOT -Ulcer Cleansing Rinsed/ Soap and Water Soap and Water Irrigated with Saline -Foul Odor after Cleansing No No No -Negative Pressure Wound Therapy N/A -Primary Dressing Applied Aquacel AG 4x4 Aquacel AG 4x4, Optilok 6.5x10 -Other Dressing aqaucel ag, unna boot superabsorber -Primary Dressing Covered/Secured with Dry Gauze & Roll Gauze, Secured with Tape -Aquacel AG 4x4 0 0 -Optilok 6.5x10 1 Right -Lotion applied to leg before compression wrap -Tubular Bandage Single Layer -Size of Tubigrip Used Size F -Size F ($) 1 Left -Multi-Layered Wrap Application Unna Boot - Unna Boot - Left ($) Left ($) Treatment Response Procedure Procedure Tolerated Well Tolerated Well Vital Signs Temperature (97.8 F-99.1 F) 96.2 F L Temperature Source Temporal Pulse Rate (60-100) 83 Pulse Location Monitor Respiratory Rate (12-18) 16 Respiratory rate source Observation Oxygen Delivery Method Room Air Blood Pressure (90/60-120/80) 159/91 H Blood Pressure Mean (mm Hg) 113 Source Monitor Position Sitting Blood Pressure Location Left Forearm Pain Scale: 0-10 Numeric Is Patient Pain Free? No Yes Yes WC - Visit Discharge Discharge Condition Stable Stable Stable Ambulatory Status Ambulatory Ambulatory Ambulatory,Cane Transportation Private Auto Private Auto Private Auto Medication Reconcilliation completed & Yes provided to patient/care provider Clinical Summary of Care Provided Yes 07/19/22 10:43 Wound Care Center Nurse 3 #5 L LAT FOOT -Ulcer Cleansing -Foul Odor after Cleansing -Negative Pressure Wound Therapy -Primary Dressing Applied -Other Dressing -Primary Dressing Covered/Secured with -Aquacel AG 4x4 -Optilok 6.5x10 #4 L DORSAL FOOT -Ulcer Cleansing Rinsed/ Irrigated with Saline -Foul Odor after Cleansing -Negative Pressure Wound Therapy -Primary Dressing Applied Aquacel AG 4x4, Optilok 6.5x10 -Other Dressing -Primary Dressing Covered/Secured with Dry Gauze, Secured with Tape -Aquacel AG 4x4 1 -Optilok 6.5x10 1 Right -Lotion applied to leg before No compression wrap -Tubular Bandage Single Layer -Size of Tubigrip Used Size F -Size F ($) 1 Left -Multi-Layered Wrap Application Unna Boot - Left ($) Treatment Response Vital Signs Temperature (97.8 F-99.1 F) Temperature Source Pulse Rate (60-100) Pulse Location Respiratory Rate (12-18) Respiratory rate source Oxygen Delivery Method Blood Pressure (90/60-120/80) Blood Pressure Mean (mm Hg) Source Position Blood Pressure Location Pain Scale: 0-10 Numeric Is Patient Pain Free? No WC - Visit Discharge Discharge Condition Stable Ambulatory Status Ambulatory Transportation Private Auto Medication Reconcilliation completed & Yes provided to patient/care provider Clinical Summary of Care Provided Yes Assessment/Plan Assessment/Plan (1) Non-pressure chronic ulcer of other part of left foot with fat layer exposed: CODE(S): L97.522 - Non-pressure chronic ulcer of other part of left foot with fat layer exposed (2) Ulcer of left foot: CODE(S): L97.529 - Non-pressure chronic ulcer of other part of left foot with unspecified severity (3) Edema of both legs: CODE(S): R60.0 - Localized edema (4) Lymphedema: CODE(S): I89.0 - Lymphedema, not elsewhere classified (5) Type 2 diabetes mellitus: CODE(S): E11.9 - Type 2 diabetes mellitus without complications QUALIFIERS: Diabetes mellitus supervisor intermediates insulin use: without group home use Diabetes mellitus complication status: with other specified complication Qualified Code(s): E11.69 - Type 2 diabetes mellitus with other specified complication (6) Psoriasis: CODE(S): L40.9 - Psoriasis, unspecified (7) Nicotine dependence: CODE(S): F17.200 - Nicotine dependence, unspecified, uncomplicated PLAN: Plan Patient evaluated at the wound center today. Wound care to her left dorsal foot ulcer and left lateral foot ulcer will be moistened Aquacel-Ag covered with gauze/ABD, place either silver or gauze between toes to help prevent further maceration. Compression will be Unna boot on left. Single tubigrip on the right after applying Lac hydrin lotion daily. She will come in on or Tuesday to have it changed, at that time, she will bring her lac hydrin lotion to be applied to the left leg before the Unna boot is reapplied. Venous study done 07/08/22 which show the left great saphenous vein below the knee, and the deep veins of the left calf, were not visualized due to the presence of open wounds. An accessory saphenous vein in the right proximal calf is incompetent. An enlarged lymph node is noted in both the right groin measuring approximately 3.79 x 1.30 cm and left groin measuring approximately 5.75 x 1.66 cm. Arterial study done 07/08/22 - Right ankle brachial index by dorsalis pedis is 1.23. The right digital-brachial index is 0.96. The left ankle brachial index by the dorsalis pedis is 1.30. Unable to acquire digit due to open wound. She has thick, dry plaques of skin on anterior lower legs bilaterally. She states this is her psoriasis but her medication doesn't help improve it. Ordered Lac Hydrin lotion to place on these areas 1-2 times daily but it is on back order. Encouraged a high protein, low carbohydrate diet to help with wound healing to help control diabetes. Follow up or Tuesday for a nurse visit to have Asa munoz changed and follow up one week with me.
== END 2022-07-20 23:59 | disposition home or self-care (01) ==
LOC: WC 09:30
PROVIDERS: PCP Internal Medicine; Referring Provider Nurse Practitioner Family; Visit Provider Nurse Practitioner Family
DX: E11.621 Type 2 diabetes mellitus with foot ulcer (principal); L97.522 Non-pressure chronic ulcer of other part of left foot with fat layer exposed; I11.0 Hypertensive heart disease with heart failure; I50.32 Chronic diastolic (congestive) heart failure; T81.89XA Other complications of procedures, not elsewhere classified, initial encounter; L40.9 Psoriasis, unspecified; R59.0 Localized enlarged lymph nodes; Z79.84 Long term (current) use of oral hypoglycemic drugs; Z79.1 Long term (current) use of non-steroidal anti-inflammatories (NSAID); R60.0 Localized edema
CPT/HCPCS: 11042; 11045; 29580; 93923; 93970; 99214; G0463

== ENCOUNTER → 2022-07-30 | Outpatient (CLI) | payer MEDICARE, MEDICAID, SELFPAY ==
[2022-07-30 10:17] LABS: Absolute Lymphocyte Count 2.06 X10^3/uL (0.83-4.51); Absolute Neutrophil Count 3.6 X10^3/uL (2.0-7.7); Basophil# 0.02 X10^3/uL; Basophil% 0.3 % (0-1); Eosinophil# 0.18 X10^3/uL; Eosinophils% 2.7 % (0-5); Hematocrit 45.4 % (37-47); Hemoglobin 13.6 g/dL (12.0-15.0); Lymphocyte # 2.06 X10^3/ul (0.83-4.51); Lymphocyte % 31.5 % (19-41); Mean Corpuscular Hgb 24.4 pg (27.0-32.0); Mean Corpuscular Volume 81.5 fL (81-99); Mean Platelet Vol. 11.2 fl (6.2-12.0); Monocyte# 0.64 X10^3/uL; Monocyte% 9.8 % (0-10); NRBC Flagged by Analyzer 0 % (0-5); Neutrophil # 3.62 X10^3/uL (2.7-7.7); Neutrophil % 55.2 % (47-70); Platelet Count 222 K/mm3 (150-450); RBC Distribution Width CV 19.7 % (11.6-14.6); RBC Distribution Width SD 56.8 fl (35.1-43.9); Red Blood Count 5.57 M/mm3 (4.2-5.4); White Blood Count 6.6 K/mm3 (4.4-11.0)
[2022-07-30 10:59] LABS: ALB/GLOB Ratio 0.5 RATIO (0.9-2.4); AST(SGOT) 13 U/L (15-37); Alanine Aminotransfer ALT/SGPT 18 U/L (13-56); Albumin, Serum 3.2 g/dL (3.2-5.0); Alkaline Phosphatase 81 U/L (45-117); Anion Gap 5 (5-15); BUN 8 mg/dL (7-18); BUN/Creat Ratio 13.7 RATIO (10-20); CPK Total, Creatine Kinase 42 U/L (26-192); Chloride 101 mmol/L (98-107); Cholesterol 152 mg/dL (200); Creatinine, Serum 0.58 mg/dL (0.55-1.02); EST Glomerular Filtration Rate 117 mL/min (>60); Est Glom Filt Rate - Afr Amer 142 mL/min (>60); Globulin 5.9 g/dL (2.2-4.2); Glucose 100 mg/dL (74-106); High Density Lipoprotein 44 mg/dL; Potassium 3.9 mmol/L (3.5-5.1); Protein, Total 9.1 g/dL (6.4-8.2); Sodium Level 136 mmol/L (136-145); Triglycerides 116 mg/dL; Very Low Density Lipoprotein 23 mg/dL (5-40)
[2022-07-30 11:25] LABS: HIV - WCH Non-Reactive (Nonreactive); Hepatitis B Surface Antibody Non-Reactive; Hepatitis B Surface Antigen Non-Reactive (Nonreactive); Hepatitis C Antibody Non-Reactive (Nonreactive)
[2022-08-03 18:07] LABS: Hepatitis B Core Ab Total Negative (Negative); QNTFERON TB Mitogen Value > 10.00 IU/mL (.); QNTFERON TB Nil Value 0.09 IU/mL (.); QNTFERON TB1+ Ag Value 0.13 IU/mL (.); QNTFERON TB2+ Ag Value 0.08 IU/mL (.)
[2022-08-04 08:14] LABS: Hepatitis A AB, Total Negative (Negative); QNTIFERON TB Positive Criteria Negative (Negative)
== END | disposition home or self-care (01) ==
LOC: LAB 09:00
PROVIDERS: PCP Internal Medicine; Referring Provider Dermatology; Visit Provider Dermatology
DX: L40.0 Psoriasis vulgaris (principal); Z11.59 Encounter for screening for other viral diseases; Z11.1 Encounter for screening for respiratory tuberculosis; Z79.899 Other long term (current) drug therapy
CPT/HCPCS: 36415; 80053; 80061; 82550; 85025; 86480; 86703; 86704; 86706; 86708; 86803; 87340

== ENCOUNTER 2022-08-18 10:45 | Outpatient (RCR) | payer MEDICARE, MEDICAID, SELFPAY ==
[2022-07-21 00:34] VITALS: BP 159/91; PULSE 83; RESP 16; TEMP 36
[2022-07-22 12:54] VITALS: BP 166/78; PULSE 84; RESP 16
[2022-07-26 09:15] VITALS: BP 162/75; PULSE 65; RESP 16; TEMP 36.1
--- NOTE | 2022-07-26 11:26 | PN.PCM_ITS ---
History of Present Illness Date of Service: 07/26/22 Chief Complaint: Non healing surgical wound of left hand History of Wound: 47-year-old woman who recently was hospitalized 06/23/22 - 06/27/22 for cellulitis on her left leg that failed outpatient therapy. When she got home she developed a large blister on her dorsal portion of her left foot. She was discharged home on Keflex and Bactrim which she finishes today. She states she has a history of psoriasis/arthritis on her bilateral legs that have caused thick scabbing. She sees a mop worker in [place] for this and has been on Ixekizumab without improvement in her symptoms. She states that she has had the dry, itchy patches on her legs that never improve for years and she also has psoriatic arthritis. She comes in today for evaluation of the ulcers on her left foot and bilateral lower leg edema. Venous study done 07/08/22 which show the left great saphenous vein below the knee, and the deep veins of the left calf, were not visualized due to the presence of open wounds. An accessory saphenous vein in the right proximal calf is incompetent. An enlarged lymph node is noted in both the right groin measuring approximately 3.79 x 1.30 cm and left groin measuring approximately 5.75 x 1.66 cm. Arterial study done 07/08/22 - Right ankle brachial index by dorsalis pedis is 1.23. The right digital-brachial index is 0.96. The left ankle brachial index by the dorsalis pedis is 1.30. Unable to acquire digit due to open wound. She denies fever, chills, nausea or vomiting at this time. Progress of Wound: Left dorsal foot ulcer into the subcutaneous tissue that extends onto her proximal toes. It is smaller and her toes look less macerated, especially since placing dry gauze between her toes. There is dry scabbing present around the edges. The left lateral foot ulcer remains healed. She tolerated the Unna boots well. The thickened plaques on the anterior portion of her left anterior leg and anterior and posterior right leg are improving. She states she is using a loofa sponge and the Lac Hydrin lotion. Objective Data Objective Data Vital Signs: Vital Signs Temp Pulse Resp BP O2 Del Method 96.9 F L 65 16 162/75 H Room Air 07/26/22 09:15 07/26/22 09:15 07/26/22 09:15 07/26/22 09:15 07/26/22 09:15 Oxygen Delivery Method Room Air Charges/Coding Procedures Integumentary 111xxx-113xx: 55882 Tammy subq tissue 20 sq cm/< Add On Codes: 02581 Tammy subq tissue add-on Debridement Note Debridement Note Wound debrided: dorsal foot and proximal toes ulcer Laterality: Left Wound Grade/Stage: Stage III Type of Debridement: Excisional debridement Depth: Down to and including healthy tissue and in the subcutaneous layer Percentage of wound debrided: 100 Instrument Used: 5mm curette Tissue Removed: Devitalized tissue and slough Severity: Fat Layer Exposed Amount of bleeding with debridement: Mild Bleeding Controlled with: Pressure and Compression and gauze Patient tolerated procedure: Patient tolerated procedure well Post-Debridement Measurements and Additional Note: Post-Debridement Measurements/Treatment - Nurse 1 - General Ulcer Assessment Start: 07/22/22 12:49 Freq: Status: Active Protocol: CATRACHO Activity Type Activity Date Activity User E-sign Co-sign Detail Recorded Client Recorded Date Recorded By Document 07/22/22 12:54 DL [id number] 07/22/22 13:02 DL Document 07/26/22 09:15 [facility] [id number] 07/26/22 09:23 [facility] 07/22/22 07/26/22 12:54 09:15 - Today's Visit Information Type of service Nurse-only Follow-up Visit Visit (Physician/[employer] ) Arrival Mode Ambulatory,Cane Ambulatory,Cane Transfer Assistance None Patient Identification Verified (Name & Yes Yes ) Patient Requires Transmission-Based No No Precautions Vital Signs Temperature (97.8 F-99.1 F) 96.9 F L Temperature Source Temporal Pulse Rate (60-100) 84 65 Pulse Location Monitor Monitor Respiratory Rate (12-18) 16 16 Respiratory rate source Observation Observation Oxygen Delivery Method Room Air Room Air Blood Pressure (90/60-120/80) 166/78 H 162/75 H Blood Pressure Mean (mm Hg) 107 104 Source Monitor Monitor Position Sitting Sitting Blood Pressure Location Right Arm Left Arm History Since Last Visit- (Skip if this is Patient's initial visit) Have you changed medications since your No No last visit? Any new allergies or adverse reactions No No Had a fall/change in ADL's that may No No increase risk of falls Signs or symptoms of abuse and/or No No neglect since last visit Have you been in the hospital since your No No last visit? Has dressing in place as prescribed Yes Yes Has compression in place as prescribed Yes Yes Has offloadiing in place as prescribed N/A N/A Experienced any changes in pain level or No No management Left Footwear Slipper Regular Shoe Right Footwear Slipper Regular Shoe Other Footwear pt removed unna and showered per instruction . tubi on now Pain Scale: 0-10 Numeric Is Patient Pain Free? Yes Yes WC - Nurse 1 - General Ulcer Measurement Start: 07/22/22 12:49 Freq: Status: Active Protocol: Activity Type Activity Date Activity User E-sign Co-sign Detail Recorded Client Recorded Date Recorded By Document 07/22/22 12:54 DL [id number] 07/22/22 13:02 DL Document 07/26/22 09:15 BM [id number] 07/26/22 09:23 BMF 07/22/22 07/26/22 12:54 09:15 Wound Center Nurse 1 #4 L DORSAL FOOT -Combined with other wound No -Current Size (cm) - Length 4 -Current Size (cm) - Width 5 -Current Size (cm) - Depth 0.1 -Total Square Cm 20 -Date of Last Picture (Recall this 07/26/22 field) -Photo Taken Yes -Epithelialization Small 1-33% -Tunneling No -Undermining/Tunneling No -Circular Undermining No -Exudate Amt Medium -Exudate Type Serosanguineous -Wound Margin Distinct, Outline Attached -Granulation Amt Small (1-33%) -Granulation Quality Red -Slough/Fibrin Yes -Necrosis Amt Large (67-100%) -Necrotic Tissue Type Adherent Slough -Texture (Jonelle-wound Skin Appearance) Assessed, Scarring -Moisture (Jonelle-wound Skin Appearance) Assessed -Color (Jonelle-wound Skin Appearance) Assessed, Erythema -Temperature (Jonelle-wound Skin No Abnormality Appearance) (Pt Warm) -Tenderness on Palpation (Jonelle-wound No Skin Appearance) -Ulcer Cleansing Soap and Water -Foul Odor after Cleansing No -Anesthetic Used 5% Lidocaine Gel Lower Limb Edema Present Yes Yes Left Calf (cm) 53 Left Ankle (cm) 27.6 WC - Nurse 2 - General Ulcer CM Notes Start: 07/22/22 12:49 Freq: Status: Active Protocol: Activity Type Activity Date Activity User E-sign Co-sign Detail Recorded Client Recorded Date Recorded By Document 07/26/22 09:54 [id number] 07/26/22 10:05 JF 07/26/22 09:54 Wound Center Nurse 2 #4 L DORSAL FOOT -Time 09:54 -Correct Patient Yes -Correct Side, Site, Position Yes -Correct Procedure Yes -Procedure Performed Yes -Type of Procedure Debridement -Clinical Debridement Subcutaneous -Tissue Removed Subcutaneous -Post Debridement (cm) - Length 4.0 -Post Debridement (cm) - Width 5.6 -Post Debridement (cm) - Depth 0.1 -Total Square (Post) (cm) 22.40 -Area of Debridement (cm) - Length 4.0 -Area of Debridement (cm) - Width 5.6 -Total Square (Area) (cm) 22.40 -Tunneling No -Undermining/Tunneling No -Circular Undermining No -Wound/Ulcer Outcome Not Healed -Ulcer Cleansing Rinsed/ Irrigated with Saline -Foul Odor after Cleansing No -Bioengineered Tissue No -Bleeding Controlled with Pressure -Treatment Response Procedure Tolerated Well -Offloading No -Debridement - Subq, 1st 20sq cm Yes -Debridement, SubQ, ea addt'l 20sq cm 1 or part thereof Pain Scale: 0-10 Numeric Is Patient Pain Free? Yes WC - Nurse 3 - General Ulcer D/C NN Start: 07/22/22 12:49 Freq: Status: Active Protocol: Activity Type Activity Date Activity User E-sign Co-sign Detail Recorded Client Recorded Date Recorded By Document 07/22/22 12:54 DL [id number] 07/22/22 13:02 DL Document 07/26/22 10:23 DL [id number] 07/26/22 10:24 DL 07/22/22 07/26/22 12:54 10:23 Vital Signs Pulse Rate (60-100) 84 Pulse Location Monitor Respiratory Rate (12-18) 16 Respiratory rate source Observation Oxygen Delivery Method Room Air Blood Pressure (90/60-120/80) 166/78 H Blood Pressure Mean (mm Hg) 107 Source Monitor Position Sitting Blood Pressure Location Right Arm Pain Scale: 0-10 Numeric Is Patient Pain Free? Yes Yes Wound Care Center Nurse 3 #5 L LAT FOOT -Ulcer Cleansing Soap and Water -Foul Odor after Cleansing No -Primary Dressing Applied Aquacel AG 4x4, Optilok 6.5x10 -Primary Dressing Covered/Secured with Dry Gauze & Roll Gauze, Secured with Tape -Other Covering unna boot -Aquacel AG 4x4 1 -Optilok 6.5x10 1 #4 L DORSAL FOOT -Ulcer Cleansing Soap and Water Rinsed/ Irrigated with Saline -Foul Odor after Cleansing No No -Primary Dressing Applied Aquacel AG 4x4, C Hydrogel ($), Optilok 6.5x10 NonAdherent Contact Layer -Other Dressing unna boot -Primary Dressing Covered/Secured with Dry Gauze & Roll Gauze, Secured with Tape -Aquacel AG 4x4 0 -Optilok 6.5x10 0 Right -Tubular Bandage Double Layer -Size of Tubigrip Used Size F -Size F ($) 2 Left -Multi-Layered Wrap Application Unna Boot - Left ($) -Tubular Bandage Double Layer -Size of Tubigrip Used Size F -Size F ($) 2 Treatment Response Procedure Tolerated Well WC - Visit Discharge Discharge Condition Stable Stable Ambulatory Status Ambulatory,Cane Ambulatory Transportation Private Auto Assessment/Plan Assessment/Plan (1) Non-pressure chronic ulcer of other part of left foot with fat layer exposed: CODE(S): L97.522 - Non-pressure chronic ulcer of other part of left foot with fat layer exposed (2) Ulcer of left foot: CODE(S): L97.529 - Non-pressure chronic ulcer of other part of left foot with unspecified severity (3) Edema of both legs: CODE(S): R60.0 - Localized edema (4) Lymphedema: CODE(S): I89.0 - Lymphedema, not elsewhere classified (5) Type 2 diabetes mellitus: CODE(S): E11.9 - Type 2 diabetes mellitus without complications QUALIFIERS: Diabetes mellitus terminal makeup operator insulin use: without senior care use Diabetes mellitus complication status: with other specified complication Qualified Code(s): E11.69 - Type 2 diabetes mellitus with other specified complication (6) Psoriasis: CODE(S): L40.9 - Psoriasis, unspecified (7) Nicotine dependence: CODE(S): F17.200 - Nicotine dependence, unspecified, uncomplicated PLAN: Plan Patient evaluated at the wound center today. Wound care to her left dorsal foot ulcer and toes will be moistened Aquacel-Ag covered with gauze/ABD, place either silver or gauze between toes to help prevent maceration. Compression will be double tubigrip bilaterally. Double tubigrip on the right after applying Lac hydrin lotion daily. Venous study done 07/08/22 which show the left great saphenous vein below the knee, and the deep veins of the left calf, were not visualized due to the presence of open wounds. An accessory saphenous vein in the right proximal calf is incompetent. An enlarged lymph node is noted in both the right groin measuring approximately 3.79 x 1.30 cm and left groin measuring approximately 5.75 x 1.66 cm. Arterial study done 07/08/22 - Right ankle brachial index by dorsalis pedis is 1.23. The right digital-brachial index is 0.96. The left ankle brachial index by the dorsalis pedis is 1.30. Unable to acquire digit due to open wound. The thick, dry plaques of skin on anterior lower legs bilaterally are improving with the Unna boots, lac-hadrin lotion and she is now using a loofa sponge when showering. I stressed to not be too aggressive with the Loofa to prevent bleeding. She states this is her psoriasis but her medication doesn't help improve it. Lac Hydrin lotion to place on these areas 1-2 times daily but it is on back order. Encouraged a high protein, low carbohydrate diet to help with wound healing to help control diabetes. Follow up one week.
[2022-08-02 09:03] VITALS: BP 168/84; PULSE 81; RESP 18; TEMP 36
--- NOTE | 2022-08-02 13:09 | PCM.WC.PN ---
History of Present Illness Date of Service: 08/02/22 Chief Complaint: Non healing surgical wound of left hand History of Wound: 47-year-old woman who recently was hospitalized 06/23/22 - 06/27/22 for cellulitis on her left leg that failed outpatient therapy. When she got home she developed a large blister on her dorsal portion of her left foot. She was discharged home on Keflex and Bactrim which she finishes today. She states she has a history of psoriasis/arthritis on her bilateral legs that have caused thick scabbing. 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 She states that she has had the dry, itchy patches on her legs that never improve for years and she also has psoriatic arthritis. She comes in today for evaluation of the ulcers on her left foot and bilateral lower leg edema. Venous study done 07/08/22 which show the left great saphenous vein below the knee, and the deep veins of the left calf, were not visualized due to the presence of open wounds. An accessory saphenous vein in the right proximal calf is incompetent. An enlarged lymph node is noted in both the right groin measuring approximately 3.79 x 1.30 cm and left groin measuring approximately 5.75 x 1.66 cm. Arterial study done 07/08/22 - Right ankle brachial index by dorsalis pedis is 1.23. The right digital-brachial index is 0.96. The left ankle brachial index by the dorsalis pedis is 1.30. Unable to acquire digit due to open wound. She denies fever, chills, nausea or vomiting at this time. Progress of Wound: Left dorsal foot ulcer into the subcutaneous tissue that extends onto her proximal toes. It is smaller and her toes look less macerated, especially since placing dry gauze between her toes. There is dry scabbing present around the edges. It is very painful to palpation and with debridement. The left lateral foot ulcer remains healed. She tolerated the Unna boots well. The thickened plaques on the anterior portion of her left anterior leg and anterior and posterior right leg are slightly improving. She states she is using a loofa sponge and the Lac Hydrin lotion. Objective Data Objective Data Vital Signs: Vital Signs Temp Pulse Resp BP O2 Del Method 96.8 F L 81 18 168/84 H Room Air 08/02/22 09:03 08/02/22 09:03 08/02/22 09:03 08/02/22 09:03 08/02/22 09:03 Oxygen Delivery Method Room Air Charges/Coding Procedures Integumentary 111xxx-113xx: 02504 Tammy subq tissue 20 sq cm/< Add On Codes: 77272 Tammy subq tissue add-on Debridement Note Debridement Note Wound debrided: dorsal foot and proximal toes ulcer Laterality: Left Wound Grade/Stage: Stage III Type of Debridement: Excisional debridement Depth: Down to and including healthy tissue and in the subcutaneous layer Percentage of wound debrided: 100 Instrument Used: 5mm curette Tissue Removed: Devitalized tissue and slough Severity: Fat Layer Exposed Amount of bleeding with debridement: Mild Bleeding Controlled with: Pressure and Compression and gauze Patient tolerated procedure: Patient tolerated procedure well Debridement Free Text: Debridement painful but with breaks, it was manageable. Dry scabbing on the toes. Post-Debridement Measurements and Additional Note: Post-Debridement Measurements/Treatment - Nurse 1 - General Ulcer Assessment Start: 07/22/22 12:49 Freq: Status: Active Protocol: [email or web address].[email or web address] Activity Type Activity Date Activity User E-sign Co-sign Detail Recorded Client Recorded Date Recorded By Document 07/22/22 12:54 DL [id number] 07/22/22 13:02 DL Document 07/26/22 09:15 [facility] [id number] 07/26/22 09:23 [facility] Document 08/02/22 09:03 [facility] [id number] 08/02/22 09:12 [facility] 07/22/22 07/26/22 08/02/22 12:54 09:15 09:03 - Today's Visit Information Type of service Nurse-only Follow-up Visit Follow-up Visit Visit (Physician/M1A1 TANK CREWMAN (Physician/M1A1 T[employer] CREWMAN ) ) Arrival Mode Ambulatory,Cane Ambulatory,Cane Ambulatory,Cane Transfer Assistance None None Patient Identification Verified (Name & Yes Yes Yes ) Patient Requires Transmission-Based No No No Precautions Vital Signs Temperature (97.8 F-99.1 F) 96.9 F L 96.8 F L Temperature Source Temporal Temporal Pulse Rate (60-100) 84 65 81 Pulse Location Monitor Monitor Monitor Respiratory Rate (12-18) 16 16 18 Respiratory rate source Observation Observation Observation Oxygen Delivery Method Room Air Room Air Room Air Blood Pressure (90/60-120/80) 166/78 H 162/75 H 168/84 H Blood Pressure Mean (mm Hg) 107 104 112 Source Monitor Monitor Monitor Position Sitting Sitting Sitting Blood Pressure Location Right Arm Left Arm Left Forearm History Since Last Visit- (Skip if this is Patient's initial visit) Have you changed medications since your No No No last visit? Any new allergies or adverse reactions No No No Had a fall/change in ADL's that may No No No increase risk of falls Signs or symptoms of abuse and/or No No No neglect since last visit Have you been in the hospital since your No No No last visit? Has dressing in place as prescribed Yes Yes Yes Has compression in place as prescribed Yes Yes Yes Has offloadiing in place as prescribed N/A N/A N/A Experienced any changes in pain level or No No No management Left Footwear Slipper Regular Shoe Regular Shoe Right Footwear Slipper Regular Shoe Regular Shoe Other Footwear pt removed unna and showered per instruction . tubi on now Pain Scale: 0-10 Numeric Is Patient Pain Free? Yes Yes Yes WC - Nurse 1 - General Ulcer Measurement Start: 07/22/22 12:49 Freq: Status: Active Protocol: Activity Type Activity Date Activity User E-sign Co-sign Detail Recorded Client Recorded Date Recorded By Document 07/22/22 12:54 DL [id number] 07/22/22 13:02 DL Document 07/26/22 09:15 [facility] [id number] 07/26/22 09:23 F Document 08/02/22 09:03 [facility] [id number] 08/02/22 09:12 BMF 07/22/22 07/26/22 08/02/22 12:54 09:15 09:03 Wound Center Nurse 1 #4 L DORSAL FOOT -Combined with other wound No No -Current Size (cm) - Length 4 4 -Current Size (cm) - Width 5 5.5 -Current Size (cm) - Depth 0.1 0.1 -Total Square Cm 20 22.0 -Date of Last Picture (Recall this 07/26/22 field) -Photo Taken Yes -Epithelialization Small 1-33% Small 1-33% -Tunneling No No -Undermining/Tunneling No No -Circular Undermining No No -Exudate Amt Medium Medium -Exudate Type Serosanguineous Serous -Wound Margin Distinct, Distinct, Outline Outline Attached Attached -Granulation Amt Small (1-33%) None Present (0 %) -Granulation Quality Red -Slough/Fibrin Yes Yes -Necrosis Amt Large (67-100%) Large (67-100%) -Necrotic Tissue Type Adherent Slough Adherent Slough -Texture (Jonelle-wound Skin Appearance) Assessed, Assessed, Scarring Scarring -Moisture (Jonelle-wound Skin Appearance) Assessed Assessed -Color (Jonelle-wound Skin Appearance) Assessed, Assessed Erythema -Temperature (Jonelle-wound Skin No Abnormality No Abnormality Appearance) (Pt Warm) (Pt Warm) -Tenderness on Palpation (Jonelle-wound No No Skin Appearance) -Ulcer Cleansing Soap and Water Soap and Water -Foul Odor after Cleansing No No -Anesthetic Used 5% Lidocaine 5% Lidocaine Gel Gel Lower Limb Edema Present Yes Yes Left Calf (cm) 53 Left Ankle (cm) 27.6 WC - Nurse 2 - General Ulcer CM Notes Start: 07/22/22 12:49 Freq: Status: Active Protocol: Activity Type Activity Date Activity User E-sign Co-sign Detail Recorded Client Recorded Date Recorded By Document 07/26/22 09:54 [id number] 07/26/22 10:05 Document 08/02/22 09:38 [id number] 08/02/22 09:53 07/26/22 08/02/22 09:54 09:38 Wound Center Nurse 2 #4 L DORSAL FOOT -Time 09:54 09:39 -Correct Patient Yes Yes -Correct Side, Site, Position Yes Yes -Correct Procedure Yes Yes -Procedure Performed Yes Yes -Type of Procedure Debridement Debridement -Clinical Debridement Subcutaneous Subcutaneous -Tissue Removed Subcutaneous Subcutaneous -Post Debridement (cm) - Length 4.0 4.7 -Post Debridement (cm) - Width 5.6 4.5 -Post Debridement (cm) - Depth 0.1 0.2 -Total Square (Post) (cm) 22.40 21.15 -Area of Debridement (cm) - Length 4.0 4.7 -Area of Debridement (cm) - Width 5.6 4.5 -Total Square (Area) (cm) 22.40 21.15 -Tunneling No No -Undermining/Tunneling No No -Circular Undermining No No -Wound/Ulcer Outcome Not Healed Not Healed -Ulcer Cleansing Rinsed/ Rinsed/ Irrigated with Irrigated with Saline Saline -Foul Odor after Cleansing No No -Bioengineered Tissue No No -Bleeding Controlled with Pressure Pressure -Treatment Response Procedure Procedure Tolerated Well Tolerated Well -Offloading No No -Debridement - Subq, 1st 20sq cm Yes Yes -Debridement, SubQ, ea addt'l 20sq cm 1 1 or part thereof Pain Scale: 0-10 Numeric Is Patient Pain Free? Yes Yes WC - Nurse 3 - General Ulcer D/C NN Start: 07/22/22 12:49 Freq: Status: Active Protocol: Activity Type Activity Date Activity User E-sign Co-sign Detail Recorded Client Recorded Date Recorded By Document 07/22/22 12:54 DL [id number] 07/22/22 13:02 DL Document 07/26/22 10:23 DL [id number] 07/26/22 10:24 DL Document 08/02/22 10:10 [facility] [id number] 08/02/22 10:11 [facility] 07/22/22 07/26/22 08/02/22 12:54 10:23 10:10 Vital Signs Pulse Rate (60-100) 84 Pulse Location Monitor Respiratory Rate (12-18) 16 Respiratory rate source Observation Oxygen Delivery Method Room Air Blood Pressure (90/60-120/80) 166/78 H Blood Pressure Mean (mm Hg) 107 Source Monitor Position Sitting Blood Pressure Location Right Arm Pain Scale: 0-10 Numeric Is Patient Pain Free? Yes Yes Yes Wound Care Center Nurse 3 #5 L LAT FOOT -Ulcer Cleansing Soap and Water -Foul Odor after Cleansing No -Primary Dressing Applied Aquacel AG 4x4, Optilok 6.5x10 -Primary Dressing Covered/Secured with Dry Gauze & Roll Gauze, Secured with Tape -Other Covering unna boot -Aquacel AG 4x4 1 -Optilok 6.5x10 1 #4 L DORSAL FOOT -Ulcer Cleansing Soap and Water Rinsed/ Soap and Water Irrigated with Saline -Foul Odor after Cleansing No No No -Primary Dressing Applied Aquacel AG 4x4, C Hydrogel ($), NonAdherent Optilok 6.5x10 NonAdherent Contact Layer Contact Layer -Other Dressing unna boot hydrogel -Primary Dressing Covered/Secured with Dry Gauze & Roll Gauze, Secured with Tape -Other Covering unna -Aquacel AG 4x4 0 -Optilok 6.5x10 0 Right -Tubular Bandage Double Layer -Size of Tubigrip Used Size F -Size F ($) 2 Left -Multi-Layered Wrap Application Unna Boot - Unna Boot - Left ($) Left ($) -Tubular Bandage Double Layer -Size of Tubigrip Used Size F -Size F ($) 2 Treatment Response Procedure Procedure Tolerated Well Tolerated Well WC - Visit Discharge Discharge Condition Stable Stable Stable Ambulatory Status Ambulatory,Cane Ambulatory Ambulatory,Cane Transportation Private Auto Private Auto Assessment/Plan Assessment/Plan (1) Non-pressure chronic ulcer of other part of left foot with fat layer exposed: CODE(S): L97.522 - Non-pressure chronic ulcer of other part of left foot with fat layer exposed (2) Ulcer of left foot: CODE(S): L97.529 - Non-pressure chronic ulcer of other part of left foot with unspecified severity (3) Edema of both legs: CODE(S): R60.0 - Localized edema (4) Lymphedema: CODE(S): I89.0 - Lymphedema, not elsewhere classified (5) Type 2 diabetes mellitus: CODE(S): E11.9 - Type 2 diabetes mellitus without complications QUALIFIERS: Diabetes mellitus custodial insulin use: without technician terminal and repeater use Diabetes mellitus complication status: with other specified complication Qualified Code(s): E11.69 - Type 2 diabetes mellitus with other specified complication (6) Psoriasis: CODE(S): L40.9 - Psoriasis, unspecified (7) Nicotine dependence: CODE(S): F17.200 - Nicotine dependence, unspecified, uncomplicated PLAN: Plan Patient evaluated at the wound center today. Wound care to her left dorsal foot ulcer and toes will be moistened Collage hydrogel covered with adaptic and topped with gauze/ABD, place gauze between toes to help prevent maceration. Compression will be Unna boots bilaterally. Venous study done 07/08/22 which show the left great saphenous vein below the knee, and the deep veins of the left calf, were not visualized due to the presence of open wounds. An accessory saphenous vein in the right proximal calf is incompetent. An enlarged lymph node is noted in both the right groin measuring approximately 3.79 x 1.30 cm and left groin measuring approximately 5.75 x 1.66 cm. Arterial study done 07/08/22 - Right ankle brachial index by dorsalis pedis is 1.23. The right digital-brachial index is 0.96. The left ankle brachial index by the dorsalis pedis is 1.30. Unable to acquire digit due to open wound. The thick, dry plaques of skin on anterior lower legs bilaterally are improving with the Unna boots. Her waste water operator has changed her medication due to it not helping her psoriasis. Encouraged a high protein, low carbohydrate diet to help with wound healing to help control diabetes. Follow up or Tuesday to have Unna boots change. Follow up one week to see me.
[2022-08-11 11:19] VITALS: BP 170/88; PULSE 77; RESP 22; TEMP 36.2
--- NOTE | 2022-08-11 14:28 | PN.PCM_ITS ---
History of Present Illness Date of Service: 08/11/22 Chief Complaint: Non healing surgical wound of left hand History of Wound: 47-year-old woman who recently was hospitalized 06/23/22 - 06/27/22 for cellulitis on her left leg that failed outpatient therapy. When she got home she developed a large blister on her dorsal portion of her left foot. She was discharged home on Keflex and Bactrim which she finishes today. She states she has a history of psoriasis/arthritis on her bilateral legs that have caused thick scabbing. She sees a snubber in [place] for this and has been on Ixekizumab without improvement in her symptoms. She states that she has had the dry, itchy patches on her legs that never improve for years and she also has psoriatic arthritis. She comes in today for evaluation of the ulcers on her left foot and bilateral lower leg edema. Venous study done 07/08/22 which show the left great saphenous vein below the knee, and the deep veins of the left calf, were not visualized due to the presence of open wounds. An accessory saphenous vein in the right proximal calf is incompetent. An enlarged lymph node is noted in both the right groin measuring approximately 3.79 x 1.30 cm and left groin measuring approximately 5.75 x 1.66 cm. Arterial study done 07/08/22 - Right ankle brachial index by dorsalis pedis is 1.23. The right digital-brachial index is 0.96. The left ankle brachial index by the dorsalis pedis is 1.30. Unable to acquire digit due to open wound. She denies fever, chills, nausea or vomiting at this time. Progress of Wound: Left dorsal foot and proximal toe cluster ulcers are much smaller. There is dry scabbing present around the edges. It continues to be very painful to palpation and with debridement. Obtained wound culture. She tolerated the Unna boots well. The thickened plaques on the anterior portion of her left anterior leg and anterior and posterior right leg are slightly improving. She states she is using a loofa sponge and the Lac Hydrin lotion when she removes the boots before coming to her appointment. Objective Data Objective Data Vital Signs: Vital Signs Temp Pulse Resp BP O2 Del Method 97.2 F L 77 22 H 170/88 H Room Air 08/11/22 11:19 08/11/22 11:19 08/11/22 11:19 08/11/22 11:19 08/02/22 09:03 Oxygen Delivery Method Room Air Charges/Coding Procedures Integumentary 111xxx-113xx: [id number] Tammy subq tissue 20 sq cm/< Debridement Note Debridement Note Wound debrided: dorsal foot and proximal toes ulcer Laterality: Left Wound Grade/Stage: Stage III Type of Debridement: Excisional debridement Depth: Down to and including healthy tissue and in the subcutaneous layer Percentage of wound debrided: 100 Instrument Used: 3mm curette Tissue Removed: Devitalized tissue and slough Severity: Fat Layer Exposed Amount of bleeding with debridement: Mild Bleeding Controlled with: Pressure and Compression and gauze Patient tolerated procedure: Patient tolerated procedure well Debridement Free Text: Debridement painful but with breaks, it was manageable. Dry scabbing on the toes. Post-Debridement Measurements and Additional Note: Post-Debridement Measurements/Treatment - Nurse 1 - General Ulcer Assessment Start: 07/22/22 12:49 Freq: Status: Active Protocol: CATRACHO Activity Type Activity Date Activity User E-sign Co-sign Detail Recorded Client Recorded Date Recorded By Document 07/22/22 12:54 DL [id number] 07/22/22 13:02 DL Document 07/26/22 09:15 [facility] [id number] 07/26/22 09:23 [facility] Document 08/02/22 09:03 [facility] [id number] 08/02/22 09:12 [facility] Document 08/11/22 11:19 DL [id number] 08/11/22 11:29 DL 07/22/22 07/26/22 08/02/22 12:54 09:15 09:03 - Today's Visit Information Type of service Nurse-only Follow-up Visit Follow-up Visit Visit (Physician/DIRECTOR DATA ARCHITECTURE (Physician/DIRECTOR DATA ARCHITECTURE ) ) Arrival Mode Ambulatory,Cane Ambulatory,Cane Ambulatory,Cane Transfer Assistance None None Patient Identification Verified (Name & Yes Yes Yes ) Patient Requires Transmission-Based No No No Precautions Vital Signs Temperature (97.8 F-99.1 F) 96.9 F L 96.8 F L Temperature Source Temporal Temporal Pulse Rate (60-100) 84 65 81 Pulse Location Monitor Monitor Monitor Respiratory Rate (12-18) 16 16 18 Respiratory rate source Observation Observation Observation Oxygen Delivery Method Room Air Room Air Room Air Blood Pressure (90/60-120/80) 166/78 H 162/75 H 168/84 H Blood Pressure Mean (mm Hg) 107 104 112 Source Monitor Monitor Monitor Position Sitting Sitting Sitting Blood Pressure Location Right Arm Left Arm Left Forearm History Since Last Visit- (Skip if this is Patient's initial visit) Have you changed medications since your No No No last visit? Any new allergies or adverse reactions No No No Had a fall/change in ADL's that may No No No increase risk of falls Signs or symptoms of abuse and/or No No No neglect since last visit Have you been in the hospital since your No No No last visit? Has dressing in place as prescribed Yes Yes Yes Has compression in place as prescribed Yes Yes Yes Has offloadiing in place as prescribed N/A N/A N/A Experienced any changes in pain level or No No No management Left Footwear Slipper Regular Shoe Regular Shoe Right Footwear Slipper Regular Shoe Regular Shoe Other Footwear pt removed unna and showered per instruction . tubi on now Pain Scale: 0-10 Numeric Is Patient Pain Free? Yes Yes Yes 08/11/22 11:19 WC - Today's Visit Information Type of service Follow-up Visit (Physician/DIRECTOR DATA ARCHITECTURE ) Arrival Mode Ambulatory,Cane Transfer Assistance None Patient Identification Verified (Name & Yes ) Patient Requires Transmission-Based No Precautions Vital Signs Temperature (97.8 F-99.1 F) 97.2 F L Temperature Source Temporal Pulse Rate (60-100) 77 Pulse Location Monitor Respiratory Rate (12-18) 22 H Respiratory rate source Observation Oxygen Delivery Method Blood Pressure (90/60-120/80) 170/88 H Blood Pressure Mean (mm Hg) 115 Source Monitor Position Blood Pressure Location History Since Last Visit- (Skip if this is Patient's initial visit) Have you changed medications since your No last visit? Any new allergies or adverse reactions No Had a fall/change in ADL's that may No increase risk of falls Signs or symptoms of abuse and/or No neglect since last visit Have you been in the hospital since your No last visit? Has dressing in place as prescribed Has compression in place as prescribed No Has offloadiing in place as prescribed N/A Experienced any changes in pain level or Yes management Left Footwear Right Footwear Other Footwear Pain Scale: 0-10 Numeric Is Patient Pain Free? Yes WC - Nurse 1 - General Ulcer Measurement Start: 07/22/22 12:49 Freq: Status: Active Protocol: Activity Type Activity Date Activity User E-sign Co-sign Detail Recorded Client Recorded Date Recorded By Document 07/22/22 12:54 DL [id number] 07/22/22 13:02 DL Document 07/26/22 09:15 [facility] [id number] 07/26/22 09:23 BMF Document 08/02/22 09:03 [facility] [id number] 08/02/22 09:12 BMF Document 08/11/22 11:19 DL [id number] 08/11/22 11:29 DL 07/22/22 07/26/22 08/02/22 12:54 09:15 09:03 Wound Center Nurse 1 #4 L DORSAL FOOT -Combined with other wound No No -Current Size (cm) - Length 4 4 -Current Size (cm) - Width 5 5.5 -Current Size (cm) - Depth 0.1 0.1 -Total Square Cm 20 22.0 -Date of Last Picture (Recall this 07/26/22 field) -Photo Taken Yes -Epithelialization Small 1-33% Small 1-33% -Tunneling No No -Undermining/Tunneling No No -Circular Undermining No No -Exudate Amt Medium Medium -Exudate Type Serosanguineous Serous -Wound Margin Distinct, Distinct, Outline Outline Attached Attached -Granulation Amt Small (1-33%) None Present (0 %) -Granulation Quality Red -Slough/Fibrin Yes Yes -Necrosis Amt Large (67-100%) Large (67-100%) -Necrotic Tissue Type Adherent Slough Adherent Slough -Structure Exposed -Texture (Jonelle-wound Skin Appearance) Assessed, Assessed, Scarring Scarring -Moisture (Jonelle-wound Skin Appearance) Assessed Assessed -Color (Jonelle-wound Skin Appearance) Assessed, Assessed Erythema -Temperature (Jonelle-wound Skin No Abnormality No Abnormality Appearance) (Pt Warm) (Pt Warm) -Tenderness on Palpation (Jonelle-wound No No Skin Appearance) -Ulcer Cleansing Soap and Water Soap and Water -Foul Odor after Cleansing No No -Anesthetic Used 5% Lidocaine 5% Lidocaine Gel Gel Lower Limb Edema Present Yes Yes Right Calf (cm) Right Ankle (cm) Left Calf (cm) 53 Left Ankle (cm) 27.6 08/11/22 11:19 Wound Center Nurse 1 #4 L DORSAL FOOT -Combined with other wound -Current Size (cm) - Length 1 -Current Size (cm) - Width 1.2 -Current Size (cm) - Depth 0.2 -Total Square Cm 1.2 -Date of Last Picture (Recall this field) -Photo Taken Yes -Epithelialization -Tunneling -Undermining/Tunneling -Circular Undermining -Exudate Amt Medium -Exudate Type Serosanguineous -Wound Margin Distinct, Outline Attached -Granulation Amt None Present (0 %) -Granulation Quality -Slough/Fibrin -Necrosis Amt Large (67-100%) -Necrotic Tissue Type Adherent Slough -Structure Exposed N/A -Texture (Jonelle-wound Skin Appearance) Localized Edema ,Scarring -Moisture (Jonelle-wound Skin Appearance) No Abnormality -Color (Jonelle-wound Skin Appearance) Hemosiderin Staining -Temperature (Jonelle-wound Skin No Abnormality Appearance) (Pt Warm) -Tenderness on Palpation (Jonelle-wound No Skin Appearance) -Ulcer Cleansing Soap and Water -Foul Odor after Cleansing No -Anesthetic Used 5% Lidocaine Gel Lower Limb Edema Present Right Calf (cm) 52 Right Ankle (cm) 26 Left Calf (cm) 52.5 Left Ankle (cm) 28.3 WC - Nurse 2 - General Ulcer CM Notes Start: 07/22/22 12:49 Freq: Status: Active Protocol: Activity Type Activity Date Activity User E-sign Co-sign Detail Recorded Client Recorded Date Recorded By Document 07/26/22 09:54 [id number] 07/26/22 10:05 Document 08/02/22 09:38 [id number] 08/02/22 09:53 Document 08/11/22 11:59 [id number] 08/11/22 12:09 07/26/22 08/02/22 08/11/22 09:54 09:38 11:59 Wound Center Nurse 2 #4 L DORSAL FOOT -Time 09:54 09:39 12:00 -Correct Patient Yes Yes Yes -Correct Side, Site, Position Yes Yes Yes -Correct Procedure Yes Yes Yes -Procedure Performed Yes Yes Yes -Type of Procedure Debridement Debridement Debridement -Clinical Debridement Subcutaneous Subcutaneous Subcutaneous -Tissue Removed Subcutaneous Subcutaneous Subcutaneous -Post Debridement (cm) - Length 4.0 4.7 4.3 -Post Debridement (cm) - Width 5.6 4.5 3.0 -Post Debridement (cm) - Depth 0.1 0.2 0.2 -Total Square (Post) (cm) 22.40 21.15 12.90 -Area of Debridement (cm) - Length 4.0 4.7 4.3 -Area of Debridement (cm) - Width 5.6 4.5 3.0 -Total Square (Area) (cm) 22.40 21.15 12.90 -Tunneling No No No -Undermining/Tunneling No No No -Circular Undermining No No No -Wound/Ulcer Outcome Not Healed Not Healed Not Healed -Ulcer Cleansing Rinsed/ Rinsed/ Rinsed/ Irrigated with Irrigated with Irrigated with Saline Saline Saline -Foul Odor after Cleansing No No No -Bioengineered Tissue No No No -Bleeding Controlled with Pressure Pressure Pressure -Treatment Response Procedure Procedure Procedure Tolerated Well Tolerated Well Tolerated Well -Offloading No No No -Debridement - Subq, 1st 20sq cm Yes Yes Yes -Debridement, SubQ, ea addt'l 20sq cm 1 1 or part thereof Pain Scale: 0-10 Numeric Is Patient Pain Free? Yes Yes Yes WC - Nurse 3 - General Ulcer D/C NN Start: 07/22/22 12:49 Freq: Status: Active Protocol: Activity Type Activity Date Activity User E-sign Co-sign Detail Recorded Client Recorded Date Recorded By Document 07/22/22 12:54 DL [id number] 07/22/22 13:02 DL Document 07/26/22 10:23 DL [id number] 07/26/22 10:24 DL Document 08/02/22 10:10 [facility] [id number] 08/02/22 10:11 [facility] Document 08/11/22 12:24 DL [id number] 08/11/22 12:27 DL 07/22/22 07/26/22 08/02/22 12:54 10:23 10:10 Vital Signs Pulse Rate (60-100) 84 Pulse Location Monitor Respiratory Rate (12-18) 16 Respiratory rate source Observation Oxygen Delivery Method Room Air Blood Pressure (90/60-120/80) 166/78 H Blood Pressure Mean (mm Hg) 107 Source Monitor Position Sitting Blood Pressure Location Right Arm Pain Scale: 0-10 Numeric Is Patient Pain Free? Yes Yes Yes Wound Care Center Nurse 3 #5 L LAT FOOT -Ulcer Cleansing Soap and Water -Foul Odor after Cleansing No -Primary Dressing Applied Aquacel AG 4x4, Optilok 6.5x10 -Primary Dressing Covered/Secured with Dry Gauze & Roll Gauze, Secured with Tape -Other Covering unna boot -Aquacel AG 4x4 1 -Optilok 6.5x10 1 #4 L DORSAL FOOT -Ulcer Cleansing Soap and Water Rinsed/ Soap and Water Irrigated with Saline -Foul Odor after Cleansing No No No -Primary Dressing Applied Aquacel AG 4x4, C Hydrogel ($), NonAdherent Optilok 6.5x10 NonAdherent Contact Layer Contact Layer -Other Dressing unna boot hydrogel -Primary Dressing Covered/Secured with Dry Gauze & Roll Gauze, Secured with Tape -Other Covering unna -Aquacel AG 4x4 0 -Optilok 6.5x10 0 kate -Multi-Layered Wrap Application -Unna Boots (Bilat) ($) Right -Tubular Bandage Double Layer -Size of Tubigrip Used Size F -Size F ($) 2 Left -Multi-Layered Wrap Application Unna Boot - Unna Boot - Left ($) Left ($) -Tubular Bandage Double Layer -Size of Tubigrip Used Size F -Size F ($) 2 Treatment Response Procedure Procedure Tolerated Well Tolerated Well WC - Visit Discharge Discharge Condition Stable Stable Stable Ambulatory Status Ambulatory,Cane Ambulatory Ambulatory,Cane Transportation Private Auto Private Auto 08/11/22 12:24 Vital Signs Pulse Rate (60-100) Pulse Location Respiratory Rate (12-18) Respiratory rate source Oxygen Delivery Method Blood Pressure (90/60-120/80) Blood Pressure Mean (mm Hg) Source Position Blood Pressure Location Pain Scale: 0-10 Numeric Is Patient Pain Free? Yes Wound Care Center Nurse 3 #5 L LAT FOOT -Ulcer Cleansing -Foul Odor after Cleansing -Primary Dressing Applied -Primary Dressing Covered/Secured with -Other Covering -Aquacel AG 4x4 -Optilok 6.5x10 #4 L DORSAL FOOT -Ulcer Cleansing Rinsed/ Irrigated with Saline -Foul Odor after Cleansing No -Primary Dressing Applied C Hydrogel ($), NonAdherent Contact Layer -Other Dressing -Primary Dressing Covered/Secured with -Other Covering -Aquacel AG 4x4 -Optilok 6.5x10 kate -Multi-Layered Wrap Application Unna Boot - Bilateral ($) -Unna Boots (Bilat) ($) 2 Right -Tubular Bandage -Size of Tubigrip Used -Size F ($) Left -Multi-Layered Wrap Application -Tubular Bandage -Size of Tubigrip Used -Size F ($) Treatment Response Procedure Tolerated Well WC - Visit Discharge Discharge Condition Stable Ambulatory Status Ambulatory Transportation Private Auto Assessment/Plan Assessment/Plan (1) Non-pressure chronic ulcer of other part of left foot with fat layer exposed: CODE(S): L97.522 - Non-pressure chronic ulcer of other part of left foot with fat layer exposed (2) Ulcer of left foot: CODE(S): L97.529 - Non-pressure chronic ulcer of other part of left foot with unspecified severity (3) Edema of both legs: CODE(S): R60.0 - Localized edema (4) Lymphedema: CODE(S): I89.0 - Lymphedema, not elsewhere classified (5) Type 2 diabetes mellitus: CODE(S): E11.9 - Type 2 diabetes mellitus without complications QUALIFIERS: Diabetes mellitus shelter insulin use: without shelter use Diabetes mellitus complication status: with other specified complication Qualified Code(s): E11.69 - Type 2 diabetes mellitus with other specified complication (6) Psoriasis: CODE(S): L40.9 - Psoriasis, unspecified (7) Nicotine dependence: CODE(S): F17.200 - Nicotine dependence, unspecified, uncomplicated PLAN: Plan Patient evaluated at the wound center today. Wound care to her left dorsal foot ulcer and toes will be moistened Collage hydrogel covered with adaptic and topped with gauze/ABD, place gauze between toes to help prevent maceration. Compression will be Unna boots bilaterally. A wound culture was obtained today due to the amount of pain.? A positive culture will necessitate antibiotic therapy. Venous study done 07/08/22 which show the left great saphenous vein below the knee, and the deep veins of the left calf, were not visualized due to the presence of open wounds. An accessory saphenous vein in the right proximal calf is incompetent. An enlarged lymph node is noted in both the right groin measuring approximately 3.79 x 1.30 cm and left groin measuring approximately 5.75 x 1.66 cm. Arterial study done 07/08/22 - Right ankle brachial index by dorsalis pedis is 1.23. The right digital-brachial index is 0.96. The left ankle brachial index by the dorsalis pedis is 1.30. Unable to acquire digit due to open wound. The thick, dry plaques of skin on anterior lower legs bilaterally are improving with the Unna boots and the change in her medication for her psoriasis. Her snubber has changed her medication due to it not helping her psoriasis. Encouraged a high protein, low carbohydrate diet to help with wound healing to help control diabetes. Follow up one week for a nurses visit. She does not want to to come in on or Tuesday for a nurses visit. She will follow up with me in 2 weeks because I'm out of town next week.
[2022-08-18 10:37] VITALS: BP 168/82; PULSE 78; TEMP 36.2
== END 2022-08-20 23:59 | disposition home or self-care (01) ==
LOC: WC 10:45
PROVIDERS: PCP Internal Medicine; Referring Provider Nurse Practitioner Family; Visit Provider Nurse Practitioner Family
DX: E11.621 Type 2 diabetes mellitus with foot ulcer (principal); L97.522 Non-pressure chronic ulcer of other part of left foot with fat layer exposed; T81.89XA Other complications of procedures, not elsewhere classified, initial encounter; R60.0 Localized edema; I89.0 Lymphedema, not elsewhere classified; L40.9 Psoriasis, unspecified; F17.200 Nicotine dependence, unspecified, uncomplicated
CPT/HCPCS: 11042; 11045; 29580; 87070; 87075; 87077; 87186; 87205

== ENCOUNTER 2022-09-17 13:15 | Outpatient (RCR) | payer MEDICARE, MEDICAID, SELFPAY ==
[2022-08-21 01:58] VITALS: BP 168/82; PULSE 78; RESP 22; TEMP 36.2
[2022-08-23 10:39] VITALS: BP 172/81; PULSE 72; RESP 20; TEMP 35.9
--- NOTE | 2022-08-23 12:29 | PCM.WC.PN ---
History of Present Illness Date of Service: 08/23/22 Chief Complaint: Non healing surgical wound of left hand History of Wound: 47-year-old woman who recently was hospitalized 06/23/22 - 06/27/22 for cellulitis on her left leg that failed outpatient therapy. When she got home she developed a large blister on her dorsal portion of her left foot. She was discharged home on Keflex and Bactrim which she finishes today. She states she has a history of psoriasis/arthritis on her bilateral legs that have caused thick scabbing. She sees a clinical programmer in [place] for this and has been on Ixekizumab without improvement in her symptoms. She states that she has had the dry, itchy patches on her legs that never improve for years and she also has psoriatic arthritis. She comes in today for evaluation of the ulcers on her left foot and bilateral lower leg edema. Venous study done 07/08/22 which show the left great saphenous vein below the knee, and the deep veins of the left calf, were not visualized due to the presence of open wounds. An accessory saphenous vein in the right proximal calf is incompetent. An enlarged lymph node is noted in both the right groin measuring approximately 3.79 x 1.30 cm and left groin measuring approximately 5.75 x 1.66 cm. Arterial study done 07/08/22 - Right ankle brachial index by dorsalis pedis is 1.23. The right digital-brachial index is 0.96. The left ankle brachial index by the dorsalis pedis is 1.30. Unable to acquire digit due to open wound. A wound culture was obtained 08/11/22 which was positive for MRSA and Anaerobic cocci. She was started on Doxycyline and then Augmentin was added. She denies fever, chills, nausea or vomiting at this time. Progress of Wound: Left dorsal foot ulcer is smaller. The proximal toe cluster ulcer and healed. She continues to have a lot of pain in the ulcer area. Objective Data Objective Data Vital Signs: Vital Signs Temp Pulse Resp BP O2 Del Method 96.6 F L 72 20 H 172/81 H Airvo 08/23/22 10:39 08/23/22 10:39 08/23/22 10:39 08/23/22 10:39 08/23/22 10:39 Oxygen Delivery Method Airvo Charges/Coding Visit Charges Office Visits / Consults: 59778 OV L3 Est Debridement Note Debridement Note No debridement was completed: No debridement was completed today (Patient declined having wound debrided today.) Post-Debridement Measurements and Additional Note: Post-Debridement Measurements/Treatment - Nurse 1 - General Ulcer Assessment Start: 08/23/22 10:38 Freq: Status: Active Protocol: CATRACHO Activity Type Activity Date Activity User E-sign Co-sign Detail Recorded Client Recorded Date Recorded By Document 08/23/22 10:[address] [id number] 08/23/22 10:47 08/23/22 10:39 WC - Today's Visit Information Type of service Follow-up Visit (Physician/IT TECHNICAL ARCHITECT ) Arrival Mode Cane Transfer Assistance None Patient Identification Verified (Name & Yes ) Patient Requires Transmission-Based No Precautions Safety Precautions NA Vital Signs Temperature (97.8 F-99.1 F) 96.6 F L Temperature Source Temporal Pulse Rate (60-100) 72 Respiratory Rate (12-18) 20 H Oxygen Delivery Method Airvo Blood Pressure (90/60-120/80) 172/81 H Blood Pressure Mean (mm Hg) 111 History Since Last Visit- (Skip if this is Patient's initial visit) Have you changed medications since your No last visit? Any new allergies or adverse reactions No Had a fall/change in ADL's that may No increase risk of falls Signs or symptoms of abuse and/or No neglect since last visit Have you been in the hospital since your No last visit? Has dressing in place as prescribed Yes Has compression in place as prescribed Yes Has offloadiing in place as prescribed Yes Experienced any changes in pain level or Yes management Pain Scale: 0-10 Numeric Is Patient Pain Free? Yes - Nurse 1 - General Ulcer Measurement Start: 08/23/22 10:38 Freq: Status: Active Protocol: Activity Type Activity Date Activity User E-sign Co-sign Detail Recorded Client Recorded Date Recorded By Document 08/23/22 10:39 PL [id number] 08/23/22 10:47 PL 08/23/22 10:39 Wound Center Nurse 1 #4 L DORSAL FOOT -Current Size (cm) - Length 1.0 -Current Size (cm) - Width 2.0 -Current Size (cm) - Depth 0.1 -Total Square Cm 2.00 -Tunneling No -Undermining/Tunneling No -Circular Undermining No -Exudate Amt Medium -Exudate Type Serosanguineous -Granulation Amt Medium (34-66%) -Granulation Quality [place] -Necrosis Amt Medium (34-66%) -Necrotic Tissue Type Adherent Slough WC - Nurse 2 - General Ulcer CM Notes Start: 08/23/22 10:38 Freq: Status: Active Protocol: Activity Type Activity Date Activity User E-sign Co-sign Detail Recorded Client Recorded Date Recorded By Document 08/23/22 11:15 [id number] 08/23/22 11:18 08/23/22 11:15 Wound Center Nurse 2 -Correct Patient No -Correct Side, Site, Position No -Correct Procedure No -Procedure Performed No -Wound/Ulcer Outcome Not Healed -Offloading No -Debridement - Subq, 1st 20sq cm No Pain Scale: 0-10 Numeric Is Patient Pain Free? Yes - Nurse 3 - General Ulcer D/C NN Start: 08/23/22 10:38 Freq: Status: Active Protocol: Activity Type Activity Date Activity User E-sign Co-sign Detail Recorded Client Recorded Date Recorded By Document 08/23/22 11:19 [id number] 08/23/22 11:21 08/23/22 11:19 Wound Care Center Nurse 3 #4 L DORSAL FOOT -Ulcer Cleansing Rinsed/ Irrigated with Saline -Foul Odor after Cleansing No -Primary Dressing Applied Aquacel AG 2x2 -Primary Dressing Covered/Secured with Dry Gauze -Aquacel AG 2x2 1 Left -Multi-Layered Wrap Application Unna Boot - Bilateral ($) -Unna Boots (Bilat) ($) 2 Pain Scale: 0-10 Numeric Is Patient Pain Free? Yes - Visit Discharge Discharge Condition Stable Ambulatory Status Ambulatory Transportation Private Auto Medication Reconcilliation completed & Yes provided to patient/care provider Clinical Summary of Care Provided Yes Assessment/Plan Assessment/Plan (1) Non-pressure chronic ulcer of other part of left foot with fat layer exposed: CODE(S): L97.522 - Non-pressure chronic ulcer of other part of left foot with fat layer exposed (2) Ulcer of left foot: CODE(S): L97.529 - Non-pressure chronic ulcer of other part of left foot with unspecified severity (3) Edema of both legs: CODE(S): R60.0 - Localized edema (4) Lymphedema: CODE(S): I89.0 - Lymphedema, not elsewhere classified (5) Type 2 diabetes mellitus: CODE(S): E11.9 - Type 2 diabetes mellitus without complications QUALIFIERS: Diabetes mellitus long-term insulin use: without terminal supervisor use Diabetes mellitus complication status: with other specified complication Qualified Code(s): E11.69 - Type 2 diabetes mellitus with other specified complication (6) Psoriasis: CODE(S): L40.9 - Psoriasis, unspecified (7) Nicotine dependence: CODE(S): F17.200 - Nicotine dependence, unspecified, uncomplicated PLAN: Plan Patient evaluated at the wound center today. Wound care to her left dorsal foot ulcer Silvercel topped with gauze/ABD, place gauze between toes to help prevent maceration. She will place Lac-hytrin lotion on the dry psoriasis patches on her legs before placing Unna boots. Compression will be Unna boots bilaterally. A wound culture was obtained 08/11/22 which was positive for MRSA and Anaerobic cocci. She was started on Doxycyline and then Augmentin was added. Venous study done 07/08/22 which show the left great saphenous vein below the knee, and the deep veins of the left calf, were not visualized due to the presence of open wounds. An accessory saphenous vein in the right proximal calf is incompetent. An enlarged lymph node is noted in both the right groin measuring approximately 3.79 x 1.30 cm and left groin measuring approximately 5.75 x 1.66 cm. Arterial study done 07/08/22 - Right ankle brachial index by dorsalis pedis is 1.23. The right digital-brachial index is 0.96. The left ankle brachial index by the dorsalis pedis is 1.30. Unable to acquire digit due to open wound. The thick, dry plaques of skin on anterior lower legs bilaterally are improving with the Unna boots and the change in her medication for her psoriasis. Her clinical programmer has changed her medication due to it not helping her psoriasis. Encouraged a high protein, low carbohydrate diet to help with wound healing to help control diabetes. Follow up one week for a nurses visit. She does not want to to come in on or Tuesday for a nurses visit. She will follow up with me in 1 week.
[2022-08-30 09:09] VITALS: BP 181/94; PULSE 68; RESP 18; TEMP 36.1
--- NOTE | 2022-08-30 11:32 | PCM.WC.PN ---
History of Present Illness Date of Service: 08/30/22 Chief Complaint: Non healing surgical wound of left hand History of Wound: 47-year-old woman who recently was hospitalized 06/23/22 - 06/27/22 for cellulitis on her left leg that failed outpatient therapy. When she got home she developed a large blister on her dorsal portion of her left foot. She was discharged home on Keflex and Bactrim which she finishes today. She states she has a history of psoriasis/arthritis on her bilateral legs that have caused thick scabbing. She sees a ship's officer in [place] for this and has been on Ixekizumab without improvement in her symptoms. She states that she has had the dry, itchy patches on her legs that never improve for years and she also has psoriatic arthritis. She comes in today for evaluation of the ulcers on her left foot and bilateral lower leg edema. Venous study done 07/08/22 which show the left great saphenous vein below the knee, and the deep veins of the left calf, were not visualized due to the presence of open wounds. An accessory saphenous vein in the right proximal calf is incompetent. An enlarged lymph node is noted in both the right groin measuring approximately 3.79 x 1.30 cm and left groin measuring approximately 5.75 x 1.66 cm. Arterial study done 07/08/22 - Right ankle brachial index by dorsalis pedis is 1.23. The right digital-brachial index is 0.96. The left ankle brachial index by the dorsalis pedis is 1.30. Unable to acquire digit due to open wound. A wound culture was obtained 08/11/22 which was positive for MRSA and Anaerobic cocci. She was started on Doxycyline and then Augmentin was added. She denies fever, chills, nausea or vomiting at this time. Progress of Wound: Left dorsal foot ulcer is smaller. The proximal toe cluster ulcer remains healed. She continues to have a lot of pain in the ulcer area. She is tolerating the Unna boots well. Her psoriasis has started to improve with the new medication that she is taking. She has a few areas on her right lateral leg that she scratched when she removed her unna boot (because it was itchy). It is pink with areas that the skin is broken. Objective Data Objective Data Vital Signs: Vital Signs Temp Pulse Resp BP O2 Del Method 97 F L 68 18 181/94 H Airvo 08/30/22 09:09 08/30/22 09:09 08/30/22 09:09 08/30/22 09:09 08/23/22 10:39 Oxygen Delivery Method Airvo Charges/Coding Procedures Integumentary 111xxx-113xx: 28469 Tammy subq tissue 20 sq cm/< Debridement Note Debridement Note Wound debrided: dorsal foot ulcer Laterality: Left Wound Grade/Stage: Stage III Type of Debridement: Excisional debridement Depth: Down to and including healthy tissue and in the subcutaneous layer Percentage of wound debrided: 100 Instrument Used: 3mm curette Tissue Removed: Devitalized tissue and slough Severity: Fat Layer Exposed Amount of bleeding with debridement: Mild Bleeding Controlled with: Pressure and Compression and gauze Patient tolerated procedure: Patient tolerated procedure well Post-Debridement Measurements and Additional Note: Post-Debridement Measurements/Treatment - Nurse 1 - General Ulcer Assessment Start: 08/23/22 10:38 Freq: Status: Active Protocol: CATRACHO Activity Type Activity Date Activity User E-sign Co-sign Detail Recorded Client Recorded Date Recorded By Document 08/23/22 10:39 PL [id number] 08/23/22 10:47 PL Document 08/30/22 09:09 RB [id number] 08/30/22 09:12 RB 08/23/22 08/30/22 10:39 09:09 - Today's Visit Information Type of service Follow-up Visit Follow-up Visit (Physician/SOLE ROUNDING MACHINE OPERATOR (Physician/SOLE ROUNDING MACHINE OPERATOR ) ) Arrival Mode Cane Ambulatory Transfer Assistance None None Patient Identification Verified (Name & Yes Yes ) Patient Requires Transmission-Based No No Precautions Safety Precautions NA Vital Signs Temperature (97.8 F-99.1 F) 96.6 F L 97 F L Temperature Source Temporal Temporal Pulse Rate (60-100) 72 68 Pulse Location Monitor Respiratory Rate (12-18) 20 H 18 Respiratory rate source Observation Oxygen Delivery Method Airvo Blood Pressure (90/60-120/80) 172/81 H 181/94 H Blood Pressure Mean (mm Hg) 111 123 Source Monitor Position Semi-Fowlers Blood Pressure Location Left Arm History Since Last Visit- (Skip if this is Patient's initial visit) Have you changed medications since your No No last visit? Any new allergies or adverse reactions No No Had a fall/change in ADL's that may No No increase risk of falls Signs or symptoms of abuse and/or No No neglect since last visit Have you been in the hospital since your No No last visit? Has dressing in place as prescribed Yes Yes Has compression in place as prescribed Yes No Has offloadiing in place as prescribed Yes No Experienced any changes in pain level or Yes No management Pain Scale: 0-10 Numeric Is Patient Pain Free? Yes Yes WC - Nurse 1 - General Ulcer Measurement Start: 08/23/22 10:38 Freq: Status: Active Protocol: Activity Type Activity Date Activity User E-sign Co-sign Detail Recorded Client Recorded Date Recorded By Document 08/23/22 10:39 PL [id number] 08/23/22 10:47 PL Document 08/30/22 09:09 RB [id number] 08/30/22 09:12 RB 08/23/22 08/30/22 10:39 09:09 Wound Center Nurse 1 #4 L DORSAL FOOT -Combined with other wound No -Current Size (cm) - Length 1.0 0.5 -Current Size (cm) - Width 2.0 0.3 -Current Size (cm) - Depth 0.1 0.3 -Total Square Cm 2.00 0.15 -Photo Taken Yes -Tunneling No No -Undermining/Tunneling No No -Circular Undermining No No -Exudate Amt Medium Medium -Exudate Type Serosanguineous Serosanguineous -Wound Margin Distinct, Outline Attached -Granulation Amt Medium (34-66%) Medium (34-66%) -Granulation Quality [place] -Slough/Fibrin Yes -Necrosis Amt Medium (34-66%) Medium (34-66%) -Necrotic Tissue Type Adherent Slough Adherent Slough -Structure Exposed N/A -Texture (Jonelle-wound Skin Appearance) Assessed, Excoriation, Localized Edema -Moisture (Jonelle-wound Skin Appearance) Assessed,Dry/ Scaly -Color (Jonelle-wound Skin Appearance) Assessed -Temperature (Jonelle-wound Skin No Abnormality Appearance) (Pt Warm) -Tenderness on Palpation (Jonelle-wound No Skin Appearance) -Ulcer Cleansing Wound Cleanser -Foul Odor after Cleansing No -Anesthetic Used 5% Lidocaine Gel Lower Limb Edema Present Yes Right Calf (cm) 49.6 Right Ankle (cm) 24 Left Calf (cm) 49.2 Left Ankle (cm) 24.7 WC - Nurse 2 - General Ulcer CM Notes Start: 08/23/22 10:38 Freq: Status: Active Protocol: Activity Type Activity Date Activity User E-sign Co-sign Detail Recorded Client Recorded Date Recorded By Document 08/23/22 11:15 [id number] 08/23/22 11:18 Document 08/30/22 09:41 [id number] 08/30/22 09:50 08/23/22 08/30/22 11:15 09:41 Wound Center Nurse 2 #4 L DORSAL FOOT -Time 09:45 -Correct Patient No Yes -Correct Side, Site, Position No Yes -Correct Procedure No Yes -Procedure Performed No Yes -Type of Procedure Debridement -Clinical Debridement Subcutaneous -Tissue Removed Subcutaneous -Post Debridement (cm) - Length 1 -Post Debridement (cm) - Width 0.4 -Post Debridement (cm) - Depth 0.2 -Total Square (Post) (cm) 0.4 -Area of Debridement (cm) - Length 1 -Area of Debridement (cm) - Width 0.4 -Total Square (Area) (cm) 0.4 -Tunneling No -Undermining/Tunneling No -Circular Undermining No -Wound/Ulcer Outcome Not Healed Not Healed -Ulcer Cleansing Rinsed/ Irrigated with Saline -Foul Odor after Cleansing No -Bioengineered Tissue No -Bleeding Controlled with Pressure -Treatment Response Procedure Tolerated Well -Offloading No No -Debridement - Subq, 1st 20sq cm No Yes Pain Scale: 0-10 Numeric Is Patient Pain Free? Yes Yes - Nurse 3 - General Ulcer D/C NN Start: 08/23/22 10:38 Freq: Status: Active Protocol: Activity Type Activity Date Activity User E-sign Co-sign Detail Recorded Client Recorded Date Recorded By Document 08/23/22 11:19 [id number] 08/23/22 11:21 Document 08/30/22 10:15 [facility] [id number] 08/30/22 10:16 [facility] 08/23/22 08/30/22 11:19 10:15 Wound Care Center Nurse 3 #4 L DORSAL FOOT -Ulcer Cleansing Rinsed/ Soap and Water Irrigated with Saline -Foul Odor after Cleansing No No -Primary Dressing Applied Aquacel AG 2x2 Aquacel AG 2x2 -Other Dressing unna -Primary Dressing Covered/Secured with Dry Gauze Dry Gauze -Other Covering gauze b/t toes -Aquacel AG 2x2 1 1 kate -Multi-Layered Wrap Application Unna Boot - Bilateral ($) -Unna Boots (Bilat) ($) 2 Left -Multi-Layered Wrap Application Unna Boot - Bilateral ($) -Unna Boots (Bilat) ($) 2 Treatment Response Procedure Tolerated Well Pain Scale: 0-10 Numeric Is Patient Pain Free? Yes Yes WC - Visit Discharge Discharge Condition Stable Stable Ambulatory Status Ambulatory Ambulatory,Cane Transportation Private Auto Private Auto Medication Reconcilliation completed & Yes provided to patient/care provider Clinical Summary of Care Provided Yes Assessment/Plan Assessment/Plan (1) Non-pressure chronic ulcer of other part of left foot with fat layer exposed: CODE(S): L97.522 - Non-pressure chronic ulcer of other part of left foot with fat layer exposed (2) Ulcer of left foot: CODE(S): L97.529 - Non-pressure chronic ulcer of other part of left foot with unspecified severity (3) Edema of both legs: CODE(S): R60.0 - Localized edema (4) Lymphedema: CODE(S): I89.0 - Lymphedema, not elsewhere classified (5) Type 2 diabetes mellitus: CODE(S): E11.9 - Type 2 diabetes mellitus without complications QUALIFIERS: Diabetes mellitus prison insulin use: without intermediate school teacher use Diabetes mellitus complication status: with other specified complication Qualified Code(s): E11.69 - Type 2 diabetes mellitus with other specified complication (6) Psoriasis: CODE(S): L40.9 - Psoriasis, unspecified (7) Nicotine dependence: CODE(S): F17.200 - Nicotine dependence, unspecified, uncomplicated PLAN: Plan Patient evaluated at the wound center today. Wound care to her left dorsal foot ulcer Silvercel topped with gauze/ABD, place gauze between toes to help prevent maceration. She has a couple areas on her right lateral leg that she scratched today when she removed her Unna boots to shower before she came here. Will place Adaptic on those areas. She will place Lac-hytrin lotion on the dry psoriasis patches on her legs before placing Unna boots. Compression will be Unna boots bilaterally. A wound culture was obtained 08/11/22 which was positive for MRSA and Anaerobic cocci. She was started on Doxycyline and then Augmentin was added. Venous study done 07/08/22 which show the left great saphenous vein below the knee, and the deep veins of the left calf, were not visualized due to the presence of open wounds. An accessory saphenous vein in the right proximal calf is incompetent. An enlarged lymph node is noted in both the right groin measuring approximately 3.79 x 1.30 cm and left groin measuring approximately 5.75 x 1.66 cm. Arterial study done 07/08/22 - Right ankle brachial index by dorsalis pedis is 1.23. The right digital-brachial index is 0.96. The left ankle brachial index by the dorsalis pedis is 1.30. Unable to acquire digit due to open wound. The thick, dry plaques of skin on anterior lower legs bilaterally are improving with the Unna boots and the change in her medication for her psoriasis. Her ship's officer has changed her medication due to it not helping her psoriasis. Encouraged a high protein, low carbohydrate diet to help with wound healing to help control diabetes. Follow up one week for a nurses visit. She does not want to to come in on or Tuesday for a nurses visit. She will follow up in 1 week. Instructed to call or come in sooner if she develops any concerns.
[2022-09-17 13:43] VITALS: BP 159/71; PULSE 80; RESP 18; TEMP 36.3
== END 2022-09-19 23:59 | disposition home or self-care (01) ==
LOC: WC 13:15
PROVIDERS: PCP Internal Medicine; Referring Provider Nurse Practitioner Family; Visit Provider Nurse Practitioner Family
DX: T81.89XA Other complications of procedures, not elsewhere classified, initial encounter (principal); L97.522 Non-pressure chronic ulcer of other part of left foot with fat layer exposed; E11.9 Type 2 diabetes mellitus without complications; R59.0 Localized enlarged lymph nodes; F17.200 Nicotine dependence, unspecified, uncomplicated; L40.9 Psoriasis, unspecified; R60.0 Localized edema
CPT/HCPCS: 11042; 29580; 99213; G0463

== ENCOUNTER → 2022-10-11 | Outpatient (CLI) | payer MEDICARE, MEDICAID, SELFPAY ==
[2022-10-11 15:40] LABS: Absolute Lymphocyte Count 1.58 X10^3/uL (0.83-4.51); Absolute Neutrophil Count 4.6 X10^3/uL (2.0-7.7); Basophil# 0.01 X10^3/uL; Basophil% 0.1 % (0-1); Eosinophil# 0.14 X10^3/uL; Hematocrit 44.7 % (37-47); Hemoglobin 13.1 g/dL (12.0-15.0); Lymphocyte # 1.58 X10^3/ul (0.83-4.51); Mean Corp Hgb Conc 29.3 g/dL (32-36); Mean Corpuscular Hgb 23.7 pg (27.0-32.0); Mean Platelet Vol. 11.3 fl (6.2-12.0); Monocyte# 0.55 X10^3/uL; NRBC Flagged by Analyzer 0 % (0-5); Neutrophil # 4.58 X10^3/uL (2.7-7.7); Neutrophil % 66.8 % (47-70); Platelet Count 197 K/mm3 (150-450); RBC Distribution Width CV 17.2 % (11.6-14.6); RBC Distribution Width SD 50.1 fl (35.1-43.9); Red Blood Count 5.52 M/mm3 (4.2-5.4); White Blood Count 6.9 K/mm3 (4.4-11.0)
[2022-10-11 16:07] LABS: Anion Gap 3 (5-15); BUN 10 mg/dL (7-18); BUN/Creat Ratio 19.4 RATIO (10-20); Calcium,Total 8.9 mg/dL (8.5-10.1); Chloride 101 mmol/L (98-107); Creatinine, Serum 0.52 mg/dL (0.55-1.02); EST Glomerular Filtration Rate 135 mL/min (>60); Est Glom Filt Rate - Afr Amer 163 mL/min (>60); Ferritin 13 ng/mL (8-252); Glucose 104 mg/dL (74-106); Iron 43 ug/dL (50-170); Iron Binding Capacity,Total 437 ug/dL (250-450); Sodium Level 138 mmol/L (136-145)
== END | disposition home or self-care (01) ==
LOC: BIMLAB 14:13
PROVIDERS: PCP Internal Medicine; Referring Provider Internal Medicine; Visit Provider Internal Medicine
DX: E66.01 Morbid (severe) obesity due to excess calories (principal); E11.69 Type 2 diabetes mellitus with other specified complication
CPT/HCPCS: 36415; 80048; 82728; 83540; 83550; 85025

== ENCOUNTER 2022-10-19 10:00 | Outpatient (RCR) | payer MEDICARE, MEDICAID, SELFPAY ==
[2022-09-20 00:39] VITALS: BP 159/71; PULSE 80; RESP 18; TEMP 36.3
[2022-09-20 11:02] VITALS: BP 165/77; PULSE 85; RESP 20; TEMP 36.4
--- NOTE | 2022-09-20 12:31 | PCM.WC.PN ---
History of Present Illness Date of Service: 09/20/22 Chief Complaint: Non healing surgical wound of left hand History of Wound: 47-year-old woman who recently was hospitalized 06/23/22 - 06/27/22 for cellulitis on her left leg that failed outpatient therapy. When she got home she developed a large blister on her dorsal portion of her left foot. She was discharged home on Keflex and Bactrim which she finishes today. She states she has a history of psoriasis/arthritis on her bilateral legs that have caused thick scabbing. She sees a court of appeals judge in [place] for this and has been on Ixekizumab without improvement in her symptoms. She states that she has had the dry, itchy patches on her legs that never improve for years and she also has psoriatic arthritis. She comes in today for evaluation of the ulcers on her left foot and bilateral lower leg edema. Venous study done 07/08/22 which show the left great saphenous vein below the knee, and the deep veins of the left calf, were not visualized due to the presence of open wounds. An accessory saphenous vein in the right proximal calf is incompetent. An enlarged lymph node is noted in both the right groin measuring approximately 3.79 x 1.30 cm and left groin measuring approximately 5.75 x 1.66 cm. Arterial study done 07/08/22 - Right ankle brachial index by dorsalis pedis is 1.23. The right digital-brachial index is 0.96. The left ankle brachial index by the dorsalis pedis is 1.30. Unable to acquire digit due to open wound. A wound culture was obtained 08/11/22 which was positive for MRSA and Anaerobic cocci. She was started on Doxycyline and then Augmentin was added. She denies fever, chills, nausea or vomiting at this time. Progress of Wound: She has not been into the wound center fore several weeks. Left dorsal foot ulcer is stable. The proximal toe cluster ulcer remains healed. She continues to have a lot of pain in the ulcer area. She has new areas on her left dorsal toes that are dry and flaky, which may be new areas of psoriasis. Wound culture obtained due to the amount of pain she is experiencing and the lack of improvement since she was last seen. Objective Data Objective Data Vital Signs: Vital Signs Temp Pulse Resp BP 97.5 F L 85 20 H 165/77 H 09/20/22 11:02 09/20/22 11:02 09/20/22 11:02 09/20/22 11:02 Charges/Coding Procedures Integumentary 111xxx-113xx: 34607 Tammy subq tissue 20 sq cm/< Debridement Note Debridement Note Wound debrided: dorsal foot ulcer Laterality: Left Wound Grade/Stage: Stage III Type of Debridement: Excisional debridement Depth: Down to and including healthy tissue and in the subcutaneous layer Percentage of wound debrided: 100 Instrument Used: 3mm curette Tissue Removed: Devitalized tissue and slough Severity: Fat Layer Exposed Amount of bleeding with debridement: Mild Bleeding Controlled with: Pressure and Compression and gauze Patient tolerated procedure: Patient tolerated procedure well Post-Debridement Measurements and Additional Note: Post-Debridement Measurements/Treatment - Nurse 1 - General Ulcer Assessment Start: 09/20/22 11:02 Freq: Status: Active Protocol: CATRACHO Activity Type Activity Date Activity User E-sign Co-sign Detail Recorded Client Recorded Date Recorded By Document 09/20/22 11:02 DL [id number] 09/20/22 11:14 DL 09/20/22 11:02 - Today's Visit Information Type of service Follow-up Visit (Physician/SENIOR QUALITY CONTROL INSPECTOR ) Arrival Mode Ambulatory,Cane Transfer Assistance None Patient Identification Verified (Name & Yes ) Patient Requires Transmission-Based No Precautions Finger Stick Blood Sugar(mg/dl) (if 184 indicated): Blood Sugar Stated by Patient Vital Signs Temperature (97.8 F-99.1 F) 97.5 F L Temperature Source Temporal Pulse Rate (60-100) 85 Pulse Location Monitor Respiratory Rate (12-18) 20 H Respiratory rate source Observation Blood Pressure (90/60-120/80) 165/77 H Blood Pressure Mean (mm Hg) 106 Source Monitor History Since Last Visit- (Skip if this is Patient's initial visit) Have you changed medications since your No last visit? Any new allergies or adverse reactions No Had a fall/change in ADL's that may No increase risk of falls Signs or symptoms of abuse and/or No neglect since last visit Have you been in the hospital since your No last visit? Has dressing in place as prescribed Yes Has compression in place as prescribed Yes Has offloadiing in place as prescribed N/A Experienced any changes in pain level or Yes management Pain Scale: 0-10 Numeric Is Patient Pain Free? Yes - Nurse 1 - General Ulcer Measurement Start: 09/20/22 11:02 Freq: Status: Active Protocol: Activity Type Activity Date Activity User E-sign Co-sign Detail Recorded Client Recorded Date Recorded By Document 09/20/22 11:02 DL [id number] 09/20/22 11:14 DL 09/20/22 11:02 Wound Center Nurse 1 #4 L DORSAL FOOT -Current Size (cm) - Length 0.5 -Current Size (cm) - Width 0.5 -Current Size (cm) - Depth 0.3 -Total Square Cm 0.25 -Photo Taken Yes -Exudate Amt Small -Exudate Type Serosanguineous -Wound Margin Distinct, Outline Attached -Granulation Amt None Present (0 %) -Necrosis Amt Small (1-33%) -Necrotic Tissue Type Adherent Slough -Structure Exposed N/A -Texture (Jonelle-wound Skin Appearance) Scarring -Moisture (Jonelle-wound Skin Appearance) Dry/Scaly -Color (Jonelle-wound Skin Appearance) Hemosiderin Staining -Temperature (Jonelle-wound Skin No Abnormality Appearance) (Pt Warm) -Tenderness on Palpation (Jonelle-wound No Skin Appearance) -Ulcer Cleansing Soap and Water -Foul Odor after Cleansing No -Anesthetic Used 5% Lidocaine Gel Left Calf (cm) 52.5 Left Ankle (cm) 28 - Nurse 2 - General Ulcer CM Notes Start: 09/20/22 11:02 Freq: Status: Active Protocol: Activity Type Activity Date Activity User E-sign Co-sign Detail Recorded Client Recorded Date Recorded By Document 09/20/22 11:29 [id number] 09/20/22 11:35 MAHAD 09/20/22 11:29 Wound Center Nurse 2 #4 L DORSAL FOOT -Time 11:29 -Correct Patient Yes -Correct Side, Site, Position Yes -Correct Procedure Yes -Procedure Performed Yes -Type of Procedure Debridement -Clinical Debridement Subcutaneous -Tissue Removed Subcutaneous -Post Debridement (cm) - Length 0.5 -Post Debridement (cm) - Width 0.5 -Post Debridement (cm) - Depth 0.3 -Total Square (Post) (cm) 0.25 -Area of Debridement (cm) - Length 0.5 -Area of Debridement (cm) - Width 0.5 -Total Square (Area) (cm) 0.25 -Tunneling No -Undermining/Tunneling No -Circular Undermining No -Wound/Ulcer Outcome Not Healed -Ulcer Cleansing Rinsed/ Irrigated with Saline -Foul Odor after Cleansing No -Bioengineered Tissue No -Bleeding Controlled with Pressure -Treatment Response Procedure Tolerated Well -Offloading No -Debridement - Subq, 1st 20sq cm Yes Pain Scale: 0-10 Numeric Is Patient Pain Free? Yes Assessment/Plan Assessment/Plan (1) Non-pressure chronic ulcer of other part of left foot with fat layer exposed: CODE(S): L97.522 - Non-pressure chronic ulcer of other part of left foot with fat layer exposed (2) Ulcer of left foot: CODE(S): L97.529 - Non-pressure chronic ulcer of other part of left foot with unspecified severity (3) Edema of both legs: CODE(S): R60.0 - Localized edema (4) Lymphedema: CODE(S): I89.0 - Lymphedema, not elsewhere classified (5) Type 2 diabetes mellitus: CODE(S): E11.9 - Type 2 diabetes mellitus without complications QUALIFIERS: Diabetes mellitus director long term care insulin use: without director long term care use Diabetes mellitus complication status: with other specified complication Qualified Code(s): E11.69 - Type 2 diabetes mellitus with other specified complication (6) Psoriasis: CODE(S): L40.9 - Psoriasis, unspecified (7) Nicotine dependence: CODE(S): F17.200 - Nicotine dependence, unspecified, uncomplicated (8) History of MRSA infection: CODE(S): Z86.14 - Personal history of Methicillin resistant Staphylococcus aureus infection PLAN: Plan Patient evaluated at the wound center today. Wound care to her left dorsal foot ulcer Silvercel topped with gauze/ABD, place gauze between toes to help prevent maceration. Compression will be Unna boots bilaterally. Due to the amount of pain she is experiencing, a wound culture was obtained today, 09/17/22.? A positive culture will necessitate antibiotic therapy. A wound culture was obtained 08/11/22 which was positive for MRSA and Anaerobic cocci. She was started on Doxycyline and then Augmentin was added. Venous study done 07/08/22 which show the left great saphenous vein below the knee, and the deep veins of the left calf, were not visualized due to the presence of open wounds. An accessory saphenous vein in the right proximal calf is incompetent. An enlarged lymph node is noted in both the right groin measuring approximately 3.79 x 1.30 cm and left groin measuring approximately 5.75 x 1.66 cm. Arterial study done 07/08/22 - Right ankle brachial index by dorsalis pedis is 1.23. The right digital-brachial index is 0.96. The left ankle brachial index by the dorsalis pedis is 1.30. Unable to acquire digit due to open wound. The thick, dry plaques of skin on anterior lower legs bilaterally. The improvement that she initially was experiencing with her new psoriasis medication has stopped. Encouraged a high protein, low carbohydrate diet to help with wound healing to help control diabetes. Follow up one week for a nurses visit. She does not want to to come in on or Tuesday for a nurses visit. She will follow up in 1 week. Come in for Nurse visit to have Unna boot changed. Instructed to call or come in sooner if she develops any concerns.
--- NOTE | 2022-09-24 08:49 | WC ---
Spoke to patient about her positive wound cultures and that Yasmin Krishnan LICENSING REGISTRATION EXAMINER called in Doxycycline and Levaquin to her pharmacy. Patient verbalized understanding to start her antibiotics started but requesting that Diflucan gets called in since she's prone to yeast infections. A message has monica sent to Yasmin to add this.
--- NOTE | 2022-09-24 09:45 | WC ---
Yasmin states that she is not able to call Diflucan since it with the Levaquin can cause a QT interval disturbance. Instead, patient is to increase her probiotics with either supplements or with yogurt but to watch her sugar intake with the yogurt. Patient was notified and verbalized understanding.
[2022-09-29 09:29] VITALS: BP 161/91; PULSE 108; RESP 20; TEMP 36.3
--- NOTE | 2022-09-29 12:40 | PCM.WC.PN ---
History of Present Illness Date of Service: 09/29/22 Chief Complaint: Non healing surgical wound of left hand History of Wound: 47-year-old woman who recently was hospitalized 06/23/22 - 06/27/22 for cellulitis on her left leg that failed outpatient therapy. When she got home she developed a large blister on her dorsal portion of her left foot. She was discharged home on Keflex and Bactrim which she finishes today. She states she has a history of psoriasis/arthritis on her bilateral legs that have caused thick scabbing. She sees a political consultant in [place] for this and has been on Ixekizumab without improvement in her symptoms. She states that she has had the dry, itchy patches on her legs that never improve for years and she also has psoriatic arthritis. She comes in today for evaluation of the ulcers on her left foot and bilateral lower leg edema. Venous study done 07/08/22 which show the left great saphenous vein below the knee, and the deep veins of the left calf, were not visualized due to the presence of open wounds. An accessory saphenous vein in the right proximal calf is incompetent. An enlarged lymph node is noted in both the right groin measuring approximately 3.79 x 1.30 cm and left groin measuring approximately 5.75 x 1.66 cm. Arterial study done 07/08/22 - Right ankle brachial index by dorsalis pedis is 1.23. The right digital-brachial index is 0.96. The left ankle brachial index by the dorsalis pedis is 1.30. Unable to acquire digit due to open wound. A wound culture was obtained 08/11/22 which was positive for MRSA and Anaerobic cocci. She was started on Doxycyline and then Augmentin was added. Wound culture obtained 09/20/22 which was positive for MRSA, MRSE, and Corynebacterium minutissimum. She was started on Doxycycline and Levaquin. She denies fever, chills, nausea or vomiting at this time. Progress of Wound: Left dorsal foot ulcer is stable, it continues to be painful. She just picked up her antibiotics yesterday. The proximal toe cluster ulcer remains healed. She stopped smoking last Tuesday. Objective Data Objective Data Vital Signs: Vital Signs Temp Pulse Resp BP 97.4 F L 108 H 20 H 161/91 H 09/29/22 09:29 09/29/22 09:29 09/29/22 09:29 09/29/22 09:29 Lab / Micro Data Micro: Microbiology 09/20/22 13:40 Wound Abcess - Left Foot Gram Stain - Final 09/20/22 13:40 Wound Abcess - Left Foot Wound Culture - Final Meth. resistant Staph. aureus Staphylococcus epidermidis Corynebacterium minutissimum 09/20/22 13:40 Wound Abcess - Left Foot Anaerobic Culture - Final No anaerobic bacteria isolated. Charges/Coding Procedures Integumentary 111xxx-113xx: 10956 Tammy subq tissue 20 sq cm/< Debridement Note Debridement Note Wound debrided: dorsal foot ulcer Laterality: Left Wound Grade/Stage: Stage III Type of Debridement: Excisional debridement Depth: Down to and including healthy tissue and in the subcutaneous layer Percentage of wound debrided: 100 Instrument Used: 3mm curette Tissue Removed: Devitalized tissue and slough Severity: Fat Layer Exposed Amount of bleeding with debridement: Mild Bleeding Controlled with: Pressure and Compression and gauze Patient tolerated procedure: Patient tolerated procedure well Post-Debridement Measurements and Additional Note: Post-Debridement Measurements/Treatment - Nurse 1 - General Ulcer Assessment Start: 09/20/22 11:02 Freq: Status: Active Protocol: CATRACHO Activity Type Activity Date Activity User E-sign Co-sign Detail Recorded Client Recorded Date Recorded By Document 09/20/22 11:02 DL [id number] 09/20/22 11:14 DL Document 09/29/22 09:29 PL [id number] 09/29/22 09:35 PL 09/20/22 09/29/22 11:02 09:29 - Today's Visit Information Type of service Follow-up Visit Follow-up Visit (Physician/WORD PROCESSING SUPERVISOR (Physician/WORD PROCESSING SUPERVISOR ) ) Arrival Mode Ambulatory,Cane Ambulatory,Cane Transfer Assistance None None Patient Identification Verified (Name & Yes Yes ) Patient Requires Transmission-Based No No Precautions Safety Precautions NA Finger Stick Blood Sugar(mg/dl) (if 184 188 indicated): Blood Sugar Stated by Stated by Patient Patient Vital Signs Temperature (97.8 F-99.1 F) 97.5 F L 97.4 F L Temperature Source Temporal Temporal Pulse Rate (60-100) 85 108 H Pulse Location Monitor Respiratory Rate (12-18) 20 H 20 H Respiratory rate source Observation Blood Pressure (90/60-120/80) 165/77 H 161/91 H Blood Pressure Mean (mm Hg) 106 114 Source Monitor History Since Last Visit- (Skip if this is Patient's initial visit) Have you changed medications since your No No last visit? Any new allergies or adverse reactions No No Had a fall/change in ADL's that may No No increase risk of falls Signs or symptoms of abuse and/or No No neglect since last visit Have you been in the hospital since your No No last visit? Has dressing in place as prescribed Yes Yes Has compression in place as prescribed Yes N/A Has offloadiing in place as prescribed N/A N/A Experienced any changes in pain level or Yes No management Pain Scale: 0-10 Numeric Is Patient Pain Free? Yes Yes WC - Nurse 1 - General Ulcer Measurement Start: 09/20/22 11:02 Freq: Status: Active Protocol: Activity Type Activity Date Activity User E-sign Co-sign Detail Recorded Client Recorded Date Recorded By Document 09/20/22 11:02 DL [id number] 09/20/22 11:14 DL Document 09/29/22 09:29 PL [id number] 09/29/22 09:35 PL 09/20/22 09/29/22 11:02 09:29 Wound Center Nurse 1 #4 L DORSAL FOOT -Current Size (cm) - Length 0.5 0.5 -Current Size (cm) - Width 0.5 0.3 -Current Size (cm) - Depth 0.3 0.3 -Total Square Cm 0.25 0.15 -Photo Taken Yes -Epithelialization Small 1-33% -Tunneling No -Undermining/Tunneling No -Circular Undermining No -Classification - Thickness Full Thickness without Exposed Support Structure -Exudate Amt Small Medium -Exudate Type Serosanguineous Serosanguineous -Wound Margin Distinct, Outline Attached -Granulation Amt None Present (0 Small (1-33%) %) -Necrosis Amt Small (1-33%) Large (67-100%) -Necrotic Tissue Type Adherent Slough Adherent Slough -Structure Exposed N/A -Texture (Jonelle-wound Skin Appearance) Scarring -Moisture (Jonelle-wound Skin Appearance) Dry/Scaly -Color (Jonelle-wound Skin Appearance) Hemosiderin Staining -Temperature (Jonelle-wound Skin No Abnormality No Abnormality Appearance) (Pt Warm) (Pt Warm) -Tenderness on Palpation (Jonelle-wound No Yes Skin Appearance) -Ulcer Cleansing Soap and Water Soap and Water -Foul Odor after Cleansing No No -Anesthetic Used 5% Lidocaine 5% Lidocaine Gel Gel Left Calf (cm) 52.5 Left Ankle (cm) 28 WC - Nurse 2 - General Ulcer CM Notes Start: 09/20/22 11:02 Freq: Status: Active Protocol: Activity Type Activity Date Activity User E-sign Co-sign Detail Recorded Client Recorded Date Recorded By Document 09/20/22 11:29 [id number] 09/20/22 11:35 Document 09/29/22 09:58 Desktop 09/29/22 10:00 09/20/22 09/29/22 11:29 09:58 Wound Center Nurse 2 #4 L DORSAL FOOT -Time 11:29 09:58 -Correct Patient Yes Yes -Correct Side, Site, Position Yes Yes -Correct Procedure Yes Yes -Procedure Performed Yes Yes -Type of Procedure Debridement Debridement -Clinical Debridement Subcutaneous Subcutaneous -Tissue Removed Subcutaneous Subcutaneous -Post Debridement (cm) - Length 0.5 0.5 -Post Debridement (cm) - Width 0.5 0.3 -Post Debridement (cm) - Depth 0.3 0.2 -Total Square (Post) (cm) 0.25 0.15 -Area of Debridement (cm) - Length 0.5 0.5 -Area of Debridement (cm) - Width 0.5 0.3 -Total Square (Area) (cm) 0.25 0.15 -Tunneling No No -Undermining/Tunneling No No -Circular Undermining No No -Wound/Ulcer Outcome Not Healed Not Healed -Ulcer Cleansing Rinsed/ Rinsed/ Irrigated with Irrigated with Saline Saline -Foul Odor after Cleansing No No -Bioengineered Tissue No No -Bleeding Controlled with Pressure Pressure -Treatment Response Procedure Procedure Tolerated Well Tolerated Well -Offloading No No -Debridement - Subq, 1st 20sq cm Yes Yes Pain Scale: 0-10 Numeric Is Patient Pain Free? Yes Yes - Nurse 3 - General Ulcer D/C NN Start: 09/20/22 11:02 Freq: Status: Active Protocol: Activity Type Activity Date Activity User E-sign Co-sign Detail Recorded Client Recorded Date Recorded By Document 09/20/22 06:28 PL [id number] 09/21/22 06:29 PL Document 09/23/22 13:24 [facility] [id number] 09/23/22 13:25 [facility] Document 09/29/22 10:21 [id number] 09/29/22 10:21 09/20/22 09/23/22 09/29/22 06:28 13:24 10:21 Wound Care Center Nurse 3 #4 L DORSAL FOOT -Ulcer Cleansing Rinsed/ Rinsed/ Irrigated with Irrigated with Saline Saline -Foul Odor after Cleansing No No -Primary Dressing Applied Aquacel AG 2x2 -Other Dressing UNNA BOOT -Other Covering AQUACEL AG -Aquacel AG 2x2 1 Left -Multi-Layered Wrap Application Unna Boot - Unna Boot - Unna Boot - Left ($) Left ($) Bilateral ($) -Unna Boots (Bilat) ($) 2 Treatment Response Procedure Tolerated Well Pain Scale: 0-10 Numeric Is Patient Pain Free? Yes Yes Yes WC - Visit Discharge Discharge Condition Stable Stable Ambulatory Status Ambulatory,Cane Ambulatory,Cane Transportation Private Auto Private Auto Medication Reconcilliation completed & Yes provided to patient/care provider Clinical Summary of Care Provided Yes Assessment/Plan Assessment/Plan (1) Non-pressure chronic ulcer of other part of left foot with fat layer exposed: CODE(S): L97.522 - Non-pressure chronic ulcer of other part of left foot with fat layer exposed (2) Ulcer of left foot: CODE(S): L97.529 - Non-pressure chronic ulcer of other part of left foot with unspecified severity (3) Edema of both legs: CODE(S): R60.0 - Localized edema (4) Lymphedema: CODE(S): I89.0 - Lymphedema, not elsewhere classified (5) Type 2 diabetes mellitus: CODE(S): E11.9 - Type 2 diabetes mellitus without complications QUALIFIERS: Diabetes mellitus alf insulin use: without long term care pharmacist use Diabetes mellitus complication status: with other specified complication Qualified Code(s): E11.69 - Type 2 diabetes mellitus with other specified complication (6) Psoriasis: CODE(S): L40.9 - Psoriasis, unspecified (7) Nicotine dependence: CODE(S): F17.200 - Nicotine dependence, unspecified, uncomplicated (8) History of MRSA infection: CODE(S): Z86.14 - Personal history of Methicillin resistant Staphylococcus aureus infection PLAN: Plan Patient evaluated at the wound center today. Wound care to her left dorsal foot ulcer Silvercel topped with gauze/ABD, place gauze between toes to help prevent maceration. Compression will be Unna boots bilaterally. A wound culture was obtained 08/11/22 which was positive for MRSA and Anaerobic cocci. She was started on Doxycyline and then Augmentin was added. A wound culture was obtained on 09/20/22 which was positive for MRSA, MRSE, and Corynebacterium minutissimum. She was started on Doxycycline and Levaquin. Venous study done 07/08/22 which show the left great saphenous vein below the knee, and the deep veins of the left calf, were not visualized due to the presence of open wounds. An accessory saphenous vein in the right proximal calf is incompetent. An enlarged lymph node is noted in both the right groin measuring approximately 3.79 x 1.30 cm and left groin measuring approximately 5.75 x 1.66 cm. Arterial study done 07/08/22 - Right ankle brachial index by dorsalis pedis is 1.23. The right digital-brachial index is 0.96. The left ankle brachial index by the dorsalis pedis is 1.30. Unable to acquire digit due to open wound. The thick, dry plaques of skin on anterior lower legs bilaterally. The improvement that she initially was experiencing with her new psoriasis medication has stopped. Encouraged a high protein, low carbohydrate diet to help with wound healing to help control diabetes. Encouraged her to continue to not smoke. She will follow up in 1 week. Come in for Nurse visit to have Unna boot changed. Instructed to call or come in sooner if she develops any concerns.
[2022-10-04 09:33] VITALS: BP 156/61; PULSE 80; RESP 20; TEMP 36.3
--- NOTE | 2022-10-04 12:02 | PCM.WC.PN ---
History of Present Illness Date of Service: 10/04/22 Chief Complaint: Non healing surgical wound of left hand History of Wound: 47-year-old woman who recently was hospitalized 06/23/22 - 06/27/22 for cellulitis on her left leg that failed outpatient therapy. When she got home she developed a large blister on her dorsal portion of her left foot. She was discharged home on Keflex and Bactrim which she finishes today. She states she has a history of psoriasis/arthritis on her bilateral legs that have caused thick scabbing. She sees a ammonia operator in [place] for this and has been on Ixekizumab without improvement in her symptoms. She states that she has had the dry, itchy patches on her legs that never improve for years and she also has psoriatic arthritis. She comes in today for evaluation of the ulcers on her left foot and bilateral lower leg edema. Venous study done 07/08/22 which show the left great saphenous vein below the knee, and the deep veins of the left calf, were not visualized due to the presence of open wounds. An accessory saphenous vein in the right proximal calf is incompetent. An enlarged lymph node is noted in both the right groin measuring approximately 3.79 x 1.30 cm and left groin measuring approximately 5.75 x 1.66 cm. Arterial study done 07/08/22 - Right ankle brachial index by dorsalis pedis is 1.23. The right digital-brachial index is 0.96. The left ankle brachial index by the dorsalis pedis is 1.30. Unable to acquire digit due to open wound. A wound culture was obtained 08/11/22 which was positive for MRSA and Anaerobic cocci. She was started on Doxycyline and then Augmentin was added. Wound culture obtained 09/20/22 which was positive for MRSA, MRSE, and Corynebacterium minutissimum. She was started on Doxycycline and Levaquin. She denies fever, chills, nausea or vomiting at this time. Progress of Wound: Left dorsal foot ulcer is stable, it continues to be painful even with the antibiotics. The proximal toe cluster ulcer remains healed. Objective Data Objective Data Vital Signs: Vital Signs Temp Pulse Resp BP 97.3 F L 80 20 H 156/61 H 10/04/22 09:33 10/04/22 09:33 10/04/22 09:33 10/04/22 09:33 Lab / Micro Data Micro: Microbiology 09/20/22 13:40 Wound Abcess - Left Foot Gram Stain - Final 09/20/22 13:40 Wound Abcess - Left Foot Wound Culture - Final Meth. resistant Staph. aureus Staphylococcus epidermidis Corynebacterium minutissimum 09/20/22 13:40 Wound Abcess - Left Foot Anaerobic Culture - Final No anaerobic bacteria isolated. Charges/Coding Procedures Integumentary [id number]: [id number] Tammy subq tissue 20 sq cm/< Debridement Note Debridement Note Wound debrided: dorsal foot ulcer Laterality: Left Wound Grade/Stage: Stage III Type of Debridement: Excisional debridement Depth: Down to and including healthy tissue and in the subcutaneous layer Percentage of wound debrided: 100 Instrument Used: 3mm curette Tissue Removed: Devitalized tissue and slough Severity: Fat Layer Exposed Amount of bleeding with debridement: Mild Bleeding Controlled with: Pressure and Compression and gauze Patient tolerated procedure: Patient tolerated procedure well Post-Debridement Measurements and Additional Note: Post-Debridement Measurements/Treatment - Nurse 1 - General Ulcer Assessment Start: 09/20/22 11:02 Freq: Status: Active Protocol: CATRACHO Activity Type Activity Date Activity User E-sign Co-sign Detail Recorded Client Recorded Date Recorded By Document 09/20/22 11:02 DL [id number] 09/20/22 11:14 DL Document 09/29/22 09:29 PL [id number] 09/29/22 09:35 PL Document 10/04/22 09:33 DL [id number] 10/04/22 09:38 DL 09/20/22 09/29/22 10/04/22 11:02 09:29 09:33 - Today's Visit Information Type of service Follow-up Visit Follow-up Visit Follow-up Visit (Physician/TELEGRAPH REPEATER MECHANIC (Physician/TELEGRAPH REPEATER MECHANIC (Physician/TELEGRAPH REPEATER MECHANIC ) ) ) Arrival Mode Ambulatory,Cane Ambulatory,Cane Ambulatory Transfer Assistance None None None Patient Identification Verified (Name & Yes Yes Yes ) Patient Requires Transmission-Based No No No Precautions Safety Precautions NA Finger Stick Blood Sugar(mg/dl) (if 184 188 indicated): Blood Sugar Stated by Stated by Patient Patient Vital Signs Temperature (97.8 F-99.1 F) 97.5 F L 97.4 F L 97.3 F L Temperature Source Temporal Temporal Temporal Pulse Rate (60-100) 85 108 H 80 Pulse Location Monitor Monitor Respiratory Rate (12-18) 20 H 20 H 20 H Respiratory rate source Observation Observation Blood Pressure (90/60-120/80) 165/77 H 161/91 H 156/61 H Blood Pressure Mean (mm Hg) 106 114 92 Source Monitor Monitor History Since Last Visit- (Skip if this is Patient's initial visit) Have you changed medications since your No No No last visit? Any new allergies or adverse reactions No No No Had a fall/change in ADL's that may No No No increase risk of falls Signs or symptoms of abuse and/or No No No neglect since last visit Have you been in the hospital since your No No No last visit? Has dressing in place as prescribed Yes Yes Yes Has compression in place as prescribed Yes N/A Yes Has offloadiing in place as prescribed N/A N/A N/A Experienced any changes in pain level or Yes No No management Pain Scale: 0-10 Numeric Is Patient Pain Free? Yes Yes Yes WC - Nurse 1 - General Ulcer Measurement Start: 09/20/22 11:02 Freq: Status: Active Protocol: Activity Type Activity Date Activity User E-sign Co-sign Detail Recorded Client Recorded Date Recorded By Document 09/20/22 11:02 DL [id number] 09/20/22 11:14 DL Document 09/29/22 09:29 PL [id number] 09/29/22 09:35 PL Document 10/04/22 09:33 DL [id number] 10/04/22 09:38 DL 09/20/22 09/29/22 10/04/22 11:02 09:29 09:33 Wound Center Nurse 1 #4 L DORSAL FOOT -Current Size (cm) - Length 0.5 0.5 0.2 -Current Size (cm) - Width 0.5 0.3 0.2 -Current Size (cm) - Depth 0.3 0.3 0.2 -Total Square Cm 0.25 0.15 0.04 -Photo Taken Yes Yes -Epithelialization Small 1-33% -Tunneling No -Undermining/Tunneling No -Maximum Distance #2 (cm) 0.2 -Circular Undermining No Yes -Classification - Thickness Full Thickness without Exposed Support Structure -Exudate Amt Small Medium Small -Exudate Type Serosanguineous Serosanguineous Serosanguineous -Wound Margin Distinct, Distinct, Outline Outline Attached Attached -Granulation Amt None Present (0 Small (1-33%) Small (1-33%) %) -Granulation Quality Red -Necrosis Amt Small (1-33%) Large (67-100%) None Present (0 %) -Necrotic Tissue Type Adherent Slough Adherent Slough Adherent Slough -Structure Exposed N/A N/A -Texture (Jonelle-wound Skin Appearance) Scarring Scarring,Rash -Moisture (Jonelle-wound Skin Appearance) Dry/Scaly Dry/Scaly -Color (Jonelle-wound Skin Appearance) Hemosiderin Hemosiderin Staining Staining -Temperature (Jonelle-wound Skin No Abnormality No Abnormality No Abnormality Appearance) (Pt Warm) (Pt Warm) (Pt Warm) -Tenderness on Palpation (Jonelle-wound No Yes No Skin Appearance) -Ulcer Cleansing Soap and Water Soap and Water Soap and Water -Foul Odor after Cleansing No No No -Anesthetic Used 5% Lidocaine 5% Lidocaine 5% Lidocaine Gel Gel Gel Left Calf (cm) 52.5 45.2 Left Ankle (cm) 28 25 WC - Nurse 2 - General Ulcer CM Notes Start: 09/20/22 11:02 Freq: Status: Active Protocol: Activity Type Activity Date Activity User E-sign Co-sign Detail Recorded Client Recorded Date Recorded By Document 09/20/22 11:29 [id number] 09/20/22 11:35 Document 09/29/22 09:58 Desktop 09/29/22 10:00 Document 10/04/22 10:18 [id number] 10/04/22 10:21 09/20/22 09/29/22 10/04/22 11:29 09:58 10:18 Wound Center Nurse 2 #4 L DORSAL FOOT -Time 11:29 09:58 10:18 -Correct Patient Yes Yes Yes -Correct Side, Site, Position Yes Yes Yes -Correct Procedure Yes Yes Yes -Procedure Performed Yes Yes Yes -Type of Procedure Debridement Debridement Debridement -Clinical Debridement Subcutaneous Subcutaneous Subcutaneous -Tissue Removed Subcutaneous Subcutaneous Subcutaneous -Post Debridement (cm) - Length 0.5 0.5 0.5 -Post Debridement (cm) - Width 0.5 0.3 0.4 -Post Debridement (cm) - Depth 0.3 0.2 0.2 -Total Square (Post) (cm) 0.25 0.15 0.20 -Area of Debridement (cm) - Length 0.5 0.5 0.5 -Area of Debridement (cm) - Width 0.5 0.3 0.4 -Total Square (Area) (cm) 0.25 0.15 0.20 -Tunneling No No No -Undermining/Tunneling No No No -Circular Undermining No No No -Wound/Ulcer Outcome Not Healed Not Healed Not Healed -Ulcer Cleansing Rinsed/ Rinsed/ Rinsed/ Irrigated with Irrigated with Irrigated with Saline Saline Saline -Foul Odor after Cleansing No No No -Bioengineered Tissue No No No -Bleeding Controlled with Pressure Pressure Pressure -Treatment Response Procedure Procedure Procedure Tolerated Well Tolerated Well Tolerated Well -Offloading No No No -Debridement - Subq, 1st 20sq cm Yes Yes Yes Pain Scale: 0-10 Numeric Is Patient Pain Free? Yes Yes Yes - Nurse 3 - General Ulcer D/C NN Start: 09/20/22 11:02 Freq: Status: Active Protocol: Activity Type Activity Date Activity User E-sign Co-sign Detail Recorded Client Recorded Date Recorded By Document 09/20/22 06:28 PL [id number] 09/21/22 06:29 PL Document 09/23/22 13:24 [facility] [id number] 09/23/22 13:25 [facility] Document 09/29/22 10:21 [id number] 09/29/22 10:21 Document 10/04/22 10:33 [facility] [id number] 10/04/22 10:35 [facility] 09/20/22 09/23/22 09/29/22 06:28 13:24 10:21 Wound Care Center Nurse 3 #4 L DORSAL FOOT -Ulcer Cleansing Rinsed/ Rinsed/ Irrigated with Irrigated with Saline Saline -Foul Odor after Cleansing No No -Primary Dressing Applied Aquacel AG 2x2 -Other Dressing UNNA BOOT -Other Covering AQUACEL AG -Aquacel AG 2x2 1 Left -Multi-Layered Wrap Application Unna Boot - Unna Boot - Unna Boot - Left ($) Left ($) Bilateral ($) -Unna Boots (Bilat) ($) 2 Treatment Response Procedure Tolerated Well Pain Scale: 0-10 Numeric Is Patient Pain Free? Yes Yes Yes WC - Visit Discharge Discharge Condition Stable Stable Ambulatory Status Ambulatory,Cane Ambulatory,Cane Transportation Private Auto Private Auto Medication Reconcilliation completed & Yes provided to patient/care provider Clinical Summary of Care Provided Yes 10/04/22 10:33 Wound Care Center Nurse 3 #4 L DORSAL FOOT -Ulcer Cleansing Rinsed/ Irrigated with Saline -Foul Odor after Cleansing No -Primary Dressing Applied Aquacel AG 2x2 -Other Dressing UNNA BOOT -Other Covering -Aquacel AG 2x2 1 Left -Multi-Layered Wrap Application Unna Boot - Left ($) -Unna Boots (Bilat) ($) Treatment Response Procedure Tolerated Well Pain Scale: 0-10 Numeric Is Patient Pain Free? Yes WC - Visit Discharge Discharge Condition Stable Ambulatory Status Ambulatory Transportation Private Auto Medication Reconcilliation completed & provided to patient/care provider Clinical Summary of Care Provided Assessment/Plan Assessment/Plan (1) Non-pressure chronic ulcer of other part of left foot with fat layer exposed: CODE(S): L97.522 - Non-pressure chronic ulcer of other part of left foot with fat layer exposed (2) Ulcer of left foot: CODE(S): L97.529 - Non-pressure chronic ulcer of other part of left foot with unspecified severity (3) Edema of both legs: CODE(S): R60.0 - Localized edema (4) Lymphedema: CODE(S): I89.0 - Lymphedema, not elsewhere classified (5) Type 2 diabetes mellitus: CODE(S): E11.9 - Type 2 diabetes mellitus without complications QUALIFIERS: Diabetes mellitus rat exterminator insulin use: without rat exterminator use Diabetes mellitus complication status: with other specified complication Qualified Code(s): E11.69 - Type 2 diabetes mellitus with other specified complication (6) Psoriasis: CODE(S): L40.9 - Psoriasis, unspecified (7) Nicotine dependence: CODE(S): F17.200 - Nicotine dependence, unspecified, uncomplicated (8) History of MRSA infection: CODE(S): Z86.14 - Personal history of Methicillin resistant Staphylococcus aureus infection PLAN: Plan Patient evaluated at the wound center today. Wound care to her left dorsal foot ulcer [place] topped with gauze/ABD, place gauze between toes to help prevent maceration. Compression will be Unna boots to left leg only. A wound culture was obtained 08/11/22 which was positive for MRSA and Anaerobic cocci. She was started on Doxycyline and then Augmentin was added. A wound culture was obtained on 09/20/22 which was positive for MRSA, MRSE, and Corynebacterium minutissimum. She is tolerating the Doxycycline and Levaquin. Venous study done 07/08/22 which show the left great saphenous vein below the knee, and the deep veins of the left calf, were not visualized due to the presence of open wounds. An accessory saphenous vein in the right proximal calf is incompetent. An enlarged lymph node is noted in both the right groin measuring approximately 3.79 x 1.30 cm and left groin measuring approximately 5.75 x 1.66 cm. Arterial study done 07/08/22 - Right ankle brachial index by dorsalis pedis is 1.23. The right digital-brachial index is 0.96. The left ankle brachial index by the dorsalis pedis is 1.30. Unable to acquire digit due to open wound. The thick, dry plaques of skin on anterior lower legs bilaterally. The improvement that she initially was experiencing with her new psoriasis medication has stopped. Encouraged a high protein, low carbohydrate diet to help with wound healing to help control diabetes. Encouraged her to continue to not smoke. She will follow up in 1 week. Come in for Nurse visit to have Unna boot changed. Instructed to call or come in sooner if she develops any concerns.
[2022-10-07 13:21] VITALS: BP 142/71; PULSE 81; RESP 20; TEMP 36.4
[2022-10-11 09:03] VITALS: BP 166/81; PULSE 70; TEMP 35.7
--- NOTE | 2022-10-11 11:30 | PCM.WC.PN ---
History of Present Illness Date of Service: 10/11/22 Chief Complaint: Non healing surgical wound of left hand History of Wound: 47-year-old woman who recently was hospitalized 06/23/22 - 06/27/22 for cellulitis on her left leg that failed outpatient therapy. When she got home she developed a large blister on her dorsal portion of her left foot. She was discharged home on Keflex and Bactrim which she finishes today. She states she has a history of psoriasis/arthritis on her bilateral legs that have caused thick scabbing. She sees a senior sales representative in [place] for this and has been on Ixekizumab without improvement in her symptoms. She states that she has had the dry, itchy patches on her legs that never improve for years and she also has psoriatic arthritis. She comes in today for evaluation of the ulcers on her left foot and bilateral lower leg edema. Venous study done 07/08/22 which show the left great saphenous vein below the knee, and the deep veins of the left calf, were not visualized due to the presence of open wounds. An accessory saphenous vein in the right proximal calf is incompetent. An enlarged lymph node is noted in both the right groin measuring approximately 3.79 x 1.30 cm and left groin measuring approximately 5.75 x 1.66 cm. Arterial study done 07/08/22 - Right ankle brachial index by dorsalis pedis is 1.23. The right digital-brachial index is 0.96. The left ankle brachial index by the dorsalis pedis is 1.30. Unable to acquire digit due to open wound. A wound culture was obtained 08/11/22 which was positive for MRSA and Anaerobic cocci. She was started on Doxycyline and then Augmentin was added. Wound culture obtained 09/20/22 which was positive for MRSA, MRSE, and Corynebacterium minutissimum. She was started on Doxycycline and Levaquin. She denies fever, chills, nausea or vomiting at this time. Progress of Wound: Left dorsal foot ulcer is stable, it continues to be painful even with the antibiotics. The proximal toe cluster ulcer remains healed. Objective Data Objective Data Vital Signs: Vital Signs Temp Pulse Resp BP 96.2 F L 70 20 H 166/81 H 10/11/22 09:03 10/11/22 09:03 10/07/22 13:21 10/11/22 09:03 Lab / Micro Data Micro: Microbiology 09/20/22 13:40 Wound Abcess - Left Foot Gram Stain - Final 09/20/22 13:40 Wound Abcess - Left Foot Wound Culture - Final Meth. resistant Staph. aureus Staphylococcus epidermidis Corynebacterium minutissimum 09/20/22 13:40 Wound Abcess - Left Foot Anaerobic Culture - Final No anaerobic bacteria isolated. Charges/Coding Procedures Integumentary [id number]: 33725 Tammy subq tissue 20 sq cm/< Debridement Note Debridement Note Wound debrided: dorsal foot ulcer Laterality: Left Wound Grade/Stage: Stage III Type of Debridement: Excisional debridement Depth: Down to and including healthy tissue and in the subcutaneous layer Percentage of wound debrided: 100 Instrument Used: 3mm curette Tissue Removed: Devitalized tissue and slough Severity: Fat Layer Exposed Amount of bleeding with debridement: Mild Bleeding Controlled with: Pressure and Compression and gauze Patient tolerated procedure: Patient tolerated procedure well Post-Debridement Measurements and Additional Note: Post-Debridement Measurements/Treatment - Nurse 1 - General Ulcer Assessment Start: 09/20/22 11:02 Freq: Status: Active Protocol: CATRACHO Activity Type Activity Date Activity User E-sign Co-sign Detail Recorded Client Recorded Date Recorded By Document 09/20/22 11:02 DL [id number] 09/20/22 11:14 DL Document 09/29/22 09:29 PL [id number] 09/29/22 09:35 PL Document 10/04/22 09:33 DL [id number] 10/04/22 09:38 DL Document 10/07/22 13:21 DL [id number] 10/07/22 13:23 DL Document 10/11/22 09:03 AK [id number] 10/11/22 09:06 AK 09/20/22 09/29/22 10/04/22 11:02 09:29 09:33 - Today's Visit Information Type of service Follow-up Visit Follow-up Visit Follow-up Visit (Physician/SUPPLY CHAIN DEVELOPMENT MANAGER (Physician/SUPPLY CHAIN DEVELOPMENT MANAGER (Physician/SUPPLY CHAIN DEVELOPMENT MANAGER ) ) ) Arrival Mode Ambulatory,Cane Ambulatory,Cane Ambulatory Transfer Assistance None None None Patient Identification Verified (Name & Yes Yes Yes ) Patient Requires Transmission-Based No No No Precautions Safety Precautions NA Finger Stick Blood Sugar(mg/dl) (if 184 188 indicated): Blood Sugar Stated by Stated by Patient Patient Vital Signs Temperature (97.8 F-99.1 F) 97.5 F L 97.4 F L 97.3 F L Temperature Source Temporal Temporal Temporal Pulse Rate (60-100) 85 108 H 80 Pulse Location Monitor Monitor Respiratory Rate (12-18) 20 H 20 H 20 H Respiratory rate source Observation Observation Blood Pressure (90/60-120/80) 165/77 H 161/91 H 156/61 H Blood Pressure Mean (mm Hg) 106 114 92 Source Monitor Monitor History Since Last Visit- (Skip if this is Patient's initial visit) Have you changed medications since your No No No last visit? Any new allergies or adverse reactions No No No Had a fall/change in ADL's that may No No No increase risk of falls Signs or symptoms of abuse and/or No No No neglect since last visit Have you been in the hospital since your No No No last visit? Has dressing in place as prescribed Yes Yes Yes Has compression in place as prescribed Yes N/A Yes Has offloadiing in place as prescribed N/A N/A N/A Experienced any changes in pain level or Yes No No management Left Footwear Right Footwear Pain Scale: 0-10 Numeric Is Patient Pain Free? Yes Yes Yes 10/07/22 10/11/22 13:21 09:03 - Today's Visit Information Type of service Nurse-only Follow-up Visit Visit (Physician/SUPPLY CHAIN DEVELOPMENT MANAGER ) Arrival Mode Ambulatory Ambulatory,Cane Transfer Assistance None Patient Identification Verified (Name & Yes Yes ) Patient Requires Transmission-Based No No Precautions Safety Precautions NA Finger Stick Blood Sugar(mg/dl) (if indicated): Blood Sugar Vital Signs Temperature (97.8 F-99.1 F) 97.5 F L 96.2 F L Temperature Source Temporal Temporal Pulse Rate (60-100) 81 70 Pulse Location Monitor Respiratory Rate (12-18) 20 H Respiratory rate source Observation Blood Pressure (90/60-120/80) 142/71 H 166/81 H Blood Pressure Mean (mm Hg) 94 109 Source Monitor Monitor History Since Last Visit- (Skip if this is Patient's initial visit) Have you changed medications since your No No last visit? Any new allergies or adverse reactions No No Had a fall/change in ADL's that may No No increase risk of falls Signs or symptoms of abuse and/or No No neglect since last visit Have you been in the hospital since your No No last visit? Has dressing in place as prescribed Yes Yes Has compression in place as prescribed Yes N/A Has offloadiing in place as prescribed N/A N/A Experienced any changes in pain level or No No management Left Footwear Regular Shoe Right Footwear Regular Shoe Pain Scale: 0-10 Numeric Is Patient Pain Free? Yes Yes WC - Nurse 1 - General Ulcer Measurement Start: 09/20/22 11:02 Freq: Status: Active Protocol: Activity Type Activity Date Activity User E-sign Co-sign Detail Recorded Client Recorded Date Recorded By Document 09/20/22 11:02 DL [id number] 09/20/22 11:14 DL Document 09/29/22 09:29 PL [id number] 09/29/22 09:35 PL Document 10/04/22 09:33 DL [id number] 10/04/22 09:38 DL Document 10/07/22 13:21 DL [id number] 10/07/22 13:23 DL Document 10/11/22 09:03 AK [id number] 10/11/22 09:06 AK 09/20/22 09/29/22 10/04/22 11:02 09:29 09:33 Wound Center Nurse 1 #4 L DORSAL FOOT -Combined with other wound -Current Size (cm) - Length 0.5 0.5 0.2 -Current Size (cm) - Width 0.5 0.3 0.2 -Current Size (cm) - Depth 0.3 0.3 0.2 -Total Square Cm 0.25 0.15 0.04 -Date of Last Picture (Recall this field) -Photo Taken Yes Yes -Epithelialization Small 1-33% -Tunneling No -Undermining/Tunneling No -Maximum Distance #2 (cm) 0.2 -Circular Undermining No Yes -Classification - Thickness Full Thickness without Exposed Support Structure -Change in Wound Grade/Stage -Exudate Amt Small Medium Small -Exudate Type Serosanguineous Serosanguineous Serosanguineous -Wound Margin Distinct, Distinct, Outline Outline Attached Attached -Granulation Amt None Present (0 Small (1-33%) Small (1-33%) %) -Granulation Quality Red -Slough/Fibrin -Necrosis Amt Small (1-33%) Large (67-100%) None Present (0 %) -Necrotic Tissue Type Adherent Slough Adherent Slough Adherent Slough -Structure Exposed N/A N/A -Texture (Jonelle-wound Skin Appearance) Scarring Scarring,Rash -Moisture (Jonelle-wound Skin Appearance) Dry/Scaly Dry/Scaly -Color (Jonelle-wound Skin Appearance) Hemosiderin Hemosiderin Staining Staining -Temperature (Jonelle-wound Skin No Abnormality No Abnormality No Abnormality Appearance) (Pt Warm) (Pt Warm) (Pt Warm) -Tenderness on Palpation (Jonelle-wound No Yes No Skin Appearance) -Ulcer Cleansing Soap and Water Soap and Water Soap and Water -Foul Odor after Cleansing No No No -Anesthetic Used 5% Lidocaine 5% Lidocaine 5% Lidocaine Gel Gel Gel Left Calf (cm) 52.5 45.2 Left Ankle (cm) 28 25 10/07/22 10/11/22 13:21 09:03 Wound Center Nurse 1 #4 L DORSAL FOOT -Combined with other wound No -Current Size (cm) - Length 0.1 -Current Size (cm) - Width 0.1 -Current Size (cm) - Depth 0.1 -Total Square Cm 0.01 -Date of Last Picture (Recall this 10/11/22 field) -Photo Taken Yes -Epithelialization -Tunneling No -Undermining/Tunneling No -Maximum Distance #2 (cm) -Circular Undermining No -Classification - Thickness -Change in Wound Grade/Stage No -Exudate Amt None Present Medium -Exudate Type Serosanguineous -Wound Margin Distinct, Outline Attached -Granulation Amt Large (67-100%) -Granulation Quality [place] -Slough/Fibrin Yes -Necrosis Amt Small (1-33%) -Necrotic Tissue Type Adherent Slough -Structure Exposed N/A N/A -Texture (Jonelle-wound Skin Appearance) Excoriation, Assessed, Scarring,Rash Excoriation -Moisture (Jonelle-wound Skin Appearance) Dry/Scaly Assessed,Dry/ Scaly -Color (Jonelle-wound Skin Appearance) Hemosiderin No Abnormality, Staining Assessed -Temperature (Jonelle-wound Skin No Abnormality No Abnormality Appearance) (Pt Warm) (Pt Warm) -Tenderness on Palpation (Jonelle-wound No No Skin Appearance) -Ulcer Cleansing Soap and Water Soap and Water -Foul Odor after Cleansing No No -Anesthetic Used 5% Lidocaine Gel Left Calf (cm) 45.3 Left Ankle (cm) 35.2 WC - Nurse 2 - General Ulcer CM Notes Start: 09/20/22 11:02 Freq: Status: Active Protocol: Activity Type Activity Date Activity User E-sign Co-sign Detail Recorded Client Recorded Date Recorded By Document 09/20/22 11:29 [id number] 09/20/22 11:35 Document 09/29/22 09:58 Desktop 09/29/22 10:00 Document 10/04/22 10:18 [id number] 10/04/22 10:21 Document 10/11/22 09:23 [id number] 10/11/22 09:29 09/20/22 09/29/22 10/04/22 11:29 09:58 10:18 Wound Center Nurse 2 #4 L DORSAL FOOT -Time 11:29 09:58 10:18 -Correct Patient Yes Yes Yes -Correct Side, Site, Position Yes Yes Yes -Correct Procedure Yes Yes Yes -Procedure Performed Yes Yes Yes -Type of Procedure Debridement Debridement Debridement -Clinical Debridement Subcutaneous Subcutaneous Subcutaneous -Tissue Removed Subcutaneous Subcutaneous Subcutaneous -Post Debridement (cm) - Length 0.5 0.5 0.5 -Post Debridement (cm) - Width 0.5 0.3 0.4 -Post Debridement (cm) - Depth 0.3 0.2 0.2 -Total Square (Post) (cm) 0.25 0.15 0.20 -Area of Debridement (cm) - Length 0.5 0.5 0.5 -Area of Debridement (cm) - Width 0.5 0.3 0.4 -Total Square (Area) (cm) 0.25 0.15 0.20 -Tunneling No No No -Undermining/Tunneling No No No -Undermining/Tunneling Starts (O'clock ) -Maximum Distance (cm) -Circular Undermining No No No -Wound/Ulcer Outcome Not Healed Not Healed Not Healed -Ulcer Cleansing Rinsed/ Rinsed/ Rinsed/ Irrigated with Irrigated with Irrigated with Saline Saline Saline -Foul Odor after Cleansing No No No -Bioengineered Tissue No No No -Bleeding Controlled with Pressure Pressure Pressure -Treatment Response Procedure Procedure Procedure Tolerated Well Tolerated Well Tolerated Well -Offloading No No No -Debridement - Subq, 1st 20sq cm Yes Yes Yes Pain Scale: 0-10 Numeric Is Patient Pain Free? Yes Yes Yes 10/11/22 09:23 Wound Center Nurse 2 #4 L DORSAL FOOT -Time 09:23 -Correct Patient Yes -Correct Side, Site, Position Yes -Correct Procedure Yes -Procedure Performed Yes -Type of Procedure Debridement -Clinical Debridement Subcutaneous -Tissue Removed Subcutaneous -Post Debridement (cm) - Length 0.2 -Post Debridement (cm) - Width 0.2 -Post Debridement (cm) - Depth 0.2 -Total Square (Post) (cm) 0.04 -Area of Debridement (cm) - Length 0.2 -Area of Debridement (cm) - Width 0.2 -Total Square (Area) (cm) 0.04 -Tunneling No -Undermining/Tunneling Yes -Undermining/Tunneling Starts (O'clock 9 ) -Maximum Distance (cm) 0.2 -Circular Undermining No -Wound/Ulcer Outcome Not Healed -Ulcer Cleansing Rinsed/ Irrigated with Saline -Foul Odor after Cleansing No -Bioengineered Tissue No -Bleeding Controlled with Pressure -Treatment Response Procedure Tolerated Well -Offloading No -Debridement - Subq, 1st 20sq cm Yes Pain Scale: 0-10 Numeric Is Patient Pain Free? Yes WC - Nurse 3 - General Ulcer D/C NN Start: 09/20/22 11:02 Freq: Status: Active Protocol: Activity Type Activity Date Activity User E-sign Co-sign Detail Recorded Client Recorded Date Recorded By Document 09/20/22 06:28 PL [id number] 09/21/22 06:29 PL Document 09/23/22 13:24 [facility] [id number] 09/23/22 13:25 [facility] Document 09/29/22 10:21 [id number] 09/29/22 10:21 Document 10/04/22 10:33 [facility] [id number] 10/04/22 10:35 BM[facility] Document 10/07/22 13:21 DL [id number] 10/07/22 13:23 DL Document 10/11/22 09:50 [facility] [id number] 10/11/22 09:50 [facility] 09/20/22 09/23/22 09/29/22 06:28 13:24 10:21 Wound Care Center Nurse 3 #4 L DORSAL FOOT -Ulcer Cleansing Rinsed/ Rinsed/ Irrigated with Irrigated with Saline Saline -Foul Odor after Cleansing No No -Primary Dressing Applied Aquacel AG 2x2 -Other Dressing UNNA BOOT -Primary Dressing Covered/Secured with -Other Covering AQUACEL AG -Aquacel AG 2x2 1 -Promogran Nan Matter Left -Multi-Layered Wrap Application Unna Boot - Unna Boot - Unna Boot - Left ($) Left ($) Bilateral ($) -Unna Boots (Bilat) ($) 2 Treatment Response Procedure Tolerated Well Vital Signs Temperature (97.8 F-99.1 F) Temperature Source Pulse Rate (60-100) Pulse Location Respiratory Rate (12-18) Respiratory rate source Blood Pressure (90/60-120/80) Blood Pressure Mean (mm Hg) Source Pain Scale: 0-10 Numeric Is Patient Pain Free? Yes Yes Yes WC - Visit Discharge Discharge Condition Stable Stable Ambulatory Status Ambulatory,Cane Ambulatory,Cane Transportation Private Auto Private Auto Medication Reconcilliation completed & Yes provided to patient/care provider Clinical Summary of Care Provided Yes 10/04/22 10/07/22 10/11/22 10:33 13:21 09:50 Wound Care Center Nurse 3 #4 L DORSAL FOOT -Ulcer Cleansing Rinsed/ Soap and Water Rinsed/ Irrigated with Irrigated with Saline Saline -Foul Odor after Cleansing No No No -Primary Dressing Applied Aquacel AG 2x2 Aquacel AG 2x2 NonAdherent Contact Layer, Promogran Nan Matter -Other Dressing UNNA BOOT -Primary Dressing Covered/Secured with Dry Gauze Dry Gauze -Other Covering -Aquacel AG 2x2 1 1 -Promogran Nan Matter 1 Left -Multi-Layered Wrap Application Unna Boot - Unna Boot - Multi-Layer Left ($) Left ($) Comp - Left ($) -Unna Boots (Bilat) ($) Treatment Response Procedure Procedure Procedure Tolerated Well Tolerated Well Tolerated Well Vital Signs Temperature (97.8 F-99.1 F) 97.5 F L Temperature Source Temporal Pulse Rate (60-100) 81 Pulse Location Monitor Respiratory Rate (12-18) 20 H Respiratory rate source Observation Blood Pressure (90/60-120/80) 142/71 H Blood Pressure Mean (mm Hg) 94 Source Monitor Pain Scale: 0-10 Numeric Is Patient Pain Free? Yes Yes Yes WC - Visit Discharge Discharge Condition Stable Stable Stable Ambulatory Status Ambulatory Ambulatory Ambulatory,Cane Transportation Private Auto Private Auto Private Auto Medication Reconcilliation completed & provided to patient/care provider Clinical Summary of Care Provided Assessment/Plan Assessment/Plan (1) Non-pressure chronic ulcer of other part of left foot with fat layer exposed: CODE(S): L97.522 - Non-pressure chronic ulcer of other part of left foot with fat layer exposed (2) Ulcer of left foot: CODE(S): L97.529 - Non-pressure chronic ulcer of other part of left foot with unspecified severity (3) Edema of both legs: CODE(S): R60.0 - Localized edema (4) Lymphedema: CODE(S): I89.0 - Lymphedema, not elsewhere classified (5) Type 2 diabetes mellitus: CODE(S): E11.9 - Type 2 diabetes mellitus without complications QUALIFIERS: Diabetes mellitus travel assistant insulin use: without fpc use Diabetes mellitus complication status: with other specified complication Qualified Code(s): E11.69 - Type 2 diabetes mellitus with other specified complication (6) Psoriasis: CODE(S): L40.9 - Psoriasis, unspecified (7) Nicotine dependence: CODE(S): F17.200 - Nicotine dependence, unspecified, uncomplicated (8) History of MRSA infection: CODE(S): Z86.14 - Personal history of Methicillin resistant Staphylococcus aureus infection PLAN: Plan Patient evaluated at the wound center today. Wound care to her left dorsal foot ulcer moistened Nan topped with gauze/ABD, place gauze between toes to help prevent maceration. Compression will be 3M 2 layer wraps to left leg only. The Unna boots are starting to make her too itchy. A wound culture was obtained 08/11/22 which was positive for MRSA and Anaerobic cocci. She was started on Doxycyline and then Augmentin was added. A wound culture was obtained on 09/20/22 which was positive for MRSA, MRSE, and Corynebacterium minutissimum. She is tolerating the Doxycycline and Levaquin. Venous study done 07/08/22 which show the left great saphenous vein below the knee, and the deep veins of the left calf, were not visualized due to the presence of open wounds. An accessory saphenous vein in the right proximal calf is incompetent. An enlarged lymph node is noted in both the right groin measuring approximately 3.79 x 1.30 cm and left groin measuring approximately 5.75 x 1.66 cm. Arterial study done 07/08/22 - Right ankle brachial index by dorsalis pedis is 1.23. The right digital-brachial index is 0.96. The left ankle brachial index by the dorsalis pedis is 1.30. Unable to acquire digit due to open wound. Ordered an x-ray of her left foot due to her non healing ulcer. She obtained it today, 10/11/22, and it showed Stable foot with osteoarthrosis and pes planus deformity. No acute finding. The thick, dry plaques of skin on anterior lower legs bilaterally. The improvement that she initially was experiencing with her new psoriasis medication has stopped. Encouraged a high protein, low carbohydrate diet to help with wound healing to help control diabetes. Encouraged her to continue to not smoke. She will follow up in 1 week for a nurse's visit to have her 3M 2layer wraps changed. Follow up 2 weeks with me due to the holiday.
[2022-10-14 13:17] VITALS: BP 142/77; RESP 20; TEMP 36.4
[2022-10-19 10:00] VITALS: BP 145/76; PULSE 75; RESP 20; TEMP 35.9
== END 2022-10-20 23:59 | disposition home or self-care (01) ==
LOC: WC 10:00
PROVIDERS: PCP Internal Medicine; Referring Provider Nurse Practitioner Family; Visit Provider Nurse Practitioner Family
DX: E11.621 Type 2 diabetes mellitus with foot ulcer (principal); L97.522 Non-pressure chronic ulcer of other part of left foot with fat layer exposed; L40.9 Psoriasis, unspecified; T81.89XA Other complications of procedures, not elsewhere classified, initial encounter; R60.0 Localized edema; R59.0 Localized enlarged lymph nodes; M79.672 Pain in left foot; Z86.14 Personal history of Methicillin resistant Staphylococcus aureus infection; F17.200 Nicotine dependence, unspecified, uncomplicated; I89.0 Lymphedema, not elsewhere classified
CPT/HCPCS: 11042; 29580; 29581; 87070; 87075; 87077; 87186; 87205

== ENCOUNTER 2022-10-25 09:05 | Outpatient (RCR) | payer MEDICARE, MEDICAID, SELFPAY ==
[2022-10-21 00:32] VITALS: BP 145/76; PULSE 75; RESP 20; TEMP 35.9
[2022-10-25 09:20] VITALS: BP 165/93; PULSE 101; RESP 16; TEMP 36.3
--- NOTE | 2022-10-25 13:00 | PN.PCM_ITS ---
History of Present Illness Date of Service: 10/25/22 Chief Complaint: Non healing surgical wound of left hand History of Wound: 47-year-old woman who recently was hospitalized 06/23/22 - 06/27/22 for cellulitis on her left leg that failed outpatient therapy. When she got home she developed a large blister on her dorsal portion of her left foot. She was discharged home on Keflex and Bactrim which she finishes today. She states she has a history of psoriasis/arthritis on her bilateral legs that have caused thick scabbing. She sees a house player in [place] for this and has been on Ixekizumab without improvement in her symptoms. She states that she has had the dry, itchy patches on her legs that never improve for years and she also has psoriatic arthritis. She comes in today for evaluation of the ulcers on her left foot and bilateral lower leg edema. Venous study done 07/08/22 which show the left great saphenous vein below the knee, and the deep veins of the left calf, were not visualized due to the presence of open wounds. An accessory saphenous vein in the right proximal calf is incompetent. An enlarged lymph node is noted in both the right groin measuring approximately 3.79 x 1.30 cm and left groin measuring approximately 5.75 x 1.66 cm. Arterial study done 07/08/22 - Right ankle brachial index by dorsalis pedis is 1.23. The right digital-brachial index is 0.96. The left ankle brachial index by the dorsalis pedis is 1.30. Unable to acquire digit due to open wound. A wound culture was obtained 08/11/22 which was positive for MRSA and Anaerobic cocci. She was started on Doxycyline and then Augmentin was added. Wound culture obtained 09/20/22 which was positive for MRSA, MRSE, and Corynebacterium minutissimum. She was started on Doxycycline and Levaquin. She denies fever, chills, nausea or vomiting at this time. Progress of Wound: Left dorsal foot ulcer is healed today! Objective Data Objective Data Vital Signs: Vital Signs Temp Pulse Resp BP O2 Del Method 97.3 F L 101 H 16 165/93 H Room Air 10/25/22 09:20 10/25/22 09:20 10/25/22 09:20 10/25/22 09:20 10/25/22 09:20 Oxygen Delivery Method Room Air Charges/Coding Visit Charges Office Visits / Consults: 31126 OV L3 Est Physical Exam Const alert, oriented x3, no apparent distress and well nourished General Appearance: cooperative HEENT normocephalic Head and Scalp: atraumatic Eyes General Eye: normal appearance of both eyes Lymph Lymphatic: lymphedema mild Resp normal respiratory effort and normal air movement Effort and Inspection: able to speak in complete sentences Cardio regular rate and regular rhythm GI non-tender Back/Spine normal ROM Extremity normal capillary refill Extremity Narrative: Bilateral lower extremity +2 edema/lymphedema Skin Skin Narrative: Bilateral lower legs with very thick, dry, plaques of skin that are dark godoy/brown in color. It is stable. Wound Narrative: Left dorsal foot ulcer is healed today. Neuro oriented x3 and moves all extremities Psych mental status grossly normal, cooperative and affect normal Debridement Note Debridement Note No debridement was completed: No debridement was completed today Post-Debridement Measurements and Additional Note: Post-Debridement Measurements/Treatment - Nurse 1 - General Ulcer Assessment Start: 10/25/22 09:20 Freq: Status: Active Protocol: [email or web address].[email or web address] Activity Type Activity Date Activity User E-sign Co-sign Detail Recorded Client Recorded Date Recorded By Document 10/25/22 09:20 [facility] [id number] 10/25/22 09:22 [facility] 10/25/22 09:20 - Today's Visit Information Type of service Follow-up Visit (Physician/[employer]LECT[employer]CH[employer]IC ) Arrival Mode Ambulatory Transfer Assistance None Patient Identification Verified (Name & Yes ) Patient Requires Transmission-Based No Precautions Vital Signs Temperature (97.8 F-99.1 F) 97.3 F L Temperature Source Temporal Pulse Rate (60-100) 101 H Pulse Location Monitor Respiratory Rate (12-18) 16 Respiratory rate source Observation Oxygen Delivery Method Room Air Blood Pressure (90/60-120/80) 165/93 H Blood Pressure Mean (mm Hg) 117 Source Monitor Position Sitting Blood Pressure Location Left Arm History Since Last Visit- (Skip if this is Patient's initial visit) Have you changed medications since your No last visit? Any new allergies or adverse reactions No Had a fall/change in ADL's that may No increase risk of falls Signs or symptoms of abuse and/or No neglect since last visit Have you been in the hospital since your No last visit? Experienced any changes in pain level or No management Left Footwear Regular Shoe Right Footwear Regular Shoe Other Footwear pt removed drsgs and showered prior to visit Pain Scale: 0-10 Numeric Is Patient Pain Free? Yes - Nurse 1 - General Ulcer Measurement Start: 10/25/22 09:20 Freq: Status: Active Protocol: Activity Type Activity Date Activity User E-sign Co-sign Detail Recorded Client Recorded Date Recorded By Document 10/25/22 09:20 [facility] [id number] 10/25/22 09:22 [facility] 10/25/22 09:20 Wound Center Nurse 1 #4 L DORSAL FOOT -Combined with other wound No -Current Size (cm) - Length 0.1 -Current Size (cm) - Width 0.1 -Current Size (cm) - Depth 0.1 -Total Square Cm 0.01 -Tunneling No -Undermining/Tunneling No -Circular Undermining No -Exudate Amt None Present -Wound Margin Distinct, Outline Attached -Granulation Amt None Present (0 %) -Slough/Fibrin Yes -Necrosis Amt Large (67-100%) -Necrotic Tissue Type Adherent Slough -Texture (Jonelle-wound Skin Appearance) Assessed, Scarring -Moisture (Jonelle-wound Skin Appearance) Assessed,Dry/ Scaly -Color (Jonelle-wound Skin Appearance) Assessed -Temperature (Jonelle-wound Skin No Abnormality Appearance) (Pt Warm) -Tenderness on Palpation (Jonelle-wound No Skin Appearance) -Ulcer Cleansing Rinsed/ Irrigated with Saline -Foul Odor after Cleansing No -Anesthetic Used 5% Lidocaine Gel Lower Limb Edema Present Yes Left Calf (cm) 44.2 Left Ankle (cm) 24.6 - Nurse 2 - General Ulcer CM Notes Start: 10/25/22 09:20 Freq: Status: Active Protocol: Activity Type Activity Date Activity User E-sign Co-sign Detail Recorded Client Recorded Date Recorded By Document 10/25/22 09:30 [id number] 10/25/22 09:34 10/25/22 09:30 Wound Center Nurse 2 #4 L DORSAL FOOT -Time 09:31 -Correct Patient No -Correct Side, Site, Position No -Correct Procedure No -Procedure Performed No -Post Debridement (cm) - Length 0 -Post Debridement (cm) - Width 0 -Post Debridement (cm) - Depth 0 -Total Square (Post) (cm) 0 -Area of Debridement (cm) - Length 0 -Area of Debridement (cm) - Width 0 -Total Square (Area) (cm) 0 -Wound/Ulcer Outcome Healed- Epithelialized Pain Scale: 0-10 Numeric Is Patient Pain Free? Yes - Nurse 3 - General Ulcer D/C NN Start: 10/25/22 09:20 Freq: Status: Active Protocol: Activity Type Activity Date Activity User E-sign Co-sign Detail Recorded Client Recorded Date Recorded By Document 10/25/22 09:53 [facility] [id number] 10/25/22 09:53 [facility] 10/25/22 09:53 Wound Care Center Nurse 3 ble -Tubular Bandage Double Layer -Size of Tubigrip Used Size E -Size E ($) 4 -Other sent extra Treatment Response Procedure Tolerated Well Pain Scale: 0-10 Numeric Is Patient Pain Free? Yes - Visit Discharge Discharge Condition Stable Ambulatory Status Ambulatory,Cane Transportation Private Auto Accompanied by grand kids 3 Assessment/Plan Assessment/Plan (1) Non-pressure chronic ulcer of other part of left foot with fat layer exposed: CODE(S): L97.522 - Non-pressure chronic ulcer of other part of left foot with fat layer exposed (2) Ulcer of left foot: CODE(S): L97.529 - Non-pressure chronic ulcer of other part of left foot with unspecified severity (3) Edema of both legs: CODE(S): R60.0 - Localized edema (4) Lymphedema: CODE(S): I89.0 - Lymphedema, not elsewhere classified (5) Type 2 diabetes mellitus: CODE(S): E11.9 - Type 2 diabetes mellitus without complications QUALIFIERS: Diabetes mellitus terminologist insulin use: without [place] use Diabetes mellitus complication status: with other specified complication Qualified Code(s): E11.69 - Type 2 diabetes mellitus with other specified complication (6) Psoriasis: CODE(S): L40.9 - Psoriasis, unspecified (7) Nicotine dependence: CODE(S): F17.200 - Nicotine dependence, unspecified, uncomplicated (8) History of MRSA infection: CODE(S): Z86.14 - Personal history of Methicillin resistant Staphylococcus aureus infection PLAN: Plan Patient evaluated at the wound center today. Left dorsal foot ulcer is healed today. She has tolerated the 3 M 2layer wraps for compression. Will place double tubigrip stocking on her and have instructed her to go to [employer] to purchase compression stockings. Instructed to go to be measured first thing in the morning when her legs are the least swollen. She ideally would wear 30-40 mmHg compression stockings, but if she wears 20 mmHg consistently, that too would be beneficial. Instructed her that she will always need to wear compression stockings to help control her edema/lymphedema. A wound culture was obtained 08/11/22 which was positive for MRSA and Anaerobic cocci. She was started on Doxycyline and then Augmentin was added. A wound culture was obtained on 09/20/22 which was positive for MRSA, MRSE, and Corynebacterium minutissimum. She is tolerating the Doxycycline and Levaquin. Venous study done 07/08/22 which show the left great saphenous vein below the knee, and the deep veins of the left calf, were not visualized due to the presence of open wounds. An accessory saphenous vein in the right proximal calf is incompetent. An enlarged lymph node is noted in both the right groin measuring approximately 3.79 x 1.30 cm and left groin measuring approximately 5.75 x 1.66 cm. Arterial study done 07/08/22 - Right ankle brachial index by dorsalis pedis is 1.23. The right digital-brachial index is 0.96. The left ankle brachial index by the dorsalis pedis is 1.30. Unable to acquire digit due to open wound. Ordered an x-ray of her left foot due to her non healing ulcer. She obtained it today, 10/11/22, and it showed Stable foot with osteoarthrosis and pes planus deformity. No acute finding. The thick, dry plaques of skin on anterior lower legs bilaterally. The improvement that she initially was experiencing with her new psoriasis medication has stopped. Encouraged her to continue to not smoke. She will follow up as needed.
== END 2022-10-25 16:30 | disposition home or self-care (01) ==
LOC: WC 09:05
PROVIDERS: PCP Internal Medicine; Referring Provider Nurse Practitioner Family; Visit Provider Nurse Practitioner Family
DX: T81.89XA Other complications of procedures, not elsewhere classified, initial encounter (principal); L97.522 Non-pressure chronic ulcer of other part of left foot with fat layer exposed; E11.8 Type 2 diabetes mellitus with unspecified complications; R59.0 Localized enlarged lymph nodes; L40.9 Psoriasis, unspecified; F17.200 Nicotine dependence, unspecified, uncomplicated; Z86.14 Personal history of Methicillin resistant Staphylococcus aureus infection
CPT/HCPCS: 99213; G0463

== ENCOUNTER → 2023-06-15 | Outpatient (CLI) | payer MEDICARE, MEDICAID, SELFPAY ==
[2023-06-15 12:40] LABS: Absolute Lymphocyte Count 2.38 X10^3/uL (0.83-4.51); Absolute Neutrophil Count 4.9 X10^3/uL (2.0-7.7); Basophil# 0.03 X10^3/uL; Basophil% 0.4 % (0-1); Eosinophil# 0.17 X10^3/uL; Eosinophils% 2.1 % (0-5); Hematocrit 45.3 % (37-47); Hemoglobin 14.7 g/dL (12.0-15.0); Lymphocyte # 2.38 X10^3/ul (0.83-4.51); Mean Corp Hgb Conc 32.5 g/dL (32-36); Mean Corpuscular Volume 83.3 fL (81-99); Mean Platelet Vol. 11.6 fl (6.2-12.0); Monocyte# 0.64 X10^3/uL; Monocyte% 7.8 % (0-10); NRBC Flagged by Analyzer 0 % (0-5); Neutrophil # 4.94 X10^3/uL (2.7-7.7); Neutrophil % 60.2 % (47-70); Platelet Count 237 K/mm3 (150-450); RBC Distribution Width CV 15.1 % (11.6-14.6); RBC Distribution Width SD 45.8 fl (35.1-43.9); Red Blood Count 5.44 M/mm3 (4.2-5.4); White Blood Count 8.2 K/mm3 (4.4-11.0)
[2023-06-15 13:54] LABS: ALB/GLOB Ratio 0.8 RATIO (0.9-2.4); AST(SGOT) 11 U/L (15-37); Alanine Aminotransfer ALT/SGPT 32 U/L (13-56); Albumin, Serum 3.3 g/dL (3.2-5.0); Alkaline Phosphatase 69 U/L (45-117); Anion Gap 2 (5-15); BUN 9 mg/dL (7-18); BUN/Creat Ratio 19.3 RATIO (10-20); Calcium,Total 9.2 mg/dL (8.5-10.1); Chloride 106 mmol/L (98-107); Cholesterol 204 mg/dL (200); Creatinine, Serum 0.47 mg/dL (0.55-1.02); EST Glomerular Filtration Rate 151 mL/min (>60); Est Glom Filt Rate - Afr Amer 182 mL/min (>60); Globulin 4.3 g/dL (2.2-4.2); Glucose 95 mg/dL (74-106); High Density Lipoprotein 44 mg/dL; Potassium 4.1 mmol/L (3.5-5.1); Protein, Total 7.6 g/dL (6.4-8.2); Sodium Level 134 mmol/L (136-145); Triglycerides 186 mg/dL; Very Low Density Lipoprotein 37 mg/dL (5-40)
[2023-06-15 15:48] LABS: Hemoglobin A1c 5.3 % (3.8-5.6)
== END | disposition home or self-care (01) ==
LOC: BIMLAB 11:04
PROVIDERS: PCP Internal Medicine; Referring Provider Internal Medicine; Visit Provider Internal Medicine
DX: I10 Essential (primary) hypertension (principal); E11.69 Type 2 diabetes mellitus with other specified complication; E66.01 Morbid (severe) obesity due to excess calories
CPT/HCPCS: 36415; 80053; 80061; 83036; 85025

== ENCOUNTER → 2023-07-13 | Outpatient (CLI) | payer MEDICARE, MEDICAID, SELFPAY ==
--- NOTE | 2023-07-13 08:59 | US_ITS ---
STUDY: ABDOMINAL ULTRASOUND REASON FOR EXAM: Female, 48 years old. Abd pain -- screening for bariatric surgery TECHNIQUE: Transabdominal ultrasound was performed with real-time and static elias scale imaging. TECHNICAL QUALITY: Adequate. COMPARISON: Comparison is made with prior CT scan of the abdomen and pelvis dated December 04, 2021. FINDINGS: Liver: The liver is enlarged and measures 18.4 cm. There is increased echogenicity consistent with fatty infiltration. The bile ducts are within normal limits. There is hepatic color flow. The direction of portal flow is hepatopetal. There is no demonstrated mass lesion. Gallbladder: Normal distended gallbladder. The gallbladder wall measures 1.8 mm. There is a negative sonographic Corcoran''s sign. There is no pericholecystic fluid. There are no gallstones. Several small polyps are seen along the gallbladder wall. The largest measures 3 mm. Common Bile Duct (C.B.D.): The common bile duct measures 4. mm. Pancreas: Normal size of the head, body and tail of the pancreas. There is normal echogenicity of the pancreas. There is no demonstrated pancreatic mass or cyst. Spleen: There is splenomegaly. The spleen measures 15.6 cm x 6.2 cm x 5.2 cm. Right Kidney: Normal size of the right kidney. The right kidney measures 13.4 cm x 6.3 cm x 5.1 cm. Normal renal cortex. The right cortex measures 1.4 cm. There is no demonstrated renal mass or cyst. There is no right hydronephrosis. Left Kidney: Normal size of the left kidney. The left kidney measures 14.6 cm x 5.1 cm x 5.2 cm. Normal renal cortex. The left cortex measures 2.1 cm. 3 cysts are seen in the left kidney. The largest is in the superior pole and measures 1.4 cm x 1.4 cm x 1.2 cm. There is no left hydronephrosis. Aorta: Unremarkable I.V.C.: The IVC is patent. There is no ascites. US/Abdomen Complete IMPRESSION: Hepatomegaly and fatty infiltration of the liver. Several small gallbladder polyps. Splenomegaly. Left renal cysts. Electronically Signed: Alexander Thomas MD at 11:00 EST ,
[2023-07-13 09:10] LABS: Hematocrit 46.2 % (37-47); Hemoglobin 14.8 g/dL (12.0-15.0); Mean Corpuscular Hgb 26.9 pg (27.0-32.0); Mean Platelet Vol. 11.5 fl (6.2-12.0); Platelet Count 243 K/mm3 (150-450); RBC Distribution Width CV 14.3 % (11.6-14.6); RBC Distribution Width SD 43.8 fl (35.1-43.9); White Blood Count 7.2 K/mm3 (4.4-11.0)
[2023-07-13 09:33] LABS: Vitamin B12 447 pg/mL (211-911); Vitamin D,25 Hydroxy 9.8 ng/mL
--- NOTE | 2023-07-13 09:40 | RAD_ITS ---
EXAMINATION: Air contrast UPPER GI SERIES INDICATION: Female, 48 years . Pregastric bypass surgery evaluation. FLUOROSCOPY TIME (if supplied): (0:43) minutes/seconds. 24 images were submitted. TECHNIQUE: Radiographic and fluoroscopic images of the distal esophagus, stomach, and proximal small intestine were obtained following the oral ingestion of barium. COMPARISON: None. FINDINGS: There is no evidence for organomegaly, abnormal calcifications, or abnormal bowel gas pattern. The psoas margins and flank stripes are normal. The visualized osseous structures are normal. The mucosa of the esophagus, stomach and duodenum is normal in appearance without evidence for stricture, ulceration, mass or diverticulum. There is no evidence for hiatal hernia or gastroesophageal reflux. RAD/Upper GI Dual Contrast IMPRESSION: 1. Normal air-contrast upper gastrointestinal study. Electronically Signed: Alexander Thomas MD at 10:22 [facility] ,
[2023-07-13 10:14] LABS: ALB/GLOB Ratio 0.8 RATIO (0.9-2.4); AST(SGOT) 12 U/L (15-37); Alanine Aminotransfer ALT/SGPT 21 U/L (13-56); Albumin, Serum 3.5 g/dL (3.2-5.0); Alkaline Phosphatase 75 U/L (45-117); Anion Gap 3 (5-15); BUN 10 mg/dL (7-18); BUN/Creat Ratio 15.2 RATIO (10-20); Calcium,Total 9.2 mg/dL (8.5-10.1); Chloride 105 mmol/L (98-107); Cholesterol 161 mg/dL (200); Creatinine, Serum 0.66 mg/dL (0.55-1.02); EST Glomerular Filtration Rate 102 mL/min (>60); Est Glom Filt Rate - Afr Amer 123 mL/min (>60); Ferritin 33 ng/mL (8-252); Globulin 4.5 g/dL (2.2-4.2); Glucose 94 mg/dL (74-106); High Density Lipoprotein 46 mg/dL; Iron 44 ug/dL (50-170); Magnesium 1.8 mg/dL (1.6-2.6); Potassium 3.8 mmol/L (3.5-5.1); Sodium Level 138 mmol/L (136-145); Thyroid Stim Hormone (TSH) 0.54 uIU/mL (0.358-3.74); Triglycerides 96 mg/dL; Very Low Density Lipoprotein 19 mg/dL (5-40)
[2023-07-13 10:31] LABS: Hemoglobin A1c 5.2 % (3.8-5.6)
[2023-07-21 16:10] LABS: Vitamin B1, Thiamine 113.1 nmol/L (66.5-200.0); Zinc, Plasma or Serum 67 ug/dL (44-115)
== END | disposition home or self-care (01) ==
PROVIDERS: PCP Internal Medicine; Referring Provider Physician Assistant; Visit Provider Physician Assistant
DX: Z01.812 Encounter for preprocedural laboratory examination (principal); E66.01 Morbid (severe) obesity due to excess calories; Z68.43 Body mass index [BMI] 50.0-59.9, adult; E11.9 Type 2 diabetes mellitus without complications; K21.9 Gastro-esophageal reflux disease without esophagitis; R10.84 Generalized abdominal pain; I10 Essential (primary) hypertension; Z72.0 Tobacco use
CPT/HCPCS: 36415; 74246; 76700; 80053; 80061; 82306; 82607; 82728; 82746; 83036; 83540; 83735; 84425; 84443; 84630; 85027

== ENCOUNTER → 2023-08-30 | Outpatient (CLI) | payer MEDICARE, MEDICAID, SELFPAY ==
--- NOTE | 2023-08-30 12:58 | ECHOD_ITS ---
Reason For Study: MURMUR Procedure This was a 2D Doppler, Color Flow transthoracic echocardiogram. Myocardial strain analysis was performed in this exam to aid in the assessment of cardiac function. Exam performed in department. Left Ventricle Normal LV size. The estimated ejection fraction is 55 %. No evidence for diastolic dysfunction. No regional wall motion abnormalities noted. Right Ventricle Normal RV size. Normal systolic function. Atria Normal left atrium. Normal right atrium. No doppler evidence for ASD. Mitral Valve There is no mitral valve stenosis. No mitral valve insufficiency. Tricuspid Valve There is no tricuspid stenosis. Trivial tricuspid valve insufficiency. Unable to estimate RV systolic pressure due to insufficient tricuspid regurgitant envelope. Aortic Valve Trisinus/trileaflet aortic valve. Mild diffuse aortic valve thickening. There is no aortic stenosis. No aortic valve insufficiency. Pulmonic Valve There is no pulmonic valvular stenosis. No pulmonic valve insufficiency. Great Vessels Normal aortic root. Pericardium/Pleural No pericardial effusion. MMode/2D Measurements & Calculations LVIDd: 5.3 cm IVSd: 1.5 cm LVOT diam: 2.2 cm LVIDs: 3.0 cm LVPWd: 1.0 cm LVOT area: 3.7 cm2 RVDd: 4.0 cm FS: 44.1 % Ao root diam: 2.9 cm LAV(MOD-bp): 70.9 ml LVAd ap4: 35.8 cm2 LAV(MOD-bp) Indexed: 29.5 ml/m2 LVLd ap4: 8.3 cm LAV(MOD-sp2): 80.0 ml EDV(MOD-sp4): 124.3 ml LAV(MOD-sp4): 63.6 ml EDV(sp4-el): 130.7 ml LVAs ap4: 20.5 cm2 LVLs ap4: 7.4 cm ESV(MOD-sp4): 46.4 ml ESV(sp4-el): 48.1 ml EF(MOD-sp4): 62.7 % EF(sp4-el): 63.2 % LVAd ap2: 41.1 cm2 SV(MOD-sp4): 77.9 ml SV(MOD-sp2): 86.7 ml LVLd ap2: 9.0 cm EDV(MOD-sp2): 155.8 ml EDV(sp2-el): 159.0 ml LVAs ap2: 24.8 cm2 LVLs ap2: 7.8 cm ESV(MOD-sp2): 69.1 ml ESV(sp2-el): 66.6 ml EF(MOD-sp2): 55.7 % SV(sp4-el): 82.6 ml LA dimension(2D): 5.0 cm LA A4 area: 22.4 cm2 RA A4 area: 18.4 cm2 TAPSE: 1.9 cm Time Measurements MV dec time: 0.19 sec Doppler Measurements & Calculations MV E max anatoly: 92.6 cm/sec Lat Peak E' Anatoly: 10.1 cm/sec Med Peak E' Anatoly: 7.2 cm/sec MV A max anatoly: 88.0 cm/sec E/E' lat: 9.1 E/E' med: 12.9 MV E/A: 1.1 Ao V2 max: 200.7 cm/sec LV V1 max: 164.8 cm/sec MV dec slope: 493.0 cm/sec2 Ao max P.1 mmHg LV V1 max P.9 mmHg Ao V2 mean: 140.2 cm/sec LV V1 mean P.4 mmHg Ao mean P.8 mmHg LV V1 mean: 109.0 cm/sec Ao V2 VTI: 41.9 cm LV V1 VTI: 28.6 cm AV (velocity ratio): 0.68 TERRY(I,D): 2.5 cm2 TERRY(V,D): 3.0 cm2 SV(LVOT): 105.3 ml PA V2 max: 106.2 cm/sec TR max anatoly: 260.8 cm/sec PA max PG (full): 0.47 mmHg TR max P.2 mmHg ECHO/Echo Complete Interpretation Summary The estimated ejection fraction is 55 %. No evidence for diastolic dysfunction. Ordering Physician: NAOMY TOLENTINO Referring Physician: Heath Thomas Performed By: Char Manzano RDCS and Student
== END | disposition home or self-care (01) ==
LOC: CVS 12:52
PROVIDERS: PCP Internal Medicine
DX: R01.1 Cardiac murmur, unspecified (principal)
CPT/HCPCS: 93306

== ENCOUNTER 2023-09-24 10:33 | Emergency (ER) | payer MEDICARE, SELFPAY ==
[2023-09-24 10:34] VITALS: BP 153/93; PULSE 65; RESP 16; TEMP 35.8; O2SAT 97; BMI 38.8
--- NOTE | 2023-09-24 10:48 | EDS_ITS ---
HPI History of Present Illness Chief Complaint: Allergic Reaction Informant: patient Onset/Context/Timing Onset: Days Narrative Narrative: Patient presents secondary to allergic reaction. She saw her PCP in late August and discussed starting Wellbutrin to help her stop smoking. She had a documented allergy to Wellbutrin with a rash, but she felt it was because of her psoriasis and not a true drug allergy. She restarted Wellbutrin for 3 days and started to break out in a rash on September 19. She stopped taking the Wellbutrin on that day and did take Benadryl. She states that she was doing better for couple days but last night started with increased itching, increased rash. She woke up this morning with diffuse rash. She denies shortness of breath. [facility] Medical History Abscess of hand, left Allergic dermatitis Arthritis Back problem Bilateral lower extremity edema Cellulitis of left leg without foot Chronic diastolic (congestive) heart failure Chronic venous insufficiency Colon cancer screening Degeneration of lumbar or lumbosacral intervertebral disc Degenerative disc disease, lumbar Depression Diabetes mellitus Essential (primary) hypertension Flu vaccine need Health care maintenance Hypoxia Immunosuppression Incomplete right bundle branch block Marijuana user Morbid obesity Nicotine dependence Non-healing surgical wound Pica in adults Preventative health care Primary osteoarthritis of left knee Psoriasis Psoriasis Psoriatic arthritis Radiculopathy of lumbosacral region Recurrent UTI Rheumatoid arthritis Secondary pulmonary arterial hypertension Severe sepsis Tobacco abuse Tobacco abuse counseling Type 2 diabetes mellitus Ulcer of left lower extremity Ulcer of left lower leg Home Medications gabapentin 600 mg tablet 600 mg PO TID NERVE PAIN 08/15/18 [History Last Taken 06/23/22] diclofenac sodium 75 mg tablet,delayed release 75 mg PO BIDCM PAIN 01/02/19 [History Last Taken 06/23/22] blood pressure monitor #1 ea 08/20/20 [Rx Last Taken Unknown] blood sugar diagnostic (True Metrix Glucose Test Strip) #100 ea 09/23/20 [Rx Last Taken Unknown] lancets 28 gauge (FreeStyle Lancets) #100 ea 02/09/21 [Rx Last Taken Unknown] ferrous sulfate 325 mg (65 mg iron) tablet 325 mg PO Q OTHER DAY #90 tabs 10/11/22 [Rx Last Taken Unknown] losartan 100 mg tablet 100 mg PO DAILY BP #90 tabs 10/11/22 [Rx Last Taken Unknown] amlodipine 10 mg tablet 10 mg PO DAILY BP #90 tabs 11/09/22 [Rx Last Taken Unknown] sertraline 100 mg tablet 100 mg PO DAILY #90 tabs 11/09/22 [Rx Last Taken Unknown] infliximab 100 mg intravenous solution (Remicade) 100 mg .Route .Q 6 WEEKS 03/14/23 [History Last Taken Unknown] semaglutide 1 mg/dose (4 mg/3 mL) subcutaneous pen injector 1 mg (0.75 mL) subcut QWEEK 3 months #9.75 mL 03/14/23 [Rx Last Taken Unknown] triamcinolone acetonide 0.1 % topical cream 1 applic topical BID PRN 03/14/23 [History Last Taken Unknown] metformin 500 mg tablet,extended release 24 hr 1,000 mg (2 x 500 mg) PO BID DIABETES 3 months #360 tabs 03/29/23 [Rx Last Taken Unknown] ondansetron 4 mg disintegrating tablet 4 mg PO Q12H PRN for nausea/vomiting #60 TABLETS 08/17/23 [Rx Last Taken Unknown] bupropion HCl 100 mg tablet 100 mg PO BID #60 tabs 09/14/23 [Rx Last Taken Unknown] famotidine 40 mg tablet (Pepcid) 40 mg PO DAILY #14 tabs 09/24/23 [Rx Last Taken Unknown] prednisone 10 mg tablet 10 mg PO DAILY #48 TABLETS 09/24/23 [Rx Last Taken Unknown] Allergy/AdvReac Type Severity Reaction Status Date / Time codeine Allergy Mild rash Verified 09/24/23 10:34 bupropion [From Wellbutrin] Allergy Rash Verified 09/24/23 10:34 varenicline [From Chantix] AdvReac hallucinati Verified 09/24/23 10:34 ons Family History Father Arthritis Autoimmune disorder Diabetes Heart disease Hypertension Mother Hypertension Sister Diabetes Grandmother Diabetes Surgical History History of History of tonsillectomy Social History Smoking Status: Former smoker quit date: 09/20/22 alcohol intake: never substance use type: marijuana what type of physical activity do you participate in: none ROS ROS ED Constitutional Constitutional ED: Denies chills or fever(s) Eyes Eyes: Denies discharge from eye(s) ENT ENT ED: Denies discharge from eye(s), rhinorrhea or sore throat Cardiovascular Cardiovascular: Denies chest pain or palpitations Respiratory/Chest Respiratory/Chest: Denies cough or dyspnea Gastrointestinal Gastrointestinal: Denies abdominal pain, nausea or vomiting Genitourinary Genitourinary ED: Denies dysuria Musculoskeletal Musculoskeletal: Denies back pain or extremity pain Integumentary Reports rash; Denies Abrasions Neurologic Neurologic: Denies headache(s) or weakness Allergic/Immunologic Allergic/Immunologic ED: Denies lip swelling or urticaria EXAM Physical Exam Const Vital Signs: 09/24/23 10:34 Temperature 96.4 F L Temperature Source Temporal Pulse Rate 65 Respiratory Rate 16 Blood Pressure 153/93 H Blood Pressure Mean 113 Pulse Ox 97 Oxygen Delivery Method Room Air Positive well nourished and well developed General Appearance ED: well developed HEENT Reports moist mucous membranes Eyes EOMs intact bilaterally Chest Wall inspection of chest normal and palpation of chest normal Resp normal respiratory effort and clear to auscultation bilaterally Cardio regular rate and regular rhythm GI non-tender Palpation: soft Neuro oriented x3 and no sensory deficits noted Motor Exam: strength 5/5 throughout Skin Skin Narrative: Psoriatic rash noted scattered on the extremities. Dry flaky skin noted. Some areas of urticaria noted as well over the trunk and extremities. MDM MDM MDM Narrative Medical decision making narrative: Patient did drive herself to the emergency room and is caring for 3 children at this time. She will be given a dose of prednisone as well as Pepcid. She was advised that her blood sugars would go up while on prednisone. She will be given prescriptions for the same and she states that she does have Benadryl at home that she will use. At this time I do not see evidence of secondary bacterial infection and do not believe she needs an antibiotic. Return instructions given. Discharge Plan Triage Chief Complaint: Allergic Reaction ED Provider: Odalis Martínez Dx/Rx/DC Orders Clinical Impression: Allergic drug reaction Instructions: ED ADVERSE DRUG REACTION Allergic Prescriptions: New famotidine [Pepcid] 40 mg tablet 40 mg PO DAILY Qty: 14 0RF prednisone 10 mg tablet 10 mg PO DAILY Qty: 48 0RF Rx Instructions: 60mg po daily for 3 days, 40mg po daily for 3 days, 20mg po daily for 3 days, 10mg po daily for 3 days No Action gabapentin 600 mg tablet 600 mg PO TID (DME) blood pressure monitor Kit See Rx Instructions .MEDSUPPLY Qty: 1 0RF Rx Instructions: Check blood pressure daily for hypertension I10 (DME) lancets [FreeStyle Lancets] 28 gauge misc See Rx Instructions .ROUTE .MEDSUPPLY Qty: 100 1RF Rx Instructions: Check blood glucose daily for type 2 DM losartan 100 mg tablet 100 mg PO DAILY Qty: 90 3RF Rx Instructions: take 1 tablet by mouth once daily triamcinolone acetonide 0.1 % cream 1 applic topical BID PRN infliximab [Remicade] 100 mg recon soln 100 mg .Route .Q 6 WEEKS Rx Instructions: 100 MG INTRAVENOUSLY EVERY 6 WEEKS semaglutide 1 mg/dose (4 mg/3 mL) pen injector 1 mg subcut QWEEK 90 Days Qty: 9.75 1RF bupropion HCl 100 mg tablet 100 mg PO BID Qty: 60 1RF Rx Instructions: Take 1 tab daily x 1 week then increase to BID diclofenac sodium 75 MG tablet 75 mg PO BIDCM (DME) True Metrix Glucose Test Strip Strip See Rx Instructions .ROUTE .MEDSUPPLY Qty: 100 6RF Rx Instructions: test blood glucose 3 times daily as directed for tpye 2 DM ferrous sulfate 325 mg (65 mg iron) tablet 325 mg PO Q OTHER DAY Qty: 90 3RF amlodipine 10 mg tablet 10 mg PO DAILY Qty: 90 3RF sertraline 100 mg tablet 100 mg PO DAILY Qty: 90 3RF metformin 500 mg tablet extended release 24 hr 1,000 mg PO BID 90 Days Qty: 360 2RF ondansetron 4 mg tablet,disintegrating 4 mg PO Q12H PRN (Reason: for nausea/vomiting) Qty: 60 0RF Primary Care Provider: Heath Thomas Referrals: Heath Thomas MD [Primary Care Provider] - 1 Week if not improving Disposition Disposition: Home, Self Care
[2023-09-24] MEDS: Famotidine 20 MG Tablet 40 MG PO (10:53)
[2023-09-24] MEDS: predniSONE 20 MG Tablet 60 MG PO (10:53)
[2023-09-24 11:02] VITALS: BP 144/86; PULSE 61; RESP 16; TEMP 35.8; O2SAT 95
== END 2023-09-24 11:05 | disposition home or self-care (01) ==
LOC: ED 10:59
PROVIDERS: Emergency Provider Emergency Medicine; PCP Internal Medicine; Visit Provider Emergency Medicine
DX: R21 Rash and other nonspecific skin eruption (principal); I11.0 Hypertensive heart disease with heart failure; I50.32 Chronic diastolic (congestive) heart failure; E11.9 Type 2 diabetes mellitus without complications; T43.295A Adverse effect of other antidepressants, initial encounter; Z87.891 Personal history of nicotine dependence; Z79.899 Other long term (current) drug therapy
CPT/HCPCS: 99283

== ENCOUNTER → 2023-12-07 | Outpatient (CLI) | payer MEDICARE, MEDICAID, SELFPAY ==
[2023-12-07 13:00] LABS: ALB/GLOB Ratio 0.7 RATIO (0.9-2.4); AST(SGOT) 13 U/L (15-37); Alanine Aminotransfer ALT/SGPT 16 U/L (13-56); Albumin, Serum 3.2 g/dL (3.2-5.0); Alkaline Phosphatase 66 U/L (45-117); Anion Gap 4 (5-15); BUN 12 mg/dL (7-18); BUN/Creat Ratio 19.8 RATIO (10-20); Calcium,Total 8.8 mg/dL (8.5-10.1); Chloride 109 mmol/L (98-107); Creatinine, Serum 0.61 mg/dL (0.55-1.02); EST Glomerular Filtration Rate 111 mL/min (>60); Est Glom Filt Rate - Afr Amer 134 mL/min (>60); Globulin 4.5 g/dL (2.2-4.2); Glucose 93 mg/dL (74-106); Potassium 4.1 mmol/L (3.5-5.1); Protein, Total 7.7 g/dL (6.4-8.2); Sodium Level 137 mmol/L (136-145)
[2023-12-07 13:24] LABS: Hemoglobin A1c 4.8 % (3.8-5.6)
== END | disposition home or self-care (01) ==
LOC: BIMLAB 10:04
PROVIDERS: PCP Internal Medicine; Referring Provider Internal Medicine; Visit Provider Internal Medicine
DX: E11.69 Type 2 diabetes mellitus with other specified complication (principal)
CPT/HCPCS: 36415; 80053; 83036

== ENCOUNTER → 2024-02-13 | Outpatient (CLI) | payer MEDICARE, MEDICAID, SELFPAY ==
[2024-02-13 12:58] LABS: Anion Gap 7 (5-15); BUN 14 mg/dL (7-18); BUN/Creat Ratio 21.8 RATIO (10-20); Calcium,Total 9.8 mg/dL (8.5-10.1); Chloride 107 mmol/L (98-107); Creatinine, Serum 0.64 mg/dL (0.55-1.02); EST Glomerular Filtration Rate 104 mL/min (>60); Est Glom Filt Rate - Afr Amer 126 mL/min (>60); Glucose 89 mg/dL (74-106); Potassium 3.8 mmol/L (3.5-5.1); Sodium Level 140 mmol/L (136-145)
== END | disposition home or self-care (01) ==
LOC: BIMLAB 10:03
PROVIDERS: PCP Internal Medicine; Referring Provider Anesthesiology Pain Medicine; Visit Provider Anesthesiology Pain Medicine
DX: Z51.81 Encounter for therapeutic drug level monitoring (principal); Z79.1 Long term (current) use of non-steroidal anti-inflammatories (NSAID)
CPT/HCPCS: 36415; 80048

== ENCOUNTER → 2024-06-20 | Outpatient (CLI) | payer MEDICARE, MEDICAID, SELFPAY ==
[2024-06-20 12:22] LABS: Absolute Lymphocyte Count 2.19 X10^3/uL (0.83-4.51); Absolute Neutrophil Count 4.3 X10^3/uL (2.0-7.7); Basophil# 0.02 X10^3/uL; Basophil% 0.3 % (0-1); Eosinophils% 1.4 % (0-5); Hematocrit 48.8 % (37-47); Hemoglobin 15.9 g/dL (12.0-15.0); Lymphocyte # 2.19 X10^3/ul (0.83-4.51); Lymphocyte % 30.8 % (19-41); Mean Corp Hgb Conc 32.6 g/dL (32-36); Mean Corpuscular Hgb 27.6 pg (27.0-32.0); Mean Corpuscular Volume 84.7 fL (81-99); Mean Platelet Vol. 11.8 fl (6.2-12.0); Monocyte# 0.44 X10^3/uL; Monocyte% 6.2 % (0-10); NRBC Flagged by Analyzer 0 % (0-5); Neutrophil # 4.34 X10^3/uL (2.7-7.7); Neutrophil % 60.9 % (47-70); Platelet Count 246 K/mm3 (150-450); RBC Distribution Width CV 14.4 % (11.6-14.6); RBC Distribution Width SD 44.1 fl (35.1-43.9); Red Blood Count 5.76 M/mm3 (4.2-5.4); White Blood Count 7.1 K/mm3 (4.4-11.0)
[2024-06-20 12:49] LABS: ALB/GLOB Ratio 0.9 RATIO (0.9-2.4); AST(SGOT) 16 U/L (15-37); Alanine Aminotransfer ALT/SGPT 20 U/L (13-56); Albumin, Serum 3.5 g/dL (3.2-5.0); Alkaline Phosphatase 73 U/L (45-117); Anion Gap 7 (5-15); BUN 7 mg/dL (7-18); BUN/Creat Ratio 13.3 RATIO (10-20); Chloride 106 mmol/L (98-107); Cholesterol 167 mg/dL (200); Creatinine, Serum 0.53 mg/dL (0.55-1.02); EST Glomerular Filtration Rate 131 mL/min (>60); Est Glom Filt Rate - Afr Amer 158 mL/min (>60); Glucose 89 mg/dL (74-106); High Density Lipoprotein 50 mg/dL; Protein, Total 7.5 g/dL (6.4-8.2); Sodium Level 139 mmol/L (136-145); Triglycerides 94 mg/dL; Very Low Density Lipoprotein 19 mg/dL (5-40)
== END | disposition home or self-care (01) ==
LOC: BIMLAB 10:18
PROVIDERS: PCP Internal Medicine; Visit Provider Internal Medicine
DX: E11.9 Type 2 diabetes mellitus without complications (principal); I10 Essential (primary) hypertension
CPT/HCPCS: 36415; 80053; 80061; 85025

== ENCOUNTER → 2025-01-25 | Outpatient (CLI) | payer MEDICARE, MEDICAID, SELFPAY ==
[2025-01-25 11:36] LABS: Hematocrit 44.9 % (37-47); Hemoglobin 15.0 g/dL (12.0-15.0); Immature Granulocytes Count 0.010 X10^3/uL (0.0-0.0); Mean Corp Hgb Conc 33.4 g/dL (32-36); Mean Corpuscular Volume 85.0 fL (81-99); Mean Platelet Vol. 11.2 fl (6.2-12.0); NRBC Flagged by Analyzer 0 % (0-5); Platelet Count 219 K/mm3 (150-450); RBC Distribution Width CV 13.5 % (11.6-14.6); RBC Distribution Width SD 42.1 fl (35.1-43.9); Red Blood Count 5.28 M/mm3 (4.2-5.4); White Blood Count 5.4 K/mm3 (4.4-11.0)
[2025-01-25 12:27] LABS: AST(SGOT) 15 U/L (<=31); Alanine Aminotransfer ALT/SGPT 11 U/L (<=34); Albumin, Serum 3.9 g/dL (3.5-5.0); Alkaline Phosphatase 63 U/L (35-104); Anion Gap 8 (5-15); BUN 10 mg/dL (4-19); BUN/Creat Ratio 18.0 RATIO (10-20); Calcium,Total 8.9 mg/dL (7.6-11.0); Carbon Dioxide 26.4 mmol/L (21.0-32.0); Chloride 105 mmol/L (98-108); Ferritin 42 ng/mL (22-378); Globulin 3.0 g/dL (2.2-4.2); Glucose 84 mg/dL (70-99); Iron 63 ug/dL (50-170); Iron Binding Capacity,Total 280 ug/dL (250-450); Iron Binding Capacity,Unsat 217 ug/dL (228-428); Potassium 4.3 mmol/L (3.3-5.1)
== END | disposition home or self-care (01) ==
LOC: LAB 10:26
PROVIDERS: PCP Internal Medicine; Referring Provider Internal Medicine; Visit Provider Internal Medicine
DX: I10 Essential (primary) hypertension (principal); E11.9 Type 2 diabetes mellitus without complications; D64.9 Anemia, unspecified
CPT/HCPCS: 36415; 80053; 82728; 83540; 83550; 85025